=== PATIENT | female | born 1995 | race Caucasian/White ===

== ENCOUNTER 2018-04-16 01:16 | Outpatient (CLI) | payer OTHER, SELFPAY ==
[2018-04-16 02:24] VITALS: BMI 25.4
[2018-04-16 02:28] LABS: Bacteria 0 SEEN /hpf (None Seen); Mucous, Urine 0 SEEN /hpf (<or=2+)
[2018-04-16 02:57] LABS: Color, Urine Yellow (Yellow); Glucose, Dipstick Normal (Normal); Ketone-Dipstick Negative (Negative); Leukocyte Esterase-Dipstick 25 /ul (Negative); Nitrite-Dipstick Negative (Negative); Occult Blood-Urine 10 /ul (Negative); Protein-Dipstick Negative (Negative); Urine Bilirubin Dipstick Negative (Negative); Urine Clarity Sl. Cloudy (Clear); Urine Urobilinogen 1 mg/dl (Normal); Urine pH 6.5 (5.0 - 8.0)
[2018-04-16 03:04] LABS: Squamous Epithelial Cells - UA 0-5 SEEN /hpf (5-10)
[2018-04-16 03:05] LABS: White Blood Cells 0-5 SEEN /hpf (0-5)
[2018-04-16 03:06] LABS: Red Blood Cells-Urine 0-5 SEEN /hpf (0-5)
--- NOTE | 2018-04-16 07:24 | OB.TRI.NOTE ---
History of Present Illness Date of Service: 04/16/18 Was patient seen by the physician?: No Reason For Visit: R/O LABOR Date of Service: 04/16/18 Final EDWARD: 05/02/18 Gestational age: 37 Weeks and 5 Days Allergies No Known Allergies Allergy (Verified 04/16/18 01:59) NST - FHR Rate Baby A Baseline: 120 bpm Variability:: Moderate Accelerations:: 15 x 15 Decelerations:: None NST Reactive:: Yes, Appropriate for gestational age FHR Category:: Category I Uterine Activity:: irreg ctxs Impression/Plan 22 YOF primigravida at 37w 5 days w/ false labor home w/ labor precautions UA w/o evidence of infection push fluids f/u in office prn or as scheduled
== END 2018-04-16 03:15 | disposition home or self-care (01) ==
LOC: WPOUT 01:31 → WP 01:32
PROVIDERS: Visit Provider Obstetrics & Gynecology
DX: O47.1 False labor at or after 37 completed weeks of gestation (principal); Z3A.37 37 weeks gestation of pregnancy
CPT/HCPCS: 59025; 59050; 81001; 99218; G0378

== ENCOUNTER 2018-04-30 20:30 | Inpatient (IN) | payer OTHER, SELFPAY ==
[2018-04-30 19:48] VITALS: BMI 25.5
[2018-04-30] MEDS: Lactated Ringers 1,000 ML 999 ML IV (20:04)
[2018-04-30] MEDS: Nalbuphine 10 MG/ML Ampul IV (20:22)
[2018-04-30] MEDS: proMETHazine 25 MG/ML Syringe 12.5 MG IV (20:23)
[2018-04-30] MEDS: 0.9% NaCl Peripheral Flush Adult/Peds IV (20:26)
[2018-04-30 21:01] LABS: Hematocrit 36.9 % (37-47); Hemoglobin 12.1 g/dl (12.0-15.0); Mean Corp Hgb Conc 32.8 g/gl (32-36); Mean Corpuscular Hgb 29.7 pg (27.0-32.0); Mean Corpuscular Volume 90.7 fL (81-99); Mean Platelet Vol. 11.8 fl (6.2-12.0); Platelet Count 152 K/mm3 (150-450); RBC Distribution Width CV 14.9 % (11.6-14.6); RBC Distribution Width SD 50.1 fl (35.1-43.9); Red Blood Count 4.07 M/mm3 (4.2-5.4); White Blood Count 15.1 K/mm3 (4.4-11.0)
[2018-04-30 21:04] LABS: Scan Indicated on CBC? Y/N NO
[2018-04-30] MEDS: Lactated Ringers 1,000 ML 50 ML IV (21:10)
[2018-04-30] MEDS: fentaNYL-bupivacaine (epidural) 100 ML BAG EPIDURAL (21:50)
[2018-05-01] MEDS: Lactated Ringers 1,000 ML 50 ML IV (00:05)
[2018-05-01] MEDS: fentaNYL-bupivacaine (epidural) 100 ML BAG EPIDURAL (01:52)
[2018-05-01] MEDS: Ondansetron 4 MG/2 ML Vial IV (03:03)
--- NOTE | 2018-05-01 04:04 | PCM.HP.OB ---
- Problem List (1) Tobacco use during Status: Acute (2) Marijuana abuse Status: Acute (3) Status: Acute (4) Anemia affecting Status: Acute History Date of Admission: 04/30/18 Final EDWARD: 05/02/18 Final EDWARD Source: LMP Gestational age: 39 Weeks and 6 Days History of this : This is a 22 year-old, G [1], P [0], at 39 weeks 6 days estimated gestational age by LMP, confirmed by 1st trimester ultrasound. Presented to L&D with contractions that had been present since the am. Increased in frequency and intensity. Denies any leakage of fluid, vaginal, bleeding. Good movement. Upon triage in L&D minimal cervical change but then had SROM for clear fluid. Allergies No Known Allergies Allergy (Verified 04/30/18 19:36) Home Medications: Home Medications Acetaminophen [Tylenol Extra Strength] 500 - 1,000 mg PO Q6H PRN PRN 04/30/18 Ferrous Gluconate 27 mg PO 04/30/18 [id number]/FA/Omega3/Dha/Fish Oil [ Gummies] 2 each PO DAILY 04/30/18 Smoking Status: Former smoker Alcohol: None Substance Use Type: Marijuana - Positive in first trimester, 03/28/18 urine tox negative. Number of Fetus(es): 1 Heart Tracin, moderate variability, accels, Category 1 TOCO: every 2 minutes, strong to palpation Cervix complete/+2 station History Past Pregnancies: Past Pregnancies Delivery Date Name GA/Weeks Outcome Route Weight Infant Gender Labor Length Anesthesia Delivery Location Provider FOB Labs: RPR negative HIV negative HBsAG negative Rubella Immune GC/CT negative AB positive, antibody screen negative Urine tox screen positive for marijuana in first trimester, negative rescreen on 03/28/18 Expected Delivery Method: Spontaneous Vaginal Review of Systems Constitutional: Denies: Chills, Fever, Weight Change Cardiovascular: Denies: Chest Pain, Palpitations Gastrointestinal: Denies: Abdominal Pain, Nausea, Vomiting Genitourinary: Denies: Dysuria Psychiatric: Denies: Anxiety, Depression, Homicidal Ideations, Suicidal Ideations Physical Exam General: Alert, Oriented x3, No apparent distress HEENT: Atraumatic, Normocephalic Extremities:: No edema PING PONG TABLE ASSEMBLER: Normal external genitalia Estimated gestational size: Appropriate for gestational size Presentation: Cephalic Cervix Dilation (cm): 10 Station: 2 Effacement (%): 100 Assessment/Plan All Active Problems Tobacco use during (Acute) Marijuana abuse (Acute) (Acute) Anemia affecting (Acute) This is a 22 year-old, G [1], P [0], at 39 weeks gestational age. A:Active labor, second stage Category 1 FHT P: 1) Admit to L&D, routine care 2) Epidural placement for pain 3) Anticipate vaginal delivery soon. 4) Declines LARC, form signed in office 5) collaborative physician, notified of patient status Ana Puckett APRN, CNM
--- NOTE | 2018-05-01 04:08 | HP.PCM_ITS ---
- Problem List (1) Tobacco use during Status: Acute (2) Marijuana abuse Status: Acute (3) Status: Acute (4) Anemia affecting Status: Acute History Date of Admission: 04/30/18 Final EDWARD: 05/02/18 Final EDWARD Source: LMP Gestational age: 39 Weeks and 6 Days History of this : This is a 22 year-old, G [1], P [0], at 39 weeks 6 days estimated gestational age by LMP, confirmed by 1st trimester ultrasound. Presented to L&D with contractions that had been present since the am. Increased in frequency and intensity. Denies any leakage of fluid, vaginal, bleeding. Good movement. Upon triage in L&D minimal cervical change but then had SROM for clear fluid. Allergies No Known Allergies Allergy (Verified 04/30/18 19:36) Home Medications: Home Medications Acetaminophen [Tylenol Extra Strength] 500 - 1,000 mg PO Q6H PRN PRN 04/30/18 Ferrous Gluconate 27 mg PO 04/30/18 [id number]/FA/Omega3/Dha/Fish Oil [ Gummies] 2 each PO DAILY 04/30/18 Smoking Status: Former smoker Alcohol: None Substance Use Type: Marijuana - Positive in first trimester, 03/28/18 urine tox negative. Number of Fetus(es): 1 Heart Tracin, moderate variability, accels, Category 1 TOCO: every 2 minutes, strong to palpation Cervix complete/+2 station History Past Pregnancies: Past Pregnancies Delivery Date Name GA/Weeks Outcome Route Weight Infant Gender Labor Length Anesthesia Delivery Location Provider FOB Labs: RPR negative HIV negative HBsAG negative Rubella Immune GC/CT negative AB positive, antibody screen negative Urine tox screen positive for marijuana in first trimester, negative rescreen on 03/28/18 Expected Delivery Method: Spontaneous Vaginal Review of Systems Constitutional: Denies: Chills, Fever, Weight Change Cardiovascular: Denies: Chest Pain, Palpitations Gastrointestinal: Denies: Abdominal Pain, Nausea, Vomiting Genitourinary: Denies: Dysuria Psychiatric: Denies: Anxiety, Depression, Homicidal Ideations, Suicidal Ideations Physical Exam General: Alert, Oriented x3, No apparent distress HEENT: Atraumatic, Normocephalic Extremities:: No edema ABRASIVE GRADER: Normal external genitalia Estimated gestational size: Appropriate for gestational size Presentation: Cephalic Cervix Dilation (cm): 10 Station: 2 Effacement (%): 100 Assessment/Plan All Active Problems Tobacco use during (Acute) Marijuana abuse (Acute) (Acute) Anemia affecting (Acute) This is a 22 year-old, G [1], P [0], at 39 weeks gestational age. A:Active labor, second stage Category 1 FHT P: 1) Admit to L&D, routine care 2) Epidural placement for pain 3) Anticipate vaginal delivery soon. 4) Declines LARC, form signed in office 5) collaborative physician, notified of patient status Ana Puckett APRN, CNM
[2018-05-01] MEDS: Oxytocin 30 units/NS 500 ml 30 UNITS/500 ML IV.SOLN 334 UNITS IV (04:53)
--- NOTE | 2018-05-01 05:23 | PCM.OB.VAG ---
- Problem List (1) Tobacco use during Status: Acute (2) Marijuana abuse Status: Acute (3) Status: Acute (4) Anemia affecting Status: Acute (5) Vaginal delivery Status: Acute (6) First degree perineal laceration during delivery Status: Acute Vaginal Delivery Maternal Presentation: Active Labor Amniotic Membrane Rupture Type: Spontaneous Amniotic Fluid Description: Clear Final EDWARD: 05/02/18 Final EDWARD Source: LMP Gestational age: 39 Weeks and 6 Days Date of Procedure: 05/01/18 Pre-Operative Diagnosis: Active labor Post-Operative Diagnosis: Surgery/ Procedure Performed: Spontaneous Vaginal Delivery Type of Anesthesia: Epidural Description of Procedure: Progressed to complete and +2 station. Epidural effective. Pushing efforts began with good maternal effort. of viable female over 1st degree perineal laceration, APGARS 9,9. delivered OA and placed on maternal abdomen, spontaneous cry, mouth and nares suctioned for secretions. Pitocin IVPB startedwith gentle traction/counter pressure for active 3rd stage management. Cord doubly clamped after pulsations ceased, delayed cord clamping. Cord cut by FOB. Placenta delivered with maternal effort via myrna, intact, 3 vessel cord. Perineum inspected and revealed 1st degree perineal laceration, repaired under epidural analgesia and 3.0 vicryl, hemostasis achieved. Fundus firm, EBL 300ml. Sponge and instrument count complete. initiated, mom and baby stable. Family bonding well. notified of delivery. Presentation: Vertex Placental Delivery Description: Spontaneous Placenta Disposition: [facility] Cord Vessel Description: 3 Vessels Estimated Blood Loss: 300 ml A gender: Female (1 minute): 9 (5 minute): 9 Episiotomy Description: None Laceration: Perineal Extension/lac, 1st degree Medications given after delivery: IV Pitocin
--- NOTE | 2018-05-01 05:31 | PCM.DCVAG ---
Discharge Diet: No Restrictions Discharge Activity: Return to Normal Activity May resume sexual activity in: 4-6 weeks Weight Bearing Status: Full weight bearing Call your doctor if your incision/area has: Continuous Slow Oozing, Sudden Increased Bleeding, Increased Pain/ Swelling, Increased Redness, Foul Smelling Discharge Call your doctor if you observe: Fever of 101 or Higher, Inability to urinate, Inability to have a bowel movement, Using more than one pad per hour, Shortness of breath, Chest pain, Increased palpitations (irregular heartbeat), Calf discomfort, Uncontrolled pain Additional Instructions: If you experience any of the following, contact your healthcare provider. Bleeding that soaks a pad every hour for 2 hours Fever 100.4 or higher Unrelieved incision or abdominal pain Swelling, redness, discharge or bleeding from your incision or episiotomy site Your incision begins to separate Problems urinating (including inability to urinate or burning while urinating). Visual changes Severe headache Flu-like symptoms Pain or redness in one of both of your breasts Pain, warmth, tenderness or swelling in your legs, especially the calf area Frequent nausea and vomiting Symptoms of depression or anxiety If you experience any of the following, call 911 or go to the nearest Emergency Room. Chest pain Problems breathing Seizure activity Partial or complete paralysis of a body part, slurred speech, weakness or drooping of the face, or a sudden inability to walk or hold your balance Allergies/Adverse Reactions: Allergies No Known Allergies Allergy (Verified 04/30/18 19:36) Medications to take at Discharge Acetaminophen [Tylenol Extra Strength] 500 - 1,000 mg PO Q6H PRN PRN 04/30/18 Ferrous Gluconate 27 mg PO 04/30/18 [id number]/FA/Omega3/Dha/Fish Oil [ Gummies] 2 each PO DAILY 04/30/18 Please Follow Up With: Ana Puckett CNM When: Call to make an appointment with your provider in 2 weeks and 6 weeks. Primary Care Physician: Care Physician,No Primary [Primary Care Provider] - Test Results: Test results from this visit will be discussed in further detail at your follow-up appointment, if applicable.
[2018-05-01] MEDS: Oxytocin 30 units/NS 500 ml 30 UNITS/500 ML IV.SOLN 167 UNITS IV (05:35)
[2018-05-01 08:03] LABS: Amphetamine Urine VISTA NEGATIVE (<1000 ng/mL); Barbiturate Urine VISTA NEGATIVE (< 200 ng/mL); Benzodiazepine Urine VISTA NEGATIVE (< 200 ng/mL); Cocaine Urine VISTA NEGATIVE (< 300 ng/mL); Ecstacy Urine VISTA NEGATIVE (< 500 ng/mL); Methadone Urine VISTA NEGATIVE (< 300 ng/mL); PCP Urine VISTA NEGATIVE (< 25 ng/mL); THC Urine VISTA NEGATIVE (< 50 ng/mL); Vista UDS pH Range 6
[2018-05-01] MEDS: Ibuprofen 600 MG Tablet PO ×2 (08:45→15:05)
[2018-05-01] MEDS: 0.9% Saline Lock 10 ML Syringe IV (08:45)
[2018-05-01 09:00] VITALS: BP 120/66; PULSE 84; RESP 16; TEMP 36.5; O2SAT 98
--- NOTE | 2018-05-01 10:58 | NURSING ---
Agree with assessment by Sae MALLORY
[2018-05-01 12:20] VITALS: BP 107/63; PULSE 72; RESP 18; TEMP 36.7; O2SAT 97
[2018-05-01 15:40] VITALS: BP 116/71; PULSE 86; RESP 18; TEMP 36.6; O2SAT 97
[2018-05-01 20:00] VITALS: BP 119/70; PULSE 84; RESP 16; TEMP 36.8; O2SAT 98
[2018-05-02 01:09] VITALS: BP 121/85; PULSE 97; RESP 16; TEMP 36.6; O2SAT 98
[2018-05-02 04:30] VITALS: BP 113/62; PULSE 70; RESP 16; TEMP 36.7; O2SAT 97
[2018-05-02] MEDS: Ibuprofen 600 MG Tablet PO (04:38)
[2018-05-02 08:00] VITALS: BP 121/73; PULSE 79; RESP 16; TEMP 36.9; O2SAT 97
--- NOTE | 2018-05-02 08:37 | PCM.PN.OB ---
Patient Problems: Active and Suspected Problems Tobacco use during (Acute) Marijuana abuse (Acute) (Acute) Anemia affecting (Acute) Vaginal delivery (Acute) First degree perineal laceration during delivery (Acute) Subjective: Patient sitting up in bed, denies any issues at this time. Reports that baby wasn't latching and not much milk was coming out so patient has elected to formula feed baby. Patient denies any issues with urination and ambulation. Denies WELCH, scotoma or dizziness. Patient denies bowel movement yet, though she is passing gas. Objective: Nipples without cracks or blisters, no ecchymoses noted Abdomen NT x 4 quadrants, FF midline 2FB below umbilicus +2/4 reflexes in LE, no edema noted, negative calf tenderness to palpation perineum well approximated, scant rubra lochia - Physical Exam General: Alert, Oriented x3, Cooperative HEENT: Atraumatic, EOMI, Normocephalic Neck: Supple Lungs: Normal air movement Cardiovascular: Regular rate, No murmurs Abdomen: Soft, Non Tender Extremities: No edema, Capillary Refill Less than 3 Seconds Skin: No rashes, No breakdown Musculoskeletal: No Tenderness to Palpation of Joints or Extremities Neurological: Cranial nerves II-XII grossly intact Psych/Mental Status: Normal Affect, Appropriate Vital Signs Temp Pulse Resp BP Pulse Ox 98.5 F 79 16 121/73 H 97 05/02/18 08:00 05/02/18 08:00 05/02/18 08:00 05/02/18 08:00 05/02/18 08:00 Oxygen Delivery Method Room Air Weight: 158 lb 4.67 oz Body Mass Index (BMI) 25.5 Intake and Output for Last 24 Hours 04/30/18 05/01/18 05/02/18 23:59 23:59 23:59 Intake Total 4165.1 / 4165.1 Output Total 100 / 100 2150 / 2150 Balance -100 / -100 2014.1 Medical Necessity - Tobacco Use Smoking Status: Former smoker Assessment/Plan All Active Problems Tobacco use during (Acute) Marijuana abuse (Acute) (Acute) Anemia affecting (Acute) Vaginal delivery (Acute) First degree perineal laceration during delivery (Acute) 22 y/o G1 now P1, s/p , PPD # 1 P: 1) Continue PP orders 2) teaching/education done. Discussion re: presence of colostrum and delay of milk production for 2-3 days after delivery. Discussion also re: as supply and demand, the more one breastfeeds the sooner the milk comes in. Patient still unsure if she will try to breastfeed. 3) Anticipate discharge to home tonight or tomorrow AM pending discharge. Susy SAMUEL
--- NOTE | 2018-05-02 11:04 | CM.ED ---
Social Work Note [See Attached Assessment] BRAXTON presents with pleasant affect as evidenced by smiling and willingness to participate in assessment. Upon entry into room she is holding the and gazing at her. This is MOB first child and they have named her Radha. BRAXTON reports to live with her parents and 19 y/o brother. GEETHA lives with his parents, but stays with her frequently. They both work. BRAXTON works at [employer] and will have 6 weeks off, and reports that GEETHA works at [employer]. She is insured through her parents and they are checking to see if the can be added to that insurance. Also suggested looking into coverage under her father, or through [employer] is eligible. Understanding expressed. Pt denies any physical, verbal or emotional abuse in the home or within her relationship with FOKristin. MOB states that all supplies are obtained and she denies concerns. She is not linked with any local agencies such as [place], [facility] or [place]. She declines referrals, but accepts information provided. Infant's hairmasters manager will be Dr. Baker. BRAXTON has not established the first appointment, but is aware that she will need to do so within the next week. Reports access to transportation. MOB denies mental health diagnoses. Review PPD and provide with information packet. BRAXTON identifies her mother and FOB as her primary supports. Claims that when she is feeling anxious or down she just talks with one of them and that typically resolves her symptoms. Denies need for counseling at this time. Provided with local resources if this need changes. BRAXTON reports a hx of marijuana use prior to being . Has not had a positive tox screen during the or upon admission. Infant's urine screenings have been negative, but [facility] sample is still pending. MOB denies any other drug use. Inform that if mec sample returns positive this display card writer, as a mandated court reporter, has to make a CSB referral. BRAXTON would like notified if this is done. Provide support. MOB denies further needs at this time. Made aware that SW is available if needs arise prior to discharge. Plan: Home Ana Wolf, FILM RENTAL CLERK, [employer] WORKER
[2018-05-02 14:00] VITALS: BP 114/79; PULSE 84; RESP 16; TEMP 36.5
== END 2018-05-02 17:30 | disposition home or self-care (01) | DRG 775 ==
LOC: WPOUT 20:32
PROVIDERS: Admitting Provider Obstetrics & Gynecology; Visit Provider Obstetrics & Gynecology
DX: O42.02 Full-term premature rupture of membranes, onset of labor within 24 hours of rupture (principal); O99.324 Drug use complicating childbirth; F12.10 Cannabis abuse, uncomplicated; O99.334 Smoking (tobacco) complicating childbirth; O70.0 First degree perineal laceration during delivery; O99.02 Anemia complicating childbirth; D64.9 Anemia, unspecified; Z3A.39 39 weeks gestation of pregnancy; Z37.0 Single live birth
CPT/HCPCS: 59025; 59050; 80307; 85027; 86850; 86900; 99218; J7120; A4216; G0378; J2405

== ENCOUNTER 2019-07-16 10:09 | Emergency (ER) | payer MEDICAID, SELFPAY ==
[2019-07-16 10:10] VITALS: BP 164/106; PULSE 121; RESP 16; TEMP 36.6; O2SAT 99; BMI 21.7
--- NOTE | 2019-07-16 10:32 | ED.VIS.DENTA ---
History of Present Illness Chief Complaint: Dental Informant: Patient Onset: Days Context: Gradual Onset Timing: Continuous Current Severity: Severe Maximum Severity: Severe Relieved by: NSAIDs Associated Symptoms: Jaw Swelling Narrative: Patient is a 23-year-old female with no significant past medical history presenting with right lower dental pain and swelling. Patient states it is been progressing over the past 2 to 3 days. She is now having swelling on her right lower jaw. Patient states her symptoms been making her very anxious and because of that she is been having more anxiety attacks. Patient notes that she has had a cough that intermittently is productive of a small amount of blood. Patient does smoke tobacco. She has been alternating Tylenol and Motrin at home. Did not take anything today. She is also been trying to keep the area cold by drinking cold things. She still able to eat and is handling her secretions. Patient has had a cracked tooth for over a year and had a flareup of this that resolved spontaneously 1 month ago. She does not have a dentist. She would like referral to the dentist. She denies any fever or chills. She does have associated headache. Past Medical History - Allergies and Home Meds Allergies/Adverse Reactions: Allergies No Known Allergies Allergy (Verified 07/16/19 10:13) Primary Care Physician: Care Physician,No Primary [Primary Care Provider] - Past Medical History: None Surgical History: noncontributory Lives: With Family Smoking Status: Current every day smoker Review of Systems All systems negative except as indicated ENT: Reports: - - Right lower dental pain and swelling Respiratory: Reports: Cough Neurological: Reports: Headache Psych: Reports: Anxiety Physical Exam Vital Signs/Narrative: Vital Signs Temp Pulse Resp BP Pulse Ox 07/16/19 10:10 98 F 121 H 16 164/106 H 99 Inital Vital Signs reviewed: Yes General: Well nourished, Well developed Head: Atraumatic, - - Mild soft tissue swelling just below the right angle of the mandible ENT: Moist mucous membranes, No rhinorrhea, TM's clear Mouth/Throat: Normal inspection lips/gums, Normal oral mucosa, No dental tenderness, No focal abscess, Normal posterior oropharynx, No sublingual edema, Dentral fracture - Large fracture and erosion of the right lower back molar which is where patient's pain is, there is no reproducible tenderness to palpation, Widespread dental decay. Negative for: Tenderness on tooth percussion Neck: Supple, No lymphadenopathy, Nontender, No JVD, Submandibular soft tissue swelling - Right, - - No nuchal rigidity Cardiovascular: Regular rate, Regular rhythm, No murmurs Respiratory: No distress, CTA bilaterally, Chest nontender. Negative for: Wheezing, Chest tenderness Abdomen: Soft, Nontender, Nondistended, Normal bowel sounds Back: Nontender, Normal Inspection Extremities: Nontender, No edema Skin: Normal color, No rash Neurological: Alert, Oriented x3, Cranial nerves II-XII grossly intact, Normal Strength, Normal Sensation Psychological: Normal affect Diagnostic/Tx/Re-eval - Medical Decision Making She is evaluated for dental pain and associated facial swelling. She appears nontoxic and in no acute distress. Patient is mildly tachycardic but she is also very anxious. is negative. Patient is given Motrin, Tylenol and penicillin for likely deep dental abscess. There is no obvious area of fluctuance amenable to drainage at this time. She her sublingual mucosa is soft and she does not have overriding cellulitis. I do not suspect Jose Raul's angina. Patient airway is intact. Her breath sounds are clear. What she states she has had a mild cough with some blood do not think further evaluation of this is indicated emergently. Patient is given dental referral. She is encouraged to quit smoking as this is likely exacerbating her dental infection and pain. Patient is counseled on signs and symptoms requiring return to the emergency room. Patient verbalizes agreement and understand this plan. Patient discharged home in stable and improved condition. ED Disposition - Plan for ED Patient: Disposition: Home or Assisted Living Diagnosis: Dentalgia, Facial swelling Instructions: Dental Abscess Prescriptions: Ibuprofen 600 mg PO 4X/DAY PRN #20 tab PRN Reason: Pain Or Fever Prescription Printed Penicillin V Potassium 500 mg PO 4X/DAY #40 tab Prescription Printed Referrals: Valeria Reddy [NON-STAFF] - Additional Instructions: It is very important that you follow-up with a dentist. Please stop smoking. Alternate Tylenol and ibuprofen for pain. Make sure you take the antibiotics. Your test was negative today.
[2019-07-16 10:42] VITALS: BP 131/93; PULSE 108; RESP 18; O2SAT 96
[2019-07-16] MEDS: Acetaminophen 500 MG Tablet 1000 MG PO (10:44)
[2019-07-16] MEDS: Penicillin Vk 250 MG Tablet 500 MG PO (10:45)
[2019-07-16 10:49] LABS: Internal QC Validated? YES +Cl - CLEAR BKGD; Pregnancy, Urine Negative Negative
[2019-07-16] MEDS: Ibuprofen 600 MG Tablet PO (10:58)
[2019-07-16 11:01] VITALS: RESP 16
--- NOTE | 2019-07-16 11:01 | ED.RN ---
REVIEWED D/C INSTRUCTIONS, FOLLOW UP CARE, PRESCRIPTIONS, AND S/S THAT WOULD WARRANT A RETURN TO THE ED WITH PT. PT VERBALIZED AN UNDERSTANDING AND DENIES FURTHER QUESTIONS FOR THIS RN. PT SKIN P/W/D, RESP EVEN AND UNLABORED, PT A&O X 3, NO DISTRESS NOTED. PT AMBULATED OUT OF ED, GAIT STEADY.
== END 2019-07-16 11:03 | disposition home or self-care (01) ==
PROVIDERS: Emergency Provider Emergency Medicine
DX: K03.81 Cracked tooth (principal); F17.200 Nicotine dependence, unspecified, uncomplicated
CPT/HCPCS: 81025; 99283

== ENCOUNTER 2020-01-06 13:08 | Emergency (ER) | payer SELFPAY ==
[2020-01-06 13:10] VITALS: BP 121/86; PULSE 116; RESP 18; TEMP 36.3; O2SAT 99; BMI 24.0
--- NOTE | 2020-01-06 13:24 | EKG12_ITS ---
Test Reason : DIZZINESS Blood Pressure : / mmHG Vent. Rate : 102 BPM Atrial Rate : 102 BPM P-R Int : 140 ms QRS Dur : 080 ms QT Int : 340 ms P-R-T Axes : 064 -03 059 degrees QTc Int : 443 ms Sinus tachycardia Otherwise normal ECG Confirmed by RMOA BANDA, SUJIT ([id number]), sound editor ASTER CHUNG ([id number] on 01/08/2020 10:02:43 AM Referred By: TAPAN Confirmed By:SUJIT BRANDON MD
--- NOTE | 2020-01-06 13:25 | ED.VIS.GEN ---
History of Present Illness Chief Complaint: Dizziness Informant: Patient Onset: Days - Syncopal episode on Context: Sudden Onset Timing: Intermittent Quality: Patient states she passed out Location: Home Current Severity: Mild Maximum Severity: Severe Worsened by: Rising from supine or sitting position rapidly Relieved by: Setting Associated Symptoms: Nausea and history of iron deficiency anemia Narrative: Patient is a 24-year-old who states her last normal menstrual period which began this month was abnormal. She states it was very heavy for 3 days. She is sexually active. She does not use any form of control. She discontinued taking her iron tablets 20 months ago which is approximately a month after her child was born. She denies black or maroon stool. She denies blood in her urine. She denies heavy menstrual periods. She stated this month was heavy compared to prior months. Patient denies fever, chills night sweats. She denies headache, paresthesia, anesthesia medics. She denies ocular, visual auditory symptoms. She denies chest pain. She has complained of bilateral upper abdominal pain intermittently for the past several days. She denies food intolerance. She denies dysuria, frequency or urgency. Prior similar symptoms: Yes Recent Illness/Hospitalization: No - Past Medical History (1) Anemia affecting Status: Acute (2) Marijuana abuse Status: Acute Past Medical History - Allergies and Home Meds Allergies/Adverse Reactions: Allergies No Known Allergies Allergy (Verified 01/06/20 13:10) Primary Care Physician: Care Physician,No Primary [Primary Care Provider] - Surgical History: noncontributory Lives: With Family Smoking Status: Current every day smoker Alcohol: Rare Drugs: Marijuana Review of Systems General: Reports: Malaise. Denies: Chills, Fever, Subjective, Sweats, Weight loss Eyes: Denies: Visual changes - bilaterally, Blurred Vision - bilaterally, Diplopia ENT: Denies: Rhinorrhea, Sore throat Cardiovascular: Reports: Palpitations, Heart racing. Denies: Chest pain Respiratory: Reports: Cough - And cough which she attributes to smoking.. Denies: Dyspnea, Dyspnea on exertion Gastrointestinal: Reports: Abdominal pain - Bilateral right and left costal margin intermittently over the past several days, Nausea. Denies: Vomiting, Diarrhea, Constipation, Melena, Hematochezia Genitourinary: Denies: Dysuria, Hematuria, Frequency Musculoskeletal: Denies: Myalgias, Arthralgias, Neck pain, Back pain, Swelling, Extremity Pain, -, - Skin: Denies: Rash, Wounds Neurological: Denies: Headache, Weakness, Parasthesia, Numbness Endocrine: Denies: Polyuria, Polydipsia Allergy: Denies: Uticaria, Swelling of the mouth Physical Exam Vital Signs/Narrative: Vital Signs Temp Pulse Resp BP Pulse Ox 01/06/20 13:10 97.4 F L 116 H 18 121/86 H 99 Inital Vital Signs reviewed: Yes General: Well nourished, Well developed, No Acute Distress Head: Normocephalic, Atraumatic Eyes: Perrl, EOMI. Negative for: Pale conjunctiva, Scleral icterus ENT: Moist mucous membranes, No rhinorrhea Neck: Supple, Nontender, No lymphadenopathy, No JVD Cardiovascular: Regular rate, Regular rhythm, No murmurs, Normal S1, Normal S2 Respiratory: No distress, CTA bilaterally, Chest nontender Abdomen: Soft, Nontender, Nondistended, Normal bowel sounds, No masses Back: Nontender, Normal Inspection Extremities: Nontender, No edema. Negative for: Calf Tenderness Skin: No rash, No Trauma, Pallor. Negative for: Cyanosis, Diaphoresis, Jaundice Neurological: Alert, Oriented x3, Cranial nerves II-XII grossly intact, Normal Strength, Normal Sensation, Normal Gait Psychological: Normal affect Diagnostic/Tx/Re-eval Laboratory Results 01/06/20 01/06/20 01/06/20 13:25 13:25 13:25 WBC 10.2 RBC 4.55 Hgb 13.5 Hct 41.1 MCV 90.3 MCH 29.7 MCHC 32.8 RDW Std Deviation 45.6 H RDW Coeff of Kana 13.9 Plt Count 203 MPV 10.9 Sodium 138 Potassium 4.1 Chloride 107 Carbon Dioxide 26.0 Anion Gap 5 BUN 12 Creatinine 0.76 Estim Creat Clear Calc 108.69 Est GFR (MDRD) Af Amer 122 Est GFR (MDRD) Non-Af 101 BUN/Creatinine Ratio 15.7 Glucose 95 Calcium 8.8 Serum , Qual NEGATIVE Static vital signs were negative. Suspect patient had vasovagal sick episode on . - Rhythm Strip Rhythm Strip: Sinus Tach Rate: 122 Ectopy: None - EKG Initial EKG Interpretation: Sinus Tachycardia - Sinus tachycardia rate of 102. CT interval 140 ms. QRS duration 80 ms. QT duration 340 ms. [place] is normal. - Medical Decision Making Differential includes vasovagal syncope, orthostatic hypotension, with history of iron deficiency Ann-Marie will obtain CBC and basic metabolic panel was obtained to assess BUN to creatinine ratio. Because her menses was abnormal will obtain serum test. ED Disposition - Plan for ED Patient: Disposition: Home or Assisted Living Diagnosis: Syncope and collapse, Sinus tachycardia by electrocardiogram, Abnormal vaginal bleeding Instructions: ED Fainting Uncertain Cause, ED Bleed Irregular Vaginal Referrals: Care Physician,No Primary [Primary Care Provider] - Gracia Humphrey MD [STAFF PHYSICIAN] - Additional Instructions: Refer to Dr. Humphrey since she do not have a primary care physician in the area.
[2020-01-06 13:37] LABS: Hematocrit 41.1 % (37-47); Hemoglobin 13.5 g/dL (12.0-15.0); Mean Corp Hgb Conc 32.8 g/dL (32-36); Mean Corpuscular Hgb 29.7 pg (27.0-32.0); Mean Corpuscular Volume 90.3 fL (81-99); Mean Platelet Vol. 10.9 fl (6.2-12.0); Platelet Count 203 K/mm3 (150-450); RBC Distribution Width CV 13.9 % (11.6-14.6); RBC Distribution Width SD 45.6 fl (35.1-43.9); Red Blood Count 4.55 M/mm3 (4.2-5.4); White Blood Count 10.2 K/mm3 (4.4-11.0)
[2020-01-06 13:44] LABS: Internal QC Validated? YES +Cl - CLEAR BKGD; Pregnancy, Serum, hCG Quali. NEGATIVE Negative
[2020-01-06 13:49] LABS: Anion Gap 5 (5-15); BUN 12 mg/dL (7-18); BUN/Creat Ratio 15.7 RATIO (10-20); Calcium,Total 8.8 mg/dL (8.5-10.1); Chloride 107 mmol/L (98-107); Creatinine, Serum 0.76 mg/dL (0.55-1.02); EST Glomerular Filtration Rate 101 mL/min (>60); Est Glom Filt Rate - Afr Amer 122 mL/min (>60); Estimated Creatinine Clearance 108.69 ml/min; Glucose 95 mg/dL (74-106); Potassium 4.1 mmol/L (3.5-5.1); Sodium Level 138 mmol/L (136-145)
[2020-01-06 13:53] VITALS: BP 113/68; BP 117/78; BP 118/79; PULSE 118; PULSE 95; PULSE 98
[2020-01-06 14:17] VITALS: BP 118/85; PULSE 105; RESP 20; O2SAT 99
== END 2020-01-06 14:18 | disposition home or self-care (01) ==
PROVIDERS: Emergency Provider Emergency Medicine
DX: R55 Syncope and collapse (principal); R00.0 Tachycardia, unspecified; N93.9 Abnormal uterine and vaginal bleeding, unspecified; F17.200 Nicotine dependence, unspecified, uncomplicated
CPT/HCPCS: 80048; 84703; 85027; 93005; 99284; A4216

== ENCOUNTER 2020-01-07 17:36 | Emergency (ER) | payer SELFPAY ==
[2020-01-06 13:10] VITALS: BMI 24.0
[2020-01-07 17:37] VITALS: BP 147/92; PULSE 123; RESP 16; TEMP 36.7; O2SAT 99; BMI 24.0
--- NOTE | 2020-01-07 17:55 | RAD_ITS ---
STUDY: X-RAY CHEST REASON FOR EXAM: Female, 24 years old. DIZZINESS, CHEST PAIN TECHNIQUE: PA and lateral views of the chest. COMPARISON: None. FINDINGS: Cardiac silhouette unremarkable. Pulmonary vascularity unremarkable. Aorta unremarkable. No focal airspace opacities. No pleural effusions. Upper abdomen unremarkable. Osseous structures intact. No pneumothorax. RAD/Chest PA and Lateral IMPRESSION: No acute cardiopulmonary findings Electronically Signed: Blake Suarez, at 18:35 EDT Tel , Service support ,
--- NOTE | 2020-01-07 17:55 | EKG12_ITS ---
Test Reason : Blood Pressure : / mmHG Vent. Rate : 102 BPM Atrial Rate : 102 BPM P-R Int : 142 ms QRS Dur : 080 ms QT Int : 322 ms P-R-T Axes : 059 -10 051 degrees QTc Int : 419 ms Sinus tachycardia Otherwise normal ECG Confirmed by RENEE FELTON ([id number]), features editor ASTER CHUNG ([id number]) on 01/12/2020 10:28:22 AM Referred By: LILLIAN Confirmed By:RENEE FELTON
[2020-01-07 17:56] VITALS: BP 134/95; PULSE 108; RESP 21; O2SAT 100
[2020-01-07 18:18] LABS: Absolute Lymphocyte Count 1.55 X10^3/uL (0.83-4.51); Absolute Neutrophil Count 6.8 X10^3/uL (2.0-7.7); Basophil# 0.04 X10^3/uL; Basophil% 0.4 % (0-1); Eosinophil# 0.11 X10^3/uL; Eosinophils% 1.2 % (0-5); Hematocrit 42.7 % (37-47); Hemoglobin 13.9 g/dL (12.0-15.0); Lymphocyte # 1.55 X10^3/ul (4.0); Lymphocyte % 17.1 % (19-41); Mean Corp Hgb Conc 32.6 g/dL (32-36); Mean Corpuscular Hgb 29.6 pg (27.0-32.0); Mean Corpuscular Volume 90.9 fL (81-99); Mean Platelet Vol. 10.8 fl (6.2-12.0); Monocyte# 0.51 X10^3/uL; Monocyte% 5.6 % (0-10); NRBC Flagged by Analyzer 0 % (0-5); Neutrophil % 75.4 % (47-70); Platelet Count 202 K/mm3 (150-450); RBC Distribution Width CV 13.9 % (11.6-14.6); RBC Distribution Width SD 46.6 fl (35.1-43.9)
--- NOTE | 2020-01-07 18:19 | ED.VIS.GEN ---
History of Present Illness Chief Complaint: Dizziness Narrative: Patient presenting for evaluation secondary to syncope. Patient reports that over the course of the last 2 days she has had 2 syncopal episodes. Patient was actually seen in the emergency department for this yesterday had lab work and an EKG and was discharged with reassurance. 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 Patient does report that she has been having intermittent chest pain associated with this. Patient states that the pain will come and go and does not specifically have any exacerbating or relieving factors. Patient states that she also has been having somewhat of a headache associated with this. This headache is mild and behind both of her eyes and was not thunderclap. Patient denies any numbness or weakness. Review of the patient's family medical history reports that she has a predisposition to seizures in her family, but she is only experienced one in her life and is not on any sort of antiepileptics. Patient states that there was no postictal period associated with this fainting, and she immediately regained consciousness and there was no loss of bowel or bladder continence or tongue biting. She denies any personal or family history of cardiac arrhythmias sudden or need for pacemaker defibrillator. Patient does drink alcohol and smokes cigarettes, but is not on any sort of control and denies any illicit drug use. No DVT or PE risk factors. Past Medical History - Allergies and Home Meds Allergies/Adverse Reactions: Allergies No Known Allergies Allergy (Verified 01/07/20 17:37) Primary Care Physician: Care Physician,No Primary [Primary Care Provider] - Past Medical History: None Surgical History: noncontributory Smoking Status: Current every day smoker Review of Systems General: Denies: Chills, Fever, Sweats Eyes: Denies: Visual changes - bilaterally, Diplopia ENT: Denies: Rhinorrhea, Sore throat Cardiovascular: Reports: Chest pain, - - Syncope Respiratory: Reports: Dyspnea Gastrointestinal: Denies: Abdominal pain, Nausea, Vomiting, Diarrhea, Melena, Hematochezia Genitourinary: Denies: Dysuria, Hematuria, Frequency Musculoskeletal: Denies: Back pain, Extremity Pain Skin: Denies: Rash, Wounds Neurological: Denies: Headache, Weakness, Numbness Physical Exam Vital Signs/Narrative: Vital Signs Temp Pulse Resp BP Pulse Ox 04/26/20 17:56 108 H 21 H 134/95 H 100 01/07/20 17:37 98.1 F 123 H 16 147/92 H 99 General: Well nourished, Well developed, No Acute Distress Head: Normocephalic, Atraumatic Eyes: Perrl, EOMI ENT: Moist mucous membranes, No rhinorrhea Neck: Supple, Nontender, - - No thyroid tenderness Cardiovascular: Regular rhythm, No murmurs, Tachycardia Respiratory: No distress, CTA bilaterally, Chest nontender Abdomen: Soft, Nontender, Nondistended, Normal bowel sounds Back: Nontender, Normal Inspection Extremities: Nontender, No edema Skin: Normal color, No rash Neurological: Alert, Oriented x3, Cranial nerves II-XII grossly intact, Normal Strength, Normal Sensation Psychological: Normal affect, Normal Mood Diagnostic/Tx/Re-eval Clinical Impression(s) from Imaging Studies Chest X-Ray 01/07/20 17:55 IMPRESSION: No acute cardiopulmonary findings Electronically Signed: Blake Suarez, at 18:35 EDT Tel , Service support , Brain CT 01/07/20 18:23 IMPRESSION: Normal unenhanced CT scan of the brain. Electronically Signed: Ji Mckeon, at 18:59 EDT Tel , Service support , Laboratory Data 01/07/20 01/07/20 01/07/20 18:05 18:05 18:05 WBC 9.0 RBC 4.70 Hgb 13.9 Hct 42.7 MCV 90.9 MCH 29.6 MCHC 32.6 RDW Std Deviation 46.6 H RDW Coeff of Kana 13.9 Plt Count 202 MPV 10.8 Immature Gran % (Auto) 0.300 Neut % (Auto) 75.4 H Lymph % (Auto) 17.1 L [place] % (Auto) 5.6 Eos % (Auto) 1.2 Baso % (Auto) 0.4 Absolute Neuts (auto) 6.8 Absolute Lymphs (auto) 1.55 Nucleated RBC % 0 D-Dimer Quant (PE/DVT) 0.35 Sodium Potassium Chloride Carbon Dioxide Anion Gap BUN Creatinine Estim Creat Clear Calc Est GFR (MDRD) Af Amer Est GFR (MDRD) Non-Af BUN/Creatinine Ratio Glucose Calcium Magnesium Total Bilirubin 0.30 Direct Bilirubin 0.10 AST 17 ALT 20 Alkaline Phosphatase 81 Troponin I Total Protein 7.2 Albumin 3.9 Globulin 3.3 TSH 01/07/20 18:05 WBC RBC Hgb Hct MCV MCH MCHC RDW Std Deviation RDW Coeff of Kana Plt Count MPV Immature Gran % (Auto) Neut % (Auto) Lymph % (Auto) [place] % (Auto) Eos % (Auto) Baso % (Auto) Absolute Neuts (auto) Absolute Lymphs (auto) Nucleated RBC % D-Dimer Quant (PE/DVT) Sodium 142 Potassium 4.0 Chloride 110 H Carbon Dioxide 26.0 Anion Gap 6 BUN 11 Creatinine 0.78 Estim Creat Clear Calc 105.91 Est GFR (MDRD) Af Amer 118 Est GFR (MDRD) Non-Af 98 BUN/Creatinine Ratio 14.1 Glucose 84 Calcium 9.0 Magnesium 1.8 Total Bilirubin Direct Bilirubin AST ALT Alkaline Phosphatase Troponin I < 0.015 Total Protein Albumin Globulin TSH 0.38 - EKG Initial EKG Interpretation: - - Sinus tachycardia with a rate of 102. Isoelectric ST segments, normal T waves. No evidence of right ventricular strain. Normal ID and QTc intervals. No evidence of WPW or [place] morphology. - Medical Decision Making Patient presented secondary to syncope. Differential considerations included but are not limited to malignant cardiac arrhythmia, PE, coronary artery disease, seizure, electrolyte abnormality, cardiac malformation. Patient was seen yesterday for a similar presentation. More broad work-up was obtained today. EKG demonstrates no ischemic or arrhythmic changes normal intervals. CBC chemistry TSH troponin and d-dimer liver panel and magnesium studies were found to all be within normal limits. Patient's chest x-ray by my personal review, 2 views was found to be negative. Patient had CT imaging of the brain performed also has she complained of somewhat of a headache for this which was also found to be negative. At this time the patient has had 2 unprovoked syncopal episodes in the last 2 days. I did discuss with her about the risks and benefits of admission versus discharge, and she states that she is a single parent and would be otherwise unable to be admitted as there is no one to care for her child. I discussed this with cardiology, the patient will be set up with a Holter monitor, and will be provided with a prescription for an outpatient echocardiogram and close follow-up with the cardiology office. Patient was discharged in stable condition. ED Disposition - Plan for ED Patient: Disposition: Home or Assisted Living Diagnosis: Syncope Instructions: ED Fainting Uncertain Cause Referrals: Brien Rick MD [STAFF PHYSICIAN] - As soon as possible
--- NOTE | 2020-01-07 18:23 | CT_ITS ---
STUDY: CT BRAIN WITHOUT CONTRAST REASON FOR EXAM: Female, 24 years old. WELCH/DIZZINESS. Hx of sezures. Pt shielded RADIATION DOSAGE (If Supplied By Facility): CTDIvol = ( 44.99 ) mGy, DLP = ( 711.75 ) mGycm TECHNIQUE: Transaxial CT imaging of the brain was performed without administration of intravenous contrast material. Individualized dose optimization techniques were used for this CT. COMPARISON: Head CT 06/29/2014 FINDINGS: Normal soft tissue structures. Normal calvarium. Normal size ventricles and extra-axial spaces for the patient''s age. Normal white matter tracts of the cerebral hemispheres. Normal basal ganglia and thalami. Normal brainstem. Normal cerebellum. There is no intracranial hemorrhage. There are no findings of an acute ischemic infarction. Normal visualized paranasal sinuses. CT/Brain/Head without Contrast IMPRESSION: Normal unenhanced CT scan of the brain. Electronically Signed: Ji Mckeon, at 18:59 EDT Tel , Service support ,
[2020-01-07 18:29] LABS: D-Dimer Quantitative (DVT/PE) 0.35 FEU/ug/m (0.27-0.49)
[2020-01-07 18:45] LABS: Anion Gap 6 (5-15); BUN 11 mg/dL (7-18); BUN/Creat Ratio 14.1 RATIO (10-20); Chloride 110 mmol/L (98-107); Creatinine, Serum 0.78 mg/dL (0.55-1.02); EST Glomerular Filtration Rate 98 mL/min (>60); Est Glom Filt Rate - Afr Amer 118 mL/min (>60); Estimated Creatinine Clearance 105.91 ml/min; Glucose 84 mg/dL (74-106); Magnesium 1.8 mg/dL (1.6-2.6); Sodium Level 142 mmol/L (136-145); Thyroid Stim Hormone (TSH) 0.38 uIU/mL (0.358-3.74)
[2020-01-07 18:49] LABS: AST(SGOT) 17 U/L (15-37); Alanine Aminotransfer ALT/SGPT 20 U/L (13-56); Albumin, Serum 3.9 g/dL (3.2-5.0); Alkaline Phosphatase 81 U/L (45-117); Globulin 3.3 g/dL (2.2-4.2); Protein, Total 7.2 g/dL (6.4-8.2)
[2020-01-07 18:56] VITALS: BP 126/83; PULSE 100; RESP 20; O2SAT 99
[2020-01-07 19:46] VITALS: BP 118/63; PULSE 99; RESP 16; O2SAT 97
== END 2020-01-07 20:07 | disposition home or self-care (01) ==
PROVIDERS: Emergency Provider Emergency Medicine
DX: R55 Syncope and collapse (principal); F17.210 Nicotine dependence, cigarettes, uncomplicated
CPT/HCPCS: 70450; 71046; 80048; 80076; 83735; 84443; 84484; 85025; 85379; 93005; 99284; A4216

== ENCOUNTER → 2020-01-07 19:42 | Outpatient (CLI) | payer SELFPAY ==
[2020-01-07 17:37] VITALS: BMI 24.0
== END ==
LOC: CVS 19:46
PROVIDERS: Referring Provider Emergency Medicine; Visit Provider Emergency Medicine
DX: R42 Dizziness and giddiness (principal)
CPT/HCPCS: 93225; 93226

== ENCOUNTER 2020-01-16 00:12 | Emergency (ER) | payer MEDICAID, SELFPAY ==
[2020-01-16 00:17] VITALS: BP 126/86; PULSE 122; RESP 20; TEMP 36.8; O2SAT 98; BMI 24.5
--- NOTE | 2020-01-16 00:25 | ED.VIS.GEN ---
History of Present Illness Chief Complaint: Laceration Informant: Patient Onset: Today Current Severity: Mild Maximum Severity: Moderate Narrative: Patient presents after suffering a laceration to the right side of her scalp. She states that she hit her head on the corner of a bookshelf. She did get knocked to the ground. She states her right hand is slightly sore but she does not believe she broke anything. Last tetanus was in 2017 per our hospital records. Past Medical History - Allergies and Home Meds Allergies/Adverse Reactions: Allergies No Known Allergies Allergy (Verified 01/16/20 00:19) Primary Care Physician: Care Physician,No Primary [Primary Care Provider] - Prior records reviewed: Yes Past Medical History: None Surgical History: noncontributory Smoking Status: Current every day smoker Review of Systems General: Denies: Chills, Fever Eyes: Denies: Visual changes - bilaterally ENT: Denies: Bilateral ear pain Cardiovascular: Denies: Chest pain Respiratory: Denies: Dyspnea, Cough Gastrointestinal: Denies: Abdominal pain, Nausea, Vomiting, Diarrhea Genitourinary: Denies: Dysuria Skin: Reports: Wounds Neurological: Reports: Headache. Denies: Weakness, Parasthesia Hematologic: Denies: Easy bruising, Easy bleeding Allergy: Denies: Uticaria Physical Exam Vital Signs/Narrative: Vital Signs Temp Pulse Resp BP Pulse Ox 01/16/20 00:17 98.3 F 122 H 20 H 126/86 H 98 Inital Vital Signs reviewed: Yes General: Well nourished, Well developed Head: Normocephalic, - - 4 cm linear laceration right parietal scalp. Bleeding controlled. Eyes: Perrl, EOMI ENT: Moist mucous membranes Neck: Supple, Nontender Cardiovascular: Tachycardia Respiratory: No distress, CTA bilaterally Abdomen: Soft, Nontender Extremities: Nontender Skin: - Neurological: Alert - Laceration as above, Oriented x3, Normal Strength, Normal Sensation Psychological: Normal affect Diagnostic/Tx/Re-eval - Medical Decision Making Patient's tetanus is up-to-date. Please see procedure note for laceration repair. Patient is to follow-up at urgent care or return to the emergency room in 1 week for staple removal. Procedures - Lacerations No standard instances Length: 1.57 in Depth: Sub Q Shape: Linear Prep: Dede-Clecipriano Laceration repair: Lidocaine with epi Number of Sutures/Terrie: 5 Comment: Wound anesthetized with 3 cc of 1% lidocaine with epinephrine. Wound is cleansed. 5 terrie were used to close the wound. ED Disposition - Plan for ED Patient: Disposition: Home or Assisted Living Diagnosis: Scalp laceration Instructions: ED Laceration Scalp Sutures or [place] Additional Instructions: Have terrie removed in 1 week.
[2020-01-16 01:22] VITALS: BP 126/88; PULSE 105; RESP 16; O2SAT 97
== END 2020-01-16 02:20 | disposition home or self-care (01) ==
LOC: ED 01:14
PROVIDERS: Emergency Provider Emergency Medicine
DX: S01.01XA Laceration without foreign body of scalp, initial encounter (principal); W22.8XXA Striking against or struck by other objects, initial encounter; Y93.9 Activity, unspecified; Y92.9 Unspecified place or not applicable; F17.200 Nicotine dependence, unspecified, uncomplicated
CPT/HCPCS: 12002; 99283

== ENCOUNTER 2020-01-16 19:50 | Emergency (ER) | payer MEDICAID, SELFPAY ==
[2020-01-16 00:17] VITALS: BMI 24.5
[2020-01-16 19:51] VITALS: BP 151/95; PULSE 113; PULSE 115; RESP 16; RESP 18; TEMP 37.1; O2SAT 98; BMI 24.3
--- NOTE | 2020-01-16 20:25 | ED.RN ---
PT DENIES S.I. PT REPORTED C/O BEING DEPRESSED BUT WOULD NEVER DO THAT, I HAVE A DAUGHTER AND A GOOD JOB
[2020-01-16 20:40] LABS: Amphetamine Urine VISTA NEGATIVE (<1000 ng/mL); Barbiturate Urine VISTA NEGATIVE (< 200 ng/mL); Benzodiazepine Urine VISTA POSITIVE (< 200 ng/mL); Cocaine Urine VISTA NEGATIVE (< 300 ng/mL); Ecstacy Urine VISTA NEGATIVE (< 500 ng/mL); Methadone Urine VISTA NEGATIVE (< 300 ng/mL); PCP Urine VISTA NEGATIVE (< 25 ng/mL); THC Urine VISTA NEGATIVE (< 50 ng/mL); Vista UDS pH Range 7
[2020-01-16 20:42] LABS: Absolute Lymphocyte Count 2.39 X10^3/uL (0.83-4.51); Absolute Neutrophil Count 5.1 X10^3/uL (2.0-7.7); Basophil# 0.05 X10^3/uL; Basophil% 0.6 % (0-1); Eosinophils% 3.6 % (0-5); Hematocrit 47.2 % (37-47); Hemoglobin 15.2 g/dL (12.0-15.0); Lymphocyte # 2.39 X10^3/ul (4.0); Lymphocyte % 28.7 % (19-41); Mean Corp Hgb Conc 32.2 g/dL (32-36); Mean Corpuscular Hgb 29.8 pg (27.0-32.0); Mean Corpuscular Volume 92.5 fL (81-99); Mean Platelet Vol. 11.6 fl (6.2-12.0); NRBC Flagged by Analyzer 0 % (0-5); Neutrophil # 5.08 X10^3/uL (2.7-7.7); Platelet Count 218 K/mm3 (150-450); RBC Distribution Width CV 13.8 % (11.6-14.6); RBC Distribution Width SD 47.2 fl (35.1-43.9); White Blood Count 8.3 K/mm3 (4.4-11.0)
[2020-01-16 20:50] LABS: Anion Gap 4 (5-15); BUN 7 mg/dL (7-18); BUN/Creat Ratio 8.4 RATIO (10-20); Calcium,Total 8.9 mg/dL (8.5-10.1); Chloride 112 mmol/L (98-107); Creatinine, Serum 0.83 mg/dL (0.55-1.02); EST Glomerular Filtration Rate 91 mL/min (>60); Est Glom Filt Rate - Afr Amer 111 mL/min (>60); Estimated Creatinine Clearance 99.53 ml/min; Glucose 100 mg/dL (74-106); Potassium 4.2 mmol/L (3.5-5.1); Sodium Level 143 mmol/L (136-145)
[2020-01-16 21:05] LABS: Internal QC Validated? YES +Cl - CLEAR BKGD; Pregnancy, Serum, hCG Quali. NEGATIVE Negative
--- NOTE | 2020-01-16 21:09 | ED.VISSUMM ---
- ER Visit Summary Date of Service: 01/16/20 Chief Complaint: Suicidal ideation History of Present Illness: The patient is a 24 F presenting per police secondary to suicidal ideation. Patient states she woke up and the police were in her house. She believes that her child's father called them due to concern about her safety. She admits to depression. Denies suicidal thoughts or plan. Per pink slip, she made remarks to her sister stating she wanted to end her life and wanted her sister to take care of her 2-year-old child when she was gone. She also sent text messages to her child's father expressing her desire to . She admitted to saying these statements to the police. States she has no specific plan to harm herself. Her sister stated that she has made these statements over the past week and is concerned for her wellbeing. Physical Examination: Vitals are stable. Patient is afebrile. Alert no acute distress. HEENT exam is unremarkable. Neck is supple. Lungs are clear and equal bilaterally. Heart is regular rate and rhythm. Abdomen is soft nontender nondistended. Extremities are unremarkable. Skin is warm and dry. No focal neurologic deficit. Denies suicidal or homicidal ideation Remainder of exam is unremarkable. Emergency Department Course and Treatment: CBC, chemistries unremarkable. hCG negative. Tox positive for opiates and benzos. Alcohol is pending. Will discuss with the counseling center for evaluation. Disposition: Per counseling center Impression: Reported suicidal ideation This note was generated with [employer] dictation software. It may contain incorrect words, spelling, and punctuation that were not noted in review of the chart prior to signing ED Disposition - Plan for ED Patient: Referrals: Care Physician,No Primary [Primary Care Provider] -
[2020-01-16 21:11] VITALS: PULSE 100; RESP 16
--- NOTE | 2020-01-16 21:15 | ED.RN ---
CALLED [facility] TO SEE THIS PT
[2020-01-17] VITALS (17 sets, daily range): BP systolic 106–138; BP diastolic 68–86; PULSE 55–94; RESP 15–18; TEMP 36.8–37; O2SAT 96–99
--- NOTE | 2020-01-17 00:45 | ED.RN ---
[employer] FROM [facility] FAXED PAPERS FOR PT TO SIGN, THIS NURSE ATTEMPTED TO HAVE THE PAPERS SIGNED AND FAXED BACK TO [facility]. PT REFUSED TO SIGN, DR. WOOTEN WENT AND SPOKE WITH PT ABOUT PLACEMENT FOR MENTAL HEALTH. PT BECAME AGITATED AND TEARFUL STATING SHE WANTED TO GO OUTSIDE AND GET SOME FRESH AIR, PT THREATENED TO LEAVE [facility], DR. WOOTEN EXPLAINED THAT PT WOULD BE RETURNED TO [facility], PLACED IN RESTRAINTS AND MEDICATED. PT THEN STATED SHE REFUSED TO TALK TO ANYONE EVEN IF SHE WERE PLACED AT ANOTHER FACILITY. DR. WOOTEN OFFERED TO MEDICATE PT AND PT ACCEPTED.
[2020-01-17] MEDS: Ziprasidone IM 20 MG/ML VIAL 10 MG IM (00:53)
--- NOTE | 2020-01-17 03:16 | EKG12_ITS ---
Test Reason : Blood Pressure : / mmHG Vent. Rate : 065 BPM Atrial Rate : 065 BPM P-R Int : 132 ms QRS Dur : 084 ms QT Int : 420 ms P-R-T Axes : 047 -08 033 degrees QTc Int : 436 ms Sinus rhythm with marked sinus arrhythmia Otherwise normal ECG Confirmed by RENEE FELTON ([id number]), editor in chief newspaper ASTER CHUNG ([id number]) on 01/22/2020 2:46:00 PM Referred By: ANGELA Confirmed By:RENEE FELTON
[2020-01-17 03:37] LABS: AST(SGOT) 21 U/L (15-37); Alanine Aminotransfer ALT/SGPT 23 U/L (13-56); Alkaline Phosphatase 93 U/L (45-117); Bilirubin, Direct 0.07 mg/dL (0.00-0.30); Globulin 3.7 g/dL (2.2-4.2); Protein, Total 7.7 g/dL (6.4-8.2)
[2020-01-17] MEDS: Ziprasidone IM 20 MG/ML VIAL IM (13:25)
--- NOTE | 2020-01-17 20:18 | ED.RN ---
pts 24 hour period of observation completed, ciwa done, a call was placed to [facility] by elizabeth sortowire harness design engineer
--- NOTE | 2020-01-17 20:30 | ED.RN ---
information faxed to [facility] at this time. They are contacting [facility] at this time for admission
[2020-01-17] MEDS: LORazepam 1 MG Tablet PO (21:17)
--- NOTE | 2020-01-17 23:54 | ED.RN ---
SHANIA FROM [facility] CALLED TO REQUEST A COPY OF THIS PTS EKG STATING SHE COULD NOT READ THE ONE THAT WAS SENT TO HER BY [facility]. A COPY WAS PRINTED FROM [employer] AND FAXED. FAX CONFIRMED WITH SHANIA AND ACCEPTANCE WITH [facility]. PATIENT CAN'T ARRIVE AT [facility] UNTIL AFTER 0800 01/18/2020.
[2020-01-18] VITALS (9 sets, daily range): BP systolic 122–123; BP diastolic 71–74; PULSE 76; RESP 14–16; TEMP 36.9; O2SAT 96–98
--- NOTE | 2020-01-18 02:05 | ED.RN ---
PER MAREN FROM [facility], [facility] WILL BE HERE BY 0800 TO TRANSPORT THIS PT TO [facility].
--- NOTE | 2020-01-18 08:02 | ED.RN ---
report called to Jatin at [facility]. pt has left ED via EMS.
== END 2020-01-18 08:04 ==
LOC: ED 20:23
PROVIDERS: Emergency Medicine; Emergency Provider Emergency Medicine
DX: R45.851 Suicidal ideations (principal); Z72.0 Tobacco use
CPT/HCPCS: 80048; 80076; 80307; 80320; 84703; 85025; 93005; 96372; 99285; G0480; J3486

== ENCOUNTER 2021-08-20 15:50 | Outpatient (CLI) | payer MEDICAID, SELFPAY ==
[2021-08-20 16:12] VITALS: BP 114/72
[2021-08-20 16:13] VITALS: PULSE 108; O2SAT 94
[2021-08-20 16:15] VITALS: BMI 28.0
--- NOTE | 2021-08-21 04:13 | OB.TRI.NOTE ---
HPI - General HPI Narrative JANE CHUNG, is a 25 F who presents at 26 wk gestation with DFM. Covid positive. Was in ER for this. Sent from ER to L&D for DFM. Maternal Data Information EDWARD Calculator Estimated Delivery Date Method Current WG Current Estimate 11/26/21 LMP (Certain) 26w 1d PFSH PFSH Home Medications ferrous sulfate 325 mg PO DAILY 08/20/21 [History Last Taken 08/13/21 06:00] [id number] [] tab PO 08/20/21 [History Last Taken 08/19/21 17:00] Allergy/AdvReac Type Severity Reaction Status Date / Time No Known Allergies Allergy Verified 08/20/21 16:18 Social History Smoking Status: Current every day smoker History Elective abortions Hx Para 1 Spontaneous abortions Hx # Term Pregnancies Ectopic pregnancies Hx # Pregnancies Multiple births # of living children NST FHR Rate Baby A Baseline: 140 Variability:: Moderate Accelerations:: 10 x 10 Decelerations:: None NST Reactive:: Appropriate for gestational age Assessment & Plan (1) 26 weeks gestation of : PLAN: NST appropriate for gest age D/c home (2) Decreased movement:
== END 2021-08-20 16:41 | disposition home or self-care (01) ==
LOC: WPOUT 15:57 → WP 15:57
PROVIDERS: Visit Provider Advanced Practice Midwife
DX: O36.8120 Decreased fetal movements, second trimester, not applicable or unspecified (principal); O98.512 Other viral diseases complicating pregnancy, second trimester; U07.1 COVID-19; O99.332 Smoking (tobacco) complicating pregnancy, second trimester; F17.200 Nicotine dependence, unspecified, uncomplicated; Z3A.26 26 weeks gestation of pregnancy
CPT/HCPCS: 59050; 99218; G0378

== ENCOUNTER 2021-11-21 17:00 | Outpatient (CLI) | payer MEDICAID, SELFPAY ==
[2021-11-21 16:47] VITALS: BP 127/89; PULSE 114; RESP 18; TEMP 37.5; O2SAT 100; BMI 30.5
[2021-11-21 16:50] VITALS: BP 127/89; PULSE 111; RESP 18; TEMP 37.5; O2SAT 100
--- NOTE | 2021-11-21 16:55 | CPS ---
Called by orthodontist to do an EKG on pt for chest pain complaint. At this time, pt does not want an EKG. Pt stated that she just wanted to get this checked out and if everything is fine I will go home. This SHEET FED PRINTER made pt aware that if she was to go to [facility] that they will want an EKG as well because she is here for chest pain.
--- NOTE | 2021-11-21 16:56 | ED.RN ---
pt refused ekg, think is related to , not cardiac this nurse notified charge nurse in [facility] and will send pt down.
[2021-11-21 17:24] VITALS: BMI 30.3
[2021-11-21 17:27] VITALS: BP 128/88; PULSE 90; TEMP 36.9
[2021-11-21 17:29] VITALS: PULSE 95; O2SAT 100
[2021-11-21 18:22] LABS: ROM Internal Control Test YES-OK TO RESULT pt. (Internal QC); ROM Patient Test Negative (Negative)
--- NOTE | 2021-11-21 19:03 | OB.TRI.NOTE ---
HPI - General HPI Narrative JANE CHUNG, is a 25 F at 39.2 weeks gestation who presents with lower pelvic pain. Patient has mild headache. She reports unsure if she is leaking fluid or urine. Positive movement. Maternal Data Information EDWARD Calculator Estimated Delivery Date Method Current WG Current Estimate 11/26/21 LMP (Certain) 39w 2d PFSH PFSH Home Medications ferrous sulfate 325 mg PO DAILY 08/20/21 [History Last Taken 2 Days Ago ~11/19/21] [id number] [] 1 tab PO DAILY 08/20/21 [History Last Taken 1 Day Ago ~11/20/21] acetaminophen [Tylenol] 650 mg PO Q6H PRN 11/21/21 [History Last Taken 2 Weeks Ago ~11/07/21] Allergy/AdvReac Type Severity Reaction Status Date / Time No Known Allergies Allergy Verified 11/21/21 17:37 Social History Smoking Status: Current every day smoker History Elective abortions Hx Para 1 Spontaneous abortions Hx # Term Pregnancies Ectopic pregnancies Hx # Pregnancies Multiple births # of living children ROS Eyes Eyes: Denies blurry vision Cardiovascular Cardiovascular: Reports none; Denies chest pain at rest, chest pain with activity or dizziness Respiratory/Chest Respiratory/Chest: Denies cough or dyspnea Gastrointestinal Gastrointestinal: Reports none and other; Denies diarrhea or vomiting Genitourinary Genitourinary: Denies dysuria Musculoskeletal Musculoskeletal: Reports none Integumentary Integumentary: Reports none; Denies rash Neurologic Neurologic: Denies dizziness, headache(s) or other visual disturbances Psychiatric Psychiatric: Reports none Physical Exam Const alert and no apparent distress General Appearance: cooperative Orientation / Consciousness: awake Exam Limitations: no limitations HEENT normocephalic Eyes General Eye: normal appearance of both eyes Neck full ROM Chest inspection of chest normal Resp normal respiratory effort and normal air movement Effort and Inspection: symmetric chest movement Auscultation: clear to auscultation bilaterally Cardio regular rate GI soft to palpation, non-tender and non-distended Inspection: and other Back/Spine normal ROM Extremity full ROM, normal capillary refill and no calf tenderness Skin no rashes or lesions noted Neuro oriented x3 and CN's II-XII intact bilaterally Psych mental status grossly normal NST FHR Rate Baby A Baseline: 130 Variability:: Moderate Accelerations:: 15 x 15 Decelerations:: None NST Reactive:: Yes FHR Category:: Category I Uterine Activity:: Irritability Assessment & Plan (1) 39 weeks gestation of : (2) Pelvic pain affecting : QUALIFIERS: Trimester: third trimester Qualified Code(s): O26.893 - Other specified related conditions, third trimester; R10.2 - Pelvic and perineal pain (3) Headache: QUALIFIERS: Headache type: tension-type Headache chronicity pattern: unspecified pattern Intractability: not intractable Qualified Code(s): G44.209 - Tension-type headache, unspecified, not intractable PLAN: NST reactive Cat. 1 tracing CE unchanged from office 3/thick/-3 ROM plus- negative Tylenol 1000 mg PO x1 now BP 120's/80's Labor precautions reviewed D/C home with follow up in office this week Dr. Salazar notified
== END 2021-11-21 23:59 | disposition home or self-care (01) ==
LOC: WPOUT 17:16 → WP 17:17
PROVIDERS: Visit Provider Advanced Practice Midwife
DX: O26.893 Other specified pregnancy related conditions, third trimester (principal); R10.2 Pelvic and perineal pain; Z3A.39 39 weeks gestation of pregnancy; O99.353 Diseases of the nervous system complicating pregnancy, third trimester; G44.209 Tension-type headache, unspecified, not intractable; O99.333 Smoking (tobacco) complicating pregnancy, third trimester; F17.200 Nicotine dependence, unspecified, uncomplicated
CPT/HCPCS: 59025; 59050; 84112; 99218; G0378

== ENCOUNTER 2021-12-01 06:20 | Inpatient (IN) | payer MEDICAID, SELFPAY ==
[2021-12-01] VITALS (32 sets, daily range): BP systolic 103–150; BP diastolic 57–114; PULSE 53–142; RESP 16; TEMP 36.1–37.1; O2SAT 82–100; BMI 31.1
[2021-12-01] MEDS: Lactated Ringers 1,000 ML 999 ML IV (06:33)
[2021-12-01 06:48] LABS: Absolute Lymphocyte Count 1.87 X10^3/uL (0.83-4.51); Absolute Neutrophil Count 8.8 X10^3/uL (2.0-7.7); Basophil# 0.03 X10^3/uL; Basophil% 0.3 % (0-1); Eosinophils% 1.7 % (0-5); Hematocrit 33.4 % (37-47); Hemoglobin 10.9 g/dL (12.0-15.0); Lymphocyte # 1.87 X10^3/ul (0.83-4.51); Lymphocyte % 15.9 % (19-41); Mean Corp Hgb Conc 32.6 g/dL (32-36); Mean Corpuscular Volume 82.9 fL (81-99); Mean Platelet Vol. 12.4 fl (6.2-12.0); Monocyte# 0.71 X10^3/uL; NRBC Flagged by Analyzer 0 % (0-5); Neutrophil # 8.84 X10^3/uL (2.7-7.7); Neutrophil % 75.2 % (47-70); Platelet Count 199 K/mm3 (150-450); RBC Distribution Width CV 13.9 % (11.6-14.6); RBC Distribution Width SD 41.5 fl (35.1-43.9); Red Blood Count 4.03 M/mm3 (4.2-5.4); White Blood Count 11.8 K/mm3 (4.4-11.0)
[2021-12-01] MEDS: fentaNYL-bupivacaine (epidural) 100 ML BAG EPIDURAL (07:22)
[2021-12-01 07:29] LABS: Amphetamine Urine VISTA NEGATIVE (<1000 ng/mL); Barbiturate Urine VISTA NEGATIVE (< 200 ng/mL); Benzodiazepine Urine VISTA NEGATIVE (< 200 ng/mL); Cocaine Urine VISTA NEGATIVE (< 300 ng/mL); Ecstacy Urine VISTA NEGATIVE (< 500 ng/mL); Methadone Urine VISTA NEGATIVE (< 300 ng/mL); PCP Urine VISTA NEGATIVE (< 25 ng/mL); THC Urine VISTA NEGATIVE (< 50 ng/mL)
[2021-12-01 08:12] LABS: Vista UDS pH Range 7
[2021-12-01] MEDS: Lactated Ringers 500 ML 999 ML IV (08:37)
--- NOTE | 2021-12-01 08:38 | PCM.HP.OB ---
HPI - General General Date of Admission: 12/01/21 HPI Narrative JANE CHUNG, is a 25 F at who presents at 40w5d in active labor. Maternal Data Information EDWARD Calculator Estimated Delivery Date Method Current WG Current Estimate 11/26/21 LMP (Certain) 40w 5d PFSH PFSH Medical History (Updated 12/01/21 @ 08:45 by Ana Puckett CNM) Anxiety Home Medications ferrous sulfate 325 mg PO DAILY 08/20/21 [History Last Taken 11/29/21 08:00] [id number] [] 1 tab PO DAILY 08/20/21 [History Last Taken 11/29/21 08:00] acetaminophen [Tylenol] 650 mg PO Q6H PRN 11/21/21 [History Last Taken 2 Weeks Ago ~11/07/21] Allergy/AdvReac Type Severity Reaction Status Date / Time No Known Allergies Allergy Verified 12/01/21 06:36 Surgical History (Updated 12/01/21 @ 06:54 by María Lawson) History of surgery Social History Smoking Status: Current every day smoker History Elective abortions Hx Para 1 Spontaneous abortions Hx # Term Pregnancies Ectopic pregnancies Hx # Pregnancies Multiple births # of living children NST FHR Rate Baby A Baseline: 125 Variability:: Moderate Accelerations:: 15 x 15 Decelerations:: Variable FHR Category:: Category II Uterine Activity:: every 2-3 minutes, strong ROS Constitutional Constitutional: Reports systems reviewed and no addt'l complaints, except as documented; Denies headache(s) Eyes Eyes: Denies acute decrease in peripheral vision, blurry vision or change in vision ENT HEENT: Reports systems reviewed and no addt'l complaints, except as documented Cardiovascular Cardiovascular: Denies chest pain or dizziness Respiratory/Chest Respiratory/Chest: Denies cough, dyspnea, dyspnea on exertion, shortness of breath at rest or shortness of breath with exertion Gastrointestinal Gastrointestinal: Denies abdominal pain, diarrhea, nausea or vomiting Genitourinary Genitourinary: Denies abdominal discomfort or movement Musculoskeletal Musculoskeletal: Denies limited range of motion Integumentary Integumentary: Reports systems reviewed and no addt'l complaints, except as documented Neurologic Neurologic: Reports systems reviewed and no addt'l complaints, except as documented Psychiatric Psychiatric: Reports systems reviewed and no addt'l complaints, except as documented Endocrine Endocrinology: Reports systems reviewed and no addt'l complaints, except as documented Hematologic/Lymphatic Hematologic/Lymphatic: Reports systems reviewed and no addt'l complaints, except as documented Allergic/Immunologic Allergic/Immunologic: Reports systems reviewed and no addt'l complaints, except as documented Vital Signs Vital Signs Vital Signs: 12/01/21 06:30 12/01/21 06:35 12/01/21 06:39 Temperature 97.3 F L Temperature Source Pulse Rate 53 L 74 67 Blood Pressure 119/75 BP Systolic 119 BP Diastolic 75 Pulse Ox 82 100 12/01/21 07:03 12/01/21 07:04 12/01/21 07:06 Temperature Temperature Source Pulse Rate 87 92 74 Blood Pressure 150/84 H BP Systolic 150 BP Diastolic 84 Pulse Ox 99 93 12/01/21 07:09 12/01/21 07:13 12/01/21 07:14 Temperature Temperature Source Pulse Rate 86 88 97 Blood Pressure 148/87 H 135/80 H BP Systolic 148 135 BP Diastolic 87 80 Pulse Ox 99 89 95 12/01/21 07:18 12/01/21 07:19 12/01/21 07:23 Temperature Temperature Source Pulse Rate 88 95 99 Blood Pressure 122/57 H 118/61 BP Systolic 122 118 BP Diastolic 57 61 Pulse Ox 99 12/01/21 07:24 12/01/21 07:28 12/01/21 07:29 Temperature Temperature Source Pulse Rate 106 H 92 95 Blood Pressure 113/57 L BP Systolic 113 BP Diastolic 57 Pulse Ox 100 100 12/01/21 07:33 12/01/21 07:34 12/01/21 07:39 Temperature 97.0 F L Temperature Source Temporal Pulse Rate 101 H 101 H 142 H Blood Pressure 114/57 L 149/99 H BP Systolic 114 149 BP Diastolic 57 99 Pulse Ox 100 12/01/21 08:27 Temperature Temperature Source Pulse Rate 99 Blood Pressure 106/66 BP Systolic 106 BP Diastolic 66 Pulse Ox Weight Weight: 192 lb 14.472 oz Body Mass Index (BMI) 31.1 Physical Exam Const alert and oriented x3 General Appearance: cooperative Orientation / Consciousness: awake, oriented to person, oriented to place and oriented to time Exam Limitations: no limitations HEENT normocephalic Head and Scalp: normal to inspection, normocephalic and atraumatic Face and Sinus: normal facial exam Eyes General Eye: normal appearance of both eyes Neck full ROM Chest Chest: symmetrical chest wall rise Resp normal respiratory effort and normal air movement Auscultation: clear to auscultation bilaterally Cardio regular rate, regular rhythm, S1 normal heart sound, S2 normal heart sound, no murmurs, no rub, no gallops and no clicks GI normal to inspection, nondistended, normoactive bowel sounds and non-tender appearance of the vagina normal Bladder / Kidney Exam: no CVA tenderness Manual OB Exam: estimated gestational size appropriate, presentation cephalic, dilated 8, effaced 90 and station 0 Back/Spine normal ROM Extremity normal to inspection and full ROM Skin no rashes or lesions noted Neuro oriented x3, CN's II-XII intact bilaterally and moves all extremities Sensorium / Orientation: awake, alert and oriented to person Motor Exam: clonus absent Deep Tendon Reflexes: Rt Patellar (L4): 2+ and Lt Patellar (L4): 2+ Labs Labs Labs: Blood Type AB POSITIVE Antibody Screen NEGATIVE Hct 33.4 % (37-47) L Hgb 10.9 g/dL (12.0-15.0) L Rhogam given: No GBS negative RPR negative AB positive Rubella Immune HBsAG negative HIV negative GC/CT negative Assessment & Plan (1) Tobacco use during : (2) Marijuana abuse: (3) : (4) Anemia affecting : (5) Active labor at term: (6) Vaping nicotine dependence, tobacco product: (7) History of alcohol abuse: (8) History of anxiety: (9) Obesity affecting : (10) COVID-19 affecting in second trimester: PLAN: Admit to labor and delivery Routine labs GBS negative Epidural for pain management Offered AROM, patient declined at this time Category 2 FHT Continuous EFM collaborative physician and notified of patient status
[2021-12-01] MEDS: Oxytocin 30 units/NS 500 ml 30 UNITS/500 ML IV.SOLN 334 UNITS IV (10:13)
--- NOTE | 2021-12-01 10:21 | EX.PCM.OBRPT ---
Maternal Data Information EDWARD Calculator Estimated Delivery Date Method Current WG Current Estimate 11/26/21 LMP (Certain) 40w 5d Vaginal Delivery Maternal Presentation Maternal Presentation: Active Labor Maternal Presentation: Progressed to complete dilation after cervical exam. comfortable with epidural. of viable female infant over 1st degree perineal laceration, APGARS 8,9. Infant head delivered ROP and body immediately forthcoming. Placed on maternal abdomen, mouth and nares suctioned for secretions. Pitocin started for active 3rd stage management. Cord clamped and cut after pulsations ceased by FOB, delayed cord clamping. Placenta delivered via myrna, intact, 3 vessel cord. Perineum inspected and revealed first degree perineal laceration, repaired under epidural analgesia and 3.0vicryl rapide, figure of 8. Vaginal sweep completed. Sponge and instrument count correct. Mom and baby stable, planning to breastfeed. Family bonding well. collaborative physician and notified of delivery. Operative Information Date of Procedure: 12/01/21 Pre-Operative Diagnosis: Active Labor Post-Operative Diagnosis: Surgery / Procedure Performed: Spontaneous Vaginal Delivery Type of Anesthesia: Epidural Estimated Blood Loss: 200ml Time of Delivery: 10:10 Findings Presentation: ROP Amniotic Membrane Rupture Type: Artificial Amniotic Fluid Description: Clear Placental Delivery Description: Spontaneous Placenta Disposition: [facility] Cord Vessel Description: 3 Vessels Cord Entanglement: None Infant A Gender: Female (1 minute): 8 (5 minute): 9 Delayed Cord Clamping: Yes Post Vaginal Delivery Medications Given After Delivery: IV Pitocin Episiotomy Description: None Laceration: Perineal Extension/lac and 1st degree Complication Complications: None
[2021-12-01] MEDS: Acetaminophen 500 MG Tablet 1000 MG PO (13:04)
[2021-12-01] MEDS: Prenatal Vits Tablet 1 TABLET PO (13:04)
--- NOTE | 2021-12-01 18:11 | NURSING ---
1740 pt request formula for - this nurse asked pt why- pt states that she does not want to put infant to breast this feed- this nurse explained to pt that the is eating very well at breast and that giving formula could affect the and cause infant not to latch- pt states that she wants to do both and wants- a bottle this feed- offered to help pt use pump and give her own breastmilk- pt denied- offered to cup or spoon feed and pt denied- states that she wants a bottle- ped and nursery nurse made aware huddle form completed and similac with iron given with instructions on bottle feeding
[2021-12-02 00:10] VITALS: BP 117/79; PULSE 70; RESP 16; TEMP 36.9
[2021-12-02] MEDS: Acetaminophen 500 MG Tablet PO (00:13)
[2021-12-02 04:00] VITALS: BP 109/74; PULSE 74; RESP 16; TEMP 36.4
[2021-12-02 05:40] LABS: Hematocrit 31.2 % (37-47); Hemoglobin 10.1 g/dL (12.0-15.0); Mean Corp Hgb Conc 32.4 g/dL (32-36); Mean Corpuscular Hgb 26.9 pg (27.0-32.0); Mean Corpuscular Volume 83.2 fL (81-99); Mean Platelet Vol. 12.2 fl (6.2-12.0); Platelet Count 171 K/mm3 (150-450); Red Blood Count 3.75 M/mm3 (4.2-5.4); White Blood Count 12.3 K/mm3 (4.4-11.0)
[2021-12-02 08:41] VITALS: BP 116/77; PULSE 75; RESP 16; TEMP 36.2
--- NOTE | 2021-12-02 08:53 | PCM.PN.OB ---
Subjective Subjective Denies complaints Objective Data Objective Data Vital Signs: Vital Signs Temp Pulse Resp BP Pulse Ox 97.1 F L 75 16 116/77 100 12/02/21 08:41 12/02/21 08:41 12/02/21 08:41 12/02/21 08:41 12/01/21 07:34 Oxygen Delivery Method Room Air Weight: 192 lb 14.472 oz Body Mass Index (BMI) 31.1 Intake & Output: Intake and Output for Last 24 Hours 11/30/21 12/01/21 12/02/21 23:59 23:59 23:59 Intake Total 1999. / 1999.00 Output Total 500 / 500 Balance 1500.00 / 1500.00 Lab / Micro Data Result Diagrams: 12/02/21 05:35 Labs: Laboratory Results - last 24 hr 12/02/21 05:35: WBC 12.3 H, RBC 3.75 L, Hgb 10.1 L, Hct 31.2 L, MCV 83.2, MCH 26.9 L, MCHC 32.4, RDW Std Deviation 42.0, RDW Coeff of Kana 14.0, Plt Count 171, MPV 12.2 H Micro: Microbiology 12/01/21 06:35 Nasal Secretion SARS-CoV-2 Antigen (Rapid) - Final Physical Exam Const alert, oriented x3 and no apparent distress HEENT normocephalic GI soft to palpation, non-tender and non-distended GI Narrative: fundus firm, mid & below umbilicus Extremity normal to inspection and no calf tenderness Assessment & Plan (1) Vaginal delivery: COMMENT: PPD#1 PLAN: D/c home per patient request
--- NOTE | 2021-12-02 08:54 | PCM.DC ---
Discharge Instructions Diet Discharge Diet: No restrictions Activity Discharge Activity: May Shower May resume sexual activity in: 6 weeks Weight Bearing Status: Weight bearing as tolerated Dressing / Incision Call your doctor if you observe: Fever of 101 or Higher, Coldness, Increased Pain, Change in Color, Inability to urinate, Inability to have a bowel movement, Using more than 1 pad per hour, Shortness of breath, Dizziness, Fainting spells, Chest pain, Increased palpitations (irregular heartbeat), Calf discomfort and Uncontrolled pain Follow Up Care Please Follow Up With: Ana Puckett CNM When: Follow up in 2 and 6 weeks for visits. Test Results: Test results from this visit will be discussed in further detail at your follow-up appointment, if applicable. Discharge Plan Admission Admit Date/Time: 12/01/21 06:20 Primary Reason for Your Visit: Vaginal delivery Attending Provider: Rosario Baker Primary Care Provider: Care Physician,No Primary Discharge Orders/Prescriptions Prescriptions: New ibuprofen 600 mg Tablet 600 mg PO Q6H PRN PRN (Reason: Pain Score 1-3) Qty: 0 RF: 0 Continued ferrous sulfate 325 mg (65 mg iron) Tablet 325 mg PO DAILY RF: 0 [id number] 1 mg Tablet 1 tab PO DAILY RF: 0 acetaminophen [Tylenol] 325 mg Tablet 650 mg PO Q6H PRN (Reason: Pain) RF: 0 Referrals / Follow Up: Care Physician,No Primary [Primary Care Provider] - Disposition Disposition (needs filled in before D/C Order can be placed): Home, Self Care
--- NOTE | 2021-12-02 12:28 | CASEMGMT ---
Social Work Assessment Labor and Delivery Unit Patient Address: [address] [place] [address] Phone number: [phone] Date of Referral: 12/01/2021 Time of Referral: 650 Referred By: Dr. Rosario Baker Date of Intervention: 12/02/2021 Time of Intervention: 1200 Reason for Referral: Maternal history of alcohol abuse prior to and anxiety History obtained from: Medical records and mother of baby (MOB) Luba Chance Household composition: MOB, father of baby (FOB) Sami Jett, and their older child. Home situation is reported as adequate. Patient's parent/guardian status: BRAXTON is a 25-year-old single female, involved with the FOB for the last 10 years. MOB denies any type of abuse, control or intimidation in this relationship. MOB and FOB now have 2 children together. An older daughter Fany, age 3 and the baby Sendy (born 12/01/2021). Medical History: BRAXTON is 2, para 1 now 2 after delivering Snedy. care started at 8 weeks and normal thereafter. Neville weight was 7 pounds 7 ounces. Apgars 8 and 9 at 1 and 5 minutes of life respectively. Educational Status: High school. No reported issues with reading, writing or comprehension. 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 FOB works for shift at [employer]. Infant Supplies: BRAXTON reports to have all necessary supplies to care for the baby including safe sleep spaces and a car seat. BRAXTON is planning to both breast-feed and bottlefeed. Childcare/Caregiver(s): BRAXTON reports herself and the FOB will provide all childcare, as BRAXTON does not like to leave children with babysitters. Transportation: MOB reports both herself and the FOB driving. No issues with transportation. Programs/Agencies Involved: BRAXTON is connected with job and family services for food and medical. Active with WIC. Active with counseling at [facility], seeing therapist named Brisa. Currently on probation with [facility] for a DUI occurring around 2019. Children Services/Legal Issues: On probation but denies any current legal charges. History of children services 1 time for maternal history of marijuana use. Reports this was shortly after the oldest daughter was born and closed shortly after it was opened. Denies any current involvement with children services. Behavioral Health Issues: Mental Health History: MOB reports history of depression and anxiety, but did not realize for years she had been experiencing anxiety until MOB went through treatment. Denies any history of depression issues. Reports has done intensive outpatient programming, anger management, and individual counseling at [facility]. Reports to have an appointment coming up in December with her therapist. No reports of any SI or HI. Substance Use History: MOB has a history of alcohol abuse issues. Reports been over a year since any alcohol has been consumed. Reports it has been many years ago since last use of marijuana. Denies history of any other substance use or abuse. Family History: Not discussed. Drug Screens: Maternal drug screen negative on 04/16/2021 and on 12/01/2021. Infant's urine drug screen is negative meconium is pending. Family/Social Stressors: No reported stressors at this time. Reports things are going pretty well for the family unit and the MOB reports to have nothing to complain about at this time. Support Systems: MOB reports the FOB and MOB's mom as primary support system, both of whom MOB can talk to when having a hard day. Identifies her counselor Brisa as another support. Depression/Shaken Baby/Safe Sleeping: Reviewed safe sleeping and shaken baby prevention. Reviewed mood and anxiety disorders and risk for such, importance of seeking support if needs arise. ASSESSMENT: Met with the MOB in room, introducing to self and social work role. Infant lying on a pillow on back, facing the MOB. Observed the MOB to attend to the baby during social work assessment, holding the baby several times in doing so gently. No voiced concerns by nursing staff regarding parent-child interactions or bonding. MOB cooperative and pleasant with this customs entry writer, engaging in conversation with social services coordinator. Reports coping keeping busy, cleaning, spending time with her. MOB reports to have all necessary supplies to care for the baby, reports to have a crenshaw with the baby, and to have a support system from the FOB and her mother. MOB intends to follow-up with counselor in about 2 weeks to assess for any issues, but reports is actually close to graduating from counseling. MOB denies any type of substance use issues at this point. Denies any substance use issues for the FOB. Reviewed with MOB that substance use and breast-feeding is not recommended. MOB expressed understanding. MOB accepted information on mood and anxiety disorders, as well as a [facility] resource packet that has information on both helping grow and early Headstart services. MOB declined actual referral to either of these programs. Denies any concerns for home-going. Safe Plan of Care for infant related to substance use: There have been no positive drug screens during this and MOB endorses last use of alcohol prior to . No intent to pick any substances back up at this point. Expresses understanding about substance use and breast-feeding. PLAN: MOB and will discharge home today with resources given. We will monitor for meconium drug screen results and if positive make appropriate referrals. No other services requested or indicated. -CECILE Thorne, NINOSKA *This note was generated with [employer] dictation software. It may contain incorrect words, spelling, and punctuation that were not noted in review of the chart prior to signing*
== END 2021-12-02 12:15 | disposition home or self-care (01) | DRG 560 ==
LOC: WPOUT 06:22 → WP 06:22
PROVIDERS: Advanced Practice Midwife; Admitting Provider Obstetrics & Gynecology; Referring Provider Obstetrics & Gynecology; Visit Provider Obstetrics & Gynecology
DX: O76 Abnormality in fetal heart rate and rhythm complicating labor and delivery (principal); Z37.0 Single live birth; F12.10 Cannabis abuse, uncomplicated; F17.290 Nicotine dependence, other tobacco product, uncomplicated; O99.334 Smoking (tobacco) complicating childbirth; O99.02 Anemia complicating childbirth; O70.1 Second degree perineal laceration during delivery; O99.214 Obesity complicating childbirth; Z3A.40 40 weeks gestation of pregnancy; Z86.16 Personal history of COVID-19
CPT/HCPCS: 59050; 80307; 85025; 85027; 86850; 86900; 86901; 87426; 99218; 99406; J7120; G0378; J3490

== ENCOUNTER 2023-01-02 10:09 | Emergency (ER) | payer MEDICAID, SELFPAY ==
[2023-01-02 10:10] VITALS: BP 119/92; PULSE 123; RESP 18; TEMP 36.7; O2SAT 100; BMI 28.7
--- NOTE | 2023-01-02 10:36 | EX.ED.DYSGE1 ---
HPI <CHERYL Thorpe - Last Filed: 01/02/23 13:16> History of Present Illness Chief Complaint: Anxiety Narrative Narrative: Patient presenting today with increased anxiety that she has had since Wednesday. She said that she has been restless, shaking, decreased appetite, difficulty sleeping, and has had multiple panic attacks. She reports having chest tightness and shortness of breath when the symptoms come on. She reports a history of anxiety but states it has never been this bad. She has been using marijuana to try to help her symptoms and reports some relief. She began taking kratom in September and has been trying to wean herself off of this recently and is not sure if that is related to her symptoms or not. She denies any thoughts of suicide or self-harm. She denies any homicidal thoughts and hallucinations. PFSH <CHERYL Thorpe - Last Filed: 01/02/23 13:16> [facility] Medical History Anxiety History of alcohol abuse History of anxiety Marijuana abuse Vaginal delivery Home Medications lorazepam 0.5 mg tablet (Ativan) 0.5 mg PO DAILY PRN anxiety #5 tabs 01/02/23 [Rx Last Taken Unknown] Allergy/AdvReac Type Severity Reaction Status Date / Time No Known Allergies Allergy Verified 01/02/23 10:13 Surgical History History of surgery Social History Smoking Status: Current every day smoker tobacco type: cigarettes ROS <CHERYL Thorpe - Last Filed: 01/02/23 13:16> ROS ED Constitutional Constitutional ED: Denies chills, fever(s) or sweats Cardiovascular Cardiovascular: Reports racing heartbeat; Denies chest pain or palpitations Respiratory/Chest Respiratory/Chest: Denies cough or dyspnea Gastrointestinal Gastrointestinal: Denies abdominal pain, nausea or vomiting Musculoskeletal Musculoskeletal: Denies arthralgias, back pain, myalgias or neck pain Integumentary Denies abscess, Abrasions or rash Neurologic Neurologic: Denies weakness Psychiatric Psychiatric: Reports anxiety; Denies suicidal ideation or suicidal thoughts EXAM <CHERYL Thorpe - Last Filed: 01/02/23 13:16> Physical Exam Const Vital Signs: 01/02/23 10:10 Temperature 98.1 F Temperature Source Temporal Pulse Rate 123 H Respiratory Rate 18 Blood Pressure 119/92 H Blood Pressure Mean 101 Pulse Ox 100 Oxygen Delivery Method Room Air Positive well nourished and well developed Constitutional Narrative: Patient is crying and appears very distressed. General Appearance ED: well developed HEENT Reports normocephalic and head/scalp atraumatic Mouth ED: Yes moist mucous membranes normal Eyes PERRL and EOMs intact bilaterally Neck full ROM and supple Chest Wall inspection of chest normal Resp normal respiratory effort and clear to auscultation bilaterally Cardio regular rate and regular rhythm GI soft to palpation, non-tender, non-distended and no masses Back/Spine normal ROM and normal to inspection Extremity normal to inspection and full ROM Neuro oriented x3, CN's II-XII intact bilaterally, moves all extremities, no focal motor deficits and no sensory deficits noted Sensorium / Orientation: awake and alert Psych mental status grossly normal and thought process normal Mood & Affect: anxious and tearful Skin no rashes or lesions noted and no wounds <Dr. Osito Hall MD - Last Filed: 01/02/23 10:45> Physical Exam Const Vital Signs: 01/02/23 10:10 Temperature 98.1 F Temperature Source Temporal Pulse Rate 123 H Respiratory Rate 18 Blood Pressure 119/92 H Blood Pressure Mean 101 Pulse Ox 100 Oxygen Delivery Method Room Air MDM <CHERYL Thorpe - Last Filed: 01/02/23 13:16> [facility] Narrative Medical decision making narrative: Patient presenting due to increased anxiety that she has had since Wednesday. She reports having multiple panic attacks that make her feel short of breath and because chest tightness. She denies any shortness of breath or chest pain at this time. Patient has been counseled to stop the marijuana and kratom use as these are only going to make her symptoms worse. She will be given Ativan here. On reexamination she states she does have improvement of her symptoms, although she does still feel anxious. She has been given to follow-up with the counseling center and has been given a PCP referral as she does not have 1. I have given her a few Ativan for home but ultimately told her that she will need to follow-up with the PCP for further treatment. She has been given a work note for today will be discharged home in stable condition. She is comfortable with plan. I have personally performed a face to face assessment of the patient and have reviewed the SHANIQUE Note. I performed a substantive portion of the visit including all aspects of the following. My sifuentes findings include: History is 27-year-old female evaluate with our physician speech language pathology assistant. Complaining of anxiety. History of marijuana and other drug abuse. Denies any IV drug abuse. Denies being suicidal. Currently has no counseling and no primary care physician. Exam is [well-appearing 27-year-old female. Vital signs are stable afebrile. She does not look septic or toxic. Significant other is in the room. HEENT exam unremarkable. Neck nontender. Lungs clear. Heart tachycardic rate about 115 no murmur. Chest wall nontender. Abdomen soft nontender. Moving all 4 extremities. No track dow. Nontender no edema. Neurologically she is awake and alert. Back nontender.] Medical Decision Making [27-year-old appears to be suffering from anxiety. Given a dose of p.o. Ativan. She needs to come off the drugs which she plans to. She will need to follow-up with the counseling center. Obtain a primary care physician.] Other additions or changes: [None] <Dr. Osito Hall MD - Last Filed: 01/02/23 10:45> [facility] Narrative Medical decision making narrative: Patient presenting due to increased anxiety that she has had since Wednesday. She reports having multiple panic attacks that make her feel short of breath and because chest tightness. She denies any shortness of breath or chest pain at this time. Patient has been counseled to stop the marijuana and kratom use as these are only going to make her symptoms worse. She will be given Ativan here. I have personally performed a face to face assessment of the patient and have reviewed the SHANIQUE Note. I performed a substantive portion of the visit including all aspects of the following. My sifuentes findings include: History is 27-year-old female evaluate with our physician speech language pathology assistant. Complaining of anxiety. History of marijuana and other drug abuse. Denies any IV drug abuse. Denies being suicidal. Currently has no counseling and no primary care physician. Exam is [well-appearing 27-year-old female. Vital signs are stable afebrile. She does not look septic or toxic. Significant other is in the room. HEENT exam unremarkable. Neck nontender. Lungs clear. Heart tachycardic rate about 115 no murmur. Chest wall nontender. Abdomen soft nontender. Moving all 4 extremities. No track dow. Nontender no edema. Neurologically she is awake and alert. Back nontender.] Medical Decision Making [27-year-old appears to be suffering from anxiety. Given a dose of p.o. Ativan. She needs to come off the drugs which she plans to. She will need to follow-up with the counseling center. Obtain a primary care physician.] Other additions or changes: [None] Discharge Plan Triage Chief Complaint: Anxiety ED Midlevel Provider: Nataly Stoddard ED Provider: Osito Hall Dx/Rx/DC Orders Clinical Impression: Anxiety, Panic attack Instructions: Anxiety Disorders Tx, ED Panic Attack Prescriptions: New lorazepam [Ativan] 0.5 mg tablet 0.5 mg PO DAILY PRN (Reason: anxiety) Qty: 5 0RF Stand Alone Forms: ED Work / School Excuse Primary Care Provider: Care Physician,No Primary Referrals: Counseling,Center [Group of Physicians] - 3-5 Days Juventino Aguillon MD [Non-Staff] - 3-5 Days Care Physician,No Primary [Primary Care Provider] - Activity Restrictions/Additional Instructions: Please follow-up with the primary care provider we have referred you to as well as the counseling center. Please return for any worsening of your symptoms or if you develop any suicidal thoughts, thoughts of self-harm, or thoughts of hurting others. Disposition Disposition: Home, Self Care Discharge Date/Time: 01/02/23 12:43
[2023-01-02] MEDS: LORazepam 1 MG Tablet PO (11:09)
== END 2023-01-02 12:43 | disposition home or self-care (01) ==
PROVIDERS: Emergency Provider Emergency Medicine; Visit Provider Emergency Medicine
DX: F41.0 Panic disorder [episodic paroxysmal anxiety] (principal); F17.210 Nicotine dependence, cigarettes, uncomplicated; F12.90 Cannabis use, unspecified, uncomplicated
CPT/HCPCS: 99283

== ENCOUNTER 2023-01-03 09:49 | Emergency (ER) | payer MEDICAID, SELFPAY ==
[2023-01-03 09:50] VITALS: BP 143/96; PULSE 128; RESP 16; TEMP 36.4; O2SAT 100; BMI 28.7
--- NOTE | 2023-01-03 10:19 | EX.ED.VIS.PS ---
HPI <CHERYL Thorpe - Last Filed: 01/03/23 12:01> HPI - Psych History of Present Illness Chief Complaint: Anxiety Narrative Narrative: Patient presenting today with increased anxiety that she has had since Wednesday.? She was seen in the emergency department yesterday for similar symptoms and was sent home with Ativan. She states that she took one before she went to bed and it seemed to help, however, she woke up in the middle of the night and became restless and had difficulty sleeping. She reports having multiple episodes of nausea and vomiting throughout the night due to her anxiety. She did not feel like eating this morning because of her anxiety. She has been using marijuana to try to help her symptoms and began taking kratom in September and has been trying to wean herself off of this recently. She reports using both of these last night. She denies any thoughts of suicide or self-harm, homicidal thoughts, and hallucinations. PFSH <CHERYL Thorpe - Last Filed: 01/03/23 12:01> [facility] Medical History Anxiety History of alcohol abuse History of anxiety Marijuana abuse Vaginal delivery Home Medications lorazepam 0.5 mg tablet (Ativan) 0.5 mg PO DAILY PRN anxiety #5 tabs 01/02/23 [Rx Last Taken Unknown] ondansetron 4 mg disintegrating tablet 4 mg PO Q8H PRN PRN Nausea #10 tabs 01/03/23 [Rx Last Taken Unknown] Allergy/AdvReac Type Severity Reaction Status Date / Time No Known Allergies Allergy Verified 01/03/23 09:51 Surgical History History of surgery Social History Smoking Status: Current every day smoker tobacco type: cigarettes ROS <CHERYL Thorpe - Last Filed: 01/03/23 12:01> ROS ED Constitutional Constitutional ED: Denies chills or fever(s) Cardiovascular Cardiovascular: Denies chest pain or palpitations Respiratory/Chest Respiratory/Chest: Denies cough or dyspnea Gastrointestinal Gastrointestinal: Reports nausea and vomiting; Denies abdominal pain or diarrhea Musculoskeletal Musculoskeletal: Denies arthralgias or myalgias Integumentary Denies abscess, Abrasions or rash Neurologic Neurologic: Denies weakness Psychiatric Psychiatric: Reports anxiety; Denies suicidal ideation or suicidal thoughts EXAM <CHERYL Thorpe - Last Filed: 01/03/23 12:01> Physical Exam Const Vital Signs: 01/03/23 09:50 Temperature 97.5 F L Temperature Source Temporal Pulse Rate 128 H Respiratory Rate 16 Blood Pressure 143/96 H Blood Pressure Mean 111 Pulse Ox 100 Oxygen Delivery Method Room Air Positive well nourished, well developed and no apparent distress General Appearance ED: well developed HEENT Reports normocephalic and head/scalp atraumatic Mouth ED: Yes moist mucous membranes normal Eyes PERRL and EOMs intact bilaterally Neck full ROM and supple Chest Wall inspection of chest normal Resp normal respiratory effort and clear to auscultation bilaterally Cardio regular rate and regular rhythm GI soft to palpation, non-tender, non-distended and no masses Back/Spine normal ROM and normal to inspection Extremity normal to inspection and full ROM Neuro oriented x3, CN's II-XII intact bilaterally, moves all extremities, no focal motor deficits and no sensory deficits noted Sensorium / Orientation: awake and alert Psych mental status grossly normal and thought process normal Mood & Affect: anxious and tearful Skin no rashes or lesions noted and no wounds <Dr. Osito Hall MD - Last Filed: 01/03/23 11:57> Physical Exam Const Vital Signs: 01/03/23 09:50 Temperature 97.5 F L Temperature Source Temporal Pulse Rate 128 H Respiratory Rate 16 Blood Pressure 143/96 H Blood Pressure Mean 111 Pulse Ox 100 Oxygen Delivery Method Room Air MDM <CHERYL Thorpe - Last Filed: 01/03/23 12:01> [facility] Narrative Medical decision making narrative: Patient presenting today due to anxiety. I did evaluate patient in the emergency department yesterday for similar symptoms. At that time, she was given Ativan in the ED as well as a short course of Ativan for home. She took an Ativan before bed, and states it did help her sleep. But then she woke up in the middle of the night with intense anxiety and has had multiple panic attacks since. Yesterday she was counseled on stopping her marijuana and kratom use as it is going to increase her anxiety. She did use both of these yesterday after leaving the ED. She reports multiple episodes of nausea and vomiting and would like IV fluids. She will be given these, along with Ativan and Zofran. On repeat evaluation patient is feeling much better. She feels that she can go home. She has a follow-up appointment with a PCP tomorrow morning. She be discharged home in stable condition and is comfortable with plan. I have personally performed a face to face assessment of the patient and have reviewed the SHANIQUE Note. I performed a substantive portion of the visit including all aspects of the following. My sifuentes findings include: History is 27-year-old female seen yesterday for anxiety. Has a history of drug abuse. Yesterday was written for Ativan. She is also having nausea and vomiting. Exam is [well-appearing 27-year-old female. Vital signs are stable initially she is tachycardic on my exam at 11:55 AM she is doing well. She is resting comfortably. H EENT exam unremarkable. Moist with membranes. Neck nontender. No lymphadenopathy. No trauma. Lungs clear to auscultation bilaterally. Heart regular rhythm rate about 95 no murmur. Abdomen soft nontender. Back nontender. Moving all 4 extremities. Neurologically she is awake and alert. After the Ativan and IV fluids she is much more calm and relaxed at this time.] Medical Decision Making [patient does feel comfortable being discharged home. She has an appointment to see a nurse practitioner at the [facility] to establish to get a primary care provider. She is going to try to either follow-up with new day who she is seen in the past or the counseling center for her anxiety. She still has 3 Ativan at home that were prescribed yesterday. I do not carefully write her for physical] Other additions or changes: [None] <Dr. Osito Hall MD - Last Filed: 01/03/23 11:57> [facility] Narrative Medical decision making narrative: Patient presenting today due to anxiety. I did evaluate patient in the emergency department yesterday for similar symptoms. At that time, she was given Ativan in the ED as well as a short course of Ativan for home. She took an Ativan before bed, and states it did help her sleep. But then she woke up in the middle of the night with intense anxiety and has had multiple panic attacks since. Yesterday she was counseled on stopping her marijuana and kratom use as it is going to increase her anxiety. She did use both of these yesterday after leaving the ED. She reports multiple episodes of nausea and vomiting and would like IV fluids. She will be given these, along with Ativan and Zofran. I have personally performed a face to face assessment of the patient and have reviewed the SHANIQUE Note. I performed a substantive portion of the visit including all aspects of the following. My sifuentes findings include: History is 27-year-old female seen yesterday for anxiety. Has a history of drug abuse. Yesterday was written for Ativan. She is also having nausea and vomiting. Exam is [well-appearing 27-year-old female. Vital signs are stable initially she is tachycardic on my exam at 11:55 AM she is doing well. She is resting comfortably. H EENT exam unremarkable. Moist with membranes. Neck nontender. No lymphadenopathy. No trauma. Lungs clear to auscultation bilaterally. Heart regular rhythm rate about 95 no murmur. Abdomen soft nontender. Back nontender. Moving all 4 extremities. Neurologically she is awake and alert. After the Ativan and IV fluids she is much more calm and relaxed at this time.] Medical Decision Making [patient does feel comfortable being discharged home. She has an appointment to see a nurse practitioner at the [facility] to establish to get a primary care provider. She is going to try to either follow-up with new day who she is seen in the past or the counseling center for her anxiety. She still has 3 Ativan at home that were prescribed yesterday. I do not carefully write her for physical] Other additions or changes: [None] History & Record Review Discussion w/independent historian: Patient Discharge Plan Triage Chief Complaint: Anxiety ED Midlevel Provider: Nataly Stoddard ED Provider: Osito Hall Dx/Rx/DC Orders Clinical Impression: Anxiety, Panic attack Instructions: ED Panic Attack Prescriptions: New ondansetron 4 mg tablet,disintegrating 4 mg PO Q8H PRN PRN (Reason: Nausea) Qty: 10 0RF No Action lorazepam [Ativan] 0.5 mg tablet 0.5 mg PO DAILY PRN (Reason: anxiety) Qty: 5 0RF Primary Care Provider: Care Physician,No Primary Referrals: Care Physician,No Primary [Primary Care Provider] - Activity Restrictions/Additional Instructions: Please follow-up at your appointment on Wednesday. Return for any worsening of symptoms. Disposition Disposition: Home, Self Care
[2023-01-03] MEDS: Ondansetron 4 MG/2 ML Vial IV (10:47)
[2023-01-03] MEDS: 0.9% Normal Saline 1,000 ML 999 ML IV (10:47)
[2023-01-03] MEDS: LORazepam 2 MG/ML Syringe 1 MG IV (10:48)
[2023-01-03 12:03] VITALS: BP 104/58; PULSE 76; RESP 16; O2SAT 97
== END 2023-01-03 12:04 | disposition home or self-care (01) ==
PROVIDERS: Emergency Provider Emergency Medicine; Visit Provider Emergency Medicine
DX: F41.0 Panic disorder [episodic paroxysmal anxiety] (principal); F17.210 Nicotine dependence, cigarettes, uncomplicated
CPT/HCPCS: 96361; 96374; 96375; 99284; J7030; A4216; J2405

== ENCOUNTER 2024-01-11 11:48 | Emergency (ER) | payer MEDICAID, SELFPAY ==
[2024-01-11 11:49] VITALS: BP 149/106; PULSE 112; RESP 14; TEMP 36.4; O2SAT 100; BMI 28.2
--- NOTE | 2024-01-11 12:24 | EX.ED.DYSGE1 ---
HPI History of Present Illness Chief Complaint: Anxiety Informant: patient Onset/Context/Timing Onset: Days (2) Context: Gradual Onset Timing: Continuous Quality: Nauseated, lightheaded Location: Generalized Worsened by: Nothing Relieved by: Nothing Narrative Narrative: Patient presents with not feeling good for the past 2 days. Patient states she has felt nauseated and lightheaded. Patient states nothing makes it better and nothing makes it worse. Patient admits to some chest pain and shortness of breath. Patient states she has had some vomiting but denies any hematemesis or coffee-ground emesis. Patient denies any diarrhea, melena, or hematochezia. Patient admits to some pain over her upper abdomen. Patient also admits to chronic back pain. Patient states this is not any worse than usual. [facility] Medical History Anxiety History of alcohol abuse History of anxiety Marijuana abuse Vaginal delivery Home Medications lorazepam 0.5 mg tablet (Ativan) 0.5 mg PO DAILY PRN anxiety #5 tabs 01/02/23 [Rx Last Taken Unknown] ondansetron 4 mg disintegrating tablet 4 mg PO Q8H PRN PRN Nausea #10 tabs 01/03/23 [Rx Last Taken Unknown] Allergy/AdvReac Type Severity Reaction Status Date / Time No Known Allergies Allergy Verified 01/11/24 11:52 Surgical History History of surgery Social History (Updated 01/11/24 @ 14:[address] Buddy Botello DO) Smoking Status: Current every day smoker tobacco type: e-cigarettes Electronic Cigarette Use: with nicotine ROS ROS ED Constitutional Constitutional ED: Denies chills or fever(s) Eyes Eyes: Denies blurry vision or change in vision ENT ENT ED: Denies rhinorrhea or sore throat Cardiovascular Cardiovascular: Reports chest pain; Denies palpitations Respiratory/Chest Respiratory/Chest: Reports dyspnea; Denies cough Gastrointestinal Gastrointestinal: Reports abdominal pain, nausea and vomiting Genitourinary Genitourinary ED: Denies dysuria or hematuria Musculoskeletal Musculoskeletal: Reports back pain; Denies neck pain Integumentary Denies abscess or rash Neurologic Neurologic: Denies headache(s) or weakness Allergic/Immunologic Allergic/Immunologic ED: Denies mouth swelling or urticaria EXAM Physical Exam Const Vital Signs: 01/11/24 11:49 Temperature 97.6 F L Temperature Source Temporal Pulse Rate 112 H Respiratory Rate 14 Blood Pressure 149/106 H Blood Pressure Mean 120 Pulse Ox 100 Positive well nourished and well developed General Appearance ED: well developed and NAD HEENT Reports moist mucous membranes Neck supple and no JVD Resp normal respiratory effort and clear to auscultation bilaterally Cardio regular rate and regular rhythm GI non-distended Palpation: soft and tender epigastric and LUQ; Negative for guarding or rebound tenderness present Neuro oriented x3, CN's II-XII intact bilaterally and no sensory deficits noted Sensorium / Orientation: alert Motor Exam: strength 5/5 throughout Psych mental status grossly normal MDM MDM MDM Narrative Medical decision making narrative: Differential diagnosis includes viral illness, gastroenteritis, electrolyte abnormality, pancreatitis, cholelithiasis, , pneumonia, and anxiety. CBC will be obtained to assess for leukocytosis and anemia. Comprehensive metabolic profile will be obtained to assess for hepatic function, renal function, and electrolyte abnormality. Lipase will be obtained to assess for pancreatitis. Urinalysis will be obtained to assess for urinary tract infection and hematuria. Serum hCG will be obtained to assess for . Chest x-ray will be obtained to assess for pneumonia. COVID-19, influenza, and RSV PCR will be obtained to assess for viral illness. Lab Data Attestation: I reviewed the patient's lab results. Lab results narrative: CBC was reviewed and was within normal limits. Comprehensive metabolic profile was reviewed and was within normal limits. Lipase was reviewed and was slightly elevated at 98. Serum hCG was reviewed and was negative. Urinalysis was reviewed. Leukocyte esterase was 100 with 5-10 white blood cells and 10-25 epithelial cells. There is 1+ bacteria. COVID-19 PCR was reviewed and was negative. Influenza PCR was reviewed and was negative for influenza A and influenza B. RSV PCR was reviewed and was negative. Labs: Laboratory Results - last 24 hr 01/11/24 01/11/24 13:19 13:33 WBC 7.5 RBC 5.06 Hgb 14.8 Hct 45.8 MCV 90.5 MCH 29.2 MCHC 32.3 RDW Std Deviation 40.5 RDW Coeff of Kana 12.3 Plt Count 212 MPV 10.6 Immature Gran % (Auto) 0.300 Neut % (Auto) 75.4 H Lymph % (Auto) 17.1 L [place] % (Auto) 5.6 Eos % (Auto) 0.9 Baso % (Auto) 0.7 Absolute Neuts (auto) 5.7 Absolute Lymphs (auto) 1.28 Nucleated RBC % 0 Sodium 140 Potassium 3.9 Chloride 106 Carbon Dioxide 27.0 Anion Gap 7 BUN 4 L Creatinine 0.81 Estim Creat Clear Calc 111.89 Est GFR (MDRD) Af Amer 110 Est GFR (MDRD) Non-Af 91 BUN/Creatinine Ratio 4.9 L Glucose 98 Calcium 9.6 Total Bilirubin 0.90 AST 31 ALT 34 Alkaline Phosphatase 77 Total Protein 7.7 Albumin 4.1 Globulin 3.6 Albumin/Globulin Ratio 1.1 Lipase 98 H Serum , Qual NEGATIVE Urine Color Yellow Urine Clarity Sl. Cloudy Urine pH 8.0 Ur Specific [place] 1.010 Urine Protein Negative Urine Glucose (UA) Normal Urine Ketones Negative Urine Occult Blood 25 H Urine Nitrite Negative Urine Bilirubin Negative Urine Urobilinogen Normal Ur Leukocyte Esterase 100 H Urine RBC 0-5 SEEN Urine WBC 5-10 SEEN Ur Squamous Epith Cells 10-25 SEEN Urine Bacteria 1+ Urine Mucus 0 SEEN Radiography Chest X-Ray - ED: 2 View, Read by ED Physician, Read by Radiologist and No Acute Disease Diagnostic Testing: Clinical Impression(s) from Imaging Studies Chest X-Ray 01/11/24 13:35 IMPRESSION: Normal x-ray examination of the chest. Electronically Signed: Ra Church MD at 14:11 EDT , PA and lateral chest x-ray was obtained. There are 2 views. On my independent interpretation, lung madrigal are clear. There is normal cardiac silhouette. Bony thorax is normal. There is no acute process noted. Radiologist also interpreted the x-ray and agrees. Treatment and Re-Evaluation :: Patient was given IV fluids and Zofran. Patient was advised of her findings. Nicotine cessation was discussed. Patient was instructed to follow-up with her primary care physician in 5 to 7 days. Patient was instructed drink plenty of fluids. Patient was instructed to return if worse in any way. Patient understood and was agreeable with the plan. All questions were answered. Discharge Plan Triage Chief Complaint: Anxiety ED Provider: Buddy Botello Dx/Rx/DC Orders Clinical Impression: Vaping nicotine dependence, tobacco product, Viral illness Clinical Impression: (Ruled Out): Pelvic pain affecting Instructions: ED Viral Syndrome (Adult) Prescriptions: No Action lorazepam [Ativan] 0.5 mg tablet 0.5 mg PO DAILY PRN (Reason: anxiety) Qty: 5 0RF ondansetron 4 mg tablet,disintegrating 4 mg PO Q8H PRN PRN (Reason: Nausea) Qty: 10 0RF Primary Care Provider: Yahaira Montero [employer]ROTYPER HELPER [facility] - 5-7 Days Disposition Disposition: Home, Self Care
[2024-01-11 13:29] LABS: Absolute Lymphocyte Count 1.28 X10^3/uL (0.83-4.51); Absolute Neutrophil Count 5.7 X10^3/uL (2.0-7.7); Basophil# 0.05 X10^3/uL; Basophil% 0.7 % (0-1); Eosinophil# 0.07 X10^3/uL; Eosinophils% 0.9 % (0-5); Hematocrit 45.8 % (37-47); Hemoglobin 14.8 g/dL (12.0-15.0); Lymphocyte # 1.28 X10^3/ul (0.83-4.51); Lymphocyte % 17.1 % (19-41); Mean Corp Hgb Conc 32.3 g/dL (32-36); Mean Corpuscular Hgb 29.2 pg (27.0-32.0); Mean Corpuscular Volume 90.5 fL (81-99); Mean Platelet Vol. 10.6 fl (6.2-12.0); Monocyte# 0.42 X10^3/uL; Monocyte% 5.6 % (0-10); NRBC Flagged by Analyzer 0 % (0-5); Neutrophil # 5.66 X10^3/uL (2.7-7.7); Neutrophil % 75.4 % (47-70); Platelet Count 212 K/mm3 (150-450); RBC Distribution Width CV 12.3 % (11.6-14.6); RBC Distribution Width SD 40.5 fl (35.1-43.9); Red Blood Count 5.06 M/mm3 (4.2-5.4); White Blood Count 7.5 K/mm3 (4.4-11.0)
[2024-01-11] MEDS: 0.9% Normal Saline (1000mL) 1,000 ML 1000 ML IV (13:31)
[2024-01-11] MEDS: Ondansetron 4 MG/2 ML Vial IV (13:32)
--- NOTE | 2024-01-11 13:35 | RAD_ITS ---
STUDY: X-RAY CHEST REASON FOR EXAM: Female, 28 years old. Chest pain TECHNIQUE: PA and lateral views of the chest. COMPARISON: Comparison is made with prior study dated January 07, 2020. FINDINGS: The lungs are clear and expanded. There is no demonstrated pleural abnormality. Normal size heart. Normal mediastinum and mayur. Normal visualized pulmonary arteries. Normal visualized aortic arch and descending thoracic aorta. Normal visualized thoracic spine. Normal visualized ribs, clavicles, and shoulders. There is no demonstrated abnormality of the visualized soft tissue structures of the upper abdomen. RAD/Chest PA and Lateral IMPRESSION: Normal x-ray examination of the chest. Electronically Signed: Ra Church MD at 14:11 EDT ,
[2024-01-11 13:39] LABS: Mucous, Urine 0 SEEN /hpf (<or=2+)
[2024-01-11 13:40] LABS: Color, Urine Yellow (Yellow); Glucose, Dipstick Normal (Normal); Ketone-Dipstick Negative (Negative); Leukocyte Esterase-Dipstick 100 /ul (Negative); Nitrite-Dipstick Negative (Negative); Occult Blood-Urine 25 /ul (Negative); Protein-Dipstick Negative (Negative); Urine Bilirubin Dipstick Negative (Negative); Urine Clarity Sl. Cloudy (Clear); Urine Urobilinogen Normal (Normal)
[2024-01-11 13:43] LABS: Internal QC Validated? YES +Cl - CLEAR BKGD; Pregnancy, Serum, hCG Quali. NEGATIVE Negative
[2024-01-11 13:46] LABS: Bacteria 1+ /hpf (None Seen); Red Blood Cells-Urine 0-5 SEEN /hpf (0-5); Squamous Epithelial Cells - UA 10-25 SEEN /hpf (5-10); White Blood Cells 5-10 SEEN /hpf (0-5)
[2024-01-11 13:50] LABS: ALB/GLOB Ratio 1.1 RATIO (0.9-2.4); AST(SGOT) 31 U/L (15-37); Alanine Aminotransfer ALT/SGPT 34 U/L (13-56); Albumin, Serum 4.1 g/dL (3.2-5.0); Alkaline Phosphatase 77 U/L (45-117); Anion Gap 7 (5-15); BUN 4 mg/dL (7-18); BUN/Creat Ratio 4.9 RATIO (10-20); Calcium,Total 9.6 mg/dL (8.5-10.1); Chloride 106 mmol/L (98-107); Creatinine, Serum 0.81 mg/dL (0.55-1.02); EST Glomerular Filtration Rate 91 mL/min (>60); Est Glom Filt Rate - Afr Amer 110 mL/min (>60); Estimated Creatinine Clearance 111.89 ml/min; Globulin 3.6 g/dL (2.2-4.2); Glucose 98 mg/dL (74-106); Lipase 98 U/L (13-75); Potassium 3.9 mmol/L (3.5-5.1); Protein, Total 7.7 g/dL (6.4-8.2); Sodium Level 140 mmol/L (136-145)
[2024-01-11 14:35] VITALS: BP 123/77; PULSE 82; RESP 16; TEMP 36.7; O2SAT 100
== END 2024-01-11 14:36 | disposition home or self-care (01) ==
PROVIDERS: Emergency Provider Emergency Medicine; PCP Internal Medicine; Visit Provider Emergency Medicine
DX: B34.9 Viral infection, unspecified (principal); F17.290 Nicotine dependence, other tobacco product, uncomplicated
CPT/HCPCS: 71046; 80053; 81001; 83690; 84703; 85025; 87631; 96361; 96374; 99283; J7030; J2405

== ENCOUNTER 2024-01-15 13:31 | Emergency (ER) | payer MEDICAID, SELFPAY ==
[2024-01-15 13:32] VITALS: BP 166/110; PULSE 102; RESP 18; TEMP 36.4; O2SAT 98
[2024-01-15 14:31] VITALS: PULSE 69; RESP 16; O2SAT 97
--- NOTE | 2024-01-15 14:43 | EX.ED.VIS.PS ---
HPI <CHERYL Thorpe - Last Filed: 01/15/24 15:41> HPI - Psych History of Present Illness Chief Complaint: Anxiety Narrative Narrative: Patient presenting today due to anxiety. She reports that she has a longstanding history of anxiety and has been feeling more anxious recently. She is on Seroquel for this. She reports that over the past year she has struggled with alcohol abuse. She was sober for about a month but then began drinking heavily again last week. Shorts that she is drinking about six 12% beat boxes per day. She has been trying to detox by herself at home. She last drank a small amount prior to arrival and is trying to wean herself down. She reports that when she does not drink she feels shaky. She has had pain across her chest and upper belly over the past week. Reports that she has had multiple episodes of nausea and vomiting. She was here on the for evaluation of her belly pain and was told that her lipase was slightly elevated. She denies any history of withdrawal seizure, she denies any other substance use, SI, HI, and hallucinations. PFSH <CHERYL Thorpe - Last Filed: 01/15/24 15:41> [facility] Medical History (Updated 01/15/24 @ 15:31 by CHERYL Thorpe) Anxiety Bipolar disorder History of alcohol abuse History of anxiety Marijuana abuse Vaginal delivery Home Medications lorazepam 0.5 mg tablet (Ativan) 0.5 mg PO DAILY PRN anxiety #5 tabs 01/02/23 [Rx Last Taken Unknown] ondansetron 4 mg disintegrating tablet 4 mg PO Q8H PRN PRN Nausea #10 tabs 01/03/23 [Rx Last Taken Unknown] dicyclomine 10 mg capsule 10 mg PO TID PRN abdominal pain 5 days #15 caps 01/15/24 [Rx Last Taken Unknown] hydroxyzine pamoate 50 mg capsule 50 mg PO TID PRN anxiety 5 days #15 caps 01/15/24 [Rx Last Taken Unknown] ondansetron 4 mg disintegrating tablet 4 mg PO Q8H PRN PRN Nausea #10 tabs 01/15/24 [Rx Last Taken Unknown] Allergy/AdvReac Type Severity Reaction Status Date / Time No Known Allergies Allergy Verified 01/15/24 13:34 Surgical History History of surgery Social History Smoking Status: Current every day smoker tobacco type: e-cigarettes Electronic Cigarette Use: with nicotine ROS <CHERYL Thorpe - Last Filed: 01/15/24 15:41> ROS ED Constitutional Constitutional ED: Denies chills or fever(s) Cardiovascular Cardiovascular: Reports chest pain Respiratory/Chest Respiratory/Chest: Denies cough or dyspnea Gastrointestinal Gastrointestinal: Reports abdominal pain, nausea and vomiting; Denies constipation or diarrhea Genitourinary Genitourinary ED: Denies dysuria, hematuria or urinary urgency Musculoskeletal Musculoskeletal: Denies arthralgias or myalgias Integumentary Denies rash Neurologic Neurologic: Denies weakness Psychiatric Psychiatric: Reports anxiety; Denies hallucinations, homicidal ideation, suicidal ideation or suicidal thoughts EXAM <CHERYL Thorpe - Last Filed: 01/15/24 15:41> Physical Exam Const Vital Signs: 01/15/24 13:32 01/15/24 14:31 Temperature 97.6 F L Temperature Source Temporal Pulse Rate 102 H 69 Respiratory Rate 18 16 Blood Pressure 166/110 H Blood Pressure Mean 128 Pulse Ox 98 97 Oxygen Delivery Method Room Air Room Air Positive well nourished, well developed and no apparent distress General Appearance ED: well developed HEENT Reports normocephalic and head/scalp atraumatic Mouth ED: Yes moist mucous membranes normal Eyes PERRL and EOMs intact bilaterally Neck full ROM and supple Chest Wall inspection of chest normal Resp normal respiratory effort and clear to auscultation bilaterally Cardio regular rate and regular rhythm GI soft to palpation, non-tender, non-distended and no masses Back/Spine normal ROM and normal to inspection Extremity normal to inspection and full ROM Neuro oriented x3, CN's II-XII intact bilaterally, moves all extremities, no focal motor deficits and no sensory deficits noted Sensorium / Orientation: awake and alert Psych mental status grossly normal, thought process normal and cooperative Appearance: grossly normal Attitude: calm Activity / Motor Behavior: appropriate eye contact Speech: normal speech Mood & Affect: anxious Thought Process: normal thought process Thought Content: normal thought content Memory / Cognition: memory grossly intact Skin no rashes or lesions noted and no wounds <Rafa Medina MD - Last Filed: 01/15/24 15:44> Physical Exam Const Vital Signs: 01/15/24 13:32 01/15/24 14:31 Temperature 97.6 F L Temperature Source Temporal Pulse Rate 102 H 69 Respiratory Rate 18 16 Blood Pressure 166/110 H Blood Pressure Mean 128 Pulse Ox 98 97 Oxygen Delivery Method Room Air Room Air [facility] <CHERYL Thorpe - Last Filed: 01/15/24 15:41> [facility] Narrative Medical decision making narrative: Patient presenting due to anxiety. No HI or SI. She has a history of alcohol abuse over the past year, she was sober for about a month until a week ago when she started drinking again. She does not feel she is going through withdrawal at this time, she is adamant that she does not want inpatient detox. I did explain to her that trying to detox from alcohol by herself is not advised as it is dangerous and potentially life-threatening, she is aware. She is also refusing any workup for her chest pain or abdominal pain and does not want any blood work or imaging to be performed because she just had a workup a few days ago. She is aware of the risks that we could be missing a potentially life-threatening process, she is capable of making this decision and clinically appears sober. She reports that she just wants something for the anxiety. She will be given hydroxyzine here with prescriptions for this, Bentyl, and Zofran. I did encourage she follow-up with [facility] who she has seen in the past. Return instructions given, patient discharged home in stable condition. <Rafa Medina MD - Last Filed: 01/15/24 15:44> [facility] Narrative Medical decision making narrative: Patient presenting due to anxiety. No HI or SI. She has a history of alcohol abuse over the past year, she was sober for about a month until a week ago when she started drinking again. She does not feel she is going through withdrawal at this time, she is adamant that she does not want inpatient detox. I did explain to her that trying to detox from alcohol by herself is not advised as it is dangerous and potentially life-threatening, she is aware. She is also refusing any workup for her chest pain or abdominal pain and does not want any blood work or imaging to be performed because she just had a workup a few days ago. She is aware of the risks that we could be missing a potentially life-threatening process, she is capable of making this decision and clinically appears sober. She reports that she just wants something for the anxiety. She will be given hydroxyzine here with prescriptions for this, Bentyl, and Zofran. I did encourage she follow-up with [facility] who she has seen in the past. Return instructions given, patient discharged home in stable condition. Dr. Medina: I have personally performed a face to face assessment of the patient and have reviewed the SHANIQUE Note. I performed a substantive portion of the visit including all aspects of the following. My sifuentes findings include: History is patient states that she detoxed from alcohol about a month ago cold turkey. She had signs of nausea and vomiting and abdominal cramping at that time. She states that she started drinking alcohol again last week. While she desires detox, she does not want to be admitted for it. She complains that she has been having nausea and vomiting and abdominal cramping again. Specifically asking for Ativan to help her detox. Exam is afebrile. Vital signs noted. Regular rate and rhythm. Lungs clear to auscultation bilaterally. Abdomen soft and nontender with normal active bowel sounds. No active signs of withdrawal. No tremors. Medical Decision Making: Both the SHANIQUE and I had a lengthy discussion with the patient, indicating that we are unable to provide her with a prescription for Ativan and that if she wants detox she should be admitted. She declines and states she does not want inpatient detox at this time. She will be given symptomatic treatment medications including Zofran, Bentyl, and hydroxyzine, and given hydroxyzine here for her anxiety. She was also referred to [facility]. She will be discharged to follow-up. Return instructions reviewed. Disposition is discharged home in stable condition. Other additions or changes: [None] History & Record Review Discussion w/independent historian: Patient Discharge Plan Triage Chief Complaint: Anxiety ED Midlevel Provider: Nataly Stoddard ED Provider: Rafa Medina Dx/Rx/DC Orders Clinical Impression: Alcohol abuse, Anxiety Instructions: ED Anxiety Reaction, ED Alcohol Abuse Prescriptions: New hydroxyzine pamoate 50 mg capsule 50 mg PO TID PRN (Reason: anxiety) 5 Days Qty: 15 0RF dicyclomine 10 mg capsule 10 mg PO TID PRN (Reason: abdominal pain) 5 Days Qty: 15 0RF ondansetron 4 mg tablet,disintegrating 4 mg PO Q8H PRN PRN (Reason: Nausea) Qty: 10 0RF No Action lorazepam [Ativan] 0.5 mg tablet 0.5 mg PO DAILY PRN (Reason: anxiety) Qty: 5 0RF ondansetron 4 mg tablet,disintegrating 4 mg PO Q8H PRN PRN (Reason: Nausea) Qty: 10 0RF Primary Care Provider: Yahaira Montero NP Referrals: Yahaira Montero NP, [employer] [Primary Care Provider] - Activity Restrictions/Additional Instructions: Please follow-up with your PCP. [facility] offers outpatient detox, you can call [phone] for more information or continue to follow-up with [facility]. Disposition Disposition: Home, Self Care
[2024-01-15 14:47] VITALS: BMI 28.6
[2024-01-15] MEDS: hydrOXYzine PAM 25 MG Capsule 50 MG PO (14:47)
== END 2024-01-15 15:44 | disposition home or self-care (01) ==
PROVIDERS: Emergency Provider Emergency Medicine; PCP Internal Medicine; Visit Provider Emergency Medicine
DX: F10.10 Alcohol abuse, uncomplicated (principal); F41.9 Anxiety disorder, unspecified; F17.290 Nicotine dependence, other tobacco product, uncomplicated
CPT/HCPCS: 99282

== ENCOUNTER 2024-07-10 13:26 | Emergency (ER) | payer MEDICAID, SELFPAY ==
[2024-07-10 13:27] VITALS: BP 158/106; PULSE 106; RESP 18; TEMP 36.6; O2SAT 98; BMI 27.1
--- OUTSIDE RECORDS SUMMARY | 2024-07-10 19:27 | XMS RPT_ITS | CCD ---
Author Organization [facility] Care Team Providers Care Health And Safety Coordinator Name Role Phone Unavailable Primary Care Provider Unavailabl e Kylah SEMICONDUCTOR WAFERS ETCH OPERATOR.MERA, Serjio Primary Care Provider [phone] Kylah SEMICONDUCTOR WAFERS ETCH OPERATOR.MERA, Serjio Primary Care Provider [phone] SELF Referring Unavailable KLYAH, SERJIO Attending Unavailable KYLAH, SERJIO Primary Care Unavailable KYLAH, SERJIO Primary Care Unavailable KYLAH, SERJIO Attending Unavailable KYLAH, SERJIO Primary Care Unavailable KYLAH, SERJIO Attending Unavailable KYLAH, SERJIO Primary Care Unavailable KYLAH, SERJIO Primary Care Unavailable EPIFANIO ESCOBEDO Attending Unavailable Medications Current Medications Medication Drug Class(es) Dates Sig (Normalized) Sig (Original) acyclovir 400 mg oral tablet (1 source) Herpesvirus Nucleoside Analog DNA Polymerase Inhibitor, Herpes Simplex Virus Nucleoside Analog DNA Polymerase Inhibitor, Herpes Zoster Virus Nucleoside Analog DNA Polymerase Inhibitor Start: 02-14-2024 End: 02-19-2024 take 1 tablet by mouth three times daily acyclovir (ZOVIRAX) 400 mg tablet Take 1 tablet by mouth three times a day for 5 days. 15 tablet 0 02/14/2024 02/19/2024 Active cariprazine 1.5 mg oral capsule (4 sources) Atypical Antipsychotic Start: 06-21-2024 take 1 capsule by mouth once daily cariprazine (VRAYLAR) 1.5 mg capsule Indications: ZACH (generalized anxiety disorder) , Bipolar 1 disorder, depressed, moderate (HCC) , Depression, unspecified depression type Take 1 capsule by mouth once daily. 30 capsule 3 06/21/2024 Active Start: 04-20-2023 End: 06-01-2023 take 1 capsule by mouth once daily cariprazine (VRAYLAR) 1.5 mg capsule Indications: Bipolar 1 disorder, depressed, moderate (HCC) Take 1 capsule by mouth once daily. 30 capsule 2 04/20/2023 06/01/2023 Discontinued Comment on above: Take 1 capsule by mo [facility] once daily. LORazepam 1 mg oral tablet (8 sources) Benzodiazepine Start: End: take 1 tablet by mouth twice daily as needed LORazepam (ATIVAN) 1 mg tablet Indications: ZACH (generalized anxiety disorder) , Bipolar 1 disorder, depressed, moderate (HCC) Take 1 tablet by mouth two times a day as needed for up to 30 days. 60 tablet 06/21/2024 07/21/2024 Active Start: 05-10-2024 End: 07-05-2024 take 1 tablet by mouth twice daily as needed LORazepam (ATIVAN) 0.5 mg Indications: ZACH (generalized anxiety disorder) , Bipolar 1 disorder, depressed, moderate (HCC) Take 1 tablet by mouth two times a day as needed for up to 30 days. 60 tablet 06/05/2024 06/21/2024 Discontinued Start: 01-20-2024 End: 01-27-2024 take 1 tablet by mouth twice daily as needed for anxiety LORazepam (ATIVAN) 0.5 mg Indications: ZACH (generalized anxiety disorder) Take 1 tablet by mouth two times a day as needed (anxiety) for up to 7 days. 14 tablet 0 01/20/2024 01/27/2024 Active Completed/Discontinued Medications Medication Drug Class(es) Dates Sig (Normalized) Sig (Original) acetaminophen 325 mg oral tablet (6 sources) take 2 tablets by mouth every six hours as needed acetaminophen (TYLENOL) 325 mg tablet Take 650 mg by mouth every 6 hours as needed. 0 Active Comment on above: Take 650 mg by mouth every 6 hours as needed. benzonatate 100 mg oral capsule (2 sources) Non-narcotic Antitussive Start: 01-20-2023 End: 04-20-2023 take 2 capsules by mouth every eight hours as needed benzonatate (TESSALON PERLE) 100 mg capsule Take 2 capsules by mouth three times daily as needed for cough. 60 capsule 1 01/20/2023 04/20/2023 Discontinued Comment on above: Take 2 capsules by m [facility] three times daily as needed for cough. busPIRone hydrochloride 15 mg oral tablet (5 sources) Start: 01-08-2023 take 1 tablet by mouth three times daily as needed busPIRone (BUSPAR) 15 mg tablet Indications: ZACH (generalized anxiety disorder) Take 1 tablet by mouth three times daily as needed. 90 tablet 1 01/08/2023 Active Start: 01-04-2023 End: 01-08-2023 take 1 tablet by mouth three times daily as needed busPIRone (BUSPAR) 10 mg tablet Indications: ZACH (generalized anxiety disorder) Take 1 tablet by mouth three times daily as needed. 90 tablet 0 01/04/2023 01/08/2023 Discontinued Comment on above: Take 1 tablet by ayden th three times daily as needed. Ethinyl Estradiol / Levonorgestrel (11 sources) Progestin, Estrogen, Progestin-containing Intrauterine Device Start: 06-01-20 End: 05-10-20 take 1 tablet by mouth once daily Levonorgestrel-Ethin yl Estrad (AVIANE) 0.1mg - 20mcg per tablet Take 1 tablet by mouth once daily. 28 tablet 11 06/01/2023 05/10/2024 Discontinued Start: 06-01-2023 take 1 tablet by ayden th once daily Levonorgestrel-Ethinyl Estrad (AVIANE) 0.1mg - 20mcg per tablet Take 1 tablet by mouth once daily. 28 tablet 11 06/01/2023 Active Start: 04-09-2022 End: 01-08-2023 take 1 tablet by mouth once daily Levonorgestrel-Ethinyl Estrad (AVIANE) 0.1mg - 20mcg per tablet Take 1 tablet by mouth once daily. 28 tablet 11 04/09/2022 01/08/2023 Discontinued Start: 04-09-2022 take 1 tablet by ayden th once daily Levonorgestrel-Ethinyl Estrad (AVIANE) 0.1mg - 20mcg per tablet Take 1 tablet by mouth once daily. 28 tablet 11 04/09/2022 Active Comment on above: Take 1 tablet by ayden th once daily. famotidine 40 mg oral tablet (3 sources) Histamine-2 Receptor Antagonist Start: 01-20-20 End: 05-10-20 take 1 tablet by mouth once daily famotidine (PEPCID) 40 mg tablet Indications: Acute gastritis without hemorrhage, unspecified gastritis type Take 1 tablet by mouth once daily. 30 tablet 01/20/2024 05/10/2024 Discontinued ferrous sulfate 325 mg oral tablet (4 sources) End: 01-09-20 take 1 tablet by mouth once daily at breakfast ferrous sulfate (IRON) 325 mg (65 mg iron) tablet Take 325 mg by mouth daily with breakfast. 0 01/08/2023 Discontinued Comment on above: Take 325 mg by mouth daily with breakfast. FLUoxetine 20 mg oral capsule (1 source) Serotonin Reuptake Inhibitor Start: 03-02-20 End: 04-20-20 take 1 tablet by mouth once FLUoxetine (PROZAC) 20 mg capsule Take 1 tablet by mouth every afternoon. 0 03/02/2023 04/20/2023 Discontinued Comment on above: Take 1 tablet by ayden th every afternoon. hydrOXYzine hydrochloride 50 mg oral tablet (2 sources) Antihistamine Start: 01-05-20 End: 01-09-20 take 1 tablet by mouth at bedtime as needed for anxiety hydrOXYzine HCl (ATARAX) 50 mg tablet Indications: ZACH (generalized anxiety disorder) Take 1 tablet by mouth at bedtime as needed for anxiety. 30 tablet 0 01/04/2023 01/08/2023 Discontinued Comment on above: Take 1 tablet by ayden th at bedtime as needed for anxiety. naltrexone hydrochloride 50 mg oral tablet (5 sources) Opioid Antagonist Start: 11-15-19 End: 05-10-20 take 0.5 tablet by mouth once daily naltrexone 50 mg tablet Indications: Alcohol use disorder Take 0.5 tablets by mouth once daily. 15 tablet 1 11/15/2023 05/10/2024 Discontinued Comment on above: Take 0.5 tablets by mouth once daily. Jsdttkfo-Vl-Yvw-Fe-FA tab (4 sources) Start: 05-13-20 End: 01-09-20 take 1 tablet by mouth once daily Qgokbjox-Fn-Wxb-Fe- FA tab Take 1 tablet by mouth once daily. 30 tablet 11 05/13/2021 01/08/2023 Discontinued Start: 05-13-2021 take 1 tablet by ayden th once daily Cbjqsaqt-Fd-Odp-Fe-FA tab Take 1 tablet by mouth once daily. 30 tablet 11 05/13/2021 Active Comment on above: Take 1 tablet by ayden th once daily. propranolol hydrochloride 20 mg oral tablet (9 sources) beta-Adrenergic Wilber Start: End: take 1 tablet by mouth three times daily as needed for anxiety propranolol (INDERAL) 20 mg tablet Indications: ZACH (generalized anxiety disorder) Take 1 tablet by mouth three times daily as needed (for anxiety/palpitations) . 90 tablet 2 01/15/2023 04/20/2023 Discontinued Start: 01-04-2023 End: 01-15-2023 take 1 tablet by mouth three times daily as needed for anxiety propranolol (INDERAL) 10 mg tablet Indications: ZACH (generalized anxiety disorder) Take 1 tablet by mouth three times daily as needed (for anxiety/palpitations). 90 tablet 0 01/04/2023 01/15/2023 Discontinued Comment on above: Take 1 tablet by ayden th three times daily as needed (for anxiety/palpitations). QUEtiapine 150 mg oral tablet (13 sources) Atypical Antipsychotic Start: End: take 1 tablet by mouth once daily at bedtime QUEtiapine 150 mg tablet Indications: Bipolar 1 disorder, depressed, moderate (HCC) , Depression, unspecified depression type Take 1 tablet by mouth daily at bedtime. 30 tablet 3 11/15/2023 05/10/2024 Discontinued Start: 04-20-2023 End: 11-15-2023 take 1 tablet by mouth once daily at bedtime QUEtiapine (SEROQUEL) 100 mg tablet Indications: Depression, unspecified depression type , Bipolar 1 disorder, depressed, moderate (HCC) Take 1 tablet by mouth daily at bedtime. 30 tablet 1 11/10/2023 11/15/2023 Discontinued Start: 02-01-2023 End: 04-20-2023 take 1 tablet by mouth once daily at bedtime QUEtiapine (SEROQUEL) 50 mg tablet Indications: Depression, unspecified depression type Take 1 tablet by mouth daily at bedtime. 30 tablet 2 02/01/2023 04/20/2023 Discontinued Start: 01-14-2023 take 1 tablet by ayden th once daily at bedtime QUEtiapine (SEROQUEL) 50 mg tablet Indications: Depression, unspecified depression type Take 1 tablet by mouth daily at bedtime. 15 tablet 0 01/14/2023 Active Comment on above: Take 1 tablet by ayden th daily at bedtime. sertraline 50 mg oral tablet (3 sources) Serotonin Reuptake Inhibitor Start: 3 End: 3 take 1 tablet by mouth once daily, then take 0.5 tablet by mouth once daily, then take 1 tablet by mouth once daily sertraline (ZOLOFT) 50 mg tablet Indications: ZACH (generalized anxiety disorder) Take 1 tablet by mouth once daily. Start by taking a half a tab daily then after 1 week increase to a whole pill daily 30 tablet 0 01/04/2023 01/11/2023 Discontinued Comment on above: Take 1 tablet by ayden th once daily. Start by taking a half a tab daily then after 1 week increase to a whole pill daily traZODone hydrochloride 50 mg oral tablet (2 sources) Serotonin Reuptake Inhibitor Start: 3 take 1-2 tablets by mouth once daily at bedtime traZODone (DESYREL) 50 mg tablet Indications: ZACH (generalized anxiety disorder) , Sleep disturbance Take 1-2 tablets by mouth daily at bedtime. 60 tablet 2 01/11/2023 Active Comment on above: Take 1-2 tablets by mouth daily at bedtime. 24 hr divalproex sodium 500 mg extended release oral tablet (13 sources) Mood Stabilizer, Anti-epileptic Agent Start: 3 End: 4 take 1 tablet by mouth once daily divalproex ER (DEPAKOTE ER) 500 mg 24 hr tablet Indications: ZACH (generalized anxiety disorder) , Bipolar 1 disorder, depressed, moderate (HCC) Take 1 tablet by mouth once daily. 30 tablet 5 05/10/2024 06/21/2024 Discontinued Start: 03-28-2023 End: 04-20-2023 take 2 tablets by mouth every twenty-four hours divalproex ER (DEPAKOTE ER) 500 mg 24 hr tablet TAKE 2 TABLETS BY MOUTH at night 0 03/28/2023 04/20/2023 Discontinued Comment on above: TAKE 2 TABLETS BY MO UTH at night Take 2 tablets by mo uth daily at bedtime AND 1 tablet every morning. 24 hr venlafaxine 75 mg extended release oral capsule (2 sources) Serotonin and Norepinephrine Reuptake Inhibitor Start: 01-12-20 take 1 capsule by mouth once daily venlafaxine ER (EFFEXOR XR) 75 mg 24 hr capsule Indications: ZACH (generalized anxiety disorder) Take 1 capsule by mouth once daily. 30 capsule 2 01/11/2023 Active Comment on above: Take 1 capsule by mo uth once daily. Problems Active Problems Problem Classification Problem Date Documented Date Episodic/Chronic Adjustment disorders (1 source) Stress and adjustment reaction; Translations: [Adjustment disorder with other symptoms] 06-21-2024 Chronic Anxiety disorders (20 sources) Generalized anxiety disorder; Translations: [Generalized anxiety disorder] Onset: 01-08-2023 Chronic Cancer of other female genital organs (1 source) Cervicovaginal cytology: Low grade squamous intraepithelial lesion; Translations: [Low grade squamous intraepithelial lesion on cytologic smear of vagina (LGSIL)] Episodic Contraceptive and procreative management (3 sources) Patient encounter status; Translations: [Encounter for initial prescription of contraceptive pills] Episodic Menstrual disorders (1 source) Disorder of menstruation; Translations: [Irregular menstruation, unspecified] Chronic Mood disorders (20 sources) Moderate depressed bipolar I disorder; Translations: [Bipolar disorder, current episode depressed, moderate] Onset: 01-20-2024 04-20-2023 Chronic Nutritional deficiencies (1 source) Vitamin D deficiency; Translations: [Vitamin D deficiency, unspecified] Chronic Other female genital disorders (2 sources) Abnormal uterine bleeding; Translations: [Abnormal uterine and vaginal bleeding, unspecified] Chronic Other skin disorders (1 source) Eruption; Translations: [Rash and other nonspecific skin eruption] 02-14-2024 Episodic Residual codes; unclassified (1 source) Disturbance in sleep behavior; Translations: [Sleep disorder, unspecified] Episodic Residual codes; unclassified (1 source) Unprotected sexual intercourse; Translations: [High risk heterosexual behavior] Episodic Thyroid disorders (1 source) Goiter; Translations: [Nontoxic goiter, unspecified] Chronic Past or Other Problems Problem Classification Problem Date Documented Date Episodic/Chronic Alcohol-related disorders (10 sources) History of alcohol abuse; Translations: [Alcohol abuse, in remission] Onset: 03-27-2021 Resolved: 01-04-2023 03-27-2021 Chronic Cancer of cervix (20 sources) Low grade squamous intraepithelial lesion on cervical Papanicolaou smear; Translations: [Low grade squamous intraepithelial lesion on cytologic smear of cervix (LGSIL)] Onset: 04-23-2021 04-23-2021 Episodic Diabetes or abnormal glucose tolerance complicating ; childbirth; or the puerperium (8 sources) Abnormal glucose level; Translations: [Abnormal glucose complicating ] Onset: 09-01-2021 Resolved: 04-09-2022 04-09-2022 Episodic Gastritis and duodenitis (8 sources) Acute gastritis; Translations: [Acute gastritis without bleeding] Onset: 01-20-2024 01-20-2024 Episodic Hemorrhage during ; abruptio placenta; placenta previa (8 sources) Low lying placenta; Translations: [Low lying placenta NOS or without hemorrhage, unspecified trimester] Onset: 07-10-2021 Resolved: 04-09-2022 04-09-2022 Episodic Other complications of (8 sources) Anemia in mother complicating , childbirth AND/OR puerperium; Translations: [Anemia complicating , third trimester] Onset: 02-14-2018 Resolved: 04-09-2022 04-09-2022 Chronic Other complications of (8 sources) Obesity; Translations: [Obesity complicating , unspecified trimester] Onset: 04-22-2021 Resolved: 04-09-2022 04-09-2022 Chronic Other complications of (3 sources) Nausea and vomiting; Translations: [Vomiting of , unspecified] Onset: 09-23-2017 Resolved: 08-29-2021 08-29-2021 Episodic Other complications of (8 sources) Maternal tobacco use in ; Translations: [Smoking (tobacco) complicating , unspecified trimester] Onset: 09-23-2017 Resolved: 04-22-2021 04-22-2021 Episodic Other complications of (8 sources) High risk ; Translations: [Supervision of high risk , unspecified, third trimester] Onset: 04-22-2021 Resolved: 04-09-2022 04-09-2022 Episodic Other complications of (8 sources) Disease caused by 2019-nCoV; Translations: [Other viral diseases complicating , unspecified trimester] Onset: 08-22-2021 Resolved: 04-09-2022 04-09-2022 Episodic Other complications of (5 sources) Vomiting of , unspecified; Translations: [Unspecified vomiting of , unspecified as to episode of care or not applicable] Onset: 09-23-2017 Resolved: 08-29-2021 08-29-2021 Episodic Residual codes; unclassified (9 sources) Alcoholism; Translations: [Alcohol use disorder] Onset: 01-20-2024 11-15-2023 Episodic Screening and history of mental health and substance abuse codes (20 sources) History of clinical finding in subject; Translations: [Personal history of nicotine dependence] Onset: 03-27-2021 Resolved: 01-20-2024 04-22-2021 Episodic Substance-related disorders (8 sources) History of clinical finding in subject; Translations: [History of marijuana use] Onset: 09-23-2017 Resolved: 04-22-2021 04-22-2021 Chronic Results Test Name Value Interpretation Reference Range Facil randy ANTHONYon 06-21-2024 CNOV Office Visit (INTMWS ) JANE CHUNG ([id number]) 1995 F Date Time Provider Department 06/21/24 1:40 PM SERJIO MONTERO INTMWS During your visit today, we recorded the following information about you: Pulse Blood pressure Weight Last Period 87/minute 128/94 75 kg 06/19/24 Serjio Montero APRN.NEUROSURGEON 06/21/2024 2:20 PM Signed SUBJECTIVE Jane Chung is a 28 year old female here today for a check up on her medical problems. Chief Complaint Patient presents with: anxiety follow up HPI Jane Chung is a 28 year old female. She is an established patient and here today for follow up on mood. Last visit we discussed concerns of not taking any medications. She had gradual mood changes and noticed anxiety, bipolar worsening. Last visit we gave a short term script for lorazepam and restarted Depakote. Does not like how the Depakote makes her feel. She has had some increased stress with home life and is not feeling well mental health ivan, anxiety has been much worse and notices a lot of mood fluctuation, weight is decreasing. She denies thoughts of self harm or of suicide, no thoughts of harming others. Her medications were reviewed today and her list is now up to date. Medications Current Outpatient Medications Medication Sig LORazepam (ATIVAN) 1 mg tablet Take 1 tablet by mouth two times a day as needed for up to 30 days. cariprazine (VRAYLAR) 1.5 mg capsule Take 1 capsule by mouth once daily. No current facility-administered medications for this visit. ALLERGIES No Known Allergies ACTIVE PROBLEM LIST Alcohol Use Disorder - 01/20/2024 Depression - 01/20/2024 Acute Gastritis Without Hemorrhage - 01/20/2024 Bipolar 1 Disorder, Depressed, Moderate (Hcc) - 01/20/2024 Zach (Generalized Anxiety Disorder) - 01/08/2023 Papanicolaou Smear of Cervix With Low Grade Squamous Intraepithelial Lesion (Lgsil) - 04/23/2021 Comment: 04/23/21-LGSIL, repeat pap smear in one year. Ana Puckett APRN.CNM History of Nicotine Vaping - 03/27/2021 Comment: 04/16/21-Using e-cig. Reviewed risk to self and baby and advised cessation. Ana Puckett APRN.CNM 03/27/2021 Patient has been nicotine vaping. Discussed risks of nicotine vaping in and recommendation of patient to quit. TKRN Social History Tobacco Use Smoking status: Former Current packs/day: 0.00 Types: Cigarettes Start date: 10/28/2012 Quit date: 10/28/2020 Years since quittin.6 Smokeless tobacco: Never Tobacco comments: E-cigarettes sometimes Vaping Use Vaping status: current everyday user Substances: Nicotine Devices: Disposable Substance Use Topics Alcohol use: Yes Alcohol/week: 42.0 standard drinks of alcohol Types: 42 Cans of beer per week Drug use: Yes Types: Marijuana Comment: none since 08/2017 Review of Systems Respiratory: Negative. Cardiovascular: Negative. Psychiatric/Behaviora l: Positive for dysphoric mood. Negative for self-injury and suicidal ideas. The patient is nervous/anxious. OBJECTIVE BP 128/94 Pulse 87 Wt 165 lb 5.5 oz (75.0kg) SpO2 98% LMP 06/19/2024 Physical Exam Vitals and nursing note reviewed. Constitutional: General: She is awake. She is not in acute distress. Appearance: Normal appearance. She is well-developed and well-groomed. She is not ill-appearing, toxic-appearing or diaphoretic. HENT: Head: Normocephalic. Right Ear: External ear normal. Left Ear: External ear normal. Nose: Nose normal. Eyes: General: Vision grossly intact. Conjunctiva/sclera: Conjunctivae normal. Pupils: Pupils are equal, round, and reactive to light. Neck: Vascular: No JVD. Trachea: Trachea normal. Cardiovascular: Rate and Rhythm: Normal rate and regular rhythm. Pulses: Normal pulses. Heart sounds: Normal heart sounds. No murmur heard. Pulmonary: Effort: Pulmonary effort is normal. No accessory muscle usage, prolonged expiration or respiratory distress. Breath sounds: Normal breath sounds. Musculoskeletal: Cervical back: Neck supple. Skin: General: Skin is warm and dry. Capillary Refill: Capillary refill takes less than 2 seconds. Neurological: General: No focal deficit present. Mental Status: She is alert and oriented to person, place, and time. Mental status is at baseline. Psychiatric: Attention and Perception: Attention and perception normal. Mood and Affect: Mood and affect normal. Speech: Speech normal. Behavior: Behavior normal. Behavior is cooperative. Thought Content: Thought content normal. Cognition and Memory: Cognition and memory normal. Judgment: Judgment normal. ASSESSMENT/PLAN: 1. ZACH (generalized anxiety disorder) - ICD9: 300.02, ICD10: F41.1 (primary diagnosis) Increase ativan and stop depakote for side effects, try vraylar. Discussed new medication including but not limited to reason for use, possible side effects, a (more content not included)... [facility] Telephone (INTM[facility]) JANE CHUNG ([id number]) 1995 F Date Time Provider Department 06/21/24 SERJIO MONTERO INTC[facility] During your visit today, we recorded the following information about you: Lori Young LPN 06/21/2024 4:09 PM Signed Electronic PA rec'd and completed for cariprazine (vraylar). This was approved. Prior authorization approved Payer: [facility] Note from payer: Your PA request for [id number] was approved for 365 days. The PA# assigned is [id number]. Approval Details Authorization number: [id number] Authorized from June 21, 2024 to June 20, 2025 Electronic appeal: Not supported View History Medication Being Authorized cariprazine (VRAYLAR) 1.5 mg capsule Take 1 capsule by mouth once daily. Dispense: 30 capsule Refills: 3 Start: 06/21/2024 Class: Normal Diagnoses: ZACH (generalized anxiety disorder); Bipolar 1 disorder, depressed, moderate (HCC); Depression, unspecified depression type This order has been released to its destination. To be filled at: [email or web address] [place], [place] [address] Lori Young LPN 06/22/2024 8:37 AM Signed Pharmacy notified. Allergies As of Date: 06/21/2024 (No Known Allergies) Date Reviewed: 06/21/2024 Reviewed by: Serjio Montero APRN.NEUROSURGEON - Fully Assessed Reason for Visit: Insurance Authorization [[id number]] Prescriptions as of 06/22/2024 - LORazepam (ATIVAN) 1 mg tablet Take 1 tablet by mouth two times a day as needed for up to 30 days. - cariprazine (VRAYLAR) 1.5 mg capsule Take 1 capsule by mouth once daily. Problem List As Of Date 06/21/2024 Noted Resolved Nausea and vomiting during [O21.9] 09/23/2017 08/29/2021 Tobacco use in [O99.330] 09/23/2017 04/22/2021 History of marijuana use [F12.91] 09/23/2017 04/22/2021 Patient request for diagnostic testing [Z01.89] 09/23/2017 09/01/2021 Antepartum anemia complicating in thi*02/14/2018 04/09/2022 History of nicotine vaping [Z87.891] 03/27/2021 History of alcohol abuse [F10.11] 03/27/2021 01/04/2023 History of anxiety [Z86.59] 03/27/2021 01/20/2024 Supervision of high risk in third tri*04/22/2021 04/09/2022 Obesity in [O99.210] 04/22/2021 04/09/2022 Papanicolaou smear of cervix with low grade squ*04/23/2021 COVID-19 vaccine series declined [Z28.21, Z28.3*05/13/2021 04/09/2022 Low-lying placenta [O44.40] 07/10/2021 04/09/2022 COVID-19 affecting , antepartum [O98.5*08/22/2021 04/09/2022 Abnormal glucose complicating [O99.81*09/01/2021 04/09/2022 ZACH (generalized anxiety disorder) [F41.1] 01/08/2023 Alcohol use disorder [F10.90] 01/20/2024 Depression [F32.A] 01/20/2024 Acute gastritis without hemorrhage [K29.00] 01/20/2024 Bipolar 1 disorder, depressed, moderate (HCC) [*01/20/2024 Encounter Status:Closed by LORI YOUNG on 06/22/24 [facility] ([id number]) 1995 F Date Time Provider Department 06/20/24 SERJIO MONTERO INTC[facility] During your visit today, we recorded the following information about you: Sonja Avalos LPN 06/20/2024 1:04 PM Signed Pt is asking for pcp to call her brett today when she can. Pt reports she has episodes of manic depression AND she is having problems now. Pt is scheduled to see pcp tomorrow but states she doesn't think she can wait. Pt states she is out of her meds depakote AND lorazepam. Pt notified that she has refills left on her depakote which she didn't realize she did. Pt states she has been taking more of the ativan than directed so she is out of that. Pt aware message will be sent to provider. Pt states she is not alone, someone is with her. MARINO Fisher Rosa, APRN.MERA 06/20/2024 2:55 PM Signed I agree, she needs to get started back on the Depakote, refills should be at the pharmacy but if any issues I can resend it. Unfortunately I cannot send more lorazepam at this time, we can discuss this with her visit tomorrow but I can't refill it until she comes in because of using more than prescribed. I agree with getting her in [facility] to make other adjustments but if concerns of self harm or injury or having thoughts of suicide or thoughts of harming others then she needs to go to ER for crisis services. Cici Wyatt RN 06/20/2024 3:00 PM Signed Pt returned call and given provider's message below with verbalized understanding. Patient agreeable. Allergies As of Date: 06/20/2024 (No Known Allergies) Date Reviewed: 05/10/2024 Reviewed by: Serjio Montero APRN.NEUROSURGEON - Fully Assessed Reason for Visit: Pt asking for a call back [Other] Prescriptions as of 06/20/2024 - LORazepam (ATIVAN) 0.5 mg Take 1 tablet by mouth two times a day as needed for up to 30 days. - divalproex ER (DEPAKOTE ER) 500 mg 24 hr tablet Take 1 tablet by mouth once daily. Problem List As Of Date 06/20/2024 Noted Resolved Nausea and vomiting during [O21.9] 09/23/2017 08/29/2021 Tobacco use in [O99.330] 09/23/2017 04/22/2021 History of marijuana use [F12.91] 09/23/2017 04/22/2021 Patient request for diagnostic testing [Z01.89] 09/23/2017 09/01/2021 Antepartum anemia complicating in thi*02/14/2018 04/09/2022 History of nicotine vaping [Z87.891] 03/27/2021 History of alcohol abuse [F10.11] 03/27/2021 01/04/2023 History of anxiety [Z86.59] 03/27/2021 01/20/2024 Supervision of high risk in third tri*04/22/2021 04/09/2022 Obesity in [O99.210] 04/22/2021 04/09/2022 Papanicolaou smear of cervix with low grade squ*04/23/2021 COVID-19 vaccine series declined [Z28.21, Z28.3*05/13/2021 04/09/2022 Low-lying placenta [O44.40] 07/10/2021 04/09/2022 COVID-19 affecting , antepartum [O98.5*08/22/2021 04/09/2022 Abnormal glucose complicating [O99.81*09/01/2021 04/09/2022 ZACH (generalized anxiety disorder) [F41.1] 01/08/2023 Alcohol use disorder [F10.90] 01/20/2024 Depression [F32.A] 01/20/2024 Acute gastritis without hemorrhage [K29.00] 01/20/2024 Bipolar 1 disorder, depressed, moderate (HCC) [*01/20/2024 Encounter Status:Closed by OLLIE GARCIA on 06/20/24 [facility] CNOVcasie 05-10-2024 CNOV Office Visit (INTMWS ) JANE CHUNG ([id number]) 1995 F Date Time Provider Department 05/10/24 10:00 AM SERJIO MONTERO INTMWS During your visit today, we recorded the following information about you: Pulse Respiration Blood pressure Weight 77/minute 16/minute 124/86 80.2 kg Serjio Montero APRN.NEUROSURGEON 05/10/2024 10:37 AM Signed SUBJECTIVE Jane Chung is a 28 year old female here today for a check up on her medical problems. Chief Complaint Patient presents with: discuss medication: Anxiety HPI Jane Chung is a 28 year old female. She is an established patient. Presents today for follow up on anxiety, bipolar 1 disorder. Currently not taking any medications. Was taking medication, stopped about 5 or 6 months ago. [place] pretty good while off of medication but gradually noticed mood changes. Now not eating well, not sleeping well. Panic attacks and crying episodes occurring frequently. Her medications were reviewed today and her list is now up to date. Medications Current Outpatient Medications Medication Sig divalproex ER (DEPAKOTE ER) 500 mg 24 hr tablet Take 1 tablet by mouth once daily. LORazepam (ATIVAN) 0.5 mg Take 1 tablet by mouth two times a day as needed for up to 30 days. No current facility-administered medications for this visit. ALLERGIES No Known Allergies ACTIVE PROBLEM LIST Alcohol Use Disorder - 01/20/2024 Depression - 01/20/2024 Acute Gastritis Without Hemorrhage - 01/20/2024 Bipolar 1 Disorder, Depressed, Moderate (Hcc) - 01/20/2024 Zach (Generalized Anxiety Disorder) - 01/08/2023 Papanicolaou Smear of Cervix With Low Grade Squamous Intraepithelial Lesion (Lgsil) - 04/23/2021 Comment: 04/23/21-LGSIL, repeat pap smear in one year. Ana Puckett APRN.CNM History of Nicotine Vaping - 03/27/2021 Comment: 04/16/21-Using e-cig. Reviewed risk to self and baby and advised cessation. Ana Puckett APRN.CNM 03/27/2021 Patient has been nicotine vaping. Discussed risks of nicotine vaping in and recommendation of patient to quit. TKRN Social History Tobacco Use Smoking status: Former Current packs/day: 0.00 Types: Cigarettes Start date: 10/28/2012 Quit date: 10/28/2020 Years since quittin.5 Smokeless tobacco: Never Tobacco comments: E-cigarettes sometimes Vaping Use Vaping status: current everyday user Substances: Nicotine Devices: Disposable Substance Use Topics Alcohol use: Yes Alcohol/week: 42.0 standard drinks of alcohol Types: 42 Cans of beer per week Drug use: Yes Types: Marijuana Comment: none since 08/2017 Review of Systems Respiratory: Negative. Cardiovascular: Negative. Psychiatric/Behaviora l: Positive for sleep disturbance. The patient is nervous/anxious. OBJECTIVE BP 124/86 Pulse 77 Resp 16 Wt 176 lb 12.9 oz (80.2kg) SpO2 97% LMP 10/19/2023 Physical Exam Vitals and nursing note reviewed. Constitutional: General: She is awake. She is not in acute distress. Appearance: Normal appearance. She is well-developed and well-groomed. She is not ill-appearing, toxic-appearing or diaphoretic. HENT: Head: Normocephalic. Right Ear: External ear normal. Left Ear: External ear normal. Nose: Nose normal. Eyes: General: Vision grossly intact. Conjunctiva/sclera: Conjunctivae normal. Pupils: Pupils are equal, round, and reactive to light. Neck: Vascular: No JVD. Trachea: Trachea normal. Pulmonary: Effort: Pulmonary effort is normal. No accessory muscle usage, prolonged expiration or respiratory distress. Musculoskeletal: Cervical back: Neck supple. Skin: General: Skin is warm and dry. Capillary Refill: Capillary refill takes less than 2 seconds. Neurological: General: No focal deficit present. Mental Status: She is alert and oriented to person, place, and time. Mental status is at baseline. Psychiatric: Attention and Perception: Attention and perception normal. Mood and Affect: Mood and affect normal. Speech: Speech normal. Behavior: Behavior normal. Behavior is cooperative. Thought Content: Thought content normal. Cognition and Memory: Cognition and memory normal. Judgment: Judgment normal. ASSESSMENT/PLAN: 1. ZACH (generalized anxiety disorder) - ICD9: 300.02, ICD10: F41.1 (primary diagnosis) Worsening anxiety. Discussed Ativan and restarting Depakote, will see if we can use the ativan short term. No reports of suicidal ideation, thoughts of self harm or thoughts of harming others. - DIVALPROEX ER 500 MG TABLET,EXTENDED RELEASE 24 HR - LORAZEPAM 0.5 MG TABLET 2. Bipolar 1 disorder, depressed, moderate (HCC) - ICD9: 296.52, ICD10: F31.32 See #1 - DIVALPROEX ER 500 MG TABLET,EXTENDED RELEASE 24 HR - LORAZEPAM 0.5 MG TABLET PDMP website checked and validated. All prescriptions have been APPROPRIATELY filled. No suspicious activity was identified. (more content not included)... Normal [facility] CNOVon 02-14-2024 CNOV Office Visit (UCWSTR ) JANE CHUNG ([id number]) 1995 F Date Time Provider Department 02/14/24 1:15 PM ALANA MCCOY [facility] During your visit today, we recorded the following information about you: Temperature Pulse Respiration Blood pressure 98.1 degrees 92/minute 16/minute 124/80 Weight 81.2 kg Alana Mccoy, KENDRA.NEUROSURGEON 02/14/2024 12:56 PM Signed Subjective HPI Nontoxic-appearing female presents urgent care chief complaint possible cold sore. Duration of symptom 1 day. Associated symptoms slightly painful lesion on the bottom of her lip. History of cold sores this is similar. No OTC medication use. No recent medication changes antibiotic use. Overall feels well. Denies any fever body aches chills productive cough chest pain shortness of breath pleuritic pain hemoptysis nausea vomiting abdominal pain change in bowel or bladder habits. Past medical history prescription medication use and allergies reviewed. Denies chance of . Is not breast-feeding. .Patient presents with: Mouth/Lip Problem: left bottom lip x 1 day PAST MEDICAL HISTORY Diagnosis Date Alcohol use disorder 01/20/2024 Anemia complicating , third trimester 02/14/2018 anxiety Depression 01/20/2024 fracture 2016 right hand, punched something and fractures the hand NEGATIVE MEDICAL HISTORY Papanicolaou smear of cervix with low grade squamous intraepithelial lesion (LGSIL) 04/23/2021 PAST SURGICAL HISTORY Procedure Laterality Date TONSILLECTOMY HX ALLERGIES Patient has no known allergies. MEDICATIONS famotidine (PEPCID) 40 mg tablet Take 1 tablet by mouth once daily. QUEtiapine 150 mg tablet Take 1 tablet by mouth daily at bedtime. naltrexone 50 mg tablet Take 0.5 tablets by mouth once daily. divalproex ER (DEPAKOTE ER) 500 mg 24 hr tablet Take 2 tablets by mouth daily at bedtime AND 1 tablet every morning. Levonorgestrel-Ethiny l Estrad (AVIANE) 0.1mg - 20mcg per tablet Take 1 tablet by mouth once daily. acyclovir (ZOVIRAX) 400 mg tablet Take 1 tablet by mouth three times a day for 5 days. FAMILY HISTORY Problem Relation Age of Onset Diabetes Mother Type II Thyroid Mother other (brain aneurysm) Father other (Lupus) Sister No Known Problems Sister No Known Problems Brother No Known Problems Brother No Known Problems Brother No Known Problems Brother Hypertension Maternal Grandmother Coronary Artery Disease Maternal Grandmother Triple CAB twice Heart Maternal Grandmother 4 MA's, Congestive Heart Failure Arthritis Maternal Grandmother Colon Cancer Maternal Grandfather No Known Problems Paternal Grandmother Seizures Paternal Grandfather Social History Tobacco Use Smoking status: Former Years: 8 Types: Cigarettes Quit date: 10/28/2020 Years since quittin.2 Smokeless tobacco: Never Tobacco comments: E-cigarettes sometimes Vaping Use Vaping Use: current everyday user Substances: Nicotine Devices: Disposable Substance Use Topics Alcohol use: Yes Alcohol/week: 42.0 standard drinks of alcohol Types: 42 Cans of beer per week Drug use: Yes Types: Marijuana Comment: none since 08/2017 BP 124/80 Pulse 92 Temp 36.7 ?C (98.1 ?F) Resp 16 Wt 81.2 kg (179 lb 0.2 oz) LMP 10/19/2023 (Approximate) SpO2 97% BMI 28.89 kg/m? Review of Systems Constitutional: Negative for chills, fever and malaise/fatigue. HENT: Negative for congestion, ear discharge, ear pain, sinus pain and sore throat. Eyes: Negative for blurred vision, pain, discharge and redness. Respiratory: Negative for cough, hemoptysis, sputum production, shortness of breath, wheezing and stridor. Cardiovascular: Negative for chest pain. Gastrointestinal: Negative for abdominal pain, diarrhea, nausea and vomiting. Musculoskeletal: Negative for myalgias. Skin: Negative for itching and rash. Neurological: Negative for dizziness and headaches. Objective Physical Exam Constitutional: General: She is not in acute distress. Appearance: She is not toxic-appearing or diaphoretic. HENT: Head: Normocephalic. Jaw: No trismus, tenderness, swelling or pain on movement. Comments: Erythematous lesion noted highlighted area. No remote redness. Patient does have a lip ring closest area. No cellulitis or drainage noted from that area. Nose: Nose normal. Mouth/Throat: Mouth: Mucous membranes are moist. Pharynx: Oropharynx is clear. Uvula midline. No pharyngeal swelling, oropharyngeal exudate, posterior oropharyngeal erythema or uvula swelling. Eyes: Conjunctiva/sclera: Conjunctivae normal. Pupils: Pupils are equal, round, and reactive to light. Cardiovascular: Rate and Rhythm: Normal rate and regular rhythm. Heart sounds: Normal heart sounds. Pulmonary: Effort: Pulmonary effort is normal. No tachypnea, accessory muscle usage or respiratory distress. (more content not included)... Normal [facility] CNOVon 01-20-2024 CNOV Office Visit (INTMWS ) JANE CHUNG ([id number]) 1995 F Date Time Provider Department 01/20/24 2:00 PM EPIFANIO ESCOBEDO INTMWS During your visit today, we recorded the following information about you: Temperature Pulse Respiration Blood pressure 98.5 degrees 84/minute 18/minute 120/76 Weight 79.8 kg Epifanio Escobedo MD 01/20/2024 3:13 PM Signed This note was created using [employer] Messenger[employer]. Subjective Jane Chung is a 28 year old female. She had a longstanding history of anxiety, depression, bipolar with multiple medications tried. PCP had her on depakote and quetiapine which worked for a while, but efficacy again declined. She also indicated some adherence issues with medication. This was complicated by alcohol use disorder. She got depressed, anxious, with insomnia, and stopped doing any thing for weeks. She had poor appetite, epigastric pain, nausea, and vomiting. She went to the ER 01/10 where labs were mostly okay other than mild lipase elevation. She was given Zofran as needed. She went back again 01/15/24 but refused inpatient detox. She was referred to 180. Lorazepam was recommended, but prescription was not transmitted. She needed medication while waiting to get back with PCP. Review of Systems Constitutional: Positive for appetite change and unexpected weight change. Respiratory: Negative for shortness of breath. Gastrointestinal: Positive for abdominal pain, nausea and vomiting. Psychiatric/Behaviora l: Positive for dysphoric mood and sleep disturbance. Negative for self-injury and suicidal ideas. The patient is nervous/anxious. ACTIVE PROBLEM LIST History of Nicotine Vaping Papanicolaou Smear of Cervix With Low Grade Squamous Intraepithelial Lesion (Lgsil) Zach (Generalized Anxiety Disorder) Alcohol Use Disorder Depression Acute Gastritis Without Hemorrhage Bipolar 1 Disorder, Depressed, Moderate (Hcc) Social History Tobacco Use Smoking status: Former Years: 8 Types: Cigarettes Quit date: 10/28/2020 Years since quittin.2 Smokeless tobacco: Never Tobacco comments: E-cigarettes sometimes Vaping Use Vaping Use: current everyday user Substances: Nicotine Devices: Disposable Substance Use Topics Alcohol use: Yes Alcohol/week: 42.0 standard drinks of alcohol Types: 42 Cans of beer per week Drug use: Yes Types: Marijuana Comment: none since 08/2017 Current Outpatient Medications Medication Sig QUEtiapine 150 mg tablet Take 1 tablet by mouth daily at bedtime. naltrexone 50 mg tablet Take 0.5 tablets by mouth once daily. divalproex ER (DEPAKOTE ER) 500 mg 24 hr tablet Take 2 tablets by mouth daily at bedtime AND 1 tablet every morning. Levonorgestrel-Ethiny l Estrad (AVIANE) 0.1mg - 20mcg per tablet Take 1 tablet by mouth once daily. No current facility-administered medications for this visit. Objective BP 120/76 (BP Site: Left Arm, BP Position: Sitting, BP Cuff Size: Large Adult) Pulse 84 Temp 36.9 ?C (98.5 ?F) (Temporal) Resp 18 Wt 79.8 kg (176 lb) LMP 10/19/2023 (Approximate) BMI 28.41 kg/m? Physical Exam Constitutional: Appearance: She is not ill-appearing. HENT: Mouth/Throat: Mouth: Mucous membranes are moist. Pharynx: Oropharynx is clear. Eyes: General: No scleral icterus. Conjunctiva/sclera: Conjunctivae normal. Cardiovascular: Heart sounds: Normal heart sounds. Pulmonary: Breath sounds: Normal breath sounds. Abdominal: Palpations: Abdomen is soft. Tenderness: There is abdominal tenderness in the epigastric area. There is no guarding or rebound. Neurological: General: No focal deficit present. Mental Status: She is alert. Psychiatric: Mood and Affect: Mood normal. Behavior: Behavior normal. Thought Content: Thought content normal. Assessment and Plan 1. ZACH (generalized anxiety disorder) - ICD9: 300.02, ICD10: F41.1 (primary diagnosis) Risks of medication reviewed. [facility] website checked and validated. All prescriptions have been APPROPRIATELY filled. No suspicious activity was identified. 01/20/2024 by Epifanio Escobedo MD - LORAZEPAM 0.5 MG TABLET. Take one(1) tablet two(2) times daily as needed. This is not recommended for assisted. 2. Alcohol use disorder - ICD9: V49.89, ICD10: F10.90 - See 180. 3. Acute gastritis without hemorrhage, unspecified gastritis type - ICD9: 535.00, ICD10: K29.00 - FAMOTIDINE 40 MG TABLET Discussed medication dosage, usage, goals of therapy, and side effects. 4. Depression, unspecified depression type - ICD9: 311, ICD10: F32.A Follow up with PCP. 5. Bipolar 1 disorder, depressed, moderate (HCC) - ICD9: 296.52, ICD10: F31.32 Follow up with PCP. Epifanio Escobedo MD Allergies As of Date: 01/20/2024 (No Known Allergies) Date Reviewed: 01/20/2024 Reviewed by: Sia Branch LPN - Fully Assessed Reason for Visit: ED Follow-up [821] (more content not included)... Normal [facility] Melanie 01-19-2024 [facility] Telephone (INTMWS) JANE CHUNG ([id number]) 1995 F Date Time Provider Department 01/19/24 SERJIO MONTERO During your visit today, we recorded the following information about you: Cici Wyatt RN 01/19/2024 1:52 PM Signed Patient phoned to schedule [facility] ER f/u appt. Reports her anxiety is really bad lately, which is why she went to [facility] ER twice, recently. Patient cannot remember the dates she went, but was in ER this past Wednesday, January 14. Reports they gave her vistaril, and she hasn't taken it today. Patient will take it today. Reports she stopped taking her seroquel 2 weeks ago, because it stopped working, caused her to hear voices, and have nightmares. Reports she can't sleep or eat- eats once daily. Advised patient to drink plenty of fluids. Patient agreeable. Scheduled f/u appt for 01-20-[address] Escobedo Gave patient 05/04 phone number to [facility] and advised patient she can call that number 24 hours a day and a professional will be available to help her. Patient wrote the number down, and agreeable to call if needed. Serjio Montero APRN.CNP 01/21/2024 7:11 AM Signed noted Allergies As of Date: 01/19/2024 (No Known Allergies) Date Reviewed: 11/15/2023 Reviewed by: Serjio Montero APRN.CNP - Fully Assessed Reason for Visit: [facility] ER visit / appt [Other] Prescriptions as of 01/21/2024 - famotidine (PEPCID) 40 mg tablet Take 1 tablet by mouth once daily. - LORazepam (ATIVAN) 0.5 mg Take 1 tablet by mouth two times a day as needed (anxiety) for up to 7 days. - QUEtiapine 150 mg tablet Take 1 tablet by mouth daily at bedtime. - naltrexone 50 mg tablet Take 0.5 tablets by mouth once daily. - divalproex ER (DEPAKOTE ER) 500 mg 24 hr tablet Take 2 tablets by mouth daily at bedtime AND 1 tablet every morning. - Levonorgestrel-Ethiny l Estrad (AVIANE) 0.1mg - 20mcg per tablet Take 1 tablet by mouth once daily. Problem List As Of Date 01/19/2024 Noted Resolved Nausea and vomiting during [O21.9] 09/23/2017 08/29/2021 Tobacco use in [O99.330] 09/23/2017 04/22/2021 History of marijuana use [F12.91] 09/23/2017 04/22/2021 Patient request for diagnostic testing [Z01.89] 09/23/2017 09/01/2021 Antepartum anemia complicating in [facility]*02/14/2018 04/09/2022 History of nicotine vaping [Z87.891] 03/27/2021 History of alcohol abuse [F10.11] 03/27/2021 01/04/2023 History of anxiety [Z86.59] 03/27/2021 Supervision of high risk in [facility] tri*04/22/2021 04/09/2022 Obesity in [O99.210] 04/22/2021 04/09/2022 Papanicolaou smear of cervix with low grade squ*04/23/2021 COVID-19 vaccine series declined [Z28.21, Z28.3*05/13/2021 04/09/2022 Low-lying placenta [O44.40] 07/10/2021 04/09/2022 COVID-19 affecting , antepartum [O98.5*08/22/2021 04/09/2022 Abnormal glucose complicating [O99.81*09/01/2021 04/09/2022 ZACH (generalized anxiety disorder) [F41.1] 01/08/2023 Encounter Status:Closed by EPIFANIO ESCOBEDO on 01/19/24 [facility] CNOVon 11-15-2023 CNOV Office Visit (INTMWS ) JANE CHUNG ([id number]) 1995 F Date Time Provider Department 11/15/23 10:40 AM SERJIO MONTERO During your visit today, we recorded the following information about you: Pulse Respiration Blood pressure Weight 80/minute 16/minute 120/74 80.7 kg Last Period 10/19/23 Serjio Montero APRN.NEUROSURGEON 11/15/2023 10:51 AM Signed SUBJECTIVE Jane Chung is a 27 year old female here today for a check up on her medical problems. Chief Complaint Patient presents with: medication check HPI Jane Chung is a 27 year old female. She is an established patient and here today for follow up on bipolar, anxiety, depression. Mood seems to be pretty stable, missed a few days of medication so sleep lately not as great. Up until running out of medication she was still waking at times with anxiousness, hard to fall back asleep. Work is going good. She is concerned about alcohol use. Alcohol use daily to help with anxiety and sleep, she has cut back to about 3 drinks daily at night but notices alcohol cravings daily. Depression Screening PHQ-2 Score 11/15/2023 0 Depression screening tool completed and reviewed. Based on score and interview, patient is already diagnosed with depression. Screening tool discussed with patient, increasing Seroquel. Her medications were reviewed today and her list is now up to date. Medications Current Outpatient Medications Medication Sig divalproex ER (DEPAKOTE ER) 500 mg 24 hr tablet Take 2 tablets by mouth daily at bedtime AND 1 tablet every morning. Levonorgestrel-Ethiny l Estrad (AVIANE) 0.1mg - 20mcg per tablet Take 1 tablet by mouth once daily. QUEtiapine 150 mg tablet Take 1 tablet by mouth daily at bedtime. naltrexone 50 mg tablet Take 0.5 tablets by mouth once daily. No current facility-administered medications for this visit. ALLERGIES No Known Allergies ACTIVE PROBLEM LIST Zach (Generalized Anxiety Disorder) - 01/08/2023 Papanicolaou Smear of Cervix With Low Grade Squamous Intraepithelial Lesion (Lgsil) - 04/23/2021 Comment: 04/23/21-LGSIL, repeat pap smear in one year. Ana Puckett APRN.CNM History of Nicotine Vaping - 03/27/2021 Comment: 04/16/21-Using e-cig. Reviewed risk to self and baby and advised cessation. Ana Puckett APRN.CNM 03/27/2021 Patient has been nicotine vaping. Discussed risks of nicotine vaping in and recommendation of patient to quit. TKRN History of Anxiety - 03/27/2021 Comment: 03/27/2021 Patient has a history of anxiety. Denies any depression history.TKRN Social History Tobacco Use Smoking status: Former Years: 8 Types: Cigarettes Quit date: 10/28/2020 Years since quittin.0 Smokeless tobacco: Never Tobacco comments: E-cigarettes sometimes Vaping Use Vaping Use: current everyday user Substances: Nicotine Devices: Disposable Substance Use Topics Alcohol use: No Drug use: Yes Types: Marijuana Comment: none since 08/2017 Review of Systems Respiratory: Negative. Cardiovascular: Negative. Psychiatric/Behaviora l: Positive for sleep disturbance. Negative for dysphoric mood. The patient is nervous/anxious. OBJECTIVE BP 120/74 Pulse 80 Resp 16 Wt 178 lb (80.7kg) LMP 10/19/2023 Physical Exam Vitals and nursing note reviewed. Constitutional: General: She is awake. She is not in acute distress. Appearance: Normal appearance. She is well-developed and well-groomed. She is not ill-appearing, toxic-appearing or diaphoretic. HENT: Head: Normocephalic. Right Ear: External ear normal. Left Ear: External ear normal. Nose: Nose normal. Eyes: General: Vision grossly intact. Conjunctiva/sclera: Conjunctivae normal. Pupils: Pupils are equal, round, and reactive to light. Neck: Vascular: No JVD. Trachea: Trachea normal. Pulmonary: Effort: Pulmonary effort is normal. No accessory muscle usage, prolonged expiration or respiratory distress. Musculoskeletal: Cervical back: Neck supple. Skin: General: Skin is warm and dry. Capillary Refill: Capillary refill takes less than 2 seconds. Neurological: General: No focal deficit present. Mental Status: She is alert and oriented to person, place, and time. Mental status is at baseline. Psychiatric: Attention and Perception: Attention and perception normal. Mood and Affect: Mood and affect normal. Speech: Speech normal. Behavior: Behavior normal. Behavior is cooperative. Thought Content: Thought content normal. Cognition and Memory: Cognition and memory normal. Judgment: Judgment normal. ASSESSMENT/PLAN: 1. Bipolar 1 disorder, depressed, moderate (HCC) - ICD9: 296.52, ICD10: F31.32 (primary diagnosis) Still with some increased anxiety, especially at night. We will increase her Seroquel dose, discussed side effects to monitor for. - DEPRESSION SCREENING/ASSESSMENT - QUETIAPINE 150 (more content not included)... Normal [facility] JANE CHUNG ([id number]) 1995 F Date Time Provider Department 09/07/23 SERJIO MONTERO [facility] During your visit today, we recorded the following information about you: Sonja Avalos LPN 09/07/2023 2:56 PM Signed Pt is asking if pcp can order a blood test to determine her blood type? Please notify pt. MARINO Fisher Rosa, APRN.NEUROSURGEON 09/07/2023 3:03 PM Signed Can we let her know OB records show her blood type as AB positive. Does she still need this checked? Often insurance won't cover blood typing unless it is for plans for a procedure. Yvette Sanchez 09/07/2023 4:33 PM Signed Patient notified and that is all she was needing, nothing further. Yvette Sanchez LPN Allergies As of Date: 09/07/2023 (No Known Allergies) Date Reviewed: 06/01/2023 Reviewed by: Serjio Montero APRN.NEUROSURGEON - Fully Assessed Reason for Visit: Blood Typing [Other] Prescriptions as of 09/07/2023 - divalproex ER (DEPAKOTE ER) 500 mg 24 hr tablet Take 2 tablets by mouth daily at bedtime AND 1 tablet every morning. - Levonorgestrel-Ethiny l Estrad (AVIANE) 0.1mg - 20mcg per tablet Take 1 tablet by mouth once daily. - QUEtiapine (SEROQUEL) 100 mg tablet Take 1 tablet by mouth daily at bedtime. Problem List As Of Date 09/07/2023 Noted Resolved Nausea and vomiting during [O21.9] 09/23/2017 08/29/2021 Tobacco use in [O99.330] 09/23/2017 04/22/2021 History of marijuana use [F12.91] 09/23/2017 04/22/2021 Patient request for diagnostic testing [Z01.89] 09/23/2017 09/01/2021 Antepartum anemia complicating in thi*02/14/2018 04/09/2022 History of nicotine vaping [Z87.891] 03/27/2021 History of alcohol abuse [F10.11] 03/27/2021 01/04/2023 History of anxiety [Z86.59] 03/27/2021 Supervision of high risk in third tri*04/22/2021 04/09/2022 Obesity in [O99.210] 04/22/2021 04/09/2022 Papanicolaou smear of cervix with low grade squ*04/23/2021 COVID-19 vaccine series declined [Z28.21, Z28.3*05/13/2021 04/09/2022 Low-lying placenta [O44.40] 07/10/2021 04/09/2022 COVID-19 affecting , antepartum [O98.5*08/22/2021 04/09/2022 Abnormal glucose complicating [O99.81*09/01/2021 04/09/2022 ZACH (generalized anxiety disorder) [F41.1] 01/08/2023 Encounter Status:Closed by YVETTE SANCHEZ on 09/07/[address] [facility] T3 FREE BLDon 01-11-2023 Free T3 [Mass/Vol] 2.6 pg/mL 2.3 - 4.1 pg/mL [facility] T4 FREE/FREE THYROXon 2022 Free T4 [Mass/Vol] 1.3 ng/dL 0.9 - 1.7 ng/dL [facility] US FEMALE PELVIS TRANSVAGon 04-20-2022 [facility] CBC W Auto Differential pane l (Bld)on 04-09-2022 Abs Immature Gran <0.03 <0.10 k/uL [facility] Basophils (Bld) [#/Vol] 0.06 10*3/uL <0.11 k/uL [facility] Basophils/100 WBC (Bld) 1.1 % [facility] Differential cell count method Nom (Bld) Auto [facility] Eosinophils (Bld) [#/Vol] 0.42 10*3/uL <0.46 k/uL [facility] Eosinophils/100 WBC (Bld) 7.6 % [facility] Erythrocyte distribution width (RBC) [Ratio] 14.4 % 11.5 - 15.0 % [facility] Hematocrit (Bld) [Volume fraction] 38.2 % 36.0 - 46.0 % [facility] Hemoglobin (Bld) [Mass/Vol] 12.3 g/dL 11.5 - 15.5 g/dL [facility] Immature Gran % 0.2 % [facility] Lymphocytes (Bld) [#/Vol] 1.53 10*3/uL 1.00 - 4.00 k/uL [facility] Lymphocytes/100 WBC (Bld) 27.7 % [facility] MCH (RBC) [Entitic mass] 28.1 pg 26.0 - 34.0 pg [facility] MCHC (RBC) [Mass/Vol] 32.2 g/dL 30.5 - 36.0 g/dL [facility] MCV (RBC) [Entitic vol] 87.4 fL 80.0 - 100.0 fL [facility] Monocytes (Bld) [#/Vol] 0.47 10*3/uL <0.87 k/uL [facility] Monocytes/100 WBC (Bld) 8.5 % [facility] Neutrophils (Bld) [#/Vol] 3.03 10*3/uL 1.45 - 7.50 k/uL [facility] Neutrophils/100 WBC (Bld) 54.9 % [facility] Nucleated RBC (Bld) [#/Vol] 10*3/uL <0.01 k/uL [facility] Nucleated RBC/100 WBC (Bld) [Ratio] 0.0 /100 WBC [facility] Platelet mean volume (Bld) [Entitic vol] 10.9 fL 9.0 - 12.7 fL [facility] Platelets (Bld) [#/Vol] 225 10*3/uL 150 - 400 k/uL [facility] RBC (Bld) [#/Vol] 4.37 10*6/uL 3.90 - 5.2 0 m/uL [facility] WBC (Bld) [#/Vol] 5.52 10*3/uL 3.70 - 11. 00 k/uL [facility] Vital Signs Date Time Vital Sign Value Performing Clinician Koko morales 06-21-2024 13:51-0400 Diastolic blood pressure 94 mm[Hg] Serjio Kylah SEMICONDUCTOR WAFERS ETCH OPERATOR.NEUROSURGEON Work Phone: [facility] 06-21-2024 13:51-0400 Systolic blood pressure 128 mm[Hg] Serjio Kylah SEMICONDUCTOR WAFERS ETCH OPERATOR.NEUROSURGEON Work Phone: [facility] 06-21-2024 13:48-0400 Body mass index (BMI) [Ratio] 26.69 kg/m2 Serjio Kylah SEMICONDUCTOR WAFERS ETCH OPERATOR.NEUROSURGEON Work Phone: [facility] 06-21-2024 13:48-0400 Body weight 75 kg Serjio Kylah SEMICONDUCTOR WAFERS ETCH OPERATOR.NEUROSURGEON Work Phone: [facility] 06-21-2024 13:48-0400 Heart rate 87 /min Serjio Kylah SEMICONDUCTOR WAFERS ETCH OPERATOR.NEUROSURGEON Work Phone: [facility] 06-21-2024 13:48-0400 SaO2% (BldA) [Mass fraction] 98 % Serjio Kylah SEMICONDUCTOR WAFERS ETCH OPERATOR.NEUROSURGEON Work Phone: [facility] 05-10-2024 09:48-0400 Body mass index (BMI) [Ratio] 28.54 kg/m2 Serjio Kylah SEMICONDUCTOR WAFERS ETCH OPERATOR.NEUROSURGEON Work Phone: [facility] 05-10-2024 09:48-0400 Body weight 80.2 kg Serjio Kylah SEMICONDUCTOR WAFERS ETCH OPERATOR.NEUROSURGEON Work Phone: [facility] 05-10-2024 09:48-0400 Diastolic blood pressure 86 mm[Hg] Serjio Kylah SEMICONDUCTOR WAFERS ETCH OPERATOR.NEUROSURGEON Work Phone: [facility] 05-10-2024 09:48-0400 Heart rate 77 /min Serjio Kylah SEMICONDUCTOR WAFERS ETCH OPERATOR.NEUROSURGEON Work Phone: [facility] 05-10-2024 09:48-0400 Respiratory rate 16 /min Serjio Kylah SEMICONDUCTOR WAFERS ETCH OPERATOR.NEUROSURGEON Work Phone: [facility] 05-10-2024 09:48-0400 SaO2% (BldA) [Mass fraction] 97 % Serjio Kylah SEMICONDUCTOR WAFERS ETCH OPERATOR.NEUROSURGEON Work Phone: [facility] 05-10-2024 09:48-0400 Systolic blood pressure 124 mm[Hg] Serjio Kylah SEMICONDUCTOR WAFERS ETCH OPERATOR.NEUROSURGEON Work Phone: [facility] 02-14-2024 12:44-0400 Body mass index (BMI) [Ratio] 28.89 kg/m2 Alana Pendjayleenbury SEMICONDUCTOR WAFERS ETCH OPERATOR.NEUROSURGEON Work Phone: [facility] 02-14-2024 12:44-0400 Body temperature 98.1 [degF] Alana Mccoy SEMICONDUCTOR WAFERS ETCH OPERATOR.NEUROSURGEON Work Phone: [facility] 02-14-2024 12:44-0400 Body weight 81.2 kg Alana Mccoy SEMICONDUCTOR WAFERS ETCH OPERATOR.NEUROSURGEON Work Phone: [facility] 02-14-2024 12:44-0400 Diastolic blood pressure 80 mm[Hg] Alana Pendlebury SEMICONDUCTOR WAFERS ETCH OPERATOR.NEUROSURGEON Work Phone: [facility] 02-14-2024 12:44-0400 Heart rate 92 /min Alana Pendlebury SEMICONDUCTOR WAFERS ETCH OPERATOR.NEUROSURGEON Work Phone: [facility] 02-14-2024 12:44-0400 Respiratory rate 16 /min Alana Pendlebury SEMICONDUCTOR WAFERS ETCH OPERATOR.NEUROSURGEON Work Phone: [facility] 02-14-2024 12:44-0400 SaO2% (BldA) [Mass fraction] 97 % Alana Bradfordletorito SEMICONDUCTOR WAFERS ETCH OPERATOR.NEUROSURGEON Work Phone: [facility] 02-14-2024 12:44-0400 Systolic blood pressure 124 mm[Hg] Alana Pendlebury SEMICONDUCTOR WAFERS ETCH OPERATOR.NEUROSURGEON Work Phone: [facility] 01-20-2024 14:12-0400 Body mass index (BMI) [Ratio] 28.41 kg/m2 Epifanio Escobedo MD Work Phone: [facility] 01-20-2024 14:120400 Body temperature 98.49 [degF] Epifanio Escobedo MD Work Phone: [facility] 01-20-2024 14:120400 Body weight 79.83 kg Epifanio Escobedo MD Work Phone: [facility] 01-20-2024 14:120400 Diastolic blood pressure 76 mm[Hg] Epifanio Escobedo MD Work Phone: [facility] 01-20-2024 14:120400 Heart rate 84 /min Epifanio Escobedo MD Work Phone: [facility] 01-20-2024 14:120400 Respiratory rate 18 /min Epifanio Escobedo MD Work Phone: [facility] 01-20-2024 14:120400 Systolic blood pressure 120 mm[Hg] Epifanio Escobedo MD Work Phone: [facility] 11-15-2023 10:28-0500 Body weight 80.74 kg Serjio Kylah SEMICONDUCTOR WAFERS ETCH OPERATOR.NEUROSURGEON Work Phone: [facility] 11-15-2023 10:28-0500 Diastolic blood pressure 74 mm[Hg] Serjio Kylah SEMICONDUCTOR WAFERS ETCH OPERATOR.NEUROSURGEON Work Phone: [facility] 11-15-2023 10:28-0500 Heart rate 80 /min Serjio Kylah SEMICONDUCTOR WAFERS ETCH OPERATOR.NEUROSURGEON Work Phone: [facility] 11-15-2023 10:28-0500 Respiratory rate 16 /min Serjio Kylah SEMICONDUCTOR WAFERS ETCH OPERATOR.NEUROSURGEON Work Phone: [facility] 11-15-2023 10:28-0500 Systolic blood pressure 120 mm[Hg] Serjio Kylah SEMICONDUCTOR WAFERS ETCH OPERATOR.NEUROSURGEON Work Phone: [facility] 06-01-2023 09:24-0400 Body weight 75.75 kg Serjio Kylah SEMICONDUCTOR WAFERS ETCH OPERATOR.NEUROSURGEON Work Phone: [facility] 06-01-2023 09:24-0400 Diastolic blood pressure 80 mm[Hg] Serjio Kylah SEMICONDUCTOR WAFERS ETCH OPERATOR.NEUROSURGEON Work Phone: [facility] 06-01-2023 09:24-0400 Heart rate 80 /min Serjio Kylah SEMICONDUCTOR WAFERS ETCH OPERATOR.NEUROSURGEON Work Phone: [facility] 06-01-2023 09:24-0400 Respiratory rate 12 /min Serjoi Kylah SEMICONDUCTOR WAFERS ETCH OPERATOR.NEUROSURGEON Work Phone: [facility] 06-01-2023 09:24-0400 Systolic blood pressure 118 mm[Hg] Sejrio Kylah SEMICONDUCTOR WAFERS ETCH OPERATOR.NEUROSURGEON Work Phone: [facility] 04-20-2023 13:45-0400 Body weight 70.76 kg Serjio Kylah SEMICONDUCTOR WAFERS ETCH OPERATOR.NEUROSURGEON Work Phone: [facility] 04-20-2023 13:45-0400 Diastolic blood pressure 78 mm[Hg] Serjio Kylah SEMICONDUCTOR WAFERS ETCH OPERATOR.NEUROSURGEON Work Phone: [facility] 04-20-2023 13:45-0400 Systolic blood pressure 108 mm[Hg] Serjio Kylah SEMICONDUCTOR WAFERS ETCH OPERATOR.NEUROSURGEON Work Phone: [facility] 01-20-2023 08:53-0400 Diastolic blood pressure 60 mm[Hg] Serjio Kylah SEMICONDUCTOR WAFERS ETCH OPERATOR.NEUROSURGEON Work Phone: [facility] 01-20-2023 08:53-0400 Heart rate 114 /min Serjio Kylah SEMICONDUCTOR WAFERS ETCH OPERATOR.NEUROSURGEON Work Phone: [facility] 01-20-2023 08:53-0400 SaO2% (BldA) [Mass fraction] 98 % Serjio Kylah SEMICONDUCTOR WAFERS ETCH OPERATOR.NEUROSURGEON Work Phone: [facility] 01-20-2023 08:53-0400 Systolic blood pressure 104 mm[Hg] Serjio Kylah SEMICONDUCTOR WAFERS ETCH OPERATOR.NEUROSURGEON Work Phone: [facility] 01-15-2023 10:52-0400 Diastolic blood pressure 80 mm[Hg] Serjio Kylah SEMICONDUCTOR WAFERS ETCH OPERATOR.NEUROSURGEON Work Phone: [facility] 01-15-2023 10:52-0400 Heart rate 92 /min Serjio Kylah SEMICONDUCTOR WAFERS ETCH OPERATOR.NEUROSURGEON Work Phone: [facility] 01-15-2023 10:52-0400 SaO2% (BldA) [Mass fraction] 98 % Serjio Kylah SEMICONDUCTOR WAFERS ETCH OPERATOR.NEUROSURGEON Work Phone: [facility] 01-15-2023 10:52-0400 Systolic blood pressure 112 mm[Hg] Serjio Kylah SEMICONDUCTOR WAFERS ETCH OPERATOR.NEUROSURGEON Work Phone: [facility] 01-11-2023 08:49-0400 Body weight 76.66 kg Serjio Kylah SEMICONDUCTOR WAFERS ETCH OPERATOR.NEUROSURGEON Work Phone: [facility] 01-11-2023 08:49-0400 Diastolic blood pressure 88 mm[Hg] Serjio Kylah SEMICONDUCTOR WAFERS ETCH OPERATOR.NEUROSURGEON Work Phone: [facility] 01-11-2023 08:49-0400 Heart rate 92 /min Serjio Kylah SEMICONDUCTOR WAFERS ETCH OPERATOR.NEUROSURGEON Work Phone: [facility] 01-11-2023 08:49-0400 SaO2% (BldA) [Mass fraction] 98 % Serjio Kylah SEMICONDUCTOR WAFERS ETCH OPERATOR.NEUROSURGEON Work Phone: [facility] 01-11-2023 08:49-0400 Systolic blood pressure 110 mm[Hg] Serjio Kylah SEMICONDUCTOR WAFERS ETCH OPERATOR.NEUROSURGEON Work Phone: [facility] 01-08-2023 10:30-0400 Diastolic blood pressure 94 mm[Hg] Serjio Kylah SEMICONDUCTOR WAFERS ETCH OPERATOR.NEUROSURGEON Work Phone: [facility] 01-08-2023 10:30-0400 Systolic blood pressure 120 mm[Hg] Serjio Kylah SEMICONDUCTOR WAFERS ETCH OPERATOR.NEUROSURGEON Work Phone: [facility] 01-08-2023 10:28-0400 Body weight 78.02 kg Serjio Kylah SEMICONDUCTOR WAFERS ETCH OPERATOR.NEUROSURGEON Work Phone: [facility] 01-08-2023 10:28-0400 Heart rate 59 /min Serjio Kylah SEMICONDUCTOR WAFERS ETCH OPERATOR.NEUROSURGEON Work Phone: [facility] 01-08-2023 10:28-0400 SaO2% (BldA) [Mass fraction] 98 % Serjio Kylah SEMICONDUCTOR WAFERS ETCH OPERATOR.NEUROSURGEON Work Phone: [facility] 01-04-2023 10:15-0400 Body weight 79.83 kg Serjio Kylah SEMICONDUCTOR WAFERS ETCH OPERATOR.NEUROSURGEON Work Phone: [facility] 01-04-2023 10:15-0400 Diastolic blood pressure 68 mm[Hg] Serjio Kylah SEMICONDUCTOR WAFERS ETCH OPERATOR.NEUROSURGEON Work Phone: [facility] 01-04-2023 10:15-0400 Heart rate 104 /min Serjio Kylah SEMICONDUCTOR WAFERS ETCH OPERATOR.NEUROSURGEON Work Phone: [facility] 01-04-2023 10:15-0400 SaO2% (BldA) [Mass fraction] 99 % Serjio Kylah SEMICONDUCTOR WAFERS ETCH OPERATOR.NEUROSURGEON Work Phone: [facility] 01-04-2023 10:15-0400 Systolic blood pressure 100 mm[Hg] Serjio Kylah SEMICONDUCTOR WAFERS ETCH OPERATOR.NEUROSURGEON Work Phone: [facility] 04-09-2022 11:35-0400 Body weight 88.45 kg Ana Puckett SEMICONDUCTOR WAFERS ETCH OPERATOR.CNM Work Phone: [facility] 04-09-2022 11:35-0400 Diastolic blood pressure 78 mm[Hg] Ana Puckett SEMICONDUCTOR WAFERS ETCH OPERATOR.CNM Work Phone: [facility] 04-09-2022 11:35-0400 Systolic blood pressure 120 mm[Hg] Ana Puckett SEMICONDUCTOR WAFERS ETCH OPERATOR.CNM Work Phone: [facility] Encounters Encounter Date Encounter Type Care Provider Facility Start: 06-21-2024 End: 06-22-2024 Telephone encounter Serjio Kylah SEMICONDUCTOR WAFERS ETCH OPERATOR.NEUROSURGEON Work Phone: [facility] [place] Comment on above: Insurance Authorizat ion Start: 06-21-2024 End: 06-21-2024 ambulatory SERJIO KYLAH Facility:[facility] Start: 06-21-2024 End: 06-21-2024 Patient encounter procedure Serjio Kylah SEMICONDUCTOR WAFERS ETCH OPERATOR.NEUROSURGEON Work Phone: [facility] [place] Comment on above: ZACH (generalized anx iety disorder) (Primary Dx); Bipolar 1 disorder, depressed, moderate (HCC); Depression, unspecified depression type; Stress and adjustment reaction Start: 06-20-2024 End: 06-20-2024 Telephone encounter Serjio De Jesusr KENDRA.MERA Work Phone: [facility] [place] Comment on above: Pt asking for a call back Start: 06-05-2024 End: 06-05-2024 Refill Serjio De Jesusr KENDRA.MERA Work Phone: [facility] [place] Comment on above: Refill Request Start: 05-10-2024 End: 05-10-2024 ambulatory SERJIO KYLAH Facility:[facility] Start: 05-10-2024 End: 05-10-2024 Patient encounter procedure Serjio De Jesusr SEMICONDUCTOR WAFERS ETCH OPERATOR.NEUROSURGEON Work Phone: [facility] [place] Comment on above: ZACH (generalized anx iety disorder) (Primary Dx); Bipolar 1 disorder, depressed, moderate (HCC) Start: 02-14-2024 End: 02-14-2024 Office outpatient visit 25 minutes Alana Mccoy APRN.MERA Work Phone: [facility] Comment on above: Rash (Primary Dx) Start: 02-14-2024 End: 02-14-2024 ambulatory [facility] Facility:[facility] Start: 01-20-2024 End: 01-20-2024 [facility] Facility:[facility] Start: 01-20-2024 End: 01-20-2024 Patient encounter procedure Epifanio Escobedo MD Work Phone: [facility] [place] Comment on above: ZACH (generalized anx iety disorder) (Primary Dx); Alcohol use disorder; Acute gastritis without hemorrhage, unspecified gastritis type; Depression, unspecified depression type; Bipolar 1 disorder, depressed, moderate (HCC) Start: 01-19-2024 Telephone encounter Serjio Martin er SEMICONDUCTOR WAFERS ETCH OPERATOR.NEUROSURGEON Work Phone: [facility] [place] Comment on above: [facility] ER visit / appt Start: 11-15-2023 End: 11-15-2023 ambulatory SELF Facility:[facility] Start: 11-15-2023 End: 11-15-2023 Patient encounter procedure Serjio Kylah SEMICONDUCTOR WAFERS ETCH OPERATOR.NEUROSURGEON Work Phone: [facility] [place] Comment on above: Bipolar 1 disorder, depressed, moderate (HCC) (Primary Dx); ZACH (generalized anxiety disorder); Depression, unspecified depression type; Alcohol use disorder Start: 11-10-2023 Refill Serjio Kylah A PRN.NEUROSURGEON Work Phone: [facility] [place] Comment on above: Refill Request Start: 06-01-2023 End: 06-01-2023 Patient encounter procedure Serjio Kylah SEMICONDUCTOR WAFERS ETCH OPERATOR.NEUROSURGEON Work Phone: [facility] [place] Comment on above: Bipolar 1 disorder, depressed, moderate (HCC) (Primary Dx); Encounter for initial prescription of contraceptive pills Start: 04-20-2023 End: 04-20-2023 Patient encounter procedure Serjio Kylah SEMICONDUCTOR WAFERS ETCH OPERATOR.NEUROSURGEON Work Phone: [facility] [place] Comment on above: Bipolar 1 disorder, depressed, moderate (HCC) (Primary Dx); Depression, unspecified depression type Start: 03-26-2023 Telephone encounter Serjio Cleav er SEMICONDUCTOR WAFERS ETCH OPERATOR.NEUROSURGEON Work Phone: [facility] [place] Comment on above: Forms Start: 01-20-2023 End: 01-20-2023 Patient encounter procedure Serjio Kylah SEMICONDUCTOR WAFERS ETCH OPERATOR.NEUROSURGEON Work Phone: [facility] [place] Comment on above: ZACH (generalized anx iety disorder) (Primary Dx) Start: 01-15-2023 End: 01-15-2023 Patient encounter procedure Serjio Kylah SEMICONDUCTOR WAFERS ETCH OPERATOR.NEUROSURGEON Work Phone: [facility] [place] Comment on above: ZACH (generalized anx iety disorder) (Primary Dx); Unprotected sexual intercourse; Abnormal menses Start: 01-13-2023 Telephone encounter Serjio Cleav er SEMICONDUCTOR WAFERS ETCH OPERATOR.NEUROSURGEON Work Phone: [facility] [place] Comment on above: Numbness Start: 01-11-2023 Telephone encounter Serjio Cleav er SEMICONDUCTOR WAFERS ETCH OPERATOR.NEUROSURGEON Work Phone: [facility] [place] Comment on above: Forms Start: 01-11-2023 End: 01-11-2023 Patient encounter procedure Serjio Kylah SEMICONDUCTOR WAFERS ETCH OPERATOR.NEUROSURGEON Work Phone: [facility] [place] Comment on above: ZACH (generalized anx iety disorder) (Primary Dx); Sleep disturbance; Thyroid enlargement Start: 01-08-2023 End: 01-08-2023 Patient encounter procedure Serjio Montero APRN.CNP Work Phone: [facility] [place] Comment on above: ZACH (generalized anx iety disorder) Start: 01-04-2023 End: 01-04-2023 Office outpatient new 45 minutes Serjio Montero APRN.CNP Work Phone: [facility] [place] Comment on above: ZACH (generalized anx iety disorder) (Primary Dx); Encounter to establish care; Vitamin D deficiency Start: 04-20-2022 End: 04-20-2022 Subsequent hospital visit by physician [facility] Work Phone: Radiology Comment on above: Abnormal uterine ble eding (AUB) [N93.9] Start: 04-09-2022 End: 04-09-2022 Patient encounter procedure Ana Puckett APRN.CNM Work Phone: OB/Gynecology Comment on above: Encounter for initia l prescription of contraceptive pills (Primary Dx); Low grade squamous intraepithelial lesion on cytologic smear of vagina (LGSIL); Abnormal uterine bleeding (AUB) Start: 09-23-2017 End: 09-01-2021 Patient requested procedure Serjio Montero APRN.CNP Work Phone: [facility] Work Phone: Procedures Date Procedure Procedure Detail Performing Clinician Start: 04-20-2022 transvaginal Ana Puckett APRN.CNM Work Phone: Start: 05-13-2021 End: 04-09-2022 Vaccine refused by patient COVID-19 vaccine series declined Serjio Montero APRN.CNP Work Phone: Plan of Treatment Date Care Activity Detail Author Start: 01-22-2027 Urine microalbumin profile [facility] Start: 07-19-2024 End: 07-19-2024 Patient encounter procedure 07/19/2024 10:40 AM EST Office Visit [facility] [place] [address] [place] [address] Serjio Montero APRN.NEUROSURGEON [address] [place], [place] [id number] 4 weeks medication follow up [facility] [place] Comment on above: 4 weeks medication f ollow up Start: 06-21-2024 End: 06-21-2024 Patient encounter procedure 06/21/2024 1:40 PM EDT Office Visit [facility] [place] [address] [place], [place] [id number] Serjio Montero APRN.NEUROSURGEON [address] [place] [id number] 6 week follow up [facility] [place] Comment on above: 6 week follow up Start: 05-14-2024 Covid-19 Vaccine () Covid-19 Vaccine () [facility] Start: 05-14-2024 Influenza vaccination [facility] Start: 04-20-2024 COVID-19 VACCINE (#1) COVID-19 VACCI NE (#1) [facility] Comment on above: Postponed from 06/25 (Declined at this time) Start: 04-16-2024 PAP TESTING PAP TESTING [facility] Start: 04-16-2024 Screening for malign ant neoplasm of cervix [facility] Start: 01-26-2024 End: 01-26-2024 Patient encounter procedure 01/26/2024 9:40 AM EDT Office Visit [facility] [place] [address] [place] [address] Serjio Montero APRN.NEUROSURGEON [address] [place] [id number] 1 week follow-up [facility] [place] Comment on above: 1 week follow-up Start: 01-20-2024 End: 01-20-2024 Patient encounter procedure 01/20/2024 2:00 PM EDT Office Visit [facility] [place] [address] [place], [place] [id number] Epifanio Escobedo MD [address] [place], [place] [id number] [facility] anxiety 5-4-24 [facility] [place] Comment on above: [facility] ER anxiety 5-4-2 4 Start: 09-13-2023 Behavioral Health Screening Behavioral Health Screening [facility] Start: 09-13-2023 Depression Assessment Depression Ass essment [facility] Start: 05-14-2023 Covid-19 Vaccine () Covid-19 Vaccine () [facility] Start: 05-14-2023 Influenza vaccination [facility] Start: 01-15-2023 End: 03-17-2023 Choriogonadotropin.beta subunit [Units/volume] in Serum or Plasma [facility] Work Phone: Comment on above: Expected: 01/15/2023 , Expires: 03/17/2023 Start: 01-05-2023 End: 03-07-2023 25-hydroxyvitamin D3 [Mass/volume] in Serum or Plasma VITAMIN D 25 HYDROXY Lab Routine Vitamin D deficiency Expected: 01/05/2023, Expires: 03/07/2023 [facility] Work Phone: Comment on above: Expected: 01/05/2023 , Expires: 03/07/2023 Start: 01-05-2023 End: 03-07-2023 CBC W Auto Differential panel - Blood CBC + DIFF Lab Routine ZACH (generalized anxiety disorder) Expected: 01/05/2023, Expires: 03/07/2023 [facility] Work Phone: Comment on above: Expected: 01/05/2023 , Expires: 03/07/2023 Start: 01-05-2023 End: 03-07-2023 Comprehensive metabolic 2000 panel - Serum or Plasma COMP METABOLIC PANEL Lab Routine ZACH (generalized anxiety disorder) Expected: 01/05/2023, Expires: 03/07/2023 [facility] Work Phone: Comment on above: Expected: 01/05/2023 , Expires: 03/07/2023 Start: 01-05-2023 End: 03-07-2023 Thyrotropin [Units/volume] in Serum or Plasma TSH BLD Lab Routine ZACH (generalized anxiety disorder) Expected: 01/05/2023, Expires: 03/07/2023 [facility] Work Phone: Comment on above: Expected: 01/05/2023 , Expires: 03/07/2023 Start: 05-14-2022 Influenza vaccination INFLUENZA (#1) [facility] Start: 04-09-2022 End: 06-09-2022 Prolactin [Mass/volume] in Serum or Plasma [facility] Work Phone: Comment on above: Expected: 04/09/2022 , Expires: 06/09/2022 Start: 04-09-2022 End: 06-09-2022 TESTOSTERONE, FREE AND TOTAL [facility] Work Phone: Comment on above: Expected: 04/09/2022 , Expires: 06/09/2022 Start: 04-09-2022 End: 06-09-2022 Thyrotropin [Units/volume] in Serum or Plasma [facility] Work Phone: Comment on above: Expected: 04/09/2022 , Expires: 06/09/2022 Start: 04-09-2022 End: 06-09-2022 Thyroxine (T4) free [Mass/volume] in Serum or Plasma [facility] Work Phone: Comment on above: Expected: 04/09/2022 , Expires: 06/09/2022 Start: 04-09-2022 End: 06-09-2022 Triiodothyronine (T3) Free [Mass/volume] in Serum or Plasma [facility] Work Phone: Comment on above: Expected: 04/09/2022 , Expires: 06/09/2022 Start: 2016 Urine microalbumin profile DTAP,TDAP ,TD (1 - Tdap) [facility] Start: 2012 HPV Vaccine (1 - 3-d ose series) HPV Vaccine (1 - 3-dose series) [facility] Start: 12-25-2011 PEDS TO ADULT TRANSI TION ANNUAL ASSESSMENT PEDS TO ADULT TRANSITION ANNUAL ASSESSMENT [facility] Start: 04-13-2010 Adult depression scr eening assessment DEPRESSION SCREENING [facility] Start: 2009 PEDS TO ADULT TRANSI TION INITIAL DISCUSSION PEDS TO ADULT TRANSITION INITIAL DISCUSSION [facility] Start: 2008 HPV VACCINE (1 - 2-d ose series) HPV VACCINE (1 - 2-dose series) [facility] Start: 12-25-2007 MENINGOCOCCAL B: Con transportation mechanic based on risk (1 of 2 - Risk Bexsero 2-dose series) MENINGOCOCCAL B: Consider based on risk (1 of 2 - Risk Bexsero 2-dose series) [facility] Start: 2006 HPV VACCINE (1 - 2-d ose series) HPV VACCINE (1 - 2-dose series) [facility] Start: 06-25-1998 COVID-19 VACCINE (#1) COVID-19 VACCI NE (#1) [facility] Start: 1997 HEPATITIS B (1 of 3 - 3-dose series) HEPATITIS B (1 of 3 - 3-dose series) [facility] End: 02-10-2024 Us soft tissue head & neck real time imge docm US THYROID/PARATHYROID Radiology Routine Thyroid enlargement 1 Occurrences starting 01/11/2023 until 02/10/2024 [facility] Work Phone: Comment on above: 1 Occurrences starti ng 01/11/2023 until 02/10/2024 End: 05-10-2023 Us transvaginal US FEMALE PELVIS TRANSVAG Radiology Routine Abnormal uterine bleeding (AUB) 1 Occurrences starting 04/09/2022 until 05/10/2023 [facility] Work Phone: Comment on above: 1 Occurrences starti ng 04/09/2022 until 05/10/2023 [facility] Immunizations Immunization Date Immunization Notes Care Provider Jayjay sherman 01-22-2017 tetanus toxoid, redu marlin diphtheria toxoid, and acellular pertussis vaccine, adsorbed Serjio Kylah SEMICONDUCTOR WAFERS ETCH OPERATOR.NEUROSURGEON Work Phone: [facility] Work Phone: 04-05-2003 diphtheria, tetanus toxoids and acellular pertussis vaccine, unspecified formulation Serjio Kylah SEMICONDUCTOR WAFERS ETCH OPERATOR.[facility] Work Phone: [facility] Work Phone: 04-05-2003 measles, mumps and rubella virus vaccine Serjio Kylah SEMICONDUCTOR WAFERS ETCH OPERATOR.NEUROSURGEON Work Phone: [facility] Work Phone: 04-05-2003 poliovirus vaccine, inactivated Serjio Kylah SEMICONDUCTOR WAFERS ETCH OPERATOR.NEUROSURGEON Work Phone: [facility] Work Phone: 04-05-2003 varicella virus vaccine Serjio Kylah SEMICONDUCTOR WAFERS ETCH OPERATOR.[facility] Work Phone: [facility] Work Phone: 12-19-1999 diphtheria, tetanus toxoids and acellular pertussis vaccine, unspecified formulation Serjio Kylah SEMICONDUCTOR WAFERS ETCH OPERATOR.[facility] Work Phone: [facility] Work Phone: 12-19-1999 haemophilus influenz ae type b vaccine, conjugate unspecified formulation Serjio Kylah SEMICONDUCTOR WAFERS ETCH OPERATOR.NEUROSURGEON Work Phone: [facility] Work Phone: 12-19-1999 measles, mumps and rubella virus vaccine Serjio Kylah SEMICONDUCTOR WAFERS ETCH OPERATOR.[facility] Work Phone: [facility] Work Phone: 11-29-1998 diphtheria, tetanus toxoids and acellular pertussis vaccine, unspecified formulation Serjio Kylah SEMICONDUCTOR WAFERS ETCH OPERATOR.NEUROSURGEON Work Phone: [facility] Work Phone: 11-29-1998 haemophilus influenz ae type b vaccine, HbOC conjugate Serjio Kylah SEMICONDUCTOR WAFERS ETCH OPERATOR.NEUROSURGEON Work Phone: [facility] Work Phone: 11-29-1998 hepatitis B vaccine, pediatric or pediatric/adolescent dosage Serjio Kylah SEMICONDUCTOR WAFERS ETCH OPERATOR.NEUROSURGEON Work Phone: [facility] Work Phone: 11-29-1998 trivalent poliovirus vaccine, live, oral Serjio Kylah SEMICONDUCTOR WAFERS ETCH OPERATOR.NEUROSURGEON Work Phone: [facility] Work Phone: 06-07-1998 diphtheria, tetanus toxoids and acellular pertussis vaccine, unspecified formulation Serjio Kylah SEMICONDUCTOR WAFERS ETCH OPERATOR.NEUROSURGEON Work Phone: [facility] Work Phone: 06-07-1998 haemophilus influenz ae type b vaccine, HbOC conjugate Serjio Kylah SEMICONDUCTOR WAFERS ETCH OPERATOR.NEUROSURGEON Work Phone: [facility] Work Phone: 06-07-1998 trivalent poliovirus vaccine, live, oral Serjio Kylah SEMICONDUCTOR WAFERS ETCH OPERATOR.[facility] Work Phone: [facility] Work Phone: 03-26-1998 diphtheria, tetanus toxoids and acellular pertussis vaccine, unspecified formulation Serjio Kylah SEMICONDUCTOR WAFERS ETCH OPERATOR.[facility] Work Phone: [facility] Work Phone: 03-26-1998 haemophilus influenz ae type b vaccine, HbOC conjugate Serjio Kylah SEMICONDUCTOR WAFERS ETCH OPERATOR.NEUROSURGEON Work Phone: [facility] Work Phone: 03-26-1998 hepatitis B vaccine, pediatric or pediatric/adolescent dosage Serjio Kylah SEMICONDUCTOR WAFERS ETCH OPERATOR.[facility] Work Phone: [facility] Work Phone: 03-26-1998 trivalent poliovirus vaccine, live, oral Serjio Kylah SEMICONDUCTOR WAFERS ETCH OPERATOR.NEUROSURGEON Work Phone: [facility] Work Phone: 1997 hepatitis B vaccine, pediatric or pediatric/adolescent dosage Serjio Kylah SEMICONDUCTOR WAFERS ETCH OPERATOR.NEUROSURGEON Work Phone: [facility] Work Phone: Payers Date Payer Category Payer Medicaid [id number] 2020 Medicaid [employer] [id number] 2020-Present [phone] [address] [place] [address] Medicaid [id number] 2020 Medicaid [id number] Social History Date Type Detail Facility Start: 03-27-2021 End: 05-10-2024 Tobacco smoking status NHIS Ex-smoker [facility] Work Phone: Start: 10-28-2012 End: 10-28-2020 History of tobacco use Current smoker [facility] Work Phone: Start: 10-28-2012 End: 10-28-2020 History of tobacco use Cigarette Smoker [facility] Work Phone: Start: 03-27-2021 End: 05-10-2024 Tobacco use and exposure Smokeless tobacco non-user [facility] Work Phone: Start: 04-09-2022 End: 11-15-2023 Alcohol intake Current non-drinker of alcohol (finding) [facility] Start: 03-27-2021 Education 13 [facility] Start: 03-28-2018 End: 01-04-2023 Tobacco Comment E-cigarettes sometimes [facility] Start: 1995 Sex Assigned At Not on file C [facility] Start: 03-30-2022 End: 04-15-2022 Exposure to SARS-CoV-2 (event) Not sure [facility] Work Phone: Start: 04-20-2023 End: 06-29-2023 History of Social function [facility] Work Phone: Start: 04-20-2023 End: 06-29-2023 Tobacco use panel [facility] Work Phone: Adult Depression Screening Assessment 4 [facility] Work Phone: Start: 01-20-2024 End: 06-21-2024 Alcohol intake Current drinker of alcohol (finding) [facility] Clinical Notes 09-01-2021 to 06-22-2024 Telephone Encounter - Lori Young LPN - 06/22/2024 8:37 AM EDTTelephone Encounter - Lori Young LPN - 06/22/2024 8:37 AM EDTTelephone Encounter - Lori Young LPN - 06/21/2024 4:09 PM EDT Note Date & Type Note Facility 06-22-2024 Telephone encounter Note Pharmacy notified. [facility] 06-22-2024 Miscellaneous Notes Pharmacy notified. Electronic PA rec'd and completed for cariprazine (vraylar). This was approved. Prior authorization approved Payer: [facility] Note from payer: Your PA request for [id number] was approved for 365 days. The PA# assigned is [id number]. Approval Details Authorization number: [id number] Authorized from June 21, 2024 to June 20, 2025 Electronic appeal: Not supported View History Medication Being Authorized cariprazine (VRAYLAR) 1.5 mg capsule Take 1 capsule by mouth once daily. Dispense: 30 capsule Refills: 3 Start: 06/21/2024 Class: Normal Diagnoses: ZACH (generalized anxiety disorder); Bipolar 1 disorder, depressed, moderate (HCC); Depression, unspecified depression type This order has been released to its destination. To be filled at: [facility] [address] [place] [id number] documented in this encounter [facility] 06-21-2024 Telephone encounter Note Electronic PA rec'd and completed for cariprazine (vraylar). This was approved. Prior authorization approved Payer: [facility] Note from payer: Your PA request for [id number] was approved for 365 days. The PA# assigned is [id number]. Approval Details Authorization number: [id number] Authorized from June 21, 2024 to June 20, 2025 Electronic appeal: Not supported View History Medication Being Authorized cariprazine (VRAYLAR) 1.5 mg capsule Take 1 capsule by mouth once daily. Dispense: 30 capsule Refills: 3 Start: 06/21/2024 Class: Normal Diagnoses: ZACH (generalized anxiety disorder); Bipolar 1 disorder, depressed, moderate (HCC); Depression, unspecified depression type This order has been released to its destination. To be filled at: [facility] [address] [place] [address] [facility] 06-21-2024 Note HNO ID: [id number] Author: SERJIO MONTERO APRN.NEUROSURGEON Service: ? Author Type: Nurse Practitioner Type: Progress Notes Filed: 06/21/2024 14:20 Note Text: SUBJECTIVE Jane Chung is a 28 year old female here today for a check up on her medical problems. Chief Complaint Patient presents with: anxiety follow up HPI Jane Chung is a 28 year old female. She is an established patient and here today for follow up on mood. Last visit we discussed concerns of not taking any medications. She had gradual mood changes and noticed anxiety, bipolar worsening. Last visit we gave a short term script for lorazepam and restarted Depakote. Does not like how the Depakote makes her feel. She has had some increased stress with home life and is not feeling well mental health ivan, anxiety has been much worse and notices a lot of mood fluctuation, weight is decreasing. She denies thoughts of self harm or of suicide, no thoughts of harming others. Her medications were reviewed today and her list is now up to date. Medications Current Outpatient Medications Medication Sig LORazepam (ATIVAN) 1 mg tablet Take 1 tablet by mouth two times a day as needed for up to 30 days. cariprazine (VRAYLAR) 1.5 mg capsule Take 1 capsule by mouth once daily. No current facility-administered medications for this visit. ALLERGIES No Known Allergies ACTIVE PROBLEM LIST Alcohol Use Disorder - 01/20/2024 Depression - 01/20/2024 Acute Gastritis Without Hemorrhage - 01/20/2024 Bipolar 1 Disorder, Depressed, Moderate (Hcc) - 01/20/2024 Zach (Generalized Anxiety Disorder) - 01/08/2023 Papanicolaou Smear of Cervix With Low Grade Squamous Intraepithelial Lesion (Lgsil) - 04/23/2021 Comment: 04/23/21-LGSIL, repeat pap smear in one year. Ana Puckett APRN.CNM History of Nicotine Vaping - 03/27/2021 Comment: 04/16/21-Using e-cig. Reviewed risk to self and baby and advised cessation. Ana Puckett APRN.VANNA 03/27/2021 Patient has been nicotine vaping. Discussed risks of nicotine vaping in and recommendation of patient to quit. TKRN Social History Tobacco Use Smoking status: Former Current packs/day: 0.00 Types: Cigarettes Start date: 10/28/2012 Quit date: 10/28/2020 Years since quittin.6 Smokeless tobacco: Never Tobacco comments: E-cigarettes sometimes Vaping Use Vaping status: current everyday user Substances: Nicotine Devices: Disposable Substance Use Topics Alcohol use: Yes Alcohol/week: 42.0 standard drinks of alcohol Types: 42 Cans of beer per week Drug use: Yes Types: Marijuana Comment: none since 08/2017 Review of Systems Respiratory: Negative. Cardiovascular: Negative. Psychiatric/Behavioral: Positive for dysphoric mood. Negative for self-injury and suicidal ideas. The patient is nervous/anxious. OBJECTIVE BP 128/94 Pulse 87 Wt 165 lb 5.5 oz (75.0kg) SpO2 98% LMP 06/19/2024 Physical Exam Vitals and nursing note reviewed. Constitutional: General: She is awake. She is not in acute distress. Appearance: Normal appearance. She is well-developed and well-groomed. She is not ill-appearing, toxic-appearing or diaphoretic. HENT: Head: Normocephalic. Right Ear: External ear normal. Left Ear: External ear normal. Nose: Nose normal. Eyes: General: Vision grossly intact. Conjunctiva/sclera: Conjunctivae normal. Pupils: Pupils are equal, round, and reactive to light. Neck: Vascular: No JVD. Trachea: Trachea normal. Cardiovascular: Rate and Rhythm: Normal rate and regular rhythm. Pulses: Normal pulses. Heart sounds: Normal heart sounds. No murmur heard. Pulmonary: Effort: Pulmonary effort is normal. No accessory muscle usage, prolonged expiration or respiratory distress. Breath sounds: Normal breath sounds. Musculoskeletal: Cervical back: Neck supple. Skin: General: Skin is warm and dry. Capillary Refill: Capillary refill takes less than 2 seconds. Neurological: General: No focal deficit present. Mental Status: She is alert and oriented to person, place, and time. Mental status is at baseline. Psychiatric: Attention and Perception: Attention and perception normal. Mood and Affect: Mood and affect normal. Speech: Speech normal. Behavior: Behavior normal. Behavior is cooperative. Thought Content: Thought content normal. Cognition and Memory: Cognition and memory normal. Judgment: Judgment normal. ASSESSMENT/PLAN: 1. ZACH (generalized anxiety disorder) - ICD9: 300.02, ICD10: F41.1 (primary diagnosis) Increase ativan and stop depakote for side effects, try vraylar. Discussed new medication including but not limited to reason for use, possible side effects, administration, signs and symptoms to monitor for and when to seek medical attention. - LORAZEPAM 1 MG TABLET - CARIPRAZINE 1.5 MG CAPSULE 2. Bipolar 1 disorder, depressed, moderate (HCC) - ICD9: 296.52, ICD10: F31.32 See above. - LORAZEPAM 1 MG (more content not included)... [facility] 06-21-2024 History of Presen t illness Narrative SUBJECTIVE Jane Chung is a 28 year old female here today for a check up on her medical problems. Chief Complaint Patient presents with: anxiety follow up HPI Jane Chung is a 28 year old female. She is an established patient and here today for follow up on mood. Last visit we discussed concerns of not taking any medications. She had gradual mood changes and noticed anxiety, bipolar worsening. Last visit we gave a short term script for lorazepam and restarted Depakote. Does not like how the Depakote makes her feel. She has had some increased stress with home life and is not feeling well mental health ivan, anxiety has been much worse and notices a lot of mood fluctuation, weight is decreasing. She denies thoughts of self harm or of suicide, no thoughts of harming others. Her medications were reviewed today and her list is now up to date. Medications Current Outpatient Medications Medication Sig LORazepam (ATIVAN) 1 mg tablet Take 1 tablet by mouth two times a day as needed for up to 30 days. cariprazine (VRAYLAR) 1.5 mg capsule Take 1 capsule by mouth once daily. No current facility-administered medications for this visit. ALLERGIES No Known Allergies ACTIVE PROBLEM LIST Alcohol Use Disorder - 01/20/2024 Depression - 01/20/2024 Acute Gastritis Without Hemorrhage - 01/20/2024 Bipolar 1 Disorder, Depressed, Moderate (Hcc) - 01/20/2024 Zach (Generalized Anxiety Disorder) - 01/08/2023 Papanicolaou Smear of Cervix With Low Grade Squamous Intraepithelial Lesion (Lgsil) - 04/23/2021 Comment: 04/23/21-LGSIL, repeat pap smear in one year. Ana Puckett APRN.CNM History of Nicotine Vaping - 03/27/2021 Comment: 04/16/21-Using e-cig. Reviewed risk to self and baby and advised cessation. Ana Puckett APRN.CNM 03/27/2021 Patient has been nicotine vaping. Discussed risks of nicotine vaping in and recommendation of patient to quit. TKRN Social History Tobacco Use Smoking status: Former Current packs/day: 0.00 Types: Cigarettes Start date: 10/28/2012 Quit date: 10/28/2020 Years since quittin.6 Smokeless tobacco: Never Tobacco comments: E-cigarettes sometimes Vaping Use Vaping status: current everyday user Substances: Nicotine Devices: Disposable Substance Use Topics Alcohol use: Yes Alcohol/week: 42.0 standard drinks of alcohol Types: 42 Cans of beer per week Drug use: Yes Types: Marijuana Comment: none since 08/2017 Review of Systems Respiratory: Negative. Cardiovascular: Negative. Psychiatric/Behavioral: Positive for dysphoric mood. Negative for self-injury and suicidal ideas. The patient is nervous/anxious. OBJECTIVE BP 128/94 Pulse 87 Wt 165 lb 5.5 oz (75.0kg) SpO2 98% LMP 06/19/2024 Physical Exam Vitals and nursing note reviewed. Constitutional: General: She is awake. She is not in acute distress. Appearance: Normal appearance. She is well-developed and well-groomed. She is not ill-appearing, toxic-appearing or diaphoretic. HENT: Head: Normocephalic. Right Ear: External ear normal. Left Ear: External ear normal. Nose: Nose normal. Eyes: General: Vision grossly intact. Conjunctiva/sclera: Conjunctivae normal. Pupils: Pupils are equal, round, and reactive to light. Neck: Vascular: No JVD. Trachea: Trachea normal. Cardiovascular: Rate and Rhythm: Normal rate and regular rhythm. Pulses: Normal pulses. Heart sounds: Normal heart sounds. No murmur heard. Pulmonary: Effort: Pulmonary effort is normal. No accessory muscle usage, prolonged expiration or respiratory distress. Breath sounds: Normal breath sounds. Musculoskeletal: Cervical back: Neck supple. Skin: General: Skin is warm and dry. Capillary Refill: Capillary refill takes less than 2 seconds. Neurological: General: No focal deficit present. Mental Status: She is alert and oriented to person, place, and time. Mental status is at baseline. Psychiatric: Attention and Perception: Attention and perception normal. Mood and Affect: Mood and affect normal. Speech: Speech normal. Behavior: Behavior normal. Behavior is cooperative. Thought Content: Thought content normal. Cognition and Memory: Cognition and memory normal. Judgment: Judgment normal. ASSESSMENT/PLAN: 1. ZACH (generalized anxiety disorder) - ICD9: 300.02, ICD10: F41.1 (primary diagnosis) Increase ativan and stop depakote for side effects, try vraylar. Discussed new medication including but not limited to reason for use, possible side effects, administration, signs and symptoms to monitor for and when to seek medical attention. - LORAZEPAM 1 MG TABLET - CARIPRAZINE 1.5 MG CAPSULE 2. Bipolar 1 disorder, depressed, moderate (HCC) - ICD9: 296.52, ICD10: F31.32 See above. - LORAZEPAM 1 MG TABLET - CARIPRAZINE 1.5 MG CAPSULE 3. Depression, unspecified depression type - ICD9: 311, ICD10: F32.A See above. - CARIPRAZINE 1.5 MG CAPSULE 4. Stress and adjustment reaction - ICD9: 309.89, ICD10: F43.29 See above. Encouraged counseling. PDMP website checked and validated. All prescriptions have been APPROPRIATELY filled. No suspicious activity was identified. 06/21/2024 by Serjio Montero APRN.NEUROSURGEON Portions of this note have been entered by ancillary staff. I have reviewed and when necessary edited, so that they are an adequate record of my encounter with this patient Please note that parts of this document were created using voice recognition software and therefore may contain grammatical errors. Patient verbalizes understanding of instructions from today's visit and in agreement with treatment plan. Questions answered. Agrees to call the office if questions, concerns of issues with acute symptoms not improving or if they worsen. See diagnoses and orders for additional plan(s). Allergies and medications were reviewed, list was updated, and refills given if needed. Past medical, surgical, social, and family history reviewed and updated as appropriate. Encouraged proper diet & exercise as well as compliance with taking medications. Age-appropriate health preventative measures were discussed. Return in about 4 weeks (around 07/19/2024) for recheck on new medication.. DONNIE Pittman documented in this encounter [facility] 06-20-2024 Miscellaneous Notes Pt returned call and given provider's message below with verbalized understanding. Patient agreeable. I agree, she needs to get started back on the Depakote, refills should be at the pharmacy but if any issues I can resend it. Unfortunately I cannot send more lorazepam at this time, we can discuss this with her visit tomorrow but I can't refill it until she comes in because of using more than prescribed. I agree with getting her in BRETT to make other adjustments but if concerns of self harm or injury or having thoughts of suicide or thoughts of harming others then she needs to go to ER for crisis services. Pt is asking for pcp to call her brett today when she can. Pt reports she has episodes of manic depression & she is having problems now. Pt is scheduled to see pcp tomorrow but states she doesn't think she can wait. Pt states she is out of her meds depakote & lorazepam. Pt notified that she has refills left on her depakote which she didn't realize she did. Pt states she has been taking more of the ativan than directed so she is out of that. Pt aware message will be sent to provider. Pt states she is not alone, someone is with her. Sonja Avalos LPN documented in this encounter [facility] 06-20-2024 Telephone encounter Note Pt returned call and given provider's message below with verbalized understanding. Patient agreeable. [facility] 06-20-2024 Telephone encounter Note I agree, she needs to get started back on the Depakote, refills should be at the pharmacy but if any issues I can resend it. Unfortunately I cannot send more lorazepam at this time, we can discuss this with her visit tomorrow but I can't refill it until she comes in because of using more than prescribed. I agree with getting her in BRETT to make other adjustments but if concerns of self harm or injury or having thoughts of suicide or thoughts of harming others then she needs to go to ER for crisis services. [facility] 06-20-2024 Telephone encounter Note Pt is asking for pcp to call her brett today when she can. Pt reports she has episodes of manic depression & she is having problems now. Pt is scheduled to see pcp tomorrow but states she doesn't think she can wait. Pt states she is out of her meds depakote & lorazepam. Pt notified that she has refills left on her depakote which she didn't realize she did. Pt states she has been taking more of the ativan than directed so she is out of that. Pt aware message will be sent to provider. Pt states she is not alone, someone is with her. Sonja Avalos LPN [facility] 06-05-2024 Telephone encounter Note PDMP website checked and validated. All prescriptions have been APPROPRIATELY filled. No suspicious activity was identified. 06/05/2024 by Serjio Montero APRN.MERA [facility] 06-05-2024 Miscellaneous Notes PDMP website checked and validated. All prescriptions have been APPROPRIATELY filled. No suspicious activity was identified. 06/05/2024 by Serjio Montero APRN.MERA Prescription Refill Information The patient has been identified by name and date of : Yes Caregiver verified no other encounters exist for this prescription request: Yes Caregiver confirmed with patient/requestor that no other refills are due, in the near future, with this provider at this time: Yes The last office visit in the department: 05/10/24 Does the patient have a future office visit with this provider/department: Yes Requested Prescriptions Pending Prescriptions Disp Refills LORazepam (ATIVAN) 0.5 mg 60 tablet 0 Sig: Take 1 tablet by mouth two times a day as needed for up to 30 days. Nicci Fry June 05, 2024 12:25 PM documented in this encounter [facility] 06-05-2024 Telephone encounter Note Prescription Refill Information The patient has been identified by name and date of : Yes Caregiver verified no other encounters exist for this prescription request: Yes Caregiver confirmed with patient/requestor that no other refills are due, in the near future, with this provider at this time: Yes The last office visit in the department: 05/10/24 Does the patient have a future office visit with this provider/department: Yes Requested Prescriptions Pending Prescriptions Disp Refills LORazepam (ATIVAN) 0.5 mg 60 tablet 0 Sig: Take 1 tablet by mouth two times a day as needed for up to 30 days. Nicci Fry June 05, 2024 12:25 PM [facility] 05-10-2024 Note HNO ID: [id number] Author: SERJIO MONTERO APRN.MERA Service: ? Author Type: Nurse Practitioner Type: Progress Notes Filed: 05/10/2024 10:37 Note Text: SUBJECTIVE Jane Chung is a 28 year old female here today for a check up on her medical problems. Chief Complaint Patient presents with: discuss medication: Anxiety HPI Jane Chung is a 28 year old female. She is an established patient. Presents today for follow up on anxiety, bipolar 1 disorder. Currently not taking any medications. Was taking medication, stopped about 5 or 6 months ago. [place] pretty good while off of medication but gradually noticed mood changes. Now not eating well, not sleeping well. Panic attacks and crying episodes occurring frequently. Her medications were reviewed today and her list is now up to date. Medications Current Outpatient Medications Medication Sig divalproex ER (DEPAKOTE ER) 500 mg 24 hr tablet Take 1 tablet by mouth once daily. LORazepam (ATIVAN) 0.5 mg Take 1 tablet by mouth two times a day as needed for up to 30 days. No current facility-administered medications for this visit. ALLERGIES No Known Allergies ACTIVE PROBLEM LIST Alcohol Use Disorder - 01/20/2024 Depression - 01/20/2024 Acute Gastritis Without Hemorrhage - 01/20/2024 Bipolar 1 Disorder, Depressed, Moderate (Hcc) - 01/20/2024 Zach (Generalized Anxiety Disorder) - 01/08/2023 Papanicolaou Smear of Cervix With Low Grade Squamous Intraepithelial Lesion (Lgsil) - 04/23/2021 Comment: 04/23/21-LGSIL, repeat pap smear in one year. Ana Puckett APRN.CNM History of Nicotine Vaping - 03/27/2021 Comment: 04/16/21-Using e-cig. Reviewed risk to self and baby and advised cessation. Ana Puckett APRN.CNM 03/27/2021 Patient has been nicotine vaping. Discussed risks of nicotine vaping in and recommendation of patient to quit. TKRN Social History Tobacco Use Smoking status: Former Current packs/day: 0.00 Types: Cigarettes Start date: 10/28/2012 Quit date: 10/28/2020 Years since quittin.5 Smokeless tobacco: Never Tobacco comments: E-cigarettes sometimes Vaping Use Vaping status: current everyday user Substances: Nicotine Devices: Disposable Substance Use Topics Alcohol use: Yes Alcohol/week: 42.0 standard drinks of alcohol Types: 42 Cans of beer per week Drug use: Yes Types: Marijuana Comment: none since 08/2017 Review of Systems Respiratory: Negative. Cardiovascular: Negative. Psychiatric/Behavioral: Positive for sleep disturbance. The patient is nervous/anxious. OBJECTIVE BP 124/86 Pulse 77 Resp 16 Wt 176 lb 12.9 oz (80.2kg) SpO2 97% LMP 10/19/2023 Physical Exam Vitals and nursing note reviewed. Constitutional: General: She is awake. She is not in acute distress. Appearance: Normal appearance. She is well-developed and well-groomed. She is not ill-appearing, toxic-appearing or diaphoretic. HENT: Head: Normocephalic. Right Ear: External ear normal. Left Ear: External ear normal. Nose: Nose normal. Eyes: General: Vision grossly intact. Conjunctiva/sclera: Conjunctivae normal. Pupils: Pupils are equal, round, and reactive to light. Neck: Vascular: No JVD. Trachea: Trachea normal. Pulmonary: Effort: Pulmonary effort is normal. No accessory muscle usage, prolonged expiration or respiratory distress. Musculoskeletal: Cervical back: Neck supple. Skin: General: Skin is warm and dry. Capillary Refill: Capillary refill takes less than 2 seconds. Neurological: General: No focal deficit present. Mental Status: She is alert and oriented to person, place, and time. Mental status is at baseline. Psychiatric: Attention and Perception: Attention and perception normal. Mood and Affect: Mood and affect normal. Speech: Speech normal. Behavior: Behavior normal. Behavior is cooperative. Thought Content: Thought content normal. Cognition and Memory: Cognition and memory normal. Judgment: Judgment normal. ASSESSMENT/PLAN: 1. ZACH (generalized anxiety disorder) - ICD9: 300.02, ICD10: F41.1 (primary diagnosis) Worsening anxiety. Discussed Ativan and restarting Depakote, will see if we can use the ativan short term. No reports of suicidal ideation, thoughts of self harm or thoughts of harming others. - DIVALPROEX ER 500 MG TABLET,EXTENDED RELEASE 24 HR - LORAZEPAM 0.5 MG TABLET 2. Bipolar 1 disorder, depressed, moderate (HCC) - ICD9: 296.52, ICD10: F31.32 See #1 - DIVALPROEX ER 500 MG TABLET,EXTENDED RELEASE 24 HR - LORAZEPAM 0.5 MG TABLET [facility] and [facility]. All prescriptions have been APPROPRIATELY filled. No suspicious activity was identified. 05/10/2024 by Serjio Montero APRN.NEUROSURGEON Portions of this note have been entered by ancillary staff. I have reviewed and when necessary edited, so that they are an adequate record of my encounter with this patient Please note that parts of this document were created (more content not included)... [facility] 05-10-2024 History of Presen t illness Narrative SUBJECTIVE Jane Chung is a 28 year old female here today for a check up on her medical problems. Chief Complaint Patient presents with: discuss medication: Anxiety HPI Jane Chung is a 28 year old female. She is an established patient. Presents today for follow up on anxiety, bipolar 1 disorder. Currently not taking any medications. Was taking medication, stopped about 5 or 6 months ago. [place] pretty good while off of medication but gradually noticed mood changes. Now not eating well, not sleeping well. Panic attacks and crying episodes occurring frequently. Her medications were reviewed today and her list is now up to date. Medications Current Outpatient Medications Medication Sig divalproex ER (DEPAKOTE ER) 500 mg 24 hr tablet Take 1 tablet by mouth once daily. LORazepam (ATIVAN) 0.5 mg Take 1 tablet by mouth two times a day as needed for up to 30 days. No current facility-administered medications for this visit. ALLERGIES No Known Allergies ACTIVE PROBLEM LIST Alcohol Use Disorder - 01/20/2024 Depression - 01/20/2024 Acute Gastritis Without Hemorrhage - 01/20/2024 Bipolar 1 Disorder, Depressed, Moderate (Hcc) - 01/20/2024 Zach (Generalized Anxiety Disorder) - 01/08/2023 Papanicolaou Smear of Cervix With Low Grade Squamous Intraepithelial Lesion (Lgsil) - 04/23/2021 Comment: 04/23/21-LGSIL, repeat pap smear in one year. Ana Puckett APRN.CNM History of Nicotine Vaping - 03/27/2021 Comment: 04/16/21-Using e-cig. Reviewed risk to self and baby and advised cessation. Ana Puckett APRN.CNM 03/27/2021 Patient has been nicotine vaping. Discussed risks of nicotine vaping in and recommendation of patient to quit. TKRN Social History Tobacco Use Smoking status: Former Current packs/day: 0.00 Types: Cigarettes Start date: 10/28/2012 Quit date: 10/28/2020 Years since quittin.5 Smokeless tobacco: Never Tobacco comments: E-cigarettes sometimes Vaping Use Vaping status: current everyday user Substances: Nicotine Devices: Disposable Substance Use Topics Alcohol use: Yes Alcohol/week: 42.0 standard drinks of alcohol Types: 42 Cans of beer per week Drug use: Yes Types: Marijuana Comment: none since 08/2017 Review of Systems Respiratory: Negative. Cardiovascular: Negative. Psychiatric/Behavioral: Positive for sleep disturbance. The patient is nervous/anxious. OBJECTIVE BP 124/86 Pulse 77 Resp 16 Wt 176 lb 12.9 oz (80.2kg) SpO2 97% [facility] 10/19/2023 Physical Exam Vitals and nursing note reviewed. Constitutional: General: She is awake. She is not in acute distress. Appearance: Normal appearance. She is well-developed and well-groomed. She is not ill-appearing, toxic-appearing or diaphoretic. HENT: Head: Normocephalic. Right Ear: External ear normal. Left Ear: External ear normal. Nose: Nose normal. Eyes: General: Vision grossly intact. Conjunctiva/sclera: Conjunctivae normal. Pupils: Pupils are equal, round, and reactive to light. Neck: Vascular: No JVD. Trachea: Trachea normal. Pulmonary: Effort: Pulmonary effort is normal. No accessory muscle usage, prolonged expiration or respiratory distress. Musculoskeletal: Cervical back: Neck supple. Skin: General: Skin is warm and dry. Capillary Refill: Capillary refill takes less than 2 seconds. Neurological: General: No focal deficit present. Mental Status: She is alert and oriented to person, place, and time. Mental status is at baseline. Psychiatric: Attention and Perception: Attention and perception normal. Mood and Affect: Mood and affect normal. Speech: Speech normal. Behavior: Behavior normal. Behavior is cooperative. Thought Content: Thought content normal. Cognition and Memory: Cognition and memory normal. Judgment: Judgment normal. ASSESSMENT/PLAN: 1. ZACH (generalized anxiety disorder) - ICD9: 300.02, ICD10: F41.1 (primary diagnosis) Worsening anxiety. Discussed Ativan and restarting Depakote, will see if we can use the ativan short term. No reports of suicidal ideation, thoughts of self harm or thoughts of harming others. - DIVALPROEX ER 500 MG TABLET,EXTENDED RELEASE 24 HR - LORAZEPAM 0.5 MG TABLET 2. Bipolar 1 disorder, depressed, moderate (HCC) - ICD9: 296.52, ICD10: F31.32 See #1 - DIVALPROEX ER 500 MG TABLET,EXTENDED RELEASE 24 HR - LORAZEPAM 0.5 MG TABLET PDMP website checked and validated. All prescriptions have been APPROPRIATELY filled. No suspicious activity was identified. 05/10/2024 by Serjio Montero APRN.CNP Portions of this note have been entered by ancillary staff. I have reviewed and when necessary edited, so that they are an adequate record of my encounter with this patient Please note that parts of this document were created using voice recognition software and therefore may contain grammatical errors. Patient verbalizes understanding of instructions from today's visit and in agreement with treatment plan. Questions answered. Agrees to call the office if questions, concerns of issues with acute symptoms not improving or if they worsen. See diagnoses and orders for additional plan(s). Allergies and medications were reviewed, list was updated, and refills given if needed. Past medical, surgical, social, and family history reviewed and updated as appropriate. Encouraged proper diet & exercise as well as compliance with taking medications. Age-appropriate health preventative measures were discussed. Return in about 6 weeks (around 06/21/2024) for Follow up on chronic conditions and medications.. Serjio Montero APRN-MERA documented in this encounter [facility] 02-14-2024 Note HNO ID: [id number] Author: ALANA MCCOY APRN.CNP Service: ? Author Type: Nurse Practitioner Type: Progress Notes Filed: 02/14/2024 12:56 Note Text: Subjective HPI Nontoxic-appearing female presents urgent care chief complaint possible cold sore. Duration of symptom 1 day. Associated symptoms slightly painful lesion on the bottom of her lip. History of cold sores this is similar. No OTC medication use. No recent medication changes antibiotic use. Overall feels well. Denies any fever body aches chills productive cough chest pain shortness of breath pleuritic pain hemoptysis nausea vomiting abdominal pain change in bowel or bladder habits. Past medical history prescription medication use and allergies reviewed. Denies chance of . Is not breast-feeding. .Patient presents with: Mouth/Lip Problem: left bottom lip x 1 day PAST MEDICAL HISTORY Diagnosis Date Alcohol use disorder 01/20/2024 Anemia complicating , third trimester 02/14/2018 anxiety Depression 01/20/2024 fracture 2016 right hand, punched something and fractures the hand NEGATIVE MEDICAL HISTORY Papanicolaou smear of cervix with low grade squamous intraepithelial lesion (LGSIL) 04/23/2021 PAST SURGICAL HISTORY Procedure Laterality Date TONSILLECTOMY HX ALLERGIES Patient has no known allergies. MEDICATIONS famotidine (PEPCID) 40 mg tablet Take 1 tablet by mouth once daily. QUEtiapine 150 mg tablet Take 1 tablet by mouth daily at bedtime. naltrexone 50 mg tablet Take 0.5 tablets by mouth once daily. divalproex ER (DEPAKOTE ER) 500 mg 24 hr tablet Take 2 tablets by mouth daily at bedtime AND 1 tablet every morning. Levonorgestrel-Ethinyl Estrad (AVIANE) 0.1mg - 20mcg per tablet Take 1 tablet by mouth once daily. acyclovir (ZOVIRAX) 400 mg tablet Take 1 tablet by mouth three times a day for 5 days. FAMILY HISTORY Problem Relation Age of Onset Diabetes Mother Type II Thyroid Mother other (brain aneurysm) Father other (Lupus) Sister No Known Problems Sister No Known Problems Brother No Known Problems Brother No Known Problems Brother No Known Problems Brother Hypertension Maternal Grandmother Coronary Artery Disease Maternal Grandmother Triple CAB twice Heart Maternal Grandmother 4 MA's, Congestive Heart Failure Arthritis Maternal Grandmother Colon Cancer Maternal Grandfather No Known Problems Paternal Grandmother Seizures Paternal Grandfather Social History Tobacco Use Smoking status: Former Years: 8 Types: Cigarettes Quit date: 10/28/2020 Years since quittin.2 Smokeless tobacco: Never Tobacco comments: E-cigarettes sometimes Vaping Use Vaping Use: current everyday user Substances: Nicotine Devices: Disposable Substance Use Topics Alcohol use: Yes Alcohol/week: 42.0 standard drinks of alcohol Types: 42 Cans of beer per week Drug use: Yes Types: Marijuana Comment: none since 08/2017 BP 124/80 Pulse 92 Temp 36.7 ?C (98.1 ?F) Resp 16 Wt 81.2 kg (179 lb 0.2 oz) LMP 10/19/2023 (Approximate) SpO2 97% BMI 28.89 kg/m? Review of Systems Constitutional: Negative for chills, fever and malaise/fatigue. HENT: Negative for congestion, ear discharge, ear pain, sinus pain and sore throat. Eyes: Negative for blurred vision, pain, discharge and redness. Respiratory: Negative for cough, hemoptysis, sputum production, shortness of breath, wheezing and stridor. Cardiovascular: Negative for chest pain. Gastrointestinal: Negative for abdominal pain, diarrhea, nausea and vomiting. Musculoskeletal: Negative for myalgias. Skin: Negative for itching and rash. Neurological: Negative for dizziness and headaches. Objective Physical Exam Constitutional: General: She is not in acute distress. Appearance: She is not toxic-appearing or diaphoretic. HENT: Head: Normocephalic. Jaw: No trismus, tenderness, swelling or pain on movement. Comments: Erythematous lesion noted highlighted area. No remote redness. Patient does have a lip ring closest area. No cellulitis or drainage noted from that area. Nose: Nose normal. Mouth/Throat: Mouth: Mucous membranes are moist. Pharynx: Oropharynx is clear. Uvula midline. No pharyngeal swelling, oropharyngeal exudate, posterior oropharyngeal erythema or uvula swelling. Eyes: Conjunctiva/sclera: Conjunctivae normal. Pupils: Pupils are equal, round, and reactive to light. Cardiovascular: Rate and Rhythm: Normal rate and regular rhythm. Heart sounds: Normal heart sounds. Pulmonary: Effort: Pulmonary effort is normal. No tachypnea, accessory muscle usage or respiratory distress. Breath sounds: Normal breath sounds. No stridor. No wheezing, rhonchi or rales. Abdominal: General: There is no distension. Palpations: Abdomen is soft. Tenderness: There is no abdominal tenderness. There is no guarding or rebound. Musculoskeletal: Cervical back: Normal range (more content not included)... [facility] 02-14-2024 History of Presen t illness Narrative Images from the original note were not included. Subjective HPI Nontoxic-appearing female presents urgent care chief complaint possible cold sore. Duration of symptom 1 day. Associated symptoms slightly painful lesion on the bottom of her lip. History of cold sores this is similar. No OTC medication use. No recent medication changes antibiotic use. Overall feels well. Denies any fever body aches chills productive cough chest pain shortness of breath pleuritic pain hemoptysis nausea vomiting abdominal pain change in bowel or bladder habits. Past medical history prescription medication use and allergies reviewed. Denies chance of . Is not breast-feeding. .Patient presents with: Mouth/Lip Problem: left bottom lip x 1 day PAST MEDICAL HISTORY Diagnosis Date Alcohol use disorder 01/20/2024 Anemia complicating , third trimester 02/14/2018 anxiety Depression 01/20/2024 fracture 2016 right hand, punched something and fractures the hand NEGATIVE MEDICAL HISTORY Papanicolaou smear of cervix with low grade squamous intraepithelial lesion (LGSIL) 04/23/2021 PAST SURGICAL HISTORY Procedure Laterality Date TONSILLECTOMY HX ALLERGIES Patient has no known allergies. MEDICATIONS famotidine (PEPCID) 40 mg tablet Take 1 tablet by mouth once daily. QUEtiapine 150 mg tablet Take 1 tablet by mouth daily at bedtime. naltrexone 50 mg tablet Take 0.5 tablets by mouth once daily. divalproex ER (DEPAKOTE ER) 500 mg 24 hr tablet Take 2 tablets by mouth daily at bedtime AND 1 tablet every morning. Levonorgestrel-Ethinyl Estrad (AVIANE) 0.1mg - 20mcg per tablet Take 1 tablet by mouth once daily. acyclovir (ZOVIRAX) 400 mg tablet Take 1 tablet by mouth three times a day for 5 days. FAMILY HISTORY Problem Relation Age of Onset Diabetes Mother Type II Thyroid Mother other (brain aneurysm) Father other (Lupus) Sister No Known Problems Sister No Known Problems Brother No Known Problems Brother No Known Problems Brother No Known Problems Brother Hypertension Maternal Grandmother Coronary Artery Disease Maternal Grandmother Triple CAB twice Heart Maternal Grandmother 4 MA's, Congestive Heart Failure Arthritis Maternal Grandmother Colon Cancer Maternal Grandfather No Known Problems Paternal Grandmother Seizures Paternal Grandfather Social History Tobacco Use Smoking status: Former Years: 8 Types: Cigarettes Quit date: 10/28/2020 Years since quittin.2 Smokeless tobacco: Never Tobacco comments: E-cigarettes sometimes Vaping Use Vaping Use: current everyday user Substances: Nicotine Devices: Disposable Substance Use Topics Alcohol use: Yes Alcohol/week: 42.0 standard drinks of alcohol Types: 42 Cans of beer per week Drug use: Yes Types: Marijuana Comment: none since 08/2017 BP 124/80 Pulse 92 Temp 36.7 C (98.1 F) Resp 16 Wt 81.2 kg (179 lb 0.2 oz) LMP 10/19/2023 (Approximate) SpO2 97% BMI 28.89 kg/m Review of Systems Constitutional: Negative for chills, fever and malaise/fatigue. HENT: Negative for congestion, ear discharge, ear pain, sinus pain and sore throat. Eyes: Negative for blurred vision, pain, discharge and redness. Respiratory: Negative for cough, hemoptysis, sputum production, shortness of breath, wheezing and stridor. Cardiovascular: Negative for chest pain. Gastrointestinal: Negative for abdominal pain, diarrhea, nausea and vomiting. Musculoskeletal: Negative for myalgias. Skin: Negative for itching and rash. Neurological: Negative for dizziness and headaches. Objective Physical Exam Constitutional: General: She is not in acute distress. Appearance: She is not toxic-appearing or diaphoretic. HENT: Head: Normocephalic. Jaw: No trismus, tenderness, swelling or pain on movement. Comments: Erythematous lesion noted highlighted area. No remote redness. Patient does have a lip ring closest area. No cellulitis or drainage noted from that area. Nose: Nose normal. Mouth/Throat: Mouth: Mucous membranes are moist. Pharynx: Oropharynx is clear. Uvula midline. No pharyngeal swelling, oropharyngeal exudate, posterior oropharyngeal erythema or uvula swelling. Eyes: Conjunctiva/sclera: Conjunctivae normal. Pupils: Pupils are equal, round, and reactive to light. Cardiovascular: Rate and Rhythm: Normal rate and regular rhythm. Heart sounds: Normal heart sounds. Pulmonary: Effort: Pulmonary effort is normal. No tachypnea, accessory muscle usage or respiratory distress. Breath sounds: Normal breath sounds. No stridor. No wheezing, rhonchi or rales. Abdominal: General: There is no distension. Palpations: Abdomen is soft. Tenderness: There is no abdominal tenderness. There is no guarding or rebound. Musculoskeletal: Cervical back: Normal range of motion and neck supple. No edema, erythema, rigidity or tenderness. No pain with movement. Normal range of motion. Lymphadenopathy: Cervical: No cervical adenopathy. Skin: General: Skin is warm and dry. Neurological: General: No focal deficit present. Mental Status: She is alert and oriented to person, place, and time. ASSESSMENT/PLAN: 1. Rash - ICD9: 782.1, ICD10: R21 Diagnosed with rash. Low suspicions for cellulitis. Will treat for herpes simplex. Placed on acyclovir. Patient was educated on supportive therapies. Patient will follow up with primary care provider as needed. Patient was instructed to immediately proceed to emergency room for any new, worsening, or symptoms lasting longer than anticipated. The patient's clinical presentation is otherwise unremarkable at this time. Based on exam and clinical finding, the patient is stable for discharge. Plan of care was discussed with patient. Patient verbalizes understanding and agrees to plan of care. This note was generated using Miscota software. It may contain errors in wording, punctuation, or spelling. Alana Mccoy APRN.MERA documented in this encounter [facility] 01-20-2024 Note HNO ID: [id number] Author: EPIFANIO ESCOBEDO MD Service: ? Author Type: Physician Type: Progress Notes Filed: 01/20/2024 15:13 Note Text: This note was created using Natera. Subjective Jane Chung is a 28 year old female. She had a longstanding history of anxiety, depression, bipolar with multiple medications tried. PCP had her on depakote and quetiapine which worked for a while, but efficacy again declined. She also indicated some adherence issues with medication. This was complicated by alcohol use disorder. She got depressed, anxious, with insomnia, and stopped doing any thing for weeks. She had poor appetite, epigastric pain, nausea, and vomiting. She went to the ER 01/10 where labs were mostly okay other than mild lipase elevation. She was given Zofran as needed. She went back again 01/15/24 but refused inpatient detox. She was referred to 180. Lorazepam was recommended, but prescription was not transmitted. She needed medication while waiting to get back with PCP. Review of Systems Constitutional: Positive for appetite change and unexpected weight change. Respiratory: Negative for shortness of breath. Gastrointestinal: Positive for abdominal pain, nausea and vomiting. Psychiatric/Behavioral: Positive for dysphoric mood and sleep disturbance. Negative for self-injury and suicidal ideas. The patient is nervous/anxious. ACTIVE PROBLEM LIST History of Nicotine Vaping Papanicolaou Smear of Cervix With Low Grade Squamous Intraepithelial Lesion (Lgsil) Zach (Generalized Anxiety Disorder) Alcohol Use Disorder Depression Acute Gastritis Without Hemorrhage Bipolar 1 Disorder, Depressed, Moderate (Hcc) Social History Tobacco Use Smoking status: Former Years: 8 Types: Cigarettes Quit date: 10/28/2020 Years since quittin.2 Smokeless tobacco: Never Tobacco comments: E-cigarettes sometimes Vaping Use Vaping Use: current everyday user Substances: Nicotine Devices: Disposable Substance Use Topics Alcohol use: Yes Alcohol/week: 42.0 standard drinks of alcohol Types: 42 Cans of beer per week Drug use: Yes Types: Marijuana Comment: none since 08/2017 Current Outpatient Medications Medication Sig QUEtiapine 150 mg tablet Take 1 tablet by mouth daily at bedtime. naltrexone 50 mg tablet Take 0.5 tablets by mouth once daily. divalproex ER (DEPAKOTE ER) 500 mg 24 hr tablet Take 2 tablets by mouth daily at bedtime AND 1 tablet every morning. Levonorgestrel-Ethinyl Estrad (AVIANE) 0.1mg - 20mcg per tablet Take 1 tablet by mouth once daily. No current facility-administered medications for this visit. Objective BP 120/76 (BP Site: Left Arm, BP Position: Sitting, BP Cuff Size: Large Adult) Pulse 84 Temp 36.9 ?C (98.5 ?F) (Temporal) Resp 18 Wt 79.8 kg (176 lb) LMP 10/19/2023 (Approximate) BMI 28.41 kg/m? Physical Exam Constitutional: Appearance: She is not ill-appearing. HENT: Mouth/Throat: Mouth: Mucous membranes are moist. Pharynx: Oropharynx is clear. Eyes: General: No scleral icterus. Conjunctiva/sclera: Conjunctivae normal. Cardiovascular: Heart sounds: Normal heart sounds. Pulmonary: Breath sounds: Normal breath sounds. Abdominal: Palpations: Abdomen is soft. Tenderness: There is abdominal tenderness in the epigastric area. There is no guarding or rebound. Neurological: General: No focal deficit present. Mental Status: She is alert. Psychiatric: Mood and Affect: Mood normal. Behavior: Behavior normal. Thought Content: Thought content normal. Assessment and Plan 1. ZACH (generalized anxiety disorder) - ICD9: 300.02, ICD10: F41.1 (primary diagnosis) Risks of medication reviewed. PDMP website checked and validated. All prescriptions have been APPROPRIATELY filled. No suspicious activity was identified. 01/20/2024 by Epifanio Escobedo MD - LORAZEPAM 0.5 MG TABLET. Take one(1) tablet two(2) times daily as needed. 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 2. Alcohol use disorder - ICD9: V49.89, ICD10: F10.90 - See 180. 3. Acute gastritis without hemorrhage, unspecified gastritis type - ICD9: 535.00, ICD10: K29.00 - FAMOTIDINE 40 MG TABLET Discussed medication dosage, usage, goals of therapy, and side effects. 4. Depression, unspecified depression type - ICD9: 311, ICD10: F32.A Follow up with PCP. 5. Bipolar 1 disorder, depressed, moderate (HCC) - ICD9: 296.52, ICD10: F31.32 Follow up with PCP. Epifanio Escobedo MD [facility] 01-20-2024 History of Presen t illness Narrative This note was created using Task Messengerriter. Subjective Jane Chung is a 28 year old female. She had a longstanding history of anxiety, depression, bipolar with multiple medications tried. PCP had her on depakote and quetiapine which worked for a while, but efficacy again declined. She also indicated some adherence issues with medication. This was complicated by alcohol use disorder. She got depressed, anxious, with insomnia, and stopped doing any thing for weeks. She had poor appetite, epigastric pain, nausea, and vomiting. She went to the ER 01/10 where labs were mostly okay other than mild lipase elevation. She was given Zofran as needed. She went back again 01/15/24 but refused inpatient detox. She was referred to 180. Lorazepam was recommended, but prescription was not transmitted. She needed medication while waiting to get back with PCP. Review of Systems Constitutional: Positive for appetite change and unexpected weight change. Respiratory: Negative for shortness of breath. Gastrointestinal: Positive for abdominal pain, nausea and vomiting. Psychiatric/Behavioral: Positive for dysphoric mood and sleep disturbance. Negative for self-injury and suicidal ideas. The patient is nervous/anxious. ACTIVE PROBLEM LIST History of Nicotine Vaping Papanicolaou Smear of Cervix With Low Grade Squamous Intraepithelial Lesion (Lgsil) Zach (Generalized Anxiety Disorder) Alcohol Use Disorder Depression Acute Gastritis Without Hemorrhage Bipolar 1 Disorder, Depressed, Moderate (Hcc) Social History Tobacco Use Smoking status: Former Years: 8 Types: Cigarettes Quit date: 10/28/2020 Years since quittin.2 Smokeless tobacco: Never Tobacco comments: E-cigarettes sometimes Vaping Use Vaping Use: current everyday user Substances: Nicotine Devices: Disposable Substance Use Topics Alcohol use: Yes Alcohol/week: 42.0 standard drinks of alcohol Types: 42 Cans of beer per week Drug use: Yes Types: Marijuana Comment: none since 08/2017 Current Outpatient Medications Medication Sig QUEtiapine 150 mg tablet Take 1 tablet by mouth daily at bedtime. naltrexone 50 mg tablet Take 0.5 tablets by mouth once daily. divalproex ER (DEPAKOTE ER) 500 mg 24 hr tablet Take 2 tablets by mouth daily at bedtime AND 1 tablet every morning. Levonorgestrel-Ethinyl Estrad (AVIANE) 0.1mg - 20mcg per tablet Take 1 tablet by mouth once daily. No current facility-administered medications for this visit. Objective BP 120/76 (BP Site: Left Arm, BP Position: Sitting, BP Cuff Size: Large Adult) Pulse 84 Temp 36.9 C (98.5 F) (Temporal) Resp 18 Wt 79.8 kg (176 lb) LMP 10/19/2023 (Approximate) BMI 28.41 kg/m Physical Exam Constitutional: Appearance: She is not ill-appearing. HENT: Mouth/Throat: Mouth: Mucous membranes are moist. Pharynx: Oropharynx is clear. Eyes: General: No scleral icterus. Conjunctiva/sclera: Conjunctivae normal. Cardiovascular: Heart sounds: Normal heart sounds. Pulmonary: Breath sounds: Normal breath sounds. Abdominal: Palpations: Abdomen is soft. Tenderness: There is abdominal tenderness in the epigastric area. There is no guarding or rebound. Neurological: General: No focal deficit present. Mental Status: She is alert. Psychiatric: Mood and Affect: Mood normal. Behavior: Behavior normal. Thought Content: Thought content normal. Assessment and Plan 1. ZACH (generalized anxiety disorder) - ICD9: 300.02, ICD10: F41.1 (primary diagnosis) Risks of medication reviewed. PDMP website checked and validated. All prescriptions have been APPROPRIATELY filled. No suspicious activity was identified. 01/20/2024 by Epifanio Escobedo MD - LORAZEPAM 0.5 MG TABLET. Take one(1) tablet two(2) times daily as needed. 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 2. Alcohol use disorder - ICD9: V49.89, ICD10: F10.90 - See 180. 3. Acute gastritis without hemorrhage, unspecified gastritis type - ICD9: 535.00, ICD10: K29.00 - FAMOTIDINE 40 MG TABLET Discussed medication dosage, usage, goals of therapy, and side effects. 4. Depression, unspecified depression type - ICD9: 311, ICD10: F32.A Follow up with PCP. 5. Bipolar 1 disorder, depressed, moderate (HCC) - ICD9: 296.52, ICD10: F31.32 Follow up with PCP. Epifanio Escobedo MD documented in this encounter [facility] 01-19-2024 Telephone encounter Note Patient phoned to schedule [facility] ER f/u appt. Reports her anxiety is really bad lately, which is why she went to [facility] ER twice, recently. Patient cannot remember the dates she went, but was in ER this past Wednesday, January 14. Reports they gave her vistaril, and she hasn't taken it today. Patient will take it today. Reports she stopped taking her seroquel 2 weeks ago, because it stopped working, caused her to hear voices, and have nightmares. Reports she can't sleep or eat- eats once daily. Advised patient to drink plenty of fluids. Patient agreeable. Scheduled f/u appt for 01-20-[address] Escobedo Gave patient 05/04 phone number to [facility] and advised patient she can call that number 24 hours a day and a professional will be available to help her. Patient wrote the number down, and agreeable to call if needed. [facility] 01-19-2024 Miscellaneous Notes Patient phoned to schedule [facility] ER f/u appt. Reports her anxiety is really bad lately, which is why she went to [facility] ER twice, recently. Patient cannot remember the dates she went, but was in ER this past Wednesday, January 14. Reports they gave her vistaril, and she hasn't taken it today. Patient will take it today. Reports she stopped taking her seroquel 2 weeks ago, because it stopped working, caused her to hear voices, and have nightmares. Reports she can't sleep or eat- eats once daily. Advised patient to drink plenty of fluids. Patient agreeable. Scheduled f/u appt for 01-20-[address] Escobedo Gave patient 05/04 phone number to [facility] and advised patient she can call that number 24 hours a day and a professional will be available to help her. Patient wrote the number down, and agreeable to call if needed. documented in this encounter [facility] 11-15-2023 Note HNO ID: [id number] Author: SERJIO MONTERO APRN.NEUROSURGEON Service: ? Author Type: Nurse Practitioner Type: Progress Notes Filed: 11/15/2023 10:51 Note Text: SUBJECTIVE Jane Chung is a 27 year old female here today for a check up on her medical problems. Chief Complaint Patient presents with: medication check HPI Jane Chung is a 27 year old female. She is an established patient and here today for follow up on bipolar, anxiety, depression. Mood seems to be pretty stable, missed a few days of medication so sleep lately not as great. Up until running out of medication she was still waking at times with anxiousness, hard to fall back asleep. Work is going good. She is concerned about alcohol use. Alcohol use daily to help with anxiety and sleep, she has cut back to about 3 drinks daily at night but notices alcohol cravings daily. Depression Screening PHQ-2 Score 11/15/2023 0 Depression screening tool completed and reviewed. Based on score and interview, patient is already diagnosed with depression. Screening tool discussed with patient, increasing Seroquel. Her medications were reviewed today and her list is now up to date. Medications Current Outpatient Medications Medication Sig divalproex ER (DEPAKOTE ER) 500 mg 24 hr tablet Take 2 tablets by mouth daily at bedtime AND 1 tablet every morning. Levonorgestrel-Ethinyl Estrad (AVIANE) 0.1mg - 20mcg per tablet Take 1 tablet by mouth once daily. QUEtiapine 150 mg tablet Take 1 tablet by mouth daily at bedtime. naltrexone 50 mg tablet Take 0.5 tablets by mouth once daily. No current facility-administered medications for this visit. ALLERGIES No Known Allergies ACTIVE PROBLEM LIST Zach (Generalized Anxiety Disorder) - 01/08/2023 Papanicolaou Smear of Cervix With Low Grade Squamous Intraepithelial Lesion (Lgsil) - 04/23/2021 Comment: 04/23/21-LGSIL, repeat pap smear in one year. Ana Puckett APRN.CNM History of Nicotine Vaping - 03/27/2021 Comment: 04/16/21-Using e-cig. Reviewed risk to self and baby and advised cessation. Ana Puckett APRN.CNM 03/27/2021 Patient has been nicotine vaping. Discussed risks of nicotine vaping in and recommendation of patient to quit. TKRN History of Anxiety - 03/27/2021 Comment: 03/27/2021 Patient has a history of anxiety. Denies any depression history.TKRN Social History Tobacco Use Smoking status: Former Years: 8 Types: Cigarettes Quit date: 10/28/2020 Years since quittin.0 Smokeless tobacco: Never Tobacco comments: E-cigarettes sometimes Vaping Use Vaping Use: current everyday user Substances: Nicotine Devices: Disposable Substance Use Topics Alcohol use: No Drug use: Yes Types: Marijuana Comment: none since 08/2017 Review of Systems Respiratory: Negative. Cardiovascular: Negative. Psychiatric/Behavioral: Positive for sleep disturbance. Negative for dysphoric mood. The patient is nervous/anxious. OBJECTIVE BP 120/74 Pulse 80 Resp 16 Wt 178 lb (80.7kg) LMP 10/19/2023 Physical Exam Vitals and nursing note reviewed. Constitutional: General: She is awake. She is not in acute distress. Appearance: Normal appearance. She is well-developed and well-groomed. She is not ill-appearing, toxic-appearing or diaphoretic. HENT: Head: Normocephalic. Right Ear: External ear normal. Left Ear: External ear normal. Nose: Nose normal. Eyes: General: Vision grossly intact. Conjunctiva/sclera: Conjunctivae normal. Pupils: Pupils are equal, round, and reactive to light. Neck: Vascular: No JVD. Trachea: Trachea normal. Pulmonary: Effort: Pulmonary effort is normal. No accessory muscle usage, prolonged expiration or respiratory distress. Musculoskeletal: Cervical back: Neck supple. Skin: General: Skin is warm and dry. Capillary Refill: Capillary refill takes less than 2 seconds. Neurological: General: No focal deficit present. Mental Status: She is alert and oriented to person, place, and time. Mental status is at baseline. Psychiatric: Attention and Perception: Attention and perception normal. Mood and Affect: Mood and affect normal. Speech: Speech normal. Behavior: Behavior normal. Behavior is cooperative. Thought Content: Thought content normal. Cognition and Memory: Cognition and memory normal. Judgment: Judgment normal. ASSESSMENT/PLAN: 1. Bipolar 1 disorder, depressed, moderate (HCC) - ICD9: 296.52, ICD10: F31.32 (primary diagnosis) Still with some increased anxiety, especially at night. We will increase her Seroquel dose, discussed side effects to monitor for. - DEPRESSION SCREENING/ASSESSMENT - QUETIAPINE 150 MG TABLET 2. ZACH (generalized anxiety disorder) - ICD9: 300.02, ICD10: F41.1 Persistent night wakenings with feelings of anxiousness. See above. - DEPRESSION SCREENING/ASSESSMENT 3. Depression, unspecified depression type - ICD9: 311, ICD10: F32.A See above. - DEPRESSION (more content not included)... [facility] 11-15-2023 History of Presen t illness Narrative SUBJECTIVE Jane Chung is a 27 year old female here today for a check up on her medical problems. Chief Complaint Patient presents with: medication check HPI Jane Chung is a 27 year old female. She is an established patient and here today for follow up on bipolar, anxiety, depression. Mood seems to be pretty stable, missed a few days of medication so sleep lately not as great. Up until running out of medication she was still waking at times with anxiousness, hard to fall back asleep. Work is going good. She is concerned about alcohol use. Alcohol use daily to help with anxiety and sleep, she has cut back to about 3 drinks daily at night but notices alcohol cravings daily. Depression Screening PHQ-2 Score 11/15/2023 0 Depression screening tool completed and reviewed. Based on score and interview, patient is already diagnosed with depression. Screening tool discussed with patient, increasing Seroquel. Her medications were reviewed today and her list is now up to date. Medications Current Outpatient Medications Medication Sig divalproex ER (DEPAKOTE ER) 500 mg 24 hr tablet Take 2 tablets by mouth daily at bedtime AND 1 tablet every morning. Levonorgestrel-Ethinyl Estrad (AVIANE) 0.1mg - 20mcg per tablet Take 1 tablet by mouth once daily. QUEtiapine 150 mg tablet Take 1 tablet by mouth daily at bedtime. naltrexone 50 mg tablet Take 0.5 tablets by mouth once daily. No current facility-administered medications for this visit. ALLERGIES No Known Allergies ACTIVE PROBLEM LIST Zach (Generalized Anxiety Disorder) - 01/08/2023 Papanicolaou Smear of Cervix With Low Grade Squamous Intraepithelial Lesion (Lgsil) - 04/23/2021 Comment: 04/23/21-LGSIL, repeat pap smear in one year. Ana Puckett APRN.VANNA History of Nicotine Vaping - 03/27/2021 Comment: 04/16/21-Using e-cig. Reviewed risk to self and baby and advised cessation. Ana Puckett APRN.CNM 03/27/2021 Patient has been nicotine vaping. Discussed risks of nicotine vaping in and recommendation of patient to quit. TKRN History of Anxiety - 03/27/2021 Comment: 03/27/2021 Patient has a history of anxiety. Denies any depression history.TKRN Social History Tobacco Use Smoking status: Former Years: 8 Types: Cigarettes Quit date: 10/28/2020 Years since quittin.0 Smokeless tobacco: Never Tobacco comments: E-cigarettes sometimes Vaping Use Vaping Use: current everyday user Substances: Nicotine Devices: Disposable Substance Use Topics Alcohol use: No Drug use: Yes Types: Marijuana Comment: none since 08/2017 Review of Systems Respiratory: Negative. Cardiovascular: Negative. Psychiatric/Behavioral: Positive for sleep disturbance. Negative for dysphoric mood. The patient is nervous/anxious. OBJECTIVE BP 120/74 Pulse 80 Resp 16 Wt 178 lb (80.7kg) LMP 10/19/2023 Physical Exam Vitals and nursing note reviewed. Constitutional: General: She is awake. She is not in acute distress. Appearance: Normal appearance. She is well-developed and well-groomed. She is not ill-appearing, toxic-appearing or diaphoretic. HENT: Head: Normocephalic. Right Ear: External ear normal. Left Ear: External ear normal. Nose: Nose normal. Eyes: General: Vision grossly intact. Conjunctiva/sclera: Conjunctivae normal. Pupils: Pupils are equal, round, and reactive to light. Neck: Vascular: No JVD. Trachea: Trachea normal. Pulmonary: Effort: Pulmonary effort is normal. No accessory muscle usage, prolonged expiration or respiratory distress. Musculoskeletal: Cervical back: Neck supple. Skin: General: Skin is warm and dry. Capillary Refill: Capillary refill takes less than 2 seconds. Neurological: General: No focal deficit present. Mental Status: She is alert and oriented to person, place, and time. Mental status is at baseline. Psychiatric: Attention and Perception: Attention and perception normal. Mood and Affect: Mood and affect normal. Speech: Speech normal. Behavior: Behavior normal. Behavior is cooperative. Thought Content: Thought content normal. Cognition and Memory: Cognition and memory normal. Judgment: Judgment normal. ASSESSMENT/PLAN: 1. Bipolar 1 disorder, depressed, moderate (HCC) - ICD9: 296.52, ICD10: F31.32 (primary diagnosis) Still with some increased anxiety, especially at night. We will increase her Seroquel dose, discussed side effects to monitor for. - DEPRESSION SCREENING/ASSESSMENT - QUETIAPINE 150 MG TABLET 2. ZACH (generalized anxiety disorder) - ICD9: 300.02, ICD10: F41.1 Persistent night wakenings with feelings of anxiousness. See above. - DEPRESSION SCREENING/ASSESSMENT 3. Depression, unspecified depression type - ICD9: 311, ICD10: F32.A See above. - DEPRESSION SCREENING/ASSESSMENT - QUETIAPINE 150 MG TABLET 4. Alcohol use disorder - ICD9: V49.89, ICD10: F10.90 Discussed alcohol use and cravings, trial a low dose of naltrexone. Discussed if she would require use of opoid medication for pain then the naltrexone should not be taken during that time frame. Discussed new medication including but not limited to reason for use, possible side effects, administration, signs and symptoms to monitor for and when to seek medical attention. - DEPRESSION SCREENING/ASSESSMENT - NALTREXONE 50 MG TABLET Portions of this note have been entered by ancillary staff. I have reviewed and when necessary edited, so that they are an adequate record of my encounter with this patient Please note that parts of this document were created using voice recognition software and therefore may contain grammatical errors. Patient verbalizes understanding of instructions from today's visit and in agreement with treatment plan. Questions answered. Agrees to call the office if questions, concerns of issues with acute symptoms not improving or if they worsen. See diagnoses and orders for additional plan(s). Allergies and medications were reviewed, list was updated, and refills given if needed. Past medical, surgical, social, and family history reviewed and updated as appropriate. Encouraged proper diet & exercise as well as compliance with taking medications. Age-appropriate health preventative measures were discussed. Return in about 6 weeks (around 12/27/2023) for recheck on new medication.. Serjio Montero APRN-MERA documented in this encounter [facility] 11-10-2023 Miscellaneous Notes Pt called and she ran out of medication 1 to 2 weeks ago. Pt has scheduled a follow up for 11-12-23 and asking if you would be willing to send in medication till she comes in on 11-12-23. Please advise pt. WILFRED 05/26/23 NOV: 11/12/23 Bharti King LPN documented in this encounter [facility] 06-01-2023 History of Presen t illness Narrative SUBJECTIVE Jane Chung is a 27 year old female here today for a check up on her medical problems. Chief Complaint Patient presents with: Medication Follow-up HPI Jane Chung is a 27 year old female established patient. She presents today for a medication follow up, recheck on mood. At her last visit we discussed persistent mood issues. We stopped her Prozac, stopped Depakote. Started Vraylar and continued seroquel. Lately more noticeable symptoms. More anxious, restless. Restarted her Depakote, felt better with this. Noticing weight gain, not much improvement with the Vraylar. Anxious and angry. Sleeping well with the Seroquel. Liking her new job. Taking 500 mg one tab of Depakote. Wants back on OCPs, last period was 05/12. No sex since that point so no possibility of . Her medications were reviewed today and her list is now up to date. Medications Current Outpatient Medications Medication Sig QUEtiapine (SEROQUEL) 100 mg tablet Take 1 tablet by mouth daily at bedtime. divalproex ER (DEPAKOTE ER) 500 mg 24 hr tablet Take 2 tablets by mouth daily at bedtime AND 1 tablet every morning. Levonorgestrel-Ethinyl Estrad (AVIANE) 0.1mg - 20mcg per tablet Take 1 tablet by mouth once daily. No current facility-administered medications for this visit. ALLERGIES No Known Allergies ACTIVE PROBLEM LIST Zach (Generalized Anxiety Disorder) - 01/08/2023 Papanicolaou Smear of Cervix With Low Grade Squamous Intraepithelial Lesion (Lgsil) - 04/23/2021 Comment: 04/23/21-LGSIL, repeat pap smear in one year. Ana Puckett APRN.CNM History of Nicotine Vaping - 03/27/2021 Comment: 04/16/21-Using e-cig. Reviewed risk to self and baby and advised cessation. Ana Puckett APRN.CNM 03/27/2021 Patient has been nicotine vaping. Discussed risks of nicotine vaping in and recommendation of patient to quit. TKRN History of Anxiety - 03/27/2021 Comment: 03/27/2021 Patient has a history of anxiety. Denies any depression history.TKRN Social History Tobacco Use Smoking status: Former Years: 8 Types: Cigarettes Quit date: 10/28/2020 Years since quittin.5 Smokeless tobacco: Never Tobacco comments: E-cigarettes sometimes Vaping Use Vaping Use: current everyday user Substances: Nicotine Devices: Disposable Substance Use Topics Alcohol use: No Drug use: Yes Types: Marijuana Comment: none since 08/2017 Review of Systems Respiratory: Negative. Cardiovascular: Negative. Psychiatric/Behavioral: Positive for agitation and dysphoric mood. Negative for self-injury, sleep disturbance and suicidal ideas. The patient is nervous/anxious. OBJECTIVE BP 118/80 Pulse 80 Resp 12 Wt 167 lb (75.8kg) LMP 05/12/2023 Physical Exam Vitals and nursing note reviewed. Constitutional: General: She is awake. She is not in acute distress. Appearance: Normal appearance. She is well-developed and well-groomed. She is not ill-appearing, toxic-appearing or diaphoretic. HENT: Head: Normocephalic. Right Ear: External ear normal. Left Ear: External ear normal. Nose: Nose normal. Eyes: General: Vision grossly intact. Conjunctiva/sclera: Conjunctivae normal. Pupils: Pupils are equal, round, and reactive to light. Neck: Vascular: No JVD. Trachea: Trachea normal. Pulmonary: Effort: Pulmonary effort is normal. No accessory muscle usage, prolonged expiration or respiratory distress. Musculoskeletal: Cervical back: Neck supple. Skin: General: Skin is warm and dry. Capillary Refill: Capillary refill takes less than 2 seconds. Neurological: General: No focal deficit present. Mental Status: She is alert and oriented to person, place, and time. Mental status is at baseline. Psychiatric: Attention and Perception: Attention and perception normal. Mood and Affect: Mood and affect normal. Speech: Speech normal. Behavior: Behavior normal. Behavior is cooperative. Thought Content: Thought content normal. Cognition and Memory: Cognition and memory normal. Judgment: Judgment normal. ASSESSMENT/PLAN: 1. Bipolar 1 disorder, depressed, moderate (HCC) - ICD9: 296.52, ICD10: F31.32 (primary diagnosis) Persistent and per patient noted worsening in mood. Stop Vraylar since not liking the way it makes her feel. We will continue with the seroquel at night and add back Depakote but at twice a day with the higher dose at bedtime. 2. Encounter for initial prescription of contraceptive pills - ICD9: V25.01, ICD10: Z30.011 - RX for OCPs given today. - discussed with patient on how to take OCP's. - counseled on benefits, risks and possible severe side effects of OCP's. - discussed need to use Condoms to help to prevent STD's including HIV etc. Medical Decision Making: Problems: Moderate: 1+ chronic illnesses with change Risk: Moderate: Drug management Medical Decision Making Level: 4 - Moderate Portions of this note have been entered by ancillary staff. I have reviewed and when necessary edited, so that they are an adequate record of my encounter with this patient Please note that parts of this document were created using voice recognition software and therefore may contain grammatical errors. Patient verbalizes understanding of instructions from today's visit and in agreement with treatment plan. Questions answered. Agrees to call the office if questions, concerns of issues with acute symptoms not improving or if they worsen. See diagnoses and orders for additional plan(s). Allergies and medications were reviewed, list was updated, and refills given if needed. Past medical, surgical, social, and family history reviewed and updated as appropriate. Encouraged proper diet & exercise as well as compliance with taking medications. Age-appropriate health preventative measures were discussed. Return in about 4 weeks (around 06/29/2023) for recheck on new medication.. DONNIE Pittman documented in this encounter [facility] 04-20-2023 History of Presen t illness Narrative SUBJECTIVE Jane Chung is a 27 year old female here today for a check up on her medical problems. Chief Complaint Patient presents with: Medication review HPI Jane Chung is a 27 year old female established patient. She is here today for a follow up on mood. She was being seen at [facility] for psych follow up but the provider she saw has left that practice. She states that currently she is falling asleep but not staying asleep. Taking prozac 10 mg, feeling like this is not helping much. Had twitches with Depakote. Recently changed jobs, broke up with boyfriend. Not in counseling. Psych gave the diagnosis of manic bipolar. Her medications were reviewed today and her list is now up to date. Medications Current Outpatient Medications Medication Sig QUEtiapine (SEROQUEL) 100 mg tablet Take 1 tablet by mouth daily at bedtime. cariprazine (VRAYLAR) 1.5 mg capsule Take 1 capsule by mouth once daily. No current facility-administered medications for this visit. ALLERGIES No Known Allergies ACTIVE PROBLEM LIST Zach (Generalized Anxiety Disorder) - 01/08/2023 Papanicolaou Smear of Cervix With Low Grade Squamous Intraepithelial Lesion (Lgsil) - 04/23/2021 Comment: 04/23/21-LGSIL, repeat pap smear in one year. Ana Puckett APRN.CNM History of Nicotine Vaping - 03/27/2021 Comment: 04/16/21-Using e-cig. Reviewed risk to self and baby and advised cessation. Ana Puckett APRN.EMMAM 03/27/2021 Patient has been nicotine vaping. Discussed risks of nicotine vaping in and recommendation of patient to quit. TKRN History of Anxiety - 03/27/2021 Comment: 03/27/2021 Patient has a history of anxiety. Denies any depression history.TKRN Social History Tobacco Use Smoking status: Former Years: 8.00 Types: Cigarettes Quit date: 10/28/2020 Years since quittin.4 Smokeless tobacco: Never Tobacco comments: E-cigarettes sometimes Vaping Use Vaping Use: current everyday user Substances: Nicotine Devices: Disposable Substance Use Topics Alcohol use: No Drug use: Yes Types: Marijuana Comment: none since 08/2017 Review of Systems Respiratory: Negative. Cardiovascular: Negative. Psychiatric/Behavioral: Positive for dysphoric mood and sleep disturbance. Negative for self-injury and suicidal ideas. The patient is nervous/anxious. OBJECTIVE BP 108/78 Wt 156 lb (70.8kg) LMP 01/18/2023 Physical Exam Vitals and nursing note reviewed. Constitutional: General: She is awake. She is not in acute distress. Appearance: Normal appearance. She is well-developed and well-groomed. She is not ill-appearing, toxic-appearing or diaphoretic. HENT: Head: Normocephalic. Right Ear: External ear normal. Left Ear: External ear normal. Nose: Nose normal. Eyes: General: Vision grossly intact. Conjunctiva/sclera: Conjunctivae normal. Pupils: Pupils are equal, round, and reactive to light. Neck: Vascular: No JVD. Trachea: Trachea normal. Cardiovascular: Rate and Rhythm: Normal rate and regular rhythm. Pulses: Normal pulses. Heart sounds: Normal heart sounds. No murmur heard. Pulmonary: Effort: Pulmonary effort is normal. No accessory muscle usage, prolonged expiration or respiratory distress. Breath sounds: Normal breath sounds. Musculoskeletal: Cervical back: Neck supple. Skin: General: Skin is warm and dry. Capillary Refill: Capillary refill takes less than 2 seconds. Neurological: General: No focal deficit present. Mental Status: She is alert and oriented to person, place, and time. Mental status is at baseline. Psychiatric: Attention and Perception: Attention and perception normal. Mood and Affect: Mood and affect normal. Speech: Speech normal. Behavior: Behavior normal. Behavior is cooperative. Thought Content: Thought content normal. Cognition and Memory: Cognition and memory normal. Judgment: Judgment normal. ASSESSMENT/PLAN: 1. Bipolar 1 disorder, depressed, moderate (HCC) - ICD9: 296.52, ICD10: F31.32 (primary diagnosis) Persistent, not improving with current medications/management. Stop the Prozac since has been off of this a few days, can stop the Depakote since not helpful either. Can increase the Seroquel to help with sleep. Try Vraylar, if not well covered then can try Abilify. Already has been on Lamictal. Will try and get records from [facility] and see if she had genesight testing done. IF not then plan to do that. - QUETIAPINE 100 MG TABLET - CARIPRAZINE 1.5 MG CAPSULE 2. Depression, unspecified depression type - ICD9: 311, ICD10: F32.A See #1 - QUETIAPINE 100 MG TABLET Medical Decision Making: Problems: Moderate: 1+ chronic illnesses with change Risk: Moderate: Drug management Medical Decision Making Level: 4 - Moderate Portions of this note have been entered by ancillary staff. I have reviewed and when necessary edited, so that they are an adequate record of my encounter with this patient Please note that parts of this document were created using voice recognition software and therefore may contain grammatical errors. Patient verbalizes understanding of instructions from today's visit and in agreement with treatment plan. Questions answered. Agrees to call the office if questions, concerns of issues with acute symptoms not improving or if they worsen. See diagnoses and orders for additional plan(s). Allergies and medications were reviewed, list was updated, and refills given if needed. Past medical, surgical, social, and family history reviewed and updated as appropriate. Encouraged proper diet & exercise as well as compliance with taking medications. Age-appropriate health preventative measures were discussed. Return in about 4 weeks (around 05/18/2023) for recheck on new medication.. DONNIE Pittman documented in this encounter [facility] 04-01-2023 Miscellaneous Notes Third attempt to contact pt to schedule a PCP appt. LVM Called pt to schedule a PCP office visit. LVM. 1st attempt left message to return call Please call patient and let her know we received paperwork to be filled out for work accommodations. Please have her schedule an appointment to come in and give an update on how she is doing and decide on what accommodations are necessary. Thanks! Please call patient and let her know we received paperwork to be filled out for work accommodations. Please have her schedule an appointment to come in and give an update on how she is doing and decide on what accommodations are necessary. Thanks! Type of form: Accommodation questionnaire Form received via fax When form is completed, Fax form to [place] [phone] Form has been forwarded to Nurse Practictioner: Serjio Garcia LPN documented in this encounter [facility] 01-20-2023 History of Presen t illness Narrative SUBJECTIVE Jane Chung is a 27 year old female here today for a check up on her medical problems. Chief Complaint Patient presents with: Medication Follow-up HPI Jane Chung is a 27 year old female established patient who presents today for follow up. She has been dealing with increased anxiety. States today that she is feeling well on the seroquel. This has really helped her mood. She worked 4 hours yesterday without problems. Sleeping better. Some side effects of general body aching, appetite increased, increased acne, but these are currently manageable. Planning to see mental health SOLUTION DIRECTOR on Wednesday. Thyroid testing/ultrasound stable, recent HCG negative. Her medications were reviewed today and her list is now up to date. Medications Current Outpatient Medications Medication Sig propranolol (INDERAL) 20 mg tablet Take 1 tablet by mouth three times daily as needed (for anxiety/palpitations). QUEtiapine (SEROQUEL) 50 mg tablet Take 1 tablet by mouth daily at bedtime. benzonatate (TESSALON PERLE) 100 mg capsule Take 2 capsules by mouth three times daily as needed for cough. No current facility-administered medications for this visit. ALLERGIES No Known Allergies ACTIVE PROBLEM LIST Zach (Generalized Anxiety Disorder) - 01/08/2023 Papanicolaou Smear of Cervix With Low Grade Squamous Intraepithelial Lesion (Lgsil) - 04/23/2021 Comment: 04/23/21-LGSIL, repeat pap smear in one year. Ana Puckett APRN.EMMA History of Nicotine Vaping - 03/27/2021 Comment: 04/16/21-Using e-cig. Reviewed risk to self and baby and advised cessation. Ana Puckett APRN.CNM 03/27/2021 Patient has been nicotine vaping. Discussed risks of nicotine vaping in and recommendation of patient to quit. TKRN History of Anxiety - 03/27/2021 Comment: 03/27/2021 Patient has a history of anxiety. Denies any depression history.TKRN Social History Tobacco Use Smoking status: Former Years: 8.00 Types: Cigarettes Quit date: 10/28/2020 Years since quittin.2 Smokeless tobacco: Never Tobacco comments: E-cigarettes sometimes Vaping Use Vaping Use: current everyday user Substances: Nicotine Devices: Disposable Substance Use Topics Alcohol use: No Drug use: Yes Types: Marijuana Comment: none since 08/2017 Review of Systems Respiratory: Negative. Cardiovascular: Negative. OBJECTIVE BP 104/60 Pulse 114 SpO2 98% LMP 01/18/2023 Physical Exam Vitals and nursing note reviewed. Constitutional: General: She is awake. She is not in acute distress. Appearance: Normal appearance. She is well-developed and well-groomed. She is not ill-appearing, toxic-appearing or diaphoretic. HENT: Head: Normocephalic. Right Ear: External ear normal. Left Ear: External ear normal. Nose: Nose normal. Eyes: General: Vision grossly intact. Conjunctiva/sclera: Conjunctivae normal. Pupils: Pupils are equal, round, and reactive to light. Neck: Vascular: No JVD. Trachea: Trachea normal. Cardiovascular: Rate and Rhythm: Normal rate and regular rhythm. Pulses: Normal pulses. Heart sounds: Normal heart sounds. No murmur heard. Pulmonary: Effort: Pulmonary effort is normal. No accessory muscle usage, prolonged expiration or respiratory distress. Breath sounds: Normal breath sounds. Musculoskeletal: Cervical back: Neck supple. Skin: General: Skin is warm and dry. Capillary Refill: Capillary refill takes less than 2 seconds. Neurological: General: No focal deficit present. Mental Status: She is alert and oriented to person, place, and time. Mental status is at baseline. Psychiatric: Attention and Perception: Attention and perception normal. Mood and Affect: Mood and affect normal. Speech: Speech normal. Behavior: Behavior normal. Behavior is cooperative. Thought Content: Thought content normal. Cognition and Memory: Cognition and memory normal. Judgment: Judgment normal. ASSESSMENT/PLAN: 1. ZACH (generalized anxiety disorder) - ICD9: 300.02, ICD10: F41.1 Much improved, stay on current dose of medications, follow up with mental health SOLUTION DIRECTOR Wednesday. Portions of this note have been entered by ancillary staff. I have reviewed and when necessary edited, so that they are an adequate record of my encounter with this patient Please note that parts of this document were created using voice recognition software and therefore may contain grammatical errors. Patient verbalizes understanding of instructions from today's visit and in agreement with treatment plan. Questions answered. Agrees to call the office if questions, concerns of issues with acute symptoms not improving or if they worsen. Return in about 4 weeks (around 02/17/2023) for Follow up on chronic conditions and medications.. Serjio Montero APRN-MERA documented in this encounter [facility] 01-15-2023 History of Presen t illness Narrative SUBJECTIVE Jane Chung is a 27 year old female here today for a check up on her medical problems. Chief Complaint Patient presents with: Medication Follow-up HPI Jane Chung is a 27 year old female who presents today for a recheck on anxiety. She was seen yesterday with Elham Nowak APRN with our [facility] due to issues with medications. Concerns that her new medications were causing numbness, tingling, sweating. Stopped Effexor, trazodone, buspar. Started Seroquel. Slept better last night. Still using propranolol and feeling that helps too. Has a psychiatry appointment with [facility] provider on 01/25. She has concerns of contributing to her symptoms, would like HCG levels checked. Her medications were reviewed today and her list is now up to date. Medications Current Outpatient Medications Medication Sig QUEtiapine (SEROQUEL) 50 mg tablet Take 1 tablet by mouth daily at bedtime. propranolol (INDERAL) 20 mg tablet Take 1 tablet by mouth three times daily as needed (for anxiety/palpitations). No current facility-administered medications for this visit. ALLERGIES No Known Allergies ACTIVE PROBLEM LIST Zach (Generalized Anxiety Disorder) - 01/08/2023 Papanicolaou Smear of Cervix With Low Grade Squamous Intraepithelial Lesion (Lgsil) - 04/23/2021 Comment: 04/23/21-LGSIL, repeat pap smear in one year. Ana Puckett APRN.CNM History of Nicotine Vaping - 03/27/2021 Comment: 04/16/21-Using e-cig. Reviewed risk to self and baby and advised cessation. Ana Puckett APRN.CNM 03/27/2021 Patient has been nicotine vaping. Discussed risks of nicotine vaping in and recommendation of patient to quit. TKRN History of Anxiety - 03/27/2021 Comment: 03/27/2021 Patient has a history of anxiety. Denies any depression history.TKRN Social History Tobacco Use Smoking status: Former Years: 8.00 Types: Cigarettes Quit date: 10/28/2020 Years since quittin.2 Smokeless tobacco: Never Tobacco comments: E-cigarettes sometimes Vaping Use Vaping Use: current everyday user Substances: Nicotine Devices: Disposable Substance Use Topics Alcohol use: No Drug use: Yes Types: Marijuana Comment: none since 08/2017 Review of Systems Psychiatric/Behavioral: The patient is nervous/anxious. OBJECTIVE BP 112/80 Pulse 92 SpO2 98% LMP 2022 Physical Exam Vitals and nursing note reviewed. Constitutional: General: She is awake. She is not in acute distress. Appearance: Normal appearance. She is well-developed and well-groomed. She is not ill-appearing, toxic-appearing or diaphoretic. HENT: Head: Normocephalic. Right Ear: External ear normal. Left Ear: External ear normal. Nose: Nose normal. Eyes: General: Vision grossly intact. Conjunctiva/sclera: Conjunctivae normal. Pupils: Pupils are equal, round, and reactive to light. Neck: Vascular: No JVD. Trachea: Trachea normal. Pulmonary: Effort: Pulmonary effort is normal. No accessory muscle usage, prolonged expiration or respiratory distress. Musculoskeletal: Cervical back: Neck supple. Skin: General: Skin is warm and dry. Capillary Refill: Capillary refill takes less than 2 seconds. Neurological: General: No focal deficit present. Mental Status: She is alert and oriented to person, place, and time. Mental status is at baseline. Psychiatric: Attention and Perception: Attention and perception normal. Mood and Affect: Mood and affect normal. Speech: Speech normal. Behavior: Behavior normal. Behavior is cooperative. Thought Content: Thought content normal. Cognition and Memory: Cognition and memory normal. Judgment: Judgment normal. ASSESSMENT/PLAN: 1. ZACH (generalized anxiety disorder) - ICD9: 300.02, ICD10: F41.1 (primary diagnosis) Recent MDQ score 9, follow up with psych with [facility] for possible bipolar. Continue current dose Seroquel since helping and tolerating well, per patient request we can increase propranolol. - PROPRANOLOL 20 MG TABLET 2. Unprotected sexual intercourse - ICD9: V69.2, ICD10: Z72.51 - HCG QUANTITATIVE 3. Abnormal menses - ICD9: 626.9, ICD10: N92.6 - HCG QUANTITATIVE Portions of this note have been entered by ancillary staff. I have reviewed and when necessary edited, so that they are an adequate record of my encounter with this patient Please note that parts of this document were created using voice recognition software and therefore may contain grammatical errors. Patient verbalizes understanding of instructions from today's visit and in agreement with treatment plan. Questions answered. Agrees to call the office if questions, concerns of issues with acute symptoms not improving or if they worsen. See diagnoses and orders for additional plan(s). Allergies and medications were reviewed, list was updated, and refills given if needed. Past medical, surgical, social, and family history reviewed and updated as appropriate. Encouraged proper diet & exercise as well as compliance with taking medications. Age-appropriate health preventative measures were discussed. Return in about 5 days (around 01/20/2023) for follow up. DONNIE Pittman documented in this encounter [facility] 01-15-2023 Miscellaneous Notes Appt today, plan to discuss today FMLA forms completed and faxed back to number listed on form. Patient called she said she had some tingling and numbness in her fingers and toes on 01/12 and questions if that is from her new Rx Effexor that she started on 01/11 and also has questions about FMLA She can be reached at [phone] Thank you Sonja Harrison Pss documented in this encounter [facility] 01-11-2023 Miscellaneous Notes Completed FMLA faxed back to number listed on form. Forms completed, please fax. Type of form: FMLA Form received via fax When form is completed, Fax form to [place] [phone] Form has been forwarded to Nurse Practictioner: Serjio Garcia LPN documented in this encounter [facility] 01-11-2023 History of Presen t illness Narrative SUBJECTIVE Jane Chung is a 27 year old female here today for a check up on her medical problems. Chief Complaint Patient presents with: Medication Follow-up HPI Jane Chung is a 27 year old female who presents today for follow up on anxiety. Was seen on Wednesday. We had stopped her hydroxyzine and increased Buspar, also on propranolol PRN. Today she states that she wants to try something other than Zoloft. Feeling some better but still not sleeping well, nausea. Noticing a lot of up and down with the Zoloft, wondering if something else might be a better fit. Thinking of returning to work tomorrow, wants to try a reduced schedule of 4 hours starting out. Planning to talk with HR, has FMLA paper work to be completed, will drop off or fax this week. Had labs done after visit Wednesday. TSH was borderline hyperthyroid at 0.291. Her medications were reviewed today and her list is now up to date. Medications Current Outpatient Medications Medication Sig busPIRone (BUSPAR) 15 mg tablet Take 1 tablet by mouth three times daily as needed. propranolol (INDERAL) 10 mg tablet Take 1 tablet by mouth three times daily as needed (for anxiety/palpitations). venlafaxine ER (EFFEXOR XR) 75 mg 24 hr capsule Take 1 capsule by mouth once daily. traZODone (DESYREL) 50 mg tablet Take 1-2 tablets by mouth daily at bedtime. acetaminophen (TYLENOL) 325 mg tablet Take 650 mg by mouth every 6 hours as needed. (Patient not taking: Reported on 04/09/2022 ) No current facility-administered medications for this visit. ALLERGIES No Known Allergies ACTIVE PROBLEM LIST Zach (Generalized Anxiety Disorder) - 01/08/2023 Papanicolaou Smear of Cervix With Low Grade Squamous Intraepithelial Lesion (Lgsil) - 04/23/2021 Comment: 04/23/21-LGSIL, repeat pap smear in one year. Ana Puckett APRN.CNM History of Nicotine Vaping - 03/27/2021 Comment: 04/16/21-Using e-cig. Reviewed risk to self and baby and advised cessation. Ana Puckett APRN.CNM 03/27/2021 Patient has been nicotine vaping. Discussed risks of nicotine vaping in and recommendation of patient to quit. TKRN History of Anxiety - 03/27/2021 Comment: 03/27/2021 Patient has a history of anxiety. Denies any depression history.TKRN Social History Tobacco Use Smoking status: Former Years: 8.00 Types: Cigarettes Quit date: 10/28/2020 Years since quittin.2 Smokeless tobacco: Never Tobacco comments: E-cigarettes sometimes Vaping Use Vaping Use: current everyday user Substances: Nicotine Devices: Disposable Substance Use Topics Alcohol use: No Drug use: Yes Types: Marijuana Comment: none since 08/2017 Review of Systems Cardiovascular: Positive for palpitations. Negative for leg swelling. Psychiatric/Behavioral: Positive for agitation, dysphoric mood and sleep disturbance. Negative for hallucinations, self-injury and suicidal ideas. The patient is nervous/anxious and is hyperactive. OBJECTIVE BP 110/88 Pulse 92 Wt 169 lb (76.7kg) SpO2 98% LMP 2022 Physical Exam Vitals and nursing note reviewed. Constitutional: General: She is awake. She is not in acute distress. Appearance: Normal appearance. She is well-developed and well-groomed. She is not ill-appearing, toxic-appearing or diaphoretic. HENT: Head: Normocephalic. Right Ear: External ear normal. Left Ear: External ear normal. Nose: Nose normal. Eyes: General: Vision grossly intact. Conjunctiva/sclera: Conjunctivae normal. Pupils: Pupils are equal, round, and reactive to light. Neck: Thyroid: Thyromegaly (slight) and thyroid tenderness present. No thyroid mass. Vascular: No JVD. Trachea: Trachea normal. Pulmonary: Effort: Pulmonary effort is normal. No accessory muscle usage, prolonged expiration or respiratory distress. Musculoskeletal: Cervical back: Neck supple. Lymphadenopathy: Cervical: No cervical adenopathy. Skin: General: Skin is warm and dry. Capillary Refill: Capillary refill takes less than 2 seconds. Neurological: General: No focal deficit present. Mental Status: She is alert and oriented to person, place, and time. Mental status is at baseline. Psychiatric: Attention and Perception: Attention and perception normal. Mood and Affect: Mood and affect normal. Speech: Speech normal. Behavior: Behavior normal. Behavior is cooperative. Thought Content: Thought content normal. Cognition and Memory: Cognition and memory normal. Judgment: Judgment normal. ASSESSMENT/PLAN: 1. ZACH (generalized anxiety disorder) - ICD9: 300.02, ICD10: F41.1 (primary diagnosis) Can stop the Zoloft, trial of Effexor, see if she tolerates an SNRI better. Try trazodone for sleep since did not like the hydroxyzine. Buspar and Propranolol PRN. - VENLAFAXINE ER 75 MG CAPSULE,EXTENDED RELEASE 24 HR - TRAZODONE 50 MG TABLET 2. Sleep disturbance - ICD9: 780.50, ICD10: G47.9 Try trazodone, melatonin and hydroxyzine not effective. - TRAZODONE 50 MG TABLET 3. Thyroid enlargement - ICD9: 240.9, ICD10: E04.9 TSH borderline hyperthyroid, reviewed labs from Wednesday with her and significant other today. TSH might be contributing to mood issues. See if we can add on T3 and T4 to labs from Wednesday, check ultrasound since thyroid slightly enlarged and tender. - US THYROID/PARATHYROID - T3 FREE BLD - T4 FREE/FREE THYROX Portions of this note have been entered by ancillary staff. I have reviewed and when necessary edited, so that they are an adequate record of my encounter with this patient Please note that parts of this document were created using voice recognition software and therefore may contain grammatical errors. Patient verbalizes understanding of instructions from today's visit and in agreement with treatment plan. Questions answered. Agrees to call the office if questions, concerns of issues with acute symptoms not improving or if they worsen. Medical Decision Making: Data: Unique test result(s) reviewed: 3+ Unique test(s) ordered: 2 Risk: Moderate: Drug management Medical Decision Making Level: 4 - Moderate Return in about 4 days (around 01/15/2023) for recheck. Serjio Montero APRN-MERA documented in this encounter [facility] 01-08-2023 History of Presen t illness Narrative SUBJECTIVE Jane Chung is a 27 year old female here today for a check up on her medical problems. Chief Complaint Patient presents with: Anxiety: follow up HPI Jane Chung is a 27 year old female who presents today for follow up on anxiety. Seen earlier this week for ER follow up as a new patient for severe anxiety. Today states feeling some improved. Has been taking Zoloft half a pill, PRN buspar and propranolol and tried hydroxyzine for sleep. Hydroxyzine not helpful. Buspar and propranolol helping. Counseling is set up now. Has not done blood work yet. Has not returned to work yet, concerned this will worsen anxiety again. Last date worked was 01/01, planning to go back 01/12. Wants to check in 01/11 prior to return to work date. Since last visit she stopped Acoriotom cold turkey. Her medications were reviewed today and her list is now up to date. Medications Current Outpatient Medications Medication Sig sertraline (ZOLOFT) 50 mg tablet Take 1 tablet by mouth once daily. Start by taking a half a tab daily then after 1 week increase to a whole pill daily propranolol (INDERAL) 10 mg tablet Take 1 tablet by mouth three times daily as needed (for anxiety/palpitations). busPIRone (BUSPAR) 15 mg tablet Take 1 tablet by mouth three times daily as needed. acetaminophen (TYLENOL) 325 mg tablet Take 650 mg by mouth every 6 hours as needed. (Patient not taking: Reported on 04/09/2022 ) No current facility-administered medications for this visit. ALLERGIES No Known Allergies ACTIVE PROBLEM LIST Zach (Generalized Anxiety Disorder) - 01/08/2023 Papanicolaou Smear of Cervix With Low Grade Squamous Intraepithelial Lesion (Lgsil) - 04/23/2021 Comment: 04/23/21-LGSIL, repeat pap smear in one year. Ana Puckett APRN.CNM History of Nicotine Vaping - 03/27/2021 Comment: 04/16/21-Using e-cig. Reviewed risk to self and baby and advised cessation. Ana Puckett APRN.CNM 03/27/2021 Patient has been nicotine vaping. Discussed risks of nicotine vaping in and recommendation of patient to quit. TKRN History of Anxiety - 03/27/2021 Comment: 03/27/2021 Patient has a history of anxiety. Denies any depression history.TKRN Social History Tobacco Use Smoking status: Former Years: 8.00 Types: Cigarettes Quit date: 10/28/2020 Years since quittin.1 Smokeless tobacco: Never Tobacco comments: E-cigarettes sometimes Vaping Use Vaping Use: current everyday user Substances: Nicotine Devices: Disposable Substance Use Topics Alcohol use: No Drug use: Yes Types: Marijuana Comment: none since 08/2017 Review of Systems Respiratory: Negative. Cardiovascular: Negative. Psychiatric/Behavioral: Positive for dysphoric mood and sleep disturbance. Negative for hallucinations, self-injury and suicidal ideas. The patient is nervous/anxious. OBJECTIVE BP 120/94 Pulse 59 Wt 172 lb (78.0kg) SpO2 98% LMP 2022 Physical Exam Vitals and nursing note reviewed. Constitutional: General: She is awake. She is not in acute distress. Appearance: Normal appearance. She is well-developed and well-groomed. She is not ill-appearing, toxic-appearing or diaphoretic. HENT: Head: Normocephalic. Right Ear: External ear normal. Left Ear: External ear normal. Nose: Nose normal. Eyes: General: Vision grossly intact. Conjunctiva/sclera: Conjunctivae normal. Pupils: Pupils are equal, round, and reactive to light. Neck: Vascular: No JVD. Trachea: Trachea normal. Cardiovascular: Rate and Rhythm: Normal rate and regular rhythm. Pulses: Normal pulses. Heart sounds: Normal heart sounds. No murmur heard. Pulmonary: Effort: Pulmonary effort is normal. No accessory muscle usage, prolonged expiration or respiratory distress. Breath sounds: Normal breath sounds. Musculoskeletal: Cervical back: Neck supple. Skin: General: Skin is warm and dry. Capillary Refill: Capillary refill takes less than 2 seconds. Neurological: General: No focal deficit present. Mental Status: She is alert and oriented to person, place, and time. Mental status is at baseline. Psychiatric: Attention and Perception: Attention and perception normal. Mood and Affect: Mood and affect normal. Speech: Speech normal. Behavior: Behavior normal. Behavior is cooperative. Thought Content: Thought content normal. Cognition and Memory: Cognition and memory normal. Judgment: Judgment normal. ASSESSMENT/PLAN: 1. ZACH (generalized anxiety disorder) - ICD9: 300.02, ICD10: F41.1 Improvement today from earlier this week, increase Zoloft to a whole pill, increase Buspar, can continue Propranolol at same dose. Stop hydroxyzine since not helpful, if still sleep issues with follow up consider adding trazodone or Seroquel. Get labs today after visit. - BUSPIRONE 15 MG TABLET Portions of this note have been entered by ancillary staff. I have reviewed and when necessary edited, so that they are an adequate record of my encounter with this patient Please note that parts of this document were created using voice recognition software and therefore may contain grammatical errors. Patient verbalizes understanding of instructions from today's visit and in agreement with treatment plan. Questions answered. Agrees to call the office if questions, concerns of issues with acute symptoms not improving or if they worsen. Medical Decision Making: Problems: Low: Stable chronic illness Risk: Moderate: Drug management Medical Decision Making Level: 3 - Low Return in about 3 days (around 01/11/2023). DONNIE Pittman documented in this encounter [facility] 01-04-2023 History of Presen t illness Narrative SUBJECTIVE Jane Chung is a 27 year old female here today to establish care. Chief Complaint Patient presents with: ER F/U: panic attacks and anxiety was treated with Ativan but not effective states started Wednesday of last week causing poor appetite. HPI Jane Chung is a 27 year old female who presents today to establish care. Accompanied by her significant other. She is here today as an ER follow up. She was seen in the ER at [facility] for anxiety. Presented x2 days in a row to ER because of the anxiety. She reports restlessness, trouble sleeping, nausea and vomiting and associated chest tightness. Having intermittent panic attacks. Has always had anxiety but this severe anxiety started this past week. She does feel safe at home. Denies any thoughts of self harm, harming others or suicide. She is a mother, 1 and 5 year old children, works at [employer]. Other providers include Ana Puckett APRN for front services agent care. Her medications were reviewed today and her list is now up to date. Medications Current Outpatient Medications Medication Sig busPIRone (BUSPAR) 10 mg tablet Take 1 tablet by mouth three times daily as needed. sertraline (ZOLOFT) 50 mg tablet Take 1 tablet by mouth once daily. Start by taking a half a tab daily then after 1 week increase to a whole pill daily hydrOXYzine HCl (ATARAX) 50 mg tablet Take 1 tablet by mouth at bedtime as needed for anxiety. propranolol (INDERAL) 10 mg tablet Take 1 tablet by mouth three times daily as needed (for anxiety/palpitations). Levonorgestrel-Ethinyl Estrad (AVIANE) 0.1mg - 20mcg per tablet Take 1 tablet by mouth once daily. ferrous sulfate (IRON) 325 mg (65 mg iron) tablet Take 325 mg by mouth daily with breakfast. (Patient not taking: Reported on 04/09/2022 ) [id number]-[id number] tab Take 1 tablet by mouth once daily. (Patient not taking: Reported on 04/09/2022 ) acetaminophen (TYLENOL) 325 mg tablet Take 650 mg by mouth every 6 hours as needed. (Patient not taking: Reported on 04/09/2022 ) No current facility-administered medications for this visit. ALLERGIES No Known Allergies ACTIVE PROBLEM LIST Papanicolaou Smear of Cervix With Low Grade Squamous Intraepithelial Lesion (Lgsil) - 04/23/2021 Comment: 04/23/21-LGSIL, repeat pap smear in one year. Ana Puckett APRN.CNM History of Nicotine Vaping - 03/27/2021 Comment: 04/16/21-Using e-cig. Reviewed risk to self and baby and advised cessation. Ana Puckett APRN.CNM 03/27/2021 Patient has been nicotine vaping. Discussed risks of nicotine vaping in and recommendation of patient to quit. TKRN History of Anxiety - 03/27/2021 Comment: 03/27/2021 Patient has a history of anxiety. Denies any depression history.TKRN Social History Tobacco Use Smoking status: Former Years: 8.00 Types: Cigarettes Quit date: 10/28/2020 Years since quittin.1 Smokeless tobacco: Never Tobacco comments: E-cigarettes sometimes Vaping Use Vaping Use: current everyday user Substances: Nicotine Devices: Disposable Substance Use Topics Alcohol use: No Drug use: Yes Types: Marijuana Comment: none since 08/2017 Review of Systems Constitutional: Positive for appetite change and unexpected weight change (has lost weight). Negative for chills, diaphoresis, fatigue and fever. Respiratory: Positive for chest tightness and shortness of breath. Negative for cough, choking, wheezing and stridor. Cardiovascular: Positive for palpitations. Negative for chest pain and leg swelling. Psychiatric/Behavioral: Positive for dysphoric mood and sleep disturbance. Negative for self-injury and suicidal ideas. The patient is nervous/anxious. OBJECTIVE BP 100/68 Pulse 104 Wt 176 lb (79.8kg) SpO2 99% LMP 2022 Physical Exam Vitals and nursing note reviewed. Constitutional: General: She is awake. She is not in acute distress. Appearance: Normal appearance. She is well-developed and well-groomed. She is not ill-appearing, toxic-appearing or diaphoretic. HENT: Head: Normocephalic. Right Ear: External ear normal. Left Ear: External ear normal. Nose: Nose normal. Eyes: General: Vision grossly intact. Conjunctiva/sclera: Conjunctivae normal. Pupils: Pupils are equal, round, and reactive to light. Neck: Vascular: No JVD. Trachea: Trachea normal. Cardiovascular: Rate and Rhythm: Normal rate and regular rhythm. Pulses: Normal pulses. Heart sounds: Normal heart sounds. No murmur heard. Pulmonary: Effort: Pulmonary effort is normal. No accessory muscle usage, prolonged expiration or respiratory distress. Breath sounds: Normal breath sounds. Musculoskeletal: Cervical back: Neck supple. Skin: General: Skin is warm and dry. Capillary Refill: Capillary refill takes less than 2 seconds. Neurological: General: No focal deficit present. Mental Status: She is alert and oriented to person, place, and time. Mental status is at baseline. Psychiatric: Attention and Perception: Attention and perception normal. Mood and Affect: Mood is anxious. Affect is tearful. Speech: Speech normal. Behavior: Behavior normal. Behavior is cooperative. Thought Content: Thought content normal. Cognition and Memory: Cognition and memory normal. Judgment: Judgment normal. ASSESSMENT/PLAN: 1. ZACH (generalized anxiety disorder) - ICD9: 300.02, ICD10: F41.1 (primary diagnosis) Very severe anxiety, no direct identifiable trigger. Discussed healthy coping mechanisms/grounding techniques. Check labs for any metabolic issues contributing. Start SSRI, can use hydroxyzine at bed time as needed, buspar and/or propranolol during the day PRN. Talk with work about FMLA. Establish counseling. Concerned IOP might be too much of a time commitment right now. - DEPRESSION SCREENING/ASSESSMENT - BUSPIRONE 10 MG TABLET - SERTRALINE 50 MG TABLET - HYDROXYZINE HCL 50 MG TABLET - PROPRANOLOL 10 MG TABLET - CBC + DIFF - COMP METABOLIC PANEL - TSH BLD 2. Encounter to establish care - ICD9: V65.8, ICD10: Z76.89 3. Vitamin D deficiency - ICD9: 268.9, ICD10: E55.9 - VITAMIN D 25 HYDROXY Portions of this note have been entered by ancillary staff. I have reviewed and when necessary edited, so that they are an adequate record of my encounter with this patient Please note that parts of this document were created using voice recognition software and therefore may contain grammatical errors. Patient verbalizes understanding of instructions from today's visit and in agreement with treatment plan. Questions answered. Agrees to call the office if questions, concerns of issues with acute symptoms not improving or if they worsen. See diagnoses and orders for additional plan(s). Allergies and medications were reviewed, list was updated, and refills given if needed. Past medical, surgical, social, and family history reviewed and updated as appropriate. Encouraged proper diet & exercise as well as compliance with taking medications. Age-appropriate health preventative measures were discussed. I spent a total of 45 minutes on the date of the service which included preparing to see the patient, [id number] patient care, completing clinical documentation, obtaining and/or reviewing separately obtained history, performing a medically appropriate examination, counseling and educating the patient/family/caregiver, ordering medications, tests, or procedures, communicating with other HCPs (not separately reported), communicating results to the patient/family/caregiver, and care coordination (not separately reported). Return in about 4 days (around 01/08/2023). DONNIE Pittman documented in this encounter [facility] 04-20-2022 History of Presen t illness Narrative Radiology Service Progress Note PATIENT NAME: Jane Chung DATE OF SERVICE: April 20, 2022 TIME: 1:39 PM PATIENT IDENTITY VERIFICATION COMPLETED USING TWO (2) IDENTIFIERS: Name and Date of confirmed by patient verbally. FALL SCREENING: Has the patient had 2 falls in the last year or 1 fall with injury or currently using an Ambulatory Assistive Device (Walker, Cane, Wheelchair, Crutches, etc.)? No PATIENT GENDER DATA: Female. status: : No status: NO. PATIENT RELEVANT IMPLANT DATA REVIEWED: Not Applicable RADIOLOGY DEPARTMENT: Ultrasound PERIPHERAL IV DATA: Not applicable SIGNED BY: Ana Stanford RDMS RVT April 20, 2022 1:39 PM documented in this encounter [facility] 04-09-2022 Instructions Ana Puckett APRN.CN - 04/09/2022 11:44 AM EDT Oral Contraceptives: The Pill Beginning the Pill Pills come in either a 21 day pack or a 28 day pack. With the 21 day pack you will take one pill for 21 days then no pill for 7 days, during which time you will have what is known as withdrawal bleeding. The 28 day pack allows you to take a pill every day of the cycle with no interruptions. The first 21 pills are the pills with the active ingredients and the last 7 are the nonmedical pills (placebo) or they may contain iron. There will be bleeding during the week you are taking the nonmedical pills. The advantage to the 28 day pack is that you don t have to keep track of when you stopped the pill. Unless otherwise instructed, you should start your pills the Wednesday following your first day of bleeding with your next period (if your period starts on a Wednesday, you should start pills the same day) Read your information packet that comes with the pills. Pill Benefits The pill is the most popular method of reversible control being used today. Millions of women rely on oral contraceptives as their control method. It is important to have an examination by your physician to determine if the pill is safe for you. There are several advantages associated with the pill: it is 97-98% effective; may improve acne; periods are more regular and less painful; there is less iron deficiency anemia in pill users. assisted use is associated with a decreased incidence of ovarian and uterine cancer. There is also no evidence that the pill increases the incidence of any cancer. How Oral Contraceptives Work Oral contraceptives come in two varieties. One is the combination pill which contains both estrogen and progesterone. Combination pills are considered 98-99% effective in preventing . This pill comes in either monophasic, which delivers the same amount of estrogen and progesterone throughout the cycle; and triphasic, which try tries to mimic the normal hormone cycle by changing the levels of the hormones in the pills during the month. There is no real advantage to taking the one over the other. The other type of pill only contains progesterone. It is best used for women who can t take estrogen. This type of pill is slightly less effective than the combination pill in preventing . Oral contraceptives prevent ovulation (release of an egg from the ovary) by suppressing the pituitary gland s action. The pill does NOT prevent sexually transmitted disease. Obtaining a Prescription It is important to see your doctor before starting oral contraceptives so that you can have a full medical history taken and a physical examination given. Certain medical conditions may make the pill inappropriate for you, therefore it is very important to be honest and as complete as possible with the information you share with your doctor. The types of predisposing factors which would make the pill a poor choice of control would include: History of blood clots Stroke Serious liver disease or impaired liver function Unexplained vaginal bleeding or Cancer of the reproductive system Active gall bladder disease Hypertension Possible Side Effects It can take up to three months for your body to become adjusted to the pill. The more common side effects experienced at this time are: breakthrough spotting or bleeding, which is bleeding at any other time other than when you should be having a period; nausea or vomiting; breast tenderness; and mild fluid retention. There is no superintendent container terminal weight gain with the use of the pill. Breakthrough bleeding is the most common complaint of new pill users. There is no way to predict who will have it and there is no way of preventing it. Breakthrough bleeding usually subsides on its own with no further treatment after the first three months of taking the pill. If these symptoms continue to occur after the first three months you should check with your physician to see if there is any physical cause and possibly change to another control pill. Problems: 1. Missed 1 pill: Take 2 pills the next day. 2. Missed 2 pills: Take 2 pills the next day and 2 pills the following day. Also use another form of control (condoms) along with the pill for the rest of the month. 3. Missed 3 or more pills: You have two choices. You can take two pills each day until you are on schedule, plus use an additional form of control along with the pill for the rest of the month. Or you can stop the pill and start a completely new pack of pills the next Wednesday. You must use another form of control with the pill for at least the first two weeks of the new pack. 4. You re ill and you have been vomiting or have diarrhea: You must use another form of control with the pill since the pill may not be fully absorbed during your illness. Continue to use the added control until the end of the cycle. 5. Desire to become : Stop using the pill for one month before trying to become . 6. Taking other medications: The control pill is less effective when you take the antibiotic Rifampin, epilepsy (seizure) drugs such as phenytoin, carbamazepine, phenobarbital, topiramate and some medications for HIV. Let your doctor know if you start taking any of these medications while on the pill. Symptoms to Notify Your Doctor with Immediately: 1. Pain in your chest or legs 2. Continuous blurred vision 3. Severe headaches 4. Slurred speech 5. Tingling or weakness on one side of your body 6. Shortness of breath 7. Swelling of one leg Refills of Control Pills You need to see a doctor every year for a refill of your prescription. This is necessary in order that your health can be monitored closely while you are taking control pills. If your prescription should before your next scheduled appointment you can usually get a one month extension from your doctors office if you call during regular business hours about one week before you need to start the new package of pills. This allows the physician to refer to your chart for necessary health information. documented in this encounter [facility] 04-09-2022 History of Presen t illness Narrative Jane Chung is a 26 year old female who presents for problem visit to discuss OCP. HPI: Would like OCP for control. Had on 11/28/21 and did not return for . Menses 36 days apart, bleeding lasts 3 days. Very heavy and filling a tampon every 30 minutes for the first day. Denies any pain. No concerns for STDs. No bleeding at any other time. Denies any light head or dizziness. Not using condoms or anything else for control. Wants another child but not at this time. LMP 03/11/22. OB History T2 L2 SAB0 IAB0 Ectopic0 Multiple0 Live Births2 [employer] History LMP: 03/11/2022, Having periods Age at Menarche: Age at First : Age at Menopause: [employer] History Comments: Sexual Activity: Yes; Male Contraception: No contraception data on record PAST MEDICAL HISTORY Diagnosis Date Anemia complicating , third trimester 02/14/2018 anxiety fracture 2016 right hand, punched something and fractures the hand NEGATIVE MEDICAL HISTORY Papanicolaou smear of cervix with low grade squamous intraepithelial lesion (LGSIL) 04/23/2021 PAST SURGICAL HISTORY Procedure Laterality Date TONSILLECTOMY HX FAMILY HISTORY Problem Relation Age of Onset Diabetes Mother Type II Thyroid Mother other (brain aneurysm) Father other (Lupus) Sister No Known Problems Sister No Known Problems Brother No Known Problems Brother No Known Problems Brother No Known Problems Brother Hypertension Maternal Grandmother Coronary Artery Disease Maternal Grandmother Triple CAB twice Heart Maternal Grandmother 4 MA's, Congestive Heart Failure Arthritis Maternal Grandmother Colon Cancer Maternal Grandfather No Known Problems Paternal Grandmother Seizures Paternal Grandfather Social History Tobacco Use Smoking status: Former Smoker Years: 8.00 Types: Cigarettes Quit date: 10/28/2020 Years since quittin.4 Smokeless tobacco: Never Used Tobacco comment: E-cigarettes sometimes Vaping Use Vaping Use: current everyday user Substances: Nicotine Devices: Disposable Substance Use Topics Alcohol use: No Drug use: Yes Types: Marijuana Comment: none since 08/2017 Current Outpatient Medications Medication Sig ferrous sulfate (IRON) 325 mg (65 mg iron) tablet Take 325 mg by mouth daily with breakfast. (Patient not taking: Reported on 04/09/2022 ) [id number] tab Take 1 tablet by mouth once daily. (Patient not taking: Reported on 04/09/2022 ) acetaminophen (TYLENOL) 325 mg tablet Take 650 mg by mouth every 6 hours as needed. (Patient not taking: Reported on 04/09/2022 ) No current facility-administered medications for this visit. Allergies As of Date: 04/09/2022 (No Known Allergies) Fully Assessed 04/09/2022 REVIEW OF SYSTEMS Abdomen: No bloating, early satiety, indigestion, or increased flatulence. No abdominal pain, nausea, vomiting, diarrhea, or constipation. Bladder: No dysuria, gross hematuria, urinary frequency, urinary urgency, or incontinence. Breast: No breast lumps, nipple d/c, overlying skin changes, redness or skin retraction. Expanded ROS: N/A Allergies and current medication updated:Yes EXAM: BP 120/78 Wt 195 lb (88.5kg) LMP 03/11/2022 GENERAL: pleasant, female in no apparent distress HEENT: Normocephalic, atraumatic, mucus membranes moist and no lesions NECK: Supple, full range of motion, no adenopathy and thyroid normal DERMATOLOGY: Normal, without lesions, non-icteric and non-hirsute BREAST: soft, non-tender, symmetric, no dominant mass, normal nipple-areolar complex, no lymphadenopathy and no nipple discharge CHEST: Normal inspiratory effort Declines exam today. NEURO: alert and oriented x3,exam grossly non-focal EXTREMITIES: normal ASSESSMENT AND PLAN: 1. Encounter for initial prescription of contraceptive pills - ICD9: V25.01, ICD10: Z30.011 (primary diagnosis) - discussed with patient on how to take OCP's. - counseled on benefits, risks and possible severe side effects of OCP's. - discussed need to use Condoms to help to prevent STD's including HIV etc. -Reviewed all options and would like OCP. I discussed with the patient the risks, benefits, mechanism of action and alternatives to combined hormonal contraceptive use. No medical contraindications. Reviewed risk of blood clot, stroke and heart attack with hormonal contraception. Reviewed warning signs ACHES . Discussed stopping control 4 weeks prior to scheduled surgery if will be immobile. I reviewed with her the administration options and when to start. Her questions were answered and she desired to start. -Handout given on Mirena, she may want this in the future. -Reviewed to get labs prior to starting OCP 2. Low grade squamous intraepithelial lesion on cytologic smear of vagina (LGSIL) - ICD9: 795.13, ICD10: R87.622 -Pap smear at annual exam 3. Abnormal uterine bleeding (AUB) - ICD9: 626.9, ICD10: N93.9 - US FEMALE PELVIS TRANSVAG - TSH BLD - T4 FREE/FREE THYROX - T3 FREE BLD - CBC + DIFF - PROLACTIN BLD - TESTOSTERONE, FREE AND TOTAL I spent a total of 30 minutes on the date of the service which included preparing to see the patient, [id number] patient care, completing clinical documentation, obtaining and/or reviewing separately obtained history, performing a medically appropriate examination, counseling and educating the patient/family/caregiver and ordering medications, tests, or procedures. Ana Puckett APRN.CNM documented in this encounter [facility] 09-01-2021 History of Past i llness Narrative Problem Noted Date Resolved Date Abnormal glucose complicating 09/01/2004/09/2022 Overview: September 01, 2021 3 hr ordered. Rosario Garcia MD COVID-19 affecting , antepartum 021 04/09/2022 Low-lying placenta 07/10/2021 04/09/2022 Overview: 08/29/21 - resolved - New Grayson MD 07/10/21 - needs repeat US at 28 weeks - New Grayson MD COVID-19 vaccine series declined 05/13/2021 04/09/2022 Overview: 05/13/21-Reviewed current recommendations for covid vaccine during . Patient declines and informed refusal. Handout given. Ana Puckett APRN.CNM Supervision of high risk in third trim kermit 04/22/2021 04/09/2022 Obesity in 04/22/2021 04/09/2022 Overview: 04/22/21-Prepregnancy BMI 31. Early 1hr GCT. Ana Puckett APRN.CNM Antepartum anemia complicating in thir d trimester 02/14/2018 04/09/2022 Overview: 04/18/21-Hgb 10.9, start iron supplement M-W-. Repeat CBC in 4 weeks. Ana Puckett APRN.CNM Nausea and vomiting during 09/23/2017 08/29/2021 Overview: 1Patient is complaining of nausea and occasional vomiting in . Dietary considerations discussed . Vitamin B6 recommended. Advised patient to call/come in if she is unable to keep any food or fluids down in a 24-hour period. TKRN Tobacco use in 09/23/2017 021 Overview: 09/23/2016Pt smokes 2-4 cigarettes a day, down from 1 ppd. Discussed risks of smoking during . Advised pt to quit.TKRN History of marijuana use 09/23/2017 021 Overview: Patient request for diagnostic testing 8 09/01/2021 Overview: 1Patient desires nuchal ultrasound and requesting information on maternity 21 testing. I have asked her to check regarding insurance coverage for this test. Patient desires genetic carrier screening testing.Emmy Reyes RN documented as of this encounter (statuses as of 04/09/2022) [facility]12-[facility]21 History of Past illness Narrative* Problem Noted Date Resolved Date Abnormal glucose complicating 09/01/20 21 04/09/2022 Overview: September 01, 2021 3 hr ordered. Rosario Garcia MD COVID-19 affecting , antepartum 021 04/09/2022 Low-lying placenta 07/10/2021 04/09/2022 Overview: 08/29/21 - resolved - New Grayson MD 07/10/21 - needs repeat US at 28 weeks - New Grayson MD COVID-19 vaccine series declined 05/13/2021 04/09/2022 Overview: 05/13/21-Reviewed current recommendations for covid vaccine during . Patient declines and informed refusal. Handout given. Ana Puckett APRN.CNM Supervision of high risk in third trim kermit 04/22/2021 04/09/2022 Obesity in 04/22/2021 04/09/2022 Overview: 04/22/21-Prepregnancy BMI 31. Early 1hr GCT. Ana Puckett APRN.CNM Antepartum anemia complicating in thir d trimester 02/14/2018 04/09/2022 Overview: 04/18/21-Hgb 10.9, start iron supplement --. Repeat CBC in 4 weeks. Ana Puckett APRN.CNM Nausea and vomiting during 09/23/2017 08/29/2021 Overview: 1Patient is complaining of nausea and occasional vomiting in . Dietary considerations discussed . Vitamin B6 recommended. Advised patient to call/come in if she is unable to keep any food or fluids down in a 24-hour period. TKRN Tobacco use in 09/23/2017 021 Overview: 09/23/2016Pt smokes 2-4 cigarettes a day, down from 1 ppd. Discussed risks of smoking during . Advised pt to quit.TKRN History of marijuana use 09/23/2017 021 Overview: Patient request for diagnostic testing 8 09/01/2021 Overview: 1Patient desires nuchal ultrasound and requesting information on maternity 21 testing. I have asked her to check regarding insurance coverage for this test. Patient desires genetic carrier screening testing.Emmy Reyes RN documented as of this encounter (statuses as of 04/21/2022) [facility]12-[facility]21 History of Past illness Narrative* Problem Noted Date Resolved Date Abnormal glucose complicating 09/01/2004/09/2022 Overview: September 01, 2021 3 hr ordered. Rosario Garcia MD COVID-19 affecting , antepartum 021 04/09/2022 Low-lying placenta 07/10/2021 04/09/2022 Overview: 08/29/21 - resolved - New Grayson MD 07/10/21 - needs repeat US at 28 weeks - New Grayson MD COVID-19 vaccine series declined 05/13/2021 04/09/2022 Overview: 05/13/21-Reviewed current recommendations for covid vaccine during . Patient declines and informed refusal. Handout given. Ana Puckett APRN.CNM Supervision of high risk in third trim kermit 04/22/2021 04/09/2022 Obesity in 04/22/2021 04/09/2022 Overview: 04/22/21-Prepregnancy BMI 31. Early 1hr GCT. Ana Puckett APRN.CNM History of alcohol abuse 03/27/2021 023 Overview: 03/27/2021atient is currently wearing an alcohol monitor due to a violation related to alcohol use.. She states that she will be wearing this for another 2 to 3 weeks. She states that she has not used alcohol for a few months. Discussed risks of alcohol use during , alcohol syndrome, and advised patient to abstain from using alcohol. TKRN Antepartum anemia complicating in thir d trimester 02/14/2018 04/09/2022 Overview: 04/18/21-Hgb 10.9, start iron supplement M-W-F. Repeat CBC in 4 weeks. Ana Puckett APRN.CNM Nausea and vomiting during 09/23/2017 08/29/2021 Overview: 1Patient is complaining of nausea and occasional vomiting in . Dietary considerations discussed . Vitamin B6 recommended. Advised patient to call/come in if she is unable to keep any food or fluids down in a 24-hour period. TKRN Tobacco use in 09/23/2017 021 Overview: 09/23/2016Pt smokes 2-4 cigarettes a day, down from 1 ppd. Discussed risks of smoking during . Advised pt to quit.TKRN History of marijuana use 09/23/2017 021 Overview: Patient request for diagnostic testing 8 09/01/2021 Overview: 1Patient desires nuchal ultrasound and requesting information on maternity 21 testing. I have asked her to check regarding insurance coverage for this test. Patient desires genetic carrier screening testing.Emmy Reyes RN documented as of this encounter (statuses as of 01/04/2023) [facility]12-[facility] History of Past illness Narrative* Problem Noted Date Resolved Date Abnormal glucose complicating 09/01/2004/09/2022 Overview: September 01, 2021 3 hr ordered. Rosario Garcia MD COVID-19 affecting , antepartum 021 04/09/2022 Low-lying placenta 07/10/2021 04/09/2022 Overview: 08/29/21 - resolved - New Grayson MD 07/10/21 - needs repeat US at 28 weeks - New Grayson MD COVID-19 vaccine series declined 05/13/2021 04/09/2022 Overview: 05/13/21-Reviewed current recommendations for covid vaccine during . Patient declines and informed refusal. Handout given. Ana Puckett APRN.CNM Supervision of high risk in third trim kermit 04/22/2021 04/09/2022 Obesity in 04/22/2021 04/09/2022 Overview: 04/22/21-Prepregnancy BMI 31. Early 1hr GCT. Ana Puckett APRN.CNM History of alcohol abuse 03/27/2021 023 Overview: 03/27/2021atient is currently wearing an alcohol monitor due to a violation related to alcohol use.. She states that she will be wearing this for another 2 to 3 weeks. She states that she has not used alcohol for a few months. Discussed risks of alcohol use during , alcohol syndrome, and advised patient to abstain from using alcohol. TKRN Antepartum anemia complicating in thir d trimester 02/14/2018 04/09/2022 Overview: 04/18/21-Hgb 10.9, start iron supplement M-W-. Repeat CBC in 4 weeks. Ana Puckett APRN.EMMAM Nausea and vomiting during 09/23/2017 08/29/2021 Overview: 03/27/2021atient is complaining of nausea and occasional vomiting in . Dietary considerations discussed . Vitamin B6 recommended. Advised patient to call/come in if she is unable to keep any food or fluids down in a 24-hour period. TKRN Tobacco use in 09/23/2017 021 Overview: 09/23/2016Pt smokes 2-4 cigarettes a day, down from 1 ppd. Discussed risks of smoking during . Advised pt to quit.TKRN History of marijuana use 09/23/2017 021 Overview: Patient request for diagnostic testing 8 09/01/2021 Overview: 03/27/2021atient desires nuchal ultrasound and requesting information on maternity 21 testing. I have asked her to check regarding insurance coverage for this test. Patient desires genetic carrier screening testing.Emmy Reyes RN documented as of this encounter (statuses as of 01/08/2023) [facility] History of Past illness Narrative* Problem Noted Date Resolved Date Abnormal glucose complicating 09/01/2004/09/2022 Overview: September 01, 2021 3 hr ordered. Rosario Garcia MD COVID-19 affecting , antepartum 021 04/09/2022 Low-lying placenta 07/10/2021 04/09/2022 Overview: 08/29/21 - resolved - New Grayson MD 07/10/21 - needs repeat US at 28 weeks - New Grayson MD COVID-19 vaccine series declined 05/13/2021 04/09/2022 Overview: 05/13/21-Reviewed current recommendations for covid vaccine during . Patient declines and informed refusal. Handout given. Ana Puckett APRN.CNM Supervision of high risk in third trim kermit 04/22/2021 04/09/2022 Obesity in 04/22/2021 04/09/2022 Overview: 04/22/21-Prepregnancy BMI 31. Early 1hr GCT. Ana Puckett APRN.CNM History of alcohol abuse 03/27/2021 023 Overview: 03/27/2021atient is currently wearing an alcohol monitor due to a violation related to alcohol use.. She states that she will be wearing this for another 2 to 3 weeks. She states that she has not used alcohol for a few months. Discussed risks of alcohol use during , alcohol syndrome, and advised patient to abstain from using alcohol. TKRN Antepartum anemia complicating in thir d trimester 02/14/2018 04/09/2022 Overview: 04/18/21-Hgb 10.9, start iron supplement M-W-F. Repeat CBC in 4 weeks. Ana Puckett APRN.CNM Nausea and vomiting during 09/23/2017 08/29/2021 Overview: 1Patient is complaining of nausea and occasional vomiting in . Dietary considerations discussed . Vitamin B6 recommended. Advised patient to call/come in if she is unable to keep any food or fluids down in a 24-hour period. TKRN Tobacco use in 09/23/2017 021 Overview: 09/23/2016Pt smokes 2-4 cigarettes a day, down from 1 ppd. Discussed risks of smoking during . Advised pt to quit.TKRN History of marijuana use 09/23/2017 021 Overview: Patient request for diagnostic testing 8 09/01/2021 Overview: 1Patient desires nuchal ultrasound and requesting information on maternity 21 testing. I have asked her to check regarding insurance coverage for this test. Patient desires genetic carrier screening testing.Emmy Reyes RN documented as of this encounter (statuses as of 01/11/2023) [facility] History of Past illness Narrative* Problem Noted Date Resolved Date Abnormal glucose complicating 09/01/2004/09/2022 Overview: September 01, 2021 3 hr ordered. Rosario Garcia MD COVID-19 affecting , antepartum 021 04/09/2022 Low-lying placenta 07/10/2021 04/09/2022 Overview: 08/29/21 - resolved - New Grayson MD 07/10/21 - needs repeat US at 28 weeks - New Grayson MD COVID-19 vaccine series declined 05/13/2021 04/09/2022 Overview: 05/13/21-Reviewed current recommendations for covid vaccine during . Patient declines and informed refusal. Handout given. Ana Puckett APRN.CNM Supervision of high risk in third trim kermit 04/22/2021 04/09/2022 Obesity in 04/22/2021 04/09/2022 Overview: 04/22/21-Prepregnancy BMI 31. Early 1hr GCT. Ana Puckett APRN.CNM History of alcohol abuse 03/27/2021 023 Overview: 03/27/2021atient is currently wearing an alcohol monitor due to a violation related to alcohol use.. She states that she will be wearing this for another 2 to 3 weeks. She states that she has not used alcohol for a few months. Discussed risks of alcohol use during , alcohol syndrome, and advised patient to abstain from using alcohol. TKRN Antepartum anemia complicating in thir d trimester 02/14/2018 04/09/2022 Overview: 04/18/21-Hgb 10.9, start iron supplement M-W-. Repeat CBC in 4 weeks. Ana Puckett APRN.EMMAM Nausea and vomiting during 09/23/2017 08/29/2021 Overview: 03/27/2021atient is complaining of nausea and occasional vomiting in . Dietary considerations discussed . Vitamin B6 recommended. Advised patient to call/come in if she is unable to keep any food or fluids down in a 24-hour period. TKRN Tobacco use in 09/23/2017 021 Overview: 09/23/2016Pt smokes 2-4 cigarettes a day, down from 1 ppd. Discussed risks of smoking during . Advised pt to quit.TKRN History of marijuana use 09/23/2017 021 Overview: Patient request for diagnostic testing 8 09/01/2021 Overview: 03/27/2021atient desires nuchal ultrasound and requesting information on maternity 21 testing. I have asked her to check regarding insurance coverage for this test. Patient desires genetic carrier screening testing.Emmy Reyes RN documented as of this encounter (statuses as of 01/12/2023) [facility]12-[facility] History of Past illness Narrative* Problem Noted Date Resolved Date Abnormal glucose complicating 09/01/2004/09/2022 Overview: September 01, 2021 3 hr ordered. Rosario Garcia MD COVID-19 affecting , antepartum 021 04/09/2022 Low-lying placenta 07/10/2021 04/09/2022 Overview: 08/29/21 - resolved - New Grayson MD 07/10/21 - needs repeat US at 28 weeks - New Grayson MD COVID-19 vaccine series declined 05/13/2021 04/09/2022 Overview: 05/13/21-Reviewed current recommendations for covid vaccine during . Patient declines and informed refusal. Handout given. Ana Puckett APRN.CNM Supervision of high risk in third trim kermit 04/22/2021 04/09/2022 Obesity in 04/22/2021 04/09/2022 Overview: 04/22/21-Prepregnancy BMI 31. Early 1hr GCT. Ana Puckett APRN.CNM History of alcohol abuse 03/27/2021 023 Overview: 03/27/2021atient is currently wearing an alcohol monitor due to a violation related to alcohol use.. She states that she will be wearing this for another 2 to 3 weeks. She states that she has not used alcohol for a few months. Discussed risks of alcohol use during , alcohol syndrome, and advised patient to abstain from using alcohol. TKRN Antepartum anemia complicating in thir d trimester 02/14/2018 04/09/2022 Overview: 04/18/21-Hgb 10.9, start iron supplement M-W-F. Repeat CBC in 4 weeks. Ana Puckett APRN.CNM Nausea and vomiting during 09/23/2017 08/29/2021 Overview: 1Patient is complaining of nausea and occasional vomiting in . Dietary considerations discussed . Vitamin B6 recommended. Advised patient to call/come in if she is unable to keep any food or fluids down in a 24-hour period. TKRN Tobacco use in 09/23/2017 021 Overview: 09/23/2016Pt smokes 2-4 cigarettes a day, down from 1 ppd. Discussed risks of smoking during . Advised pt to quit.TKRN History of marijuana use 09/23/2017 021 Overview: Patient request for diagnostic testing 8 09/01/2021 Overview: 1Patient desires nuchal ultrasound and requesting information on maternity 21 testing. I have asked her to check regarding insurance coverage for this test. Patient desires genetic carrier screening testing.Emmy Reyes RN documented as of this encounter (statuses as of 01/15/2023) [facility] History of Past illness Narrative* Problem Noted Date Resolved Date Abnormal glucose complicating 09/01/2004/09/2022 Overview: September 01, 2021 3 hr ordered. Rosario Garcia MD COVID-19 affecting , antepartum 021 04/09/2022 Low-lying placenta 07/10/2021 04/09/2022 Overview: 08/29/21 - resolved - New Grayson MD 07/10/21 - needs repeat US at 28 weeks - New Grayson MD COVID-19 vaccine series declined 05/13/2021 04/09/2022 Overview: 05/13/21-Reviewed current recommendations for covid vaccine during . Patient declines and informed refusal. Handout given. Ana Puckett APRN.CNM Supervision of high risk in third trim kermit 04/22/2021 04/09/2022 Obesity in 04/22/2021 04/09/2022 Overview: 04/22/21-Prepregnancy BMI 31. Early 1hr GCT. Ana Puckett APRN.CNM History of alcohol abuse 03/27/2021 023 Overview: 03/27/2021atient is currently wearing an alcohol monitor due to a violation related to alcohol use.. She states that she will be wearing this for another 2 to 3 weeks. She states that she has not used alcohol for a few months. Discussed risks of alcohol use during , alcohol syndrome, and advised patient to abstain from using alcohol. TKRN Antepartum anemia complicating in thir d trimester 02/14/2018 04/09/2022 Overview: 04/18/21-Hgb 10.9, start iron supplement M-W-. Repeat CBC in 4 weeks. Ana Puckett APRN.EMMAM Nausea and vomiting during 09/23/2017 08/29/2021 Overview: 03/27/2021atient is complaining of nausea and occasional vomiting in . Dietary considerations discussed . Vitamin B6 recommended. Advised patient to call/come in if she is unable to keep any food or fluids down in a 24-hour period. TKRN Tobacco use in 09/23/2017 021 Overview: 09/23/2016Pt smokes 2-4 cigarettes a day, down from 1 ppd. Discussed risks of smoking during . Advised pt to quit.TKRN History of marijuana use 09/23/2017 021 Overview: Patient request for diagnostic testing 8 09/01/2021 Overview: 03/27/2021atient desires nuchal ultrasound and requesting information on maternity 21 testing. I have asked her to check regarding insurance coverage for this test. Patient desires genetic carrier screening testing.Emmy Reyes RN documented as of this encounter (statuses as of 01/15/2023) [facility] History of Past illness Narrative* Problem Noted Date Resolved Date Abnormal glucose complicating 09/01/2004/09/2022 Overview: September 01, 2021 3 hr ordered. Rosario Garcia MD COVID-19 affecting , antepartum 021 04/09/2022 Low-lying placenta 07/10/2021 04/09/2022 Overview: 08/29/21 - resolved - New Grayson MD 07/10/21 - needs repeat US at 28 weeks - New Grayson MD COVID-19 vaccine series declined 05/13/2021 04/09/2022 Overview: 05/13/21-Reviewed current recommendations for covid vaccine during . Patient declines and informed refusal. Handout given. Ana Puckett APRN.CNM Supervision of high risk in third trim kermit 04/22/2021 04/09/2022 Obesity in 04/22/2021 04/09/2022 Overview: 04/22/21-Prepregnancy BMI 31. Early 1hr GCT. Ana Puckett APRN.CNM History of alcohol abuse 03/27/2021 023 Overview: 03/27/2021atient is currently wearing an alcohol monitor due to a violation related to alcohol use.. She states that she will be wearing this for another 2 to 3 weeks. She states that she has not used alcohol for a few months. Discussed risks of alcohol use during , alcohol syndrome, and advised patient to abstain from using alcohol. TKRN Antepartum anemia complicating in thir d trimester 02/14/2018 04/09/2022 Overview: 04/18/21-Hgb 10.9, start iron supplement M-W-F. Repeat CBC in 4 weeks. Ana Puckett APRN.CNM Nausea and vomiting during 09/23/2017 08/29/2021 Overview: 1Patient is complaining of nausea and occasional vomiting in . Dietary considerations discussed . Vitamin B6 recommended. Advised patient to call/come in if she is unable to keep any food or fluids down in a 24-hour period. TKRN Tobacco use in 09/23/2017 021 Overview: 09/23/2016Pt smokes 2-4 cigarettes a day, down from 1 ppd. Discussed risks of smoking during . Advised pt to quit.TKRN History of marijuana use 09/23/2017 021 Overview: Patient request for diagnostic testing 8 09/01/2021 Overview: 1Patient desires nuchal ultrasound and requesting information on maternity 21 testing. I have asked her to check regarding insurance coverage for this test. Patient desires genetic carrier screening testing.Emmy Reyes RN documented as of this encounter (statuses as of 01/20/2023) [facility]12-20-[facility]21 History of Past illness Narrative* Problem Noted Date Diagnosed Date Resolved Date Abnormal glucose complicating 09/01/2021 04/09/2022 Overview: September 01, 2021 3 hr ordered. Rosario Garcia MD COVID-19 affecting , antepartum 08/22/2021 04/09/2022 Low-lying placenta 07/10/2021 2 Overview: 08/29/21 - resolved - New Grayson MD 07/10/21 - needs repeat US at 28 weeks - New Grayson MD COVID-19 vaccine series declined 05/13/2021 04/09/2022 Overview: 05/13/21-Reviewed current recommendations for covid vaccine during . Patient declines and informed refusal. Handout given. Ana Puckett APRN.EMMAM Supervision of high risk pre gnancy in third trimester 04/22/2021 04/09/2022 Obesity in 04/22/2021 022 Overview: 04/22/21-Prepregnancy BMI 31. Early 1hr GCT. Ana Puckett APRN.CNM History of alcohol abuse 03/27/2021 Overview: 03/27/2021atient is currently wearing an alcohol monitor due to a violation related to alcohol use.. She states that she will be wearing this for another 2 to 3 weeks. She states that she has not used alcohol for a few months. Discussed risks of alcohol use during , alcohol syndrome, and advised patient to abstain from using alcohol. TKRN Antepartum anemia complicati ng in third trimester 02/14/2018 04/09/2022 Overview: 04/18/21-Hgb 10.9, start iron supplement -W-. Repeat CBC in 4 weeks. Ana Puckett APRN.CNM Nausea and vomiting during 09/23/2017 08/29/2021 Overview: 03/27/2021atient is complaining of nausea and occasional vomiting in . Dietary considerations discussed . Vitamin B6 recommended. Advised patient to call/come in if she is unable to keep any food or fluids down in a 24-hour period. TKRN Tobacco use in 09/23/201706/2021 Overview: 09/23/2016Pt smokes 2-4 cigarettes a day, down from 1 ppd. Discussed risks of smoking during . Advised pt to quit.TKRN History of marijuana use 09/23/201706/2021 Overview: Patient request for diagnostic testing 09/23/2017 09/01/2021 Overview: 03/27/2021atient desires nuchal ultrasound and requesting information on maternity 21 testing. I have asked her to check regarding insurance coverage for this test. Patient desires genetic carrier screening testing.Emmy Reyes RN documented as of this encounter (statuses as of 04/21/2023) [facility]12-20[facility] History of Past illness Narrative* Problem Noted Date Diagnosed Date Resolved Date Abnormal glucose complicating 09/01/2021 04/09/2022 Overview: September 01, 2021 3 hr ordered. Rosario Garcia MD COVID-19 affecting , antepartum 08/22/2021 04/09/2022 Low-lying placenta 07/10/2021 Overview: 08/29/21 - resolved - New Grayson MD 07/10/21 - needs repeat US at 28 weeks - New Grayson MD COVID-19 vaccine series declined 05/13/2021 04/09/2022 Overview: 05/13/21-Reviewed current recommendations for covid vaccine during . Patient declines and informed refusal. Handout given. Ana Puckett APRN.CNM Supervision of high risk pre gnancy in third trimester 04/22/2021 04/09/2022 Obesity in 04/22/2021 022 Overview: 04/22/21-Prepregnancy BMI 31. Early 1hr GCT. Ana Puckett APRN.CNM History of alcohol abuse 03/27/2021 Overview: 03/27/2021atient is currently wearing an alcohol monitor due to a violation related to alcohol use.. She states that she will be wearing this for another 2 to 3 weeks. She states that she has not used alcohol for a few months. Discussed risks of alcohol use during , alcohol syndrome, and advised patient to abstain from using alcohol. TKRN Antepartum anemia complicati ng in third trimester 02/14/2018 04/09/2022 Overview: 04/18/21-Hgb 10.9, start iron supplement M-W-F. Repeat CBC in 4 weeks. Ana Puckett APRN.CNM Nausea and vomiting during 09/23/2017 08/29/2021 Overview: 03/27/2021atient is complaining of nausea and occasional vomiting in . Dietary considerations discussed . Vitamin B6 recommended. Advised patient to call/come in if she is unable to keep any food or fluids down in a 24-hour period. TKRN Tobacco use in 09/23/201706/2021 Overview: 09/23/2016Pt smokes 2-4 cigarettes a day, down from 1 ppd. Discussed risks of smoking during . Advised pt to quit.TKRN History of marijuana use 09/23/201706/2021 Overview: Patient request for diagnostic testing 09/23/2017 09/01/2021 Overview: 03/27/2021atient desires nuchal ultrasound and requesting information on maternity 21 testing. I have asked her to check regarding insurance coverage for this test. Patient desires genetic carrier screening testing.Emmy Reyes RN documented as of this encounter (statuses as of 06/01/2023) [facility]12-20-2021 History of Past illness Narrative* Problem Noted Date Diagnosed Date Resolved Date Abnormal glucose complicating 09/01/2021 04/09/2022 Overview: September 01, 2021 3 hr ordered. Rosario Garcia MD COVID-19 affecting , antepartum 08/22/2021 04/09/2022 Low-lying placenta 07/10/2021 Overview: 08/29/21 - resolved - New Grayson MD 07/10/21 - needs repeat US at 28 weeks - New Grayson MD COVID-19 vaccine series declined 05/13/2021 04/09/2022 Overview: 05/13/21-Reviewed current recommendations for covid vaccine during . Patient declines and informed refusal. Handout given. Ana Puckett APRN.EMMAM Supervision of high risk pre gnancy in third trimester 04/22/2021 04/09/2022 Obesity in 04/22/2021 022 Overview: 04/22/21-Prepregnancy BMI 31. Early 1hr GCT. Ana Puckett APRN.EMMAM History of alcohol abuse 03/27/2021 Overview: 03/27/2021atient is currently wearing an alcohol monitor due to a violation related to alcohol use.. She states that she will be wearing this for another 2 to 3 weeks. She states that she has not used alcohol for a few months. Discussed risks of alcohol use during , alcohol syndrome, and advised patient to abstain from using alcohol. TKRN Antepartum anemia complicati ng in third trimester 02/14/2018 04/09/2022 Overview: 04/18/21-Hgb 10.9, start iron supplement --. Repeat CBC in 4 weeks. Ana Pukcett APRN.EMMAM Nausea and vomiting during 09/23/2017 08/29/2021 Overview: 03/27/2021atient is complaining of nausea and occasional vomiting in . Dietary considerations discussed . Vitamin B6 recommended. Advised patient to call/come in if she is unable to keep any food or fluids down in a 24-hour period. TKRN Tobacco use in 09/23/201706/2021 Overview: 09/23/2016Pt smokes 2-4 cigarettes a day, down from 1 ppd. Discussed risks of smoking during . Advised pt to quit.TKRN History of marijuana use 09/23/201706/2021 Overview: Patient request for diagnostic testing 09/23/2017 09/01/2021 Overview: 03/27/2021atient desires nuchal ultrasound and requesting information on maternity 21 testing. I have asked her to check regarding insurance coverage for this test. Patient desires genetic carrier screening testing.Emmy Reyes RN documented as of this encounter (statuses as of 07/28/2023) [facility]12-20-2021 History of Past illness Narrative* Problem Noted Date Diagnosed Date Resolved Date Abnormal glucose complicating 09/01/2021 04/09/2022 Overview: September 01, 2021 3 hr ordered. Rosario Garcia MD COVID-19 affecting , antepartum 08/22/2021 04/09/2022 Low-lying placenta 07/10/2021 Overview: 08/29/21 - resolved - New Grayson MD 07/10/21 - needs repeat US at 28 weeks - New Grayson MD COVID-19 vaccine series declined 05/13/2021 04/09/2022 Overview: 05/13/21-Reviewed current recommendations for covid vaccine during . Patient declines and informed refusal. Handout given. Ana Puckett APRN.CNM Supervision of high risk pre gnancy in third trimester 04/22/2021 04/09/2022 Obesity in 04/22/2021 022 Overview: 04/22/21-Prepregnancy BMI 31. Early 1hr GCT. Ana Puckett APRN.CNM History of alcohol abuse 03/27/2021 Overview: 03/27/2021atient is currently wearing an alcohol monitor due to a violation related to alcohol use.. She states that she will be wearing this for another 2 to 3 weeks. She states that she has not used alcohol for a few months. Discussed risks of alcohol use during , alcohol syndrome, and advised patient to abstain from using alcohol. TKRN Antepartum anemia complicati ng in third trimester 02/14/2018 04/09/2022 Overview: 04/18/21-Hgb 10.9, start iron supplement M-W-F. Repeat CBC in 4 weeks. Ana Puckett APRN.CNM Nausea and vomiting during 09/23/2017 08/29/2021 Overview: 03/27/2021atient is complaining of nausea and occasional vomiting in . Dietary considerations discussed . Vitamin B6 recommended. Advised patient to call/come in if she is unable to keep any food or fluids down in a 24-hour period. TKRN Tobacco use in 09/23/201706/2021 Overview: 09/23/2016Pt smokes 2-4 cigarettes a day, down from 1 ppd. Discussed risks of smoking during . Advised pt to quit.TKRN History of marijuana use 09/23/201706/2021 Overview: Patient request for diagnostic testing 09/23/2017 09/01/2021 Overview: 03/27/2021atient desires nuchal ultrasound and requesting information on maternity 21 testing. I have asked her to check regarding insurance coverage for this test. Patient desires genetic carrier screening testing.Emmy Reyes RN documented as of this encounter (statuses as of 11/11/2023) [facility]12-20-[facility]21 History of Past illness Narrative* Problem Noted Date Diagnosed Date Resolved Date Abnormal glucose complicating 09/01/2021 04/09/2022 Overview: September 01, 2021 3 hr ordered. Rosario Garcia MD COVID-19 affecting , antepartum 08/22/2021 04/09/2022 Low-lying placenta 07/10/2021 Overview: 08/29/21 - resolved - New Grayson MD 07/10/21 - needs repeat US at 28 weeks - New Grayson MD COVID-19 vaccine series declined 05/13/2021 04/09/2022 Overview: 05/13/21-Reviewed current recommendations for covid vaccine during . Patient declines and informed refusal. Handout given. Ana Puckett APRN.CNM Supervision of high risk pre gnancy in third trimester 04/22/2021 04/09/2022 Obesity in 04/22/2021 022 Overview: 04/22/21-Prepregnancy BMI 31. Early 1hr GCT. Ana Puckett APRN.CNM History of alcohol abuse 03/27/2021 Overview: 03/27/2021atient is currently wearing an alcohol monitor due to a violation related to alcohol use.. She states that she will be wearing this for another 2 to 3 weeks. She states that she has not used alcohol for a few months. Discussed risks of alcohol use during , alcohol syndrome, and advised patient to abstain from using alcohol. TKRN Antepartum anemia complicati ng in third trimester 02/14/2018 04/09/2022 Overview: 04/18/21-Hgb 10.9, start iron supplement --. Repeat CBC in 4 weeks. Ana Puckett APRN.EMMAM Nausea and vomiting during 09/23/2017 08/29/2021 Overview: 03/27/2021atient is complaining of nausea and occasional vomiting in . Dietary considerations discussed . Vitamin B6 recommended. Advised patient to call/come in if she is unable to keep any food or fluids down in a 24-hour period. TKRN Tobacco use in 09/23/201706/2021 Overview: 09/23/2016Pt smokes 2-4 cigarettes a day, down from 1 ppd. Discussed risks of smoking during . Advised pt to quit.TKRN History of marijuana use 09/23/201706/2021 Overview: Patient request for diagnostic testing 09/23/2017 09/01/2021 Overview: 1Patient desires nuchal ultrasound and requesting information on maternity 21 testing. I have asked her to check regarding insurance coverage for this test. Patient desires genetic carrier screening testing.Emmy Reyes RN documented as of this encounter (statuses as of 11/15/2023) [facility] note* Diagnosis Encounter for initial prescription of contraceptive pills- Primary General counseling for prescription of oral contraceptives Low grade squamous intraepithelial lesion on cytologic smear of vagina (LGSIL) Papanicolaou smear of vagina with low grade squamous intraepithelial lesion (LGSIL) Abnormal uterine bleeding (AUB) documented in this encounter [facility] note* Diagnosis Abnormal uterine bleeding (AUB) [facility]* Diagnosis ZACH (generalized anxiety disorder)- Primary Generalized anxiety disorder Encounter to establish care Other reasons for seeking consultation Vitamin D deficiency Unspecified vitamin D deficiency [facility]* Diagnosis ZACH (generalized anxiety disorder) Generalized anxiety disorder documented in this encounter [facility] note* Diagnosis ZACH (generalized anxiety disorder)- Primary Generalized anxiety disorder Sleep disturbance Sleep disturbance, unspecified Thyroid enlargement Goiter, unspecified documented in this encounter [facility] note* Diagnosis ZACH (generalized anxiety disorder)- Primary Generalized anxiety disorder Unprotected sexual intercourse Problems related to high-risk sexual behavior Abnormal menses Unspecified disorder of menstruation and other abnormal bleeding from female genital tract documented in this encounter [facility] note* Diagnosis ZACH (generalized anxiety disorder)- Primary Generalized anxiety disorder documented in this encounter [facility] note* Diagnosis Bipolar 1 disorder, depressed, moderate (HCC)- Primary Bipolar I disorder, most recent episode (or current) depressed, moderate Depression, unspecified depression type documented in this encounter [facility] note* Diagnosis Bipolar 1 disorder, depressed, moderate (HCC)- Primary Bipolar I disorder, most recent episode (or current) depressed, moderate Encounter for initial prescription of contraceptive pills General counseling for prescription of oral contraceptives documented in this encounter [facility] note* Diagnosis Depression, unspecified depression type Bipolar 1 disorder, depressed, moderate (HCC) Bipolar I disorder, most recent episode (or current) depressed, moderate documented in this encounter [facility] note* Diagnosis Bipolar 1 disorder, depressed, moderate (HCC)- Primary Bipolar I disorder, most recent episode (or current) depressed, moderate ZACH (generalized anxiety disorder) Generalized anxiety disorder Depression, unspecified depression type Alcohol use disorder documented in this encounter [facility] note* Diagnosis ZACH (generalized anxiety disorder)- Primary Generalized anxiety disorder Alcohol use disorder Acute gastritis without hemorrhage, unspecified gastritis type Depression, unspecified depression type Bipolar 1 disorder, depressed, moderate (HCC) Bipolar I disorder, most recent episode (or current) depressed, moderate documented in this encounter [facility] note* Diagnosis Rash- Primary Rash and other nonspecific skin eruption documented in this encounter [facility] note* Diagnosis ZACH (generalized anxiety disorder)- Primary Generalized anxiety disorder Bipolar 1 disorder, depressed, moderate (HCC) Bipolar I disorder, most recent episode (or current) depressed, moderate documented in this encounter [facility] note* Diagnosis ZACH (generalized anxiety disorder) Generalized anxiety disorder Bipolar 1 disorder, depressed, moderate (HCC) Bipolar I disorder, most recent episode (or current) depressed, moderate [facility]* Diagnosis ZACH (generalized anxiety disorder)- Primary Generalized anxiety disorder Bipolar 1 disorder, depressed, moderate (HCC) Bipolar I disorder, most recent episode (or current) depressed, moderate Depression, unspecified depression type Stress and adjustment reaction Other specified adjustment reaction documented in this encounter [facility] for referral (narrative)* Diagnostic Procedure Only (Routine) - Authorized Specialty Diagnoses / Procedures Referred By Contac t Referred To Contact US IMAGING Diagnoses Abnormal uterine bleeding (AUB) Procedures US FEMALE PELVIS TRANSVAG US TRANSVAGINAL Ana Puckett APRN.CNM [address] [place] [phone] Us Imaging Referral ID Status Reason Start Date Expiration Date Visits Requested Visits Authorized [id number] Authorized Auto-Generat ed Referral 04/09/2022 05/09/2023 [address] [facility] for referral (narrative)* Diagnostic Procedure Only (Routine) - Closed Specialty Diagnoses / Procedures Referred By Contac t Referred To Contact US IMAGING Diagnoses Abnormal uterine bleeding (AUB) Procedures US FEMALE PELVIS TRANSVAG US TRANSVAGINAL Ana Puckett APRN.CNM [address] [place] [address] Us Imaging Referral ID Status Reason Start Date Expiration Date V isits Requested Visits Authorized [id number] Closed Auto-Generate d Referral 04/09/2022 05/09/2023 1 1 [facility] Diagnostic Procedure Only (Routine) - Authorized Specialty Diagnoses / Procedures Referred By Contac t Referred To Contact US IMAGING Diagnoses Thyroid enlargement Procedures US THYROID/PARATHYROID US SOFT TISSUE HEAD & NECK REAL TIME IMGE DOCM Serjio Montero APRN.CNP [address] [phone] Us Imaging Referral ID Status Reason Start Date Expiration Date Visits Requested Visits Authorized [id number] Authorized Auto-Generat ed Referral 01/11/2023 02/10/2024 1 1 [facility] Summary Purpose Family History No Family History Records Found Advance Directives No Advanced Directives Records Found Reason for Referral Specialty Diagnoses / Procedures Referred By Contac t Referred To Contact Diagnoses ZACH (generalized anxiety disorder) Bipolar 1 disorder, depressed, moderate (HCC) Depression, unspecified depression type Serjio Montero APRN.NEUROSURGEON [address] [place] [address] Referral ID Status Reason Start Date Expiration Date V isits Requested Visits Authorized [id number] Authorized 06/21/2024 06/20/2025 1 1 Additional Source Comments Source Comments (unrecognize d section and content) In the event this informatio n is protected by the Federal Confidentiality of Alcohol and Drug Abuse Patient Records regulations: The Federal rules restrict any use of the information to criminally investigate or prosecute any alcohol or drug abuse patient.[facility] the event this information is protected by the Federal Confidentiality of Alcohol and Drug Abuse Patient Records regulations: The Federal rules restrict any use of the information to criminally investigate or prosecute any alcohol or drug abuse patient.[facility] the event this information is protected by the Federal Confidentiality of Alcohol and Drug Abuse Patient Records regulations: The Federal rules restrict any use of the information to criminally investigate or prosecute any alcohol or drug abuse patient.[facility] the event this information is protected by the Federal Confidentiality of Alcohol and Drug Abuse Patient Records regulations: The Federal rules restrict any use of the information to criminally investigate or prosecute any alcohol or drug abuse patient.[facility] the event this information is protected by the Federal Confidentiality of Alcohol and Drug Abuse Patient Records regulations: The Federal rules restrict any use of the information to criminally investigate or prosecute any alcohol or drug abuse patient.[facility] the event this information is protected by the Federal Confidentiality of Alcohol and Drug Abuse Patient Records regulations: The Federal rules restrict any use of the information to criminally investigate or prosecute any alcohol or drug abuse patient.[facility] the event this information is protected by the Federal Confidentiality of Alcohol and Drug Abuse Patient Records regulations: The Federal rules restrict any use of the information to criminally investigate or prosecute any alcohol or drug abuse patient.[facility] the event this information is protected by the Federal Confidentiality of Alcohol and Drug Abuse Patient Records regulations: The Federal rules restrict any use of the information to criminally investigate or prosecute any alcohol or drug abuse patient.[facility] the event this information is protected by the Federal Confidentiality of Alcohol and Drug Abuse Patient Records regulations: The Federal rules restrict any use of the information to criminally investigate or prosecute any alcohol or drug abuse patient.[facility] the event this information is protected by the Federal Confidentiality of Alcohol and Drug Abuse Patient Records regulations: The Federal rules restrict any use of the information to criminally investigate or prosecute any alcohol or drug abuse patient.[facility] the event this information is protected by the Federal Confidentiality of Alcohol and Drug Abuse Patient Records regulations: The Federal rules restrict any use of the information to criminally investigate or prosecute any alcohol or drug abuse patient.[facility] the event this information is protected by the Federal Confidentiality of Alcohol and Drug Abuse Patient Records regulations: The Federal rules restrict any use of the information to criminally investigate or prosecute any alcohol or drug abuse patient.[facility] the event this information is protected by the Federal Confidentiality of Alcohol and Drug Abuse Patient Records regulations: The Federal rules restrict any use of the information to criminally investigate or prosecute any alcohol or drug abuse patient.[facility] the event this information is protected by the Federal Confidentiality of Alcohol and Drug Abuse Patient Records regulations: The Federal rules restrict any use of the information to criminally investigate or prosecute any alcohol or drug abuse patient.[facility] the event this information is protected by the Federal Confidentiality of Alcohol and Drug Abuse Patient Records regulations: The Federal rules restrict any use of the information to criminally investigate or prosecute any alcohol or drug abuse patient.[facility] the event this information is protected by the Federal Confidentiality of Alcohol and Drug Abuse Patient Records regulations: The Federal rules restrict any use of the information to criminally investigate or prosecute any alcohol or drug abuse patient.[facility] HospitalIn the event this information is protected by the Federal Confidentiality of Alcohol and Drug Abuse Patient Records regulations: The Federal rules restrict any use of the information to criminally investigate or prosecute any alcohol or drug abuse patient.[facility] HospitalIn the event this information is protected by the Federal Confidentiality of Alcohol and Drug Abuse Patient Records regulations: The Federal rules restrict any use of the information to criminally investigate or prosecute any alcohol or drug abuse patient.[facility] HospitalIn the event this information is protected by the Federal Confidentiality of Alcohol and Drug Abuse Patient Records regulations: The Federal rules restrict any use of the information to criminally investigate or prosecute any alcohol or drug abuse patient.[facility] HospitalIn the event this information is protected by the Federal Confidentiality of Alcohol and Drug Abuse Patient Records regulations: The Federal rules restrict any use of the information to criminally investigate or prosecute any alcohol or drug abuse patient.[facility] HospitalIn the event this information is protected by the Federal Confidentiality of Alcohol and Drug Abuse Patient Records regulations: The Federal rules restrict any use of the information to criminally investigate or prosecute any alcohol or drug abuse patient.[facility] HospitalIn the event this information is protected by the Federal Confidentiality of Alcohol and Drug Abuse Patient Records regulations: The Federal rules restrict any use of the information to criminally investigate or prosecute any alcohol or drug abuse patient.[facility] Reason for Visit (unrecogniz ed section and content) Reason Comments Contraception Reason Comments Radiology US Specialty Diagnoses / Procedures Referred By Sofia t Referred To Contact US IMAGING Diagnoses Abnormal uterine bleeding (AUB) Procedures US FEMALE PELVIS TRANSVAG US TRANSVAGINAL Ana Puckett APRN.CNM [address] [place] [address] Us Imaging Referral ID Status Reason Start Date Expiration Date V isits Requested Visits Authorized [id number] Closed Auto-Generate d Referral 04/09/2022 05/09/2023 1 1 Reason Comments ER F/U panic attacks and an xiety was treated with Ativan but not effectivestates started Wednesday of last weekcausing poor appetite. Reason Comments Anxiety follow up Reason Comments Medication Follow-up Reason Comments Forms Reason Comments Numbness Reason Comments Medication Follow-up Reason Comments Medication review Reason Onset Date Comments Refill Request 11/10/2023 Reason Comments medication check Reason Comments [facility] ER visit / appt Reason Comments ED Follow-up Reason Comments Mouth/Lip Problem left bottom lip x 1 day Reason Comments discuss medication Anxiety Reason Onset Date Comments Refill Request 06/05/2024 Reason Comments Pt asking for a call back Reason Comments anxiety follow up Reason Comments Insurance Authorization Care Teams (unrecognized sec tion and content) Health And Safety Coordinator Relationship Specialty Start Date End Date Serjio Montero APRN.NEUROSURGEON [address] [place] [phone] PCP - General Internal Medicine 01/04/23 Health And Safety Coordinator Relationship Specialty Start Date End Date Serjio Montero APRN.NEUROSURGEON [address] [place] [phone] PCP - General Internal Medicine 01/04/23 Health And Safety Coordinator Relationship Specialty Start Date End Date Serjio Montero APRN.NEUROSURGEON [address] [place] [phone] PCP - General Internal Medicine 01/04/23 Health And Safety Coordinator Relationship Specialty Start Date End Date Serjio Montero APRN.NEUROSURGEON [address] [place] [phone] PCP - General Internal Medicine 01/04/23 Health And Safety Coordinator Relationship Specialty Start Date End Date Serjio Montero APRN.NEUROSURGEON [address] [place] [address] [phone] PCP - General Internal Medicine 01/04/23 Health And Safety Coordinator Relationship Specialty Start Date End Date Serjio Montero APRN.NEUROSURGEON [address] [place] [phone] PCP - General Internal Medicine 01/04/23 Health And Safety Coordinator Relationship Specialty Start Date End Date Serjio Montero APRN.NEUROSURGEON [address] [place] [address] [phone] PCP - General Internal Medicine 01/04/23 Health And Safety Coordinator Relationship Specialty Start Date End Date Serjio Montero APRN.NEUROSURGEON [address] [place] [address], [place] [address] PCP - General Internal Medicine 01/04/23 Health And Safety Coordinator Relationship Specialty Start Date End Date Serjio Montero APRN.NEUROSURGEON [address] [place] [phone] PCP - General Internal Medicine 01/04/23 Health And Safety Coordinator Relationship Specialty Start Date End Date Serjio Montero APRN.NEUROSURGEON [address] [place] [address] [phone] PCP - General Internal Medicine 01/04/23 Health And Safety Coordinator Relationship Specialty Start Date End Date Serjio Montero APRN.NEUROSURGEON [address] [place] [phone] PCP - General Internal Medicine 01/04/23 Health And Safety Coordinator Relationship Specialty Start Date End Date Serjio Montero APRN.NEUROSURGEON [address] [place] [address] [phone] PCP - General Internal Medicine 01/04/23 Health And Safety Coordinator Relationship Specialty Start Date End Date Serjio Montero APRN.NEUROSURGEON [address] [place] [phone] PCP - General Internal Medicine 01/04/23 Health And Safety Coordinator Relationship Specialty Start Date End Date Serjio Montero APRN.NEUROSURGEON [address] [place] [address] [phone] PCP - General Internal Medicine 01/04/23 Health And Safety Coordinator Relationship Specialty Start Date End Date Serjio Montero APRN.NEUROSURGEON [address] [place] [phone] PCP - General Internal Medicine 01/04/23 Health And Safety Coordinator Relationship Specialty Start Date End Date Serjio Montero APRN.NEUROSURGEON [address] [place] [phone] PCP - General Internal Medicine 01/04/23 Health And Safety Coordinator Relationship Specialty Start Date End Date Serjio Montero APRN.NEUROSURGEON [address] [place] [address] PCP - General Internal Medicine 01/04/23 Health And Safety Coordinator Relationship Specialty Start Date End Date Serjio Montero APRN.NEUROSURGEON [address] [place], [place] [phone] PCP - General Internal Medicine 01/04/23 INFORMATION SOURCE (unrecogn ized section and content) DATE CREATED AUTHOR 06/22/2024 [facility] FOR RECORDS PERTAINING TO PATIENTS WHO ARE OR HAVE BEEN ENROLLED IN A CHEMICAL DEPENDENCY/SUBSTANCEABUSE PROGRAM, SOME INFORMATION MAY BE OMITTED. This clinical summary was aggregated from multiple sources. Caution should be exercised in using it in the provision of clinical care. This summary normalizes information from multiple sources, and as a consequence, information in this document may materially change the coding, format and clinical context of patient data. In addition, data may be omitted in some cases. CLINICAL DECISIONS SHOULD BE BASED ON THE PRIMARY CLINICAL RECORDS. [employer] [facility]. provides no warranty or guarantee of the accuracy or completeness of information in this document.
== END 2024-07-10 15:21 | disposition home or self-care (01) ==
LOC: ED 15:23
PROVIDERS: PCP Internal Medicine
DX: S93.401A Sprain of unspecified ligament of right ankle, initial encounter (principal); S90.31XA Contusion of right foot, initial encounter; S60.221A Contusion of right hand, initial encounter; Y04.8XXA Assault by other bodily force, initial encounter; F17.290 Nicotine dependence, other tobacco product, uncomplicated

== ENCOUNTER 2024-07-11 09:23 | Emergency (ER) | payer MEDICAID, SELFPAY ==
[2024-07-11 09:23] VITALS: BP 149/91; PULSE 90; RESP 16; TEMP 36.8; O2SAT 99; BMI 26.9
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
[2024-07-11 11:30] VITALS: BP 121/87; PULSE 95; RESP 16; TEMP 36.3; O2SAT 98
== END 2024-07-11 12:00 | disposition home or self-care (01) ==
PROVIDERS: Emergency Provider Emergency Medicine; PCP Internal Medicine; Visit Provider Emergency Medicine
DX: S60.221A Contusion of right hand, initial encounter (principal); F31.9 Bipolar disorder, unspecified; S93.401A Sprain of unspecified ligament of right ankle, initial encounter; S90.31XA Contusion of right foot, initial encounter; F17.290 Nicotine dependence, other tobacco product, uncomplicated; Y04.8XXA Assault by other bodily force, initial encounter
CPT/HCPCS: 73110; 73130; 73610; 73630; 99284

== ENCOUNTER 2025-05-04 14:12 | Emergency (ER) | payer MEDICAID, SELFPAY ==
[2025-05-04 14:12] VITALS: BP 136/119; PULSE 146; RESP 20; TEMP 36.9; O2SAT 98; BMI 25.0
--- NOTE | 2025-05-04 14:26 | EX.ED.DYSGE1 ---
HPI History of Present Illness Chief Complaint: General Illness [facility] Medical History Bipolar disorder History of anxiety History of alcohol abuse Anxiety Vaginal delivery Marijuana abuse Home Medications ?Medication ?Instructions ?Recorded ?Last Taken ?Type albuterol sulfate 90 mcg/actuation 1 inh inhalation Q6H #1 ea 05/04/25 Unknown Rx breath activated powder inhaler lorazepam 1 mg tablet 1 mg PO DAILY PRN anxiety 05/04/25 Unknown History ondansetron 4 mg disintegrating 4 mg PO Q8H PRN PRN Nausea #10 tabs 05/04/25 Unknown Rx tablet Allergy/AdvReac Type Severity Reaction Status Date / Time No Known Allergies Allergy Verified 05/04/25 14:12 Surgical History History of surgery Social History Smoking Status: Current every day smoker tobacco type: e-cigarettes Electronic Cigarette Use: with nicotine EXAM Physical Exam Const Vital Signs: 05/04/25 14:12 05/04/25 15:03 05/04/25 16:12 Temperature 98.4 F Temperature Source Oral Pulse Rate 146 H 102 H Respiratory Rate 20 H 18 Respiratory Effort Normal Non-Labored Respiratory Pattern Normal Blood Pressure 136/119 H 101/67 Blood Pressure Mean 124 78 Pulse Ox 98 100 Oxygen Delivery Method Room Air Room Air 05/04/25 18:06 Temperature Temperature Source Pulse Rate 87 Respiratory Rate 16 Respiratory Effort Respiratory Pattern Blood Pressure 112/75 Blood Pressure Mean 87 Pulse Ox 93 Oxygen Delivery Method Room Air [facility] MDM MDM Narrative Medical decision making narrative: HISTORY OF PRESENT ILLNESS: Chief complaint: Fatigue 29-year-old female presents with concern for dehydration and fatigue. Notes she did have intractable nausea and vomiting Has not had a bowel movement. Denies history of belly surgery. No urinary complaints. Notes nonbloody nonbilious vomitus. No melena medic easier noted. No vaginal bleeding or discharge. No burning with urination. No chest pain or shortness of breath REVIEW OF SYSTEMS: Pertinent positives: Fatigue, dizziness, nausea vomiting Pertinent negatives: As per HPI PHYSICAL EXAM: Nursing triage notes reviewed, Vital signs reviewed Constitutional: please see mdm HENT: MMM Eyes: Pupils equal round and reactive to light, Extraocular muscles intact Neck: No stridor, no JVD, full neck ROM Lungs: Clear to auscultation, No wheezing or rales. No increased work of breathing, no conversational dyspnea, no accessory muscle use, no nasal flaring. No respiratory distress noted Heart: Regular rate and rhythm, No murmurs, No rubs and No gallops, 2+ distal pulses (radial, femoral, posterior tibial) in all extremities Abdomen: Soft, there is no tenderness, rigidity, rebound or guarding, no obvious peritoneal signs, no palpable pulsatile abdominal masses, no auscultated abdominal bruit : No CVAT Extremities: No edema Neuro: No new focal neurological deficits, cranial nerves II through XII intact, 5/5 strength in all present extremities. Intact sensation to light touch in all present extremities, 2+ reflexes bilateral patella tendons. Skin: No rash MEDICAL DECISION MAKING: Chief Complaint: please see HPI External records reviewed: Reviewed prior imaging studies Factors affecting care: anxiety, alcohol abuse Social determinants of health: History of alcohol History obtained from others: significant other Consults: none MDM Narrative: Patient was initially hemodynamically stable, tachycardic but afebrile and nontoxic-appearing. I considered the following differential diagnosis: AAA, small bowel obstruction, abdominal perforation, appendicitis, pancreatitis, hepatobiliary pathology (acute cholecystitis), mesenteric ischemia, pathology (ie nephrolithiasis, pyelonephritis). I obtained a broad lab and imaging workup to further determine if the patient was suffering from a life-threatening etiology. Initially treat the patient IV fluids, Zofran and morphine for pain. ALL IMAGES (IF OBTAINED) HAVE BEEN PERSONALLY REVIEWED AND INTERPRETED BY MYSELF. CBC with no leukocytosis, noted hemoconcentration consistent with dehydration, no thrombocytopenia BMP without evidence of significant electrolyte abnormalities, no anion gap, no acute kidney injury. Mild FTs Lactate is wnl indicating no end-organ hypoperfusion and/or hypoxia. Urinalysis shows no evidence of urinary inflammation suggestive of UTI Urine test is negative Repeat abdominal exam remained benign. Patient was tolerating p.o. Unclear etiology no sign of a life-threatening etiology with a negative CT scan and gross unremarkable labs including no leukocytosis, no elevation in lactate. Repeat vital signs showed improvement in tachycardia and tachypnea. Constipation instructions given for home. Patient is appropriate discharge home strict return precautions were discussed. Follow-up instructions were given The patient and/or family, caregivers express understanding. The patient and/or family, caregivers agrees with the plan. Shared decision making: I will have a discussion with the patient and or visitors regarding risk/benefits of further testing or admission. They will be made aware of of the risk/benefits inherent in this decision they will be given the opportunity to voice understanding. Total critical care time today provided was at least 0 minutes. This excludes separately billable procedures. Critical care time (if documented) is secondary to the patient having high probability of clinically significant/life threatening deterioration in the patient's condition which required my urgent intervention. Impression: 1. Abdominal pain 2. Nausea and vomiting 3. Constipation Dispo: Discharge home This note was generated with [employer] dictation software. It may contain incorrect words, spelling, and punctuation that were not noted in review of the chart prior to signing. Lab Data Labs: Laboratory Results - last 24 hr 05/04/25 05/04/25 05/04/25 14:50 16:25 19:05 WBC 10.5 RBC 5.72 H Hgb 15.6 H Hct 47.3 H MCV 82.7 MCH 27.3 MCHC 33.0 RDW Std Deviation 42.6 RDW Coeff of Kana 14.5 Plt Count 309 MPV 11.2 Immature Gran % (Auto) 0.300 Neut % (Auto) 76.0 H Lymph % (Auto) 17.0 L Kerr % (Auto) 5.5 Eos % (Auto) 0.8 Baso % (Auto) 0.4 Absolute Neuts (auto) 8.0 H Absolute Lymphs (auto) 1.78 Nucleated RBC % 0 Sodium 142 Potassium 3.8 Chloride 102 Carbon Dioxide 25.6 Anion Gap 14 BUN 6 Creatinine 0.74 Estim Creat Clear Calc 106.90 Est GFR (MDRD) Non-Af 114 BUN/Creatinine Ratio 7.6 L Glucose 180 H Lactic Acid 2.0 < 1.0 Calcium 9.7 Total Bilirubin 0.51 AST 17 ALT 9 Alkaline Phosphatase 85 Troponin T High Sens 7 Total Protein 7.4 Albumin 4.2 Globulin 3.1 Albumin/Globulin Ratio 1.4 Lipase 57 Urine Color Yellow Urine Clarity Sl. Cloudy Urine pH 6.0 Ur Specific [place] 1.025 Urine Protein 30 H Urine Glucose (UA) Normal Urine Ketones 50 H Urine Occult Blood 50 H Urine Nitrite Negative Urine Bilirubin 1 H Urine Urobilinogen 1 H Ur Leukocyte Esterase 100 H Urine RBC 10-25 SEEN Urine WBC 25-50 SEEN Ur Squamous Epith Cells 10-25 SEEN Urine Bacteria 1+ Urine Mucus 2+ Urine Test Negative Radiography Diagnostic Testing: Clinical Impression(s) from Imaging Studies Abdomen/Pelvis CT 05/04/25 14:42 IMPRESSION: 1. Hepatomegaly with fatty infiltration. 2. Fecal retention in the colon consistent with constipation. 3. Punctate nephrolithiasis without hydronephrosis, bilaterally. 4. Umbilical hernia containing fat. Reading Location: [facility] Discharge Plan Triage Chief Complaint: General Illness ED Provider: Shade Matta Dx/Rx/DC Orders Clinical Impression: Nausea & vomiting Prescriptions: New albuterol sulfate 90 mcg/actuation aerosol powdr breath activated 1 inh inhalation Q6H Qty: 1 0RF ondansetron 4 mg tablet,disintegrating 4 mg PO Q8H PRN PRN (Reason: Nausea) Qty: 10 0RF No Action lorazepam 1 mg tablet 1 mg PO DAILY PRN (Reason: anxiety) Primary Care Provider: Yahaira Montero NP Referrals: Yahaira Montero REAL ESTATE ASSISTANT, REAL ESTATE ASSISTANT-C [Primary Care Provider] - Activity Restrictions/Additional Instructions: Thank you for trusting us with your care today! Please take Tylenol (2 pills, 650 mg), ibuprofen (2 pills, 400 mg) every 6 hours as needed for pain and fever control. Please take Zofran as needed. Please return to the emergency department if your symptoms change or worsen. Please follow with your primary care physician for further outpatient evaluation and management. Print Language: Tanzanian Disposition Disposition: Home, Self Care
--- NOTE | 2025-05-04 14:28 | EKG12_ITS ---
Test Reason : AC Blood Pressure : */* mmHG Vent. Rate : 116 BPM Atrial Rate : 116 BPM P-R Int : 128 ms QRS Dur : 78 ms QT Int : 336 ms P-R-T Axes : 80 -20 51 degrees QTcB Int : 467 ms Sinus tachycardia Otherwise normal ECG Confirmed by ARCADIO BANDA, OUSMANE ([id number]), editor newspaper ADELA CARSON ([id number]) on 05/07/2025 7:34:08 AM Referred By: Confirmed By: OUSMANE ERVIN MD
--- NOTE | 2025-05-04 14:42 | CT_ITS ---
EXAM: CT Abdomen and Pelvis With Intravenous Contrast CLINICAL INDICATION: ABDOMINAL PAIN TECHNIQUE: Axial computed tomography images of the abdomen and pelvis with intravenous contrast. This CT exam was performed using one or more of the following dose reduction techniques: automated exposure control, adjustment of the mA and/or kV according to patient size, and/or use of iterative reconstruction technique. COMPARISON: No relevant prior studies available. FINDINGS: LUNG BASES: Unremarkable. No mass. No consolidation. ABDOMEN: LIVER: Hepatomegaly with fatty infiltration. GALLBLADDER AND BILE DUCTS: Unremarkable. No calcified stones. No ductal dilation. PANCREAS: Unremarkable. No mass. No ductal dilation. SPLEEN: Unremarkable. No splenomegaly. ADRENALS: Unremarkable. No mass. KIDNEYS AND URETERS: Punctate nephrolithiasis without hydronephrosis, bilaterally. STOMACH AND BOWEL: Fecal retention in the colon consistent with constipation. No obstruction. No mucosal thickening. PELVIS: APPENDIX: No findings to suggest acute appendicitis. BLADDER: Unremarkable. No mass. REPRODUCTIVE: Unremarkable as visualized. ABDOMEN and PELVIS: INTRAPERITONEAL SPACE: Unremarkable. No free air. No significant fluid collection. BONES/JOINTS: No acute fracture. No dislocation. SOFT TISSUES: Umbilical hernia containing fat. VASCULATURE: Unremarkable. No abdominal aortic aneurysm. LYMPH NODES: Unremarkable. No enlarged lymph nodes. CT/Abdomen/Pelvis W IV Cont ONLY IMPRESSION: 1. Hepatomegaly with fatty infiltration. 2. Fecal retention in the colon consistent with constipation. 3. Punctate nephrolithiasis without hydronephrosis, bilaterally. 4. Umbilical hernia containing fat. Reading Location: [id number]
[2025-05-04 14:59] LABS: Hematocrit 47.3 % (37-47); Hemoglobin 15.6 g/dL (12.0-15.0); Immature Granulocytes Count 0.030 X10^3/uL (0.0-0.0); Mean Corp Hgb Conc 33.0 g/dL (32-36); Mean Corpuscular Volume 82.7 fL (81-99); Mean Platelet Vol. 11.2 fl (6.2-12.0); NRBC Flagged by Analyzer 0 % (0-5); Platelet Count 309 K/mm3 (150-450); RBC Distribution Width CV 14.5 % (11.6-14.6); RBC Distribution Width SD 42.6 fl (35.1-43.9); Red Blood Count 5.72 M/mm3 (4.2-5.4); White Blood Count 10.5 K/mm3 (4.4-11.0)
[2025-05-04] MEDS: 0.9% Normal Saline (1000mL) 1,000 ML 1000 ML IV (15:10)
[2025-05-04 15:27] LABS: AST(SGOT) 17 U/L (<=31); Alanine Aminotransfer ALT/SGPT 9 U/L (<=34); Albumin, Serum 4.2 g/dL (3.5-5.0); Alkaline Phosphatase 85 U/L (35-104); Anion Gap 14 (5-15); BUN 6 mg/dL (4-19); BUN/Creat Ratio 7.6 RATIO (10-20); Calcium,Total 9.7 mg/dL (7.6-11.0); Carbon Dioxide 25.6 mmol/L (21.0-32.0); Chloride 102 mmol/L (98-108); Estimated Creatinine Clearance 106.90 ml/min (50-250); Globulin 3.1 g/dL (2.2-4.2); Glucose 180 mg/dL (70-99); Lipase 57 U/L (13-75); Potassium 3.8 mmol/L (3.3-5.1)
[2025-05-04 16:12] VITALS: BP 101/67; PULSE 102; RESP 18; O2SAT 100
[2025-05-04 16:16] LABS: Troponin T High Sensitivity 7 ng/L (<=14)
[2025-05-04 16:33] LABS: Color, Urine Yellow (Yellow); Glucose, Dipstick Normal (Normal); Ketone-Dipstick 50 mg/dl (Negative); Leukocyte Esterase-Dipstick 100 /ul (Negative); Nitrite-Dipstick Negative (Negative); Occult Blood-Urine 50 /ul (Negative); Protein-Dipstick 30 mg/dl (Negative); Specific Gravity, Urine 1.025 (1.002-1.030)
[2025-05-04 16:41] LABS: Urine Bilirubin Dipstick 1 mg/dL (Negative)
[2025-05-04 16:43] LABS: Squamous Epithelial Cells - UA 10-25 SEEN /hpf (5-10)
[2025-05-04 16:44] LABS: Red Blood Cells-Urine 10-25 SEEN /hpf (0-5)
[2025-05-04 16:46] LABS: Mucous, Urine 2+ /hpf (<or=2+)
[2025-05-04 16:47] LABS: Internal QC Validated? YES +Cl - CLEAR BKGD; Pregnancy, Urine Negative Negative; Record Kit Lot#,Urine Preg 0000964736
[2025-05-04 18:06] VITALS: BP 112/75; PULSE 87; RESP 16; O2SAT 93
[2025-05-04 18:55] LABS: Reflex Lactate? Y
[2025-05-04 19:53] VITALS: BP 117/77; PULSE 67; RESP 16; TEMP 36.6; O2SAT 98
--- NOTE | 2025-05-04 22:59 | EX.ED.DYSGE1 ---
HPI History of Present Illness Chief Complaint: General Illness [facility] Medical History Bipolar disorder History of anxiety History of alcohol abuse Anxiety Vaginal delivery Marijuana abuse Home Medications ?Medication ?Instructions ?Recorded ?Last Taken ?Type albuterol sulfate 90 mcg/actuation 1 inh inhalation Q6H #1 ea 05/04/25 Unknown Rx breath activated powder inhaler lorazepam 1 mg tablet 1 mg PO DAILY PRN anxiety 05/04/25 Unknown History ondansetron 4 mg disintegrating 4 mg PO Q8H PRN PRN Nausea #10 tabs 05/04/25 Unknown Rx tablet Allergy/AdvReac Type Severity Reaction Status Date / Time No Known Allergies Allergy Verified 05/04/25 14:12 Surgical History History of surgery Social History Smoking Status: Current every day smoker tobacco type: e-cigarettes Electronic Cigarette Use: with nicotine EXAM Physical Exam Const Vital Signs: 05/04/25 14:12 05/04/25 15:03 05/04/25 16:12 Temperature 98.4 F Temperature Source Oral Pulse Rate 146 H 102 H Respiratory Rate 20 H 18 Respiratory Effort Normal Non-Labored Respiratory Pattern Normal Blood Pressure 136/119 H 101/67 Blood Pressure Mean 124 78 Pulse Ox 98 100 Oxygen Delivery Method Room Air Room Air 05/04/25 18:06 05/04/25 19:53 Temperature 98 F Temperature Source Pulse Rate 87 67 Respiratory Rate 16 16 Respiratory Effort Respiratory Pattern Blood Pressure 112/75 117/77 Blood Pressure Mean 87 90 Pulse Ox 93 98 Oxygen Delivery Method Room Air [facility] Lab Data Labs: Laboratory Results - last 24 hr 05/04/25 05/04/25 05/04/25 14:50 16:25 19:05 WBC 10.5 RBC 5.72 H Hgb 15.6 H Hct 47.3 H MCV 82.7 MCH 27.3 MCHC 33.0 RDW Std Deviation 42.6 RDW Coeff of Kana 14.5 Plt Count 309 MPV 11.2 Immature Gran % (Auto) 0.300 Neut % (Auto) 76.0 H Lymph % (Auto) 17.0 L [place] % (Auto) 5.5 Eos % (Auto) 0.8 Baso % (Auto) 0.4 Absolute Neuts (auto) 8.0 H Absolute Lymphs (auto) 1.78 Nucleated RBC % 0 Sodium 142 Potassium 3.8 Chloride 102 Carbon Dioxide 25.6 Anion Gap 14 BUN 6 Creatinine 0.74 Estim Creat Clear Calc 106.90 Est GFR (MDRD) Non-Af 114 BUN/Creatinine Ratio 7.6 L Glucose 180 H Lactic Acid 2.0 < 1.0 Calcium 9.7 Total Bilirubin 0.51 AST 17 ALT 9 Alkaline Phosphatase 85 Troponin T High Sens 7 Total Protein 7.4 Albumin 4.2 Globulin 3.1 Albumin/Globulin Ratio 1.4 Lipase 57 Urine Color Yellow Urine Clarity Sl. Cloudy Urine pH 6.0 Ur Specific [place] 1.025 Urine Protein 30 H Urine Glucose (UA) Normal Urine Ketones 50 H Urine Occult Blood 50 H Urine Nitrite Negative Urine Bilirubin 1 H Urine Urobilinogen 1 H Ur Leukocyte Esterase 100 H Urine RBC 10-25 SEEN Urine WBC 25-50 SEEN Ur Squamous Epith Cells 10-25 SEEN Urine Bacteria 1+ Urine Mucus 2+ Urine Test Negative Radiography Diagnostic Testing: Clinical Impression(s) from Imaging Studies Abdomen/Pelvis CT 05/04/25 14:42 IMPRESSION: 1. Hepatomegaly with fatty infiltration. 2. Fecal retention in the colon consistent with constipation. 3. Punctate nephrolithiasis without hydronephrosis, bilaterally. 4. Umbilical hernia containing fat. Reading Location: [facility] Discharge Plan Triage Chief Complaint: General Illness ED Provider: Shade Matta Dx/Rx/DC Orders Clinical Impression: Nausea & vomiting Prescriptions: New albuterol sulfate 90 mcg/actuation aerosol powdr breath activated 1 inh inhalation Q6H Qty: 1 0RF ondansetron 4 mg tablet,disintegrating 4 mg PO Q8H PRN PRN (Reason: Nausea) Qty: 10 0RF No Action lorazepam 1 mg tablet 1 mg PO DAILY PRN (Reason: anxiety) Primary Care Provider: Yahaira Montero NP Referrals: Yahaira Montero NP, LEAD MANUFACTURING ENGINEER-C [Primary Care Provider] - Activity Restrictions/Additional Instructions: Thank you for trusting us with your care today! Please take Tylenol (2 pills, 650 mg), ibuprofen (2 pills, 400 mg) every 6 hours as needed for pain and fever control. Please take Zofran as needed. Please return to the emergency department if your symptoms change or worsen. Please follow with your primary care physician for further outpatient evaluation and management. Print Language: Lao Disposition Disposition: Home, Self Care Discharge Date/Time: 05/04/25 19:56
== END 2025-05-04 19:56 | disposition home or self-care (01) ==
PROVIDERS: Emergency Provider Emergency Medicine; PCP Internal Medicine; Visit Provider Emergency Medicine
DX: R11.2 Nausea with vomiting, unspecified (principal); F31.9 Bipolar disorder, unspecified; K59.00 Constipation, unspecified; R10.9 Unspecified abdominal pain; R53.83 Other fatigue; F10.10 Alcohol abuse, uncomplicated; F41.9 Anxiety disorder, unspecified; R00.0 Tachycardia, unspecified; F17.290 Nicotine dependence, other tobacco product, uncomplicated; Z79.899 Other long term (current) drug therapy
CPT/HCPCS: 74177; 80053; 81001; 81025; 83605; 83690; 84484; 85025; 93005; 96361; 96374; 96375; 99284; Q9967; A4216; J2405

== ENCOUNTER 2025-05-23 11:47 | Emergency (ER) | payer MEDICAID, SELFPAY ==
[2025-05-23 11:49] VITALS: BP 121/84; PULSE 91; RESP 16; TEMP 36.4; O2SAT 100; BMI 25.7
[2025-05-23 13:48] VITALS: PULSE 72; RESP 18
[2025-05-23 13:53] LABS: Hematocrit 46.2 % (37-47); Hemoglobin 15.1 g/dL (12.0-15.0); Immature Granulocytes Count 0.020 X10^3/uL (0.0-0.0); Mean Corp Hgb Conc 32.7 g/dL (32-36); Mean Corpuscular Volume 83.5 fL (81-99); Mean Platelet Vol. 11.2 fl (6.2-12.0); NRBC Flagged by Analyzer 0 % (0-5); POSITIVE DIFFERENTIAL YES; Platelet Count 304 K/mm3 (150-450); RBC Distribution Width CV 14.8 % (11.6-14.6); RBC Distribution Width SD 43.8 fl (35.1-43.9); Red Blood Count 5.53 M/mm3 (4.2-5.4); White Blood Count 11.5 K/mm3 (4.4-11.0)
[2025-05-23 13:57] LABS: Differential Indicated SCAN CRITERIA MET
[2025-05-23] MEDS: 0.9% Normal Saline (1000mL) 1,000 ML 1000 ML IV (13:59)
[2025-05-23 14:09] LABS: Internal QC Validated? YES +Cl - CLEAR BKGD; Pregnancy, Serum, hCG Quali. NEGATIVE Negative; Record Kit Lot#, Serum Preg. 964736
[2025-05-23 14:29] LABS: Anion Gap 12 (5-15); BUN 6 mg/dL (4-19); BUN/Creat Ratio 7.4 RATIO (10-20); Calcium,Total 9.7 mg/dL (7.6-11.0); Carbon Dioxide 26.5 mmol/L (21.0-32.0); Chloride 102 mmol/L (98-108); Estimated Creatinine Clearance 101.23 ml/min (50-250); Glucose 91 mg/dL (70-99); Potassium 3.4 mmol/L (3.3-5.1)
[2025-05-23 14:37] LABS: Mucous, Urine 0 SEEN /hpf (<or=2+)
[2025-05-23 14:48] VITALS: BP 124/76; PULSE 55; RESP 16; O2SAT 100
[2025-05-23 15:04] LABS: Color, Urine Yellow (Yellow); Glucose, Dipstick Normal (Normal); Ketone-Dipstick Negative (Negative); Leukocyte Esterase-Dipstick 500 /ul (Negative); Nitrite-Dipstick Positive (Negative); Occult Blood-Urine 250 /ul (Negative); Protein-Dipstick 30 mg/dl (Negative); Specific Gravity, Urine 1.025 (1.002-1.030); Urine Bilirubin Dipstick Negative (Negative)
[2025-05-23 15:08] LABS: Red Blood Cells-Urine 5-10 SEEN /hpf (0-5)
[2025-05-23 15:09] LABS: Squamous Epithelial Cells - UA 0-5 SEEN /hpf (5-10)
--- NOTE | 2025-05-23 15:55 | EX.ED.DYSGE1 ---
HPI History of Present Illness Chief Complaint: Cough Informant: patient Onset/Context/Timing Onset: Month(s) (2) Context: Sudden Onset Timing: Continuous Quality: Cramping, burning Location: Abdomen Worsened by: Nothing Relieved by: Nothing Narrative Narrative: Patient presents with cough that has been persistent over the past 2 months. Patient states that it began rather suddenly. Patient states nothing makes it better and nothing makes it worse. Patient states she did have a syncopal episode yesterday after coughing episode. Patient states her last menstrual period was 04/01/2025. Patient states she has had a negative hCG test. Patient admits to some upper respiratory congestion. Patient also admits to sinus pressure. Patient also admits to some nausea, vomiting, and diarrhea. [facility] Medical History Bipolar disorder History of anxiety History of alcohol abuse Anxiety Vaginal delivery Marijuana abuse Home Medications ?Medication ?Instructions ?Recorded ?Last Taken ?Type sulfamethoxazole 800 1 tab PO BID #6 TABLETS 05/23/25 Unknown Rx mg-trimethoprim 160 mg tablet Allergy/AdvReac Type Severity Reaction Status Date / Time No Known Allergies Allergy Verified 05/23/25 11:51 Surgical History History of surgery Social History Smoking Status: Current every day smoker tobacco type: e-cigarettes Electronic Cigarette Use: with nicotine ROS ROS ED Constitutional Constitutional ED: Reports chills, fever(s) and subjective Eyes Eyes: Reports blurry vision; Denies diplopia ENT ENT ED: Reports rhinorrhea; Denies sore throat Cardiovascular Cardiovascular: Reports chest pain; Denies palpitations Respiratory/Chest Respiratory/Chest: Reports cough and dyspnea Gastrointestinal Gastrointestinal: Reports abdominal pain, diarrhea, nausea and vomiting Genitourinary Genitourinary ED: Reports dysuria, hematuria and urinary frequency Musculoskeletal Musculoskeletal: Reports back pain and neck pain Integumentary Reports rash; Denies abscess Neurologic Neurologic: Reports headache(s); Denies weakness Allergic/Immunologic Allergic/Immunologic ED: Denies mouth swelling or urticaria EXAM Physical Exam Const Vital Signs: 05/23/25 11:49 05/23/25 12:48 05/23/25 13:48 Temperature 97.6 F L Temperature Source Temporal Pulse Rate 91 72 Respiratory Rate 16 18 Respiratory Effort Normal Non-Labored Respiratory Depth Normal Respiratory Pattern Normal Normal Blood Pressure 121/84 H Blood Pressure Mean 96 Pulse Ox 100 Oxygen Delivery Method Room Air Room Air 05/23/25 14:48 Temperature Temperature Source Pulse Rate 55 L Respiratory Rate 16 Respiratory Effort Respiratory Depth Respiratory Pattern Blood Pressure 124/76 H Blood Pressure Mean 92 Pulse Ox 100 Oxygen Delivery Method Room Air Positive well nourished and well developed General Appearance ED: well developed and NAD HEENT Reports moist mucous membranes Neck supple and no JVD Resp normal respiratory effort and clear to auscultation bilaterally Cardio regular rate and regular rhythm GI non-tender and non-distended Palpation: soft Neuro oriented x3, CN's II-XII intact bilaterally and no sensory deficits noted Sensorium / Orientation: alert Motor Exam: strength 5/5 throughout Psych mental status grossly normal MDM MDM MDM Narrative Medical decision making narrative: Differential diagnosis includes viral upper respiratory infection, pneumonia, bronchitis, urinary tract infection, dehydration, electrolyte abnormality, and anxiety. CBC will be obtained to assess for leukocytosis and anemia. Basic metabolic profile will be obtained to assess for electrolyte abnormality and renal function. Serum hCG will be obtained to assess for . Urinalysis will be obtained to assess for urinary tract infection and hematuria. COVID-19, influenza, and RSV PCR will be obtained to assess for viral illness. Lab Data Attestation: I reviewed the patient's lab results. Lab results narrative: CBC was reviewed. There is a mild leukocytosis of 11.5. Hemoglobin was slightly elevated at 15.1. The remainder is within normal limits. Basic metabolic profile was reviewed and was within normal limits. Serum hCG was reviewed and was negative. Urinalysis was reviewed. There are positive nitrates. Leukocyte esterase was 500. There are 50-100 white blood cells and 2+ bacteria. COVID-19 PCR was reviewed and was negative. Influenza PCR was reviewed and was negative for influenza A and influenza B. RSV PCR was reviewed and was negative. Labs: Laboratory Results - last 24 hr 05/23/25 05/23/25 13:05 14:02 WBC 11.5 H RBC 5.53 H Hgb 15.1 H Hct 46.2 MCV 83.5 MCH 27.3 MCHC 32.7 RDW Std Deviation 43.8 RDW Coeff of Kana 14.8 H Plt Count 304 MPV 11.2 Immature Gran % (Auto) 0.200 Neut % (Auto) 44.6 L Lymph % (Auto) 29.7 [place] % (Auto) 4.8 Eos % (Auto) 19.6 H Baso % (Auto) 1.1 H Absolute Neuts (auto) 5.1 Absolute Lymphs (auto) 3.42 Nucleated RBC % 0 Differential Comment COMMENT Sodium 140 Potassium 3.4 Chloride 102 Carbon Dioxide 26.5 Anion Gap 12 BUN 6 Creatinine 0.85 Estim Creat Clear Calc 101.23 Est GFR (MDRD) Non-Af 96 BUN/Creatinine Ratio 7.4 L Glucose 91 Calcium 9.7 Serum , Qual NEGATIVE Urine Color Yellow Urine Clarity Sl Cldy Urine pH 5.0 Ur Specific [place] 1.025 Urine Protein 30 H Urine Glucose (UA) Normal Urine Ketones Negative Urine Occult Blood 250 H Urine Nitrite Positive H Urine Bilirubin Negative Urine Urobilinogen Normal Ur Leukocyte Esterase 500 H Urine RBC 5-10 SEEN Urine WBC 50-100 SEEN Ur Squamous Epith Cells 0-5 SEEN Urine Bacteria 2+ Urine Mucus 0 SEEN Treatment and Re-Evaluation :: Patient was given IV fluids. Patient was given a DuoNeb aerosol. Patient is feeling better on reevaluation. Patient was advised of her findings. Patient was given a dose of Bactrim here. Patient was given a prescription for Bactrim. Patient was instructed to drink plenty of fluids. Patient was instructed to follow-up with her primary care physician in 5 to 7 days. Patient understood and was agreeable with the plan. All questions were answered. Discharge Plan Triage Chief Complaint: Cough ED Provider: Buddy Botello Dx/Rx/DC Orders Clinical Impression: Urinary tract infection, Vaping nicotine dependence, tobacco product Instructions: ED Cystitis Female Adult Prescriptions: New sulfamethoxazole-trimethoprim 800-160 mg tablet 1 tab PO BID Qty: 6 0RF Primary Care Provider: Yahaira Montero NP Referrals: Yahaira Montero FREIGHT FORWARDER, FREIGHT FORWARDER-C [Primary Care Provider] - 5-7 Days Print Language: Liberian Disposition Disposition: Home, Self Care
[2025-05-23 16:00] VITALS: BP 112/72; PULSE 70; RESP 16; O2SAT 99
[2025-05-23] MEDS: Smz/Tmp Ds Tablet 1 TABLET PO (16:09)
[2025-05-23 16:10] VITALS: BP 112/72; PULSE 64; RESP 16; TEMP 36.8; O2SAT 99
== END 2025-05-23 16:16 | disposition home or self-care (01) ==
PROVIDERS: Emergency Provider Emergency Medicine; PCP Internal Medicine; Visit Provider Emergency Medicine
DX: N39.0 Urinary tract infection, site not specified (principal); R05.9 Cough, unspecified; R09.81 Nasal congestion; F17.290 Nicotine dependence, other tobacco product, uncomplicated
CPT/HCPCS: 80048; 81001; 84703; 85025; 87631; 94640; 96360; 96361; 99285

== ENCOUNTER 2025-07-02 22:42 | Emergency (ER) | payer MEDICAID, SELFPAY ==
[2025-07-02 22:43] VITALS: BP 92/67; PULSE 85; RESP 16; TEMP 37; O2SAT 98
[2025-07-02 22:46] VITALS: BMI 25.2
[2025-07-02] MEDS: 0.9% Normal Saline (1000mL) 1,000 ML 999 ML IV (23:47)
--- OUTSIDE RECORDS SUMMARY | 2025-07-02 23:57 | XMS RPT_ITS | CCD ---
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 Creatinine Equation (2020) Performed By: #### L 700.6800, L100.0100, L500.2500 ####[facility] [address] [place], [address] Glucose [Mass/Vol] 91 mg/dL Normal 70-99 [facility] Comment on above: Performed By: #### L 700.6800, L100.0100, L500.2500 ####[facility] [address] [place], [address] Potassium [Moles/Vol] 3.4 mmol/L Normal 3.3-5.1 [facility] Comment on above: Performed By: #### L 700.6800, L100.0100, L500.2500 ####[facility] [address] [place], [address] Sodium [Moles/Vol] 140 mmol/L Normal 133-145 [facility] Comment on above: Performed By: #### L 700.6800, L100.0100, L500.2500 ####[facility] [address], [address] Urea nitrogen [Mass/Vol] 6 mg/dL Normal 4-[address] [facility] Comment on above: Performed By: #### L 700.6800, L100.0100, L500.2500 ####[facility] [address] [place], [address] CBC W/Diff, Automatedon 09- SMEAR COMMENT COMMENT Normal [facility] Comment on above: Result Comment: EOSI NOPHILIA. Performed By: #### L 700.6800, L100.0100, L500.2500 ####[facility] [address] [place], [address] Emergency Department Summary on 05-23-[address] [facility] Medical Records Department [address] [address] Emergency Department Summary 05/23/25 MR#: [id number] Acct: [id number] Name: JANE CHUNG Rep #: [id number] : 1995 29 From: Buddy Botello DO PCP: ZEB Pittman Status:DEP ER Location: ED HPI History of Present Illness Chief Complaint: Cough Informant: patient Onset/Context/Timing Onset: Month(s) (2) Context: Sudden Onset Timing: Continuous Quality: Cramping, burning Location: Abdomen Worsened by: Nothing Relieved by: Nothing Narrative Narrative: Patient presents with cough that has been persistent over the past 2 months. Patient states that it began rather suddenly. Patient states nothing makes it better and nothing makes it worse. Patient states she did have a syncopal episode yesterday after coughing episode. Patient states her last menstrual period was 04/01/2025. Patient states she has had a negative hCG test. Patient admits to some upper respiratory congestion. Patient also admits to sinus pressure. Patient also admits to some nausea, vomiting, and diarrhea. [facility] Medical History Bipolar disorder History of anxiety History of alcohol abuse Anxiety Vaginal delivery Marijuana abuse Home Medications ???Medication ???Instructions ???Recorded ???Last Taken ???Type sulfamethoxazole 800 1 tab PO BID #6 TABLETS 05/23/25 U nknown Rx mg-trimethoprim 160 mg tablet Allergy/AdvReac Type Severity Reaction Status Date / Time No Known Allergies Allergy Verified 05/23/25 11:51 Surgical History History of surgery Social History Smoking Status: Current every day smoker tobacco type: e-cigarettes Electronic Cigarette Use: with nicotine ROS ROS ED Constitutional Constitutional ED: Reports chills, fever(s) and subjective Eyes Eyes: Reports blurry vision; Denies diplopia ENT ENT ED: Reports rhinorrhea; Denies sore throat Cardiovascular Cardiovascular: Reports chest pain; Denies palpitations Respiratory/Chest Respiratory/Chest: Reports cough and dyspnea Gastrointestinal Gastrointestinal: Reports abdominal pain, diarrhea, nausea and vomiting Genitourinary Genitourinary ED: Reports dysuria, hematuria and urinary frequency Musculoskeletal Musculoskeletal: Reports back pain and neck pain Integumentary Reports rash; Denies abscess Neurologic Neurologic: Reports headache(s); Denies weakness Allergic/Immunologic Allergic/Immunologic ED: Denies mouth swelling or urticaria EXAM Physical Exam Const Vital Signs: 05/23/25 11:49 05/23/25 12:48 05/23/25 13:48 Temperature 97.6 F L Temperature Source Temporal Pulse Rate 91 72 Respiratory Rate 16 18 Respiratory Effort Normal Non-Labored Respiratory Depth Normal Respiratory Pattern Normal Normal Blood Pressure 121/84 H Blood Pressure Mean 96 Pulse Ox 100 Oxygen Delivery Method Room Air Room Air 05/23/25 14:48 Temperature Temperature Source Pulse Rate 55 L Respiratory Rate 16 Respiratory Effort Respiratory Depth Respiratory Pattern Blood Pressure 124/76 H Blood Pressure Mean 92 Pulse Ox 100 Oxygen Delivery Method Room Air Positive well nourished and well developed General Appearance ED: well developed and NAD HEENT Reports moist mucous membranes Neck supple and no JVD Resp normal respiratory effort and clear to auscultation bilaterally Cardio regular rate and regular rhythm GI non-tender and non-distended Palpation: soft Neuro oriented x3, CN's II-XII intact bilaterally and no sensory deficits noted Sensorium / Orientation: alert Motor Exam: strength 5/5 throughout Psych mental status grossly normal MDM MDM MDM Narrative Medical decision making narrative: Differential diagnosis includes viral upper respiratory infection, pneumonia, bronchitis, urinary tract infection, dehydration, electrolyte abnormality, and anxiety. CBC will be obtained to assess for leukocytosis and anemia. Basic metabolic profile will be obtained to assess for electrolyte abnormality and renal function. Serum hCG will be obtained to assess for . Urinalysis will be obtained to assess for urinary tract infection and hematuria. COVID-19, influenza, and RSV PCR will be obtained to assess for viral illness. Lab Data Attestation: I reviewed the patient's lab results. Lab results narrative: CBC was reviewed. There is a mild leukocytosis of 11.5. Hemoglobin was slightly elevated at 15.1. The remainder is within normal limits. Basic metabolic profile was reviewed and was within normal limits. Serum hCG was reviewed and was negative (more content not included)... Normal [facility] M100.678on 05-23-2025 M100.678 Pending SARS-CoV-2 (COVID 19) Negative INFLUENZA A Negative INFLUENZA B Negative RSV PCR Negative Normal [facility] Comment on above: Performed By: #### M 100.678, L400.0001 ####[facility] [address] [place], [place], [id number] ,Serum,hCG Quali.on 05-23-2025 HCG, SERUM QUAL Negative Normal [facility] Comment on above: Performed By: #### L 700.6800, L100.0100, L500.2500 ####[facility] [address] [place], [address] Urinalysis, Completeon 05-23 BACTERIA 2+ /hpf Normal None Seen [facility] Comment on above: Order Comment: CLEAN CATCH Performed By: #### M 100.678, L400.0001 ####[facility] [address] [place], [address] EPI,SQUAMOUS 0-5 SEEN Normal 5-[address] [facility] Comment on above: Order Comment: CLEAN CATCH Performed By: #### M 100.678, L400.0001 ####[facility] [address] [place], [address] RBC 5-10 SEEN Normal 0-[address] [facility] Comment on above: Order Comment: CLEAN CATCH Performed By: #### M 100.678, L400.0001 ####[facility] [address] [place], [address] WBC 50-100 SEEN Normal 0-[address] [facility] Comment on above: Order Comment: CLEAN CATCH Performed By: #### M 100.678, L400.0001 ####[facility] [address] [place], [address] Mucus Ql (Urine sed) 0 SEEN Normal [facility] Comment on above: Order Comment: CLEAN CATCH Performed By: #### M 100.678, L400.0001 ####[facility] [address] [place], [address] [facility] MERAN Telephone (IESHADNA) -------- JANE CHUNG ([id number]) 1995 F Date Time Provider Department 05/05/25 SERJIO RAYMOND During your visit today, we recorded the following information about you: Yesy Herring 05/05/2025 9:48 AM Addendum Jane is calling Serjio Raymond APRN.[employer]PERVISOR today to request a call to advise why the medication Lorazepam 1 mg tablet was only dispensed on last refill #42 with directions One tablet by mouth as needed daily and then may also take 1-2 tablets at bedtime, Patient asking why this was shorted by pharmacy and they advised patient this was how the order was sent and concerned as she is out of this medication and was not given #90 from pharmacy, which is [facility] [place] Please call patient with provider response will we be able to correct this for patient to have a refill? She has been out of this medication for over one week Patient has been identified by name and birthdate. Person calling: self Call patient at: on cell [phone] (home) [phone] (cell) Was an appointment scheduled: No Closing statement: Results or non-symptom based questions: Thank you for calling [facility], your call will be returned within the next business day. Yesy Daniels [facility] Lori Amado LPN 05/09/2025 8:57 AM Signed Pcp is no longer in the department. Please review request. Pt rec'd 42 tablets on 04/21/25 per dispense report. She has no follow arranged. Krista Gibson MD 05/09/2025 5:45 PM Signed Patient did not make 5 week follow up after last VV with Serjio. She needs an appointment for follow up as well to establish with a new provider. Will give another 2 weeks supply since she was working with me and Guera. Arrange appointment--with me(and Guera) if wants to establish; with other provider if prefers. The following approved medication requests have been transmitted electronically. Requested Prescriptions Signed Prescriptions Disp Refills LORazepam (ATIVAN) 1 mg tablet 42 tablet 0 Sig: May take 1 tablet by mouth once daily as needed for anxiety. May also take 1-2 tablets at bedtime as needed for anxiety. Do all this for 14 days. Authorizing Provider: KRISTA GIBSON MD Curren, Janice, LPN 05/10/2025 8:55 AM Signed Message left for pt to return call to arrange appt to establish care with another provider. Allergies As of Date: 05/05/2025 (No Known Allergies) Date Reviewed: 08/08/2024 Reviewed by: Mary Barnett LPN - Fully Assessed Reason for Visit: Medication Problem [65] Visit Diagnoses:ZACH (generalized anxiety disorder) [F41.1] Bipolar 1 disorder, depressed, moderate (HCC) [F31.32] Order(s):LORazepam (ATIVAN) 1 mg tabletMay take 1 tablet by mouth once daily as needed for anxiety. May also take 1-2 tablets at bedtime as needed for anxiety. Do all this for 14 days.Disp: 42 tabletRfl: 0 Prescriptions as of 05/16/2025 - LORazepam (ATIVAN) 1 mg tablet May take 1 tablet by mouth once daily as needed for anxiety. May also take 1-2 tablets at bedtime as needed for anxiety. Do all this for 14 days. - risperiDONE (RISPERDAL) 0.25 mg tablet Take 1 tablet by mouth two times a day. Problem List As Of Date 05/05/2025 Noted Resolved Nausea and vomiting during [O21.9] 09/23/2017 08/29/2021 Tobacco use in [O99.330] 09/23/2017 04/22/2021 History of marijuana use [F12.91] 09/23/2017 04/22/2021 Patient request for diagnostic testing [Z01.89] 09/23/2017 09/01/2021 Antepartum anemia complicating in [facility]*02/14/2018 04/09/2022 History of nicotine vaping [Z87.891] 03/27/2021 History of alcohol abuse [F10.11] 03/27/2021 01/04/2023 History of anxiety [Z86.59] 03/27/2021 01/20/2024 Supervision of high risk in third [facility]*04/22/2021 04/09/2022 Obesity in [O99.210] 04/22/2021 04/09/2022 Papanicolaou [...] Bipolar 1 disorder, depressed, moderate (HCC) [*01/20/2024 Prescriptions ordered this encounter Disp Refills Start End LORAZEPAM 1 MG TABLET 42 t* 0 05/09/2025 05/23/2025 Route: PO Sig: May take 1 tablet by mouth once daily as needed for anxiety. May also take 1-2 tablets at bedtime as needed for anxiety. Do all this for 14 days. Medications Discontinued During This Encounter Prescriptions - LORazepam (ATIVAN) 1 mg tablet (Discontinued) May take 1 tablet by mouth once daily as needed for anxiety. May also take 1- (more content not included)... Normal [facility] 12 Lead EKGon 05-04-2025 12 Lead EKG [facility] Cardiovascular Services [address] [place] [address] 12 Lead EKG 05/04/25 1454 MR#: [id number] Acct: [id number] Name: JANE CHUNG Rep #: [id number] : 1995 29 From: Nga Rucker MD Attending Dr: Status: DEP ER Ordering Dr: Shade Matta DO Date: 05/04/25 Location: ED Sex: F C Admitted: Test Reason : AC Blood Pressure : */* mmHG Vent. Rate : 116 BPM Atrial Rate : 116 BPM P-R Int : 128 ms QRS Dur : 78 ms QT Int : 336 ms P-R-T Axes : 80 -20 51 degrees QTcB Int : 467 ms Sinus tachycardia Otherwise normal ECG Confirmed by ARCADIO BANDA, OUSMANE ([id number]), editorial director ADELA CARSON ([id number]) on 05/07/2025 7:34:08 AM Referred By: Confirmed By: OUSMANE RUCKER MD 05/07/25 0734 Date Nga Rucker MD CC: TRUCKING MANAGER-C Serjio Raymond; Dr. Shade Matta DO Signed Normal [facility] Abdomen/Pelvis W IV Cont ONL Yon 05-04-2025 Abdomen/Pelvis W IV Cont ONLY [facility] Imaging Services [address] [place], [place] [address] Abdomen/Pelvis W IV Cont ONLY MR#: [id number] Acct: [id number] Name: JANE CHUNG Rep #: [id number] : 1995 F 29 From: Jorge Owens MD PCP: ZEB Pittman Status: REG ER Study: Abdomen/Pelvis W IV Cont ONLY Date of Exam: Exam# [id number] Ordering Dr: Shade Matta DO EXAM: CT Abdomen and Pelvis With Intravenous Contrast CLINICAL INDICATION: ABDOMINAL PAIN TECHNIQUE: Axial computed tomography images of the abdomen and pelvis with intravenous contrast. This CT exam was performed using one or more of the following dose reduction techniques: automated exposure control, adjustment of the mA and/or kV according to patient size, and/or use of iterative reconstruction technique. COMPARISON: No relevant prior studies available. FINDINGS: LUNG BASES: Unremarkable. No mass. No consolidation. ABDOMEN: LIVER: Hepatomegaly with fatty infiltration. GALLBLADDER AND BILE DUCTS: Unremarkable. No calcified stones. No ductal dilation. PANCREAS: Unremarkable. No mass. No ductal dilation. SPLEEN: Unremarkable. No splenomegaly. ADRENALS: Unremarkable. No mass. KIDNEYS AND URETERS: Punctate nephrolithiasis without hydronephrosis, bilaterally. STOMACH AND BOWEL: Fecal retention in the colon consistent with constipation. No obstruction. No mucosal thickening. PELVIS: APPENDIX: No findings to suggest acute appendicitis. BLADDER: Unremarkable. No mass. REPRODUCTIVE: Unremarkable as visualized. ABDOMEN and PELVIS: INTRAPERITONEAL SPACE: Unremarkable. No free air. No significant fluid collection. BONES/JOINTS: No acute fracture. No dislocation. SOFT TISSUES: Umbilical hernia containing fat. VASCULATURE: Unremarkable. No abdominal aortic aneurysm. LYMPH NODES: Unremarkable. No enlarged lymph nodes. CT/Abdomen/Pelvis W IV Cont ONLY IMPRESSION: 1. Hepatomegaly with fatty infiltration. 2. Fecal retention in the colon consistent with constipation. 3. Punctate nephrolithiasis without hydronephrosis, bilaterally. 4. Umbilical hernia containing fat. Reading Location: [facility] CC: ZEB Raymond; Dr. Shade Matta, Brick Dropper: Signed Normal [facility] Absolute lymphocyte countOrd ered By: Shade Matta on 05-04-2025 Lymphocytes Auto (Unsp spec) [#/Vol] 1.78 10*3/uL 0.83-4.[address] [facility] Absolute neutrophil countOrd ered By: Shade Matta on 05-04-2025 Neutrophils (Bld) [#/Vol] 8.0 10*3/uL High 2.0-7.[address] [facility] Anion gap in Serum or Plasma Ordered By: Shade Matta on 05-04-2025 Anion gap [Moles/Vol] 14 mmol/L 5-15 [facility] Automated lymphocyte count a s percentage of total leukocytesOrdered By: Shade Matta on 05-04-2025 Lymphocytes/100 WBC Auto (Unsp spec) 17.0 % Low 19-[address] [facility] BUN/creatinine ratioOrdered By: Shade Matta on 05-04-2025 Urea nitrogen/Creatinine [Mass ratio] 7.6 mg/mg Low 10-[address] [facility] Basophil percentageOrdered B y: Shade Matta on 05-04-2025 Basophils/100 WBC (Bld) 0.4 % 0-1 [facility] Bilirubin Test strip Ql (U)O rdered By: Shade Matta on 05-04-2025 Bilirubin Ql (U) 1 mg/dL High Negative [facility] Comment on above: COLOR OF URINE MAY A FFECT DIPSTICK RESULTS. Bilirubin, totalOrdered By: Shade Matta on 05-04-2025 Bilirubin [Mass/Vol] 0.51 mg/dL 0.00-1.30 [facility] CBC W/Diff, Automatedon 04-14 Absolute Lymph 1.78 X10 3/uL Normal 0.83-4.[address] [facility] Comment on above: Performed By: #### L 503.6005, L100.0100, L500.4050, L501.2450 #### [facility] [address] [place], [address] Absolute Neut 8.0 X10 3/uL High 2.0-7.[address] [facility] Comment on above: Performed By: #### L 503.6005, L100.0100, L500.4050, L501.2450 #### [facility] [address], [address] Basophils/100 WBC (Bld) 0.4 % Normal 0-1 [facility] Comment on above: Performed By: #### L 503.6005, L100.0100, L500.4050, L501.2450 #### [facility] [address] [place], [address] Eosinophils/100 WBC (Bld) 0.8 % Normal 0-[address] [facility] Comment on above: Performed By: #### L 503.6005, L100.0100, L500.4050, L501.2450 #### [facility] [address] [place], [address] Erythrocyte distribution width (RBC) [Ratio] 14.5 % Normal 11.6-14.[address] [facility] Comment on above: Performed By: #### L 503.6005, L100.0100, L500.4050, L501.2450 #### [facility] [address], [address] Hematocrit (Bld) [Volume fraction] 47.3 % High 37-[address] [facility] Comment on above: Performed By: #### L 503.6005, L100.0100, L500.4050, L501.2450 #### [facility] [address] [place], [address] Hemoglobin (Bld) [Mass/Vol] 15.6 g/dL High 12.0-15.[address] [facility] Comment on above: Performed By: #### L 503.6005, L100.0100, L500.4050, L501.2450 #### [facility] [address] [place], [address] IG% 0.300 Normal 0.0-0.[address] [facility] Comment on above: Result Comment: IG% - Immature Granulocytes (promyelocytes, myelocytes and metamyelocytes) > 1% indicates that a LEFT SHIFT is Present. Performed By: #### L 503.6005, L100.0100, L500.4050, L501.2450 #### [facility] [address] [place], [address] Lymphocytes/100 WBC (Bld) 17.0 % Low 19-[address] [facility] Comment on above: Performed By: #### L 503.6005, L100.0100, L500.4050, L501.2450 #### [facility] [address] [place], [address] MCH (RBC) [Entitic mass] 27.3 pg Normal 27.0-32.[address] [facility] Comment on above: Performed By: #### L 503.6005, L100.0100, L500.4050, L501.2450 #### [facility] [address] [place], [address] MCHC (RBC) [Mass/Vol] 33.0 g/dL Normal 32-36 [facility] Comment on above: Performed By: #### L 503.6005, L100.0100, L500.4050, L501.2450 #### [facility] [address] [place], [address] MCV (RBC) [Entitic vol] 82.7 fL Normal 81-99 [facility] Comment on above: Performed By: #### L 503.6005, L100.0100, L500.4050, L501.2450 #### [facility] [address] [place], [address] Monocytes/100 WBC (Bld) 5.5 % Normal 0-10 [facility] Comment on above: Performed By: #### L 503.6005, L100.0100, L500.4050, L501.2450 #### [facility] [address] [place], [address] Neutrophils/100 WBC (Bld) 76.0 % High 47-[address] [facility] Comment on above: Performed By: #### L 503.6005, L100.0100, L500.4050, L501.2450 #### [facility] [address], [address] Nucleated RBC (Bld) [#/Vol] 0 10*3/uL Normal 0-[address] [facility] Comment on above: Performed By: #### L 503.6005, L100.0100, L500.4050, L501.2450 #### [facility] [address], [address] Platelet mean volume (Bld) [Entitic vol] 11.2 fL Normal 6.2-12.[address] [facility] Comment on above: Performed By: #### L 503.6005, L100.0100, L500.4050, L501.2450 #### [facility] [address], [address] Platelets (Bld) [#/Vol] 309 10*3/uL Normal 150-[address] [facility] Comment on above: Performed By: #### L 503.6005, L100.0100, L500.4050, L501.2450 #### [facility] [address] [place], [address] RBC (Bld) [#/Vol] 5.72 10*6/uL High 4.2-5.4 [facility] Comment on above: Performed By: #### L 503.6005, L100.0100, L500.4050, L501.2450 #### [facility] [address] [place], [address] RDW SD 42.6 fl Normal 35.1-43.[address] [facility] Comment on above: Performed By: #### L 503.6005, L100.0100, L500.4050, L501.2450 #### [facility] [address] [place], [address] WBC (Bld) [#/Vol] 10.5 10*3/uL Normal 4.4-11.0 [facility] Comment on above: Performed By: #### L 503.6005, L100.0100, L500.4050, L501.2450 #### [facility] [address] [place], [address] Carbon dioxide, total [Moles /volume] in Central venous bloodOrdered By: Shade Matta on 05-04-2025 CO2 [Moles/Vol] 25.6 mmol/L 21.0-32.[address] [facility] Chloride assayOrdered By: Alison Matta on 05-04-2025 Chloride [Moles/Vol] 102 mmol/L 98-108 [facility] Comprehensive Metabolic Prof ilon 05-04-2025 Albumin [Mass/Vol] 4.2 g/dL Normal 3.5-5.0 [facility] Comment on above: Performed By: #### L 503.6005, L100.0100, L500.4050, L501.2450 #### [facility] [address] [place], [address] Albumin/Globulin [Mass ratio] 1.4 {ratio} Normal 0.9-2.[address] [facility] Comment on above: Performed By: #### L 503.6005, L100.0100, L500.4050, L501.2450 #### [facility] [address], [address] ALK PHOS 85 U/L Normal 35-[address] [facility] Comment on above: Performed By: #### L 503.6005, L100.0100, L500.4050, L501.2450 #### [facility] [address] [place], [address] ALT [Catalytic activity/Vol] 9 U/L Normal <=[address] [facility] Comment on above: Performed By: #### L 503.6005, L100.0100, L500.4050, L501.2450 #### [facility] [address] [place], [address] AST [Catalytic activity/Vol] 17 U/L Normal <=[address] [facility] Comment on above: Performed By: #### L 503.6005, L100.0100, L500.4050, L501.2450 #### [facility] [address] [place], [address] Bilirubin [Mass/Vol] 0.51 mg/dL Normal 0.00-1.30 [facility] Comment on above: Performed By: #### L 503.6005, L100.0100, L500.4050, L501.2450 #### [facility] [address] [place], [address] BUN/CRE 7.6 RATIO Low 10-[address] [facility] Comment on above: Performed By: #### L 503.6005, L100.0100, L500.4050, L501.2450 #### [facility] [address], [address] Calcium [Mass/Vol] 9.7 mg/dL Normal 7.6-11.0 [facility] Comment on above: Performed By: #### L 503.6005, L100.0100, L500.4050, L501.2450 #### [facility] [address], [address] Chloride [Moles/Vol] 102 mmol/L Normal 98-108 [facility] Comment on above: Performed By: #### L 503.6005, L100.0100, L500.4050, L501.2450 #### [facility] [address] [place], [address] CO2 [Moles/Vol] 25.6 mmol/L Normal 21.0-32.[address] [facility] Comment on above: Performed By: #### L 503.6005, L100.0100, L500.4050, L501.2450 #### [facility] [address] [place], [address] Creatinine [Mass/Vol] 0.74 mg/dL Normal 0.70-1.20 [facility] Comment on above: Performed By: #### L 503.6005, L100.0100, L500.4050, L501.2450 #### [facility] [address], [address] ECRCL 106.90 ml/min Normal 50-[address] [facility] Comment on above: Performed By: #### L 503.6005, L100.0100, L500.4050, L501.2450 #### [facility] [address], [address] GAP 14 Normal 5-[address] [facility] Comment on above: Performed By: #### L 503.6005, L100.0100, L500.4050, L501.2450 #### [facility] [address] [place], [address] GFR/1.73 sq M.predicted among non-blacks MDRD (S/P/Bld) [Vol rate/Area] 114 mL/min/{1.73_m2} Normal >[address] [facility] Comment on above: Result Comment: mL/m in/1.73m2 CKD-EPI Creatinine Equation (2020) Performed By: #### L 503.6005, L100.0100, L500.4050, L501.2450 #### [facility] [address], [address] Globulin (S) [Mass/Vol] 3.1 g/dL Normal 2.2-4.2 [facility] Comment on above: Performed By: #### L 503.6005, L100.0100, L500.4050, L501.2450 #### [facility] [address] [place], [address] Glucose [Mass/Vol] 180 mg/dL High 70-99 [facility] Comment on above: Performed By: #### L 503.6005, L100.0100, L500.4050, L501.2450 #### [facility] [address] [place], [address] Potassium [Moles/Vol] 3.8 mmol/L Normal 3.3-5.1 [facility] Comment on above: Performed By: #### L 503.6005, L100.0100, L500.4050, L501.2450 #### [facility] [address] [place], [address] Sodium [Moles/Vol] 142 mmol/L Normal 133-145 [facility] Comment on above: Performed By: #### L 503.6005, L100.0100, L500.4050, L501.2450 #### [facility] [address], [address] T PROT 7.4 g/dL Normal 5.9-8.[address] [facility] Comment on above: Performed By: #### L 503.6005, L100.0100, L500.4050, L501.2450 #### [facility] [address] [place], [address] Urea nitrogen [Mass/Vol] 6 mg/dL Normal 4-[address] [facility] Comment on above: Performed By: #### L 503.6005, L100.0100, L500.4050, L501.2450 #### [facility] [address] [place], [address] Emergency Department Summary on 05-04-[address] Department [address] [facility] Medical Records Department [address] [facility] [place] [address] Emergency Department Summary 05/04/25 MR#: [id number] Acct: [id number] Name: JANE CHUNG Rep #: [id number] : 1995 29 From: Shade Matta DO PCP: ZEB Pittman Status:DEP ER Location: ED ADDENDUM by Dr. Shade Matta DO on 05/04/25 at 2259 EKG with sinus tachycardia rate 116, left axis deviation, normal intervals, no STEMI 05/04/25 2259 Cosigner Signature (if applicable): cc: TRUCKING MANAGER-C Serjio Raymond * Signed HPI History of Present Illness Chief Complaint: General Ill[facility] Medical History Bipolar disorder History of anxiety History of alcohol abuse Anxiety Vaginal delivery Marijuana abuse Home Medications ???Medication ???Instructions ???Recorded ???Last Taken ???Type albuterol sulfate 90 mcg/actuation 1 inh inhalation Q6H #1 ea 05/04 Unknown Rx breath activated powder inhaler lorazepam 1 mg tablet 1 mg PO DAILY PRN anxiety 05/04/25 Unknown History ondansetron 4 mg disintegrating 4 mg PO Q8H PRN PRN Nausea #10 tab s 05/04/25 Unknown Rx tablet Allergy/AdvReac Type Severity Reaction Status Date / Time No Known Allergies Allergy Verified 05/04/25 14:12 Surgical History History of surgery Social History Smoking Status: Current every day smoker tobacco type: e-cigarettes Electronic Cigarette Use: with nicotine EXAM Physical Exam Const Vital Signs: 05/04/25 14:12 05/04/25 15:03 05/04/25 16:12 Temperature 98.4 F Temperature Source Oral Pulse Rate 146 H 102 H Respiratory Rate 20 H 18 Respiratory Effort Normal Non-Labored Respiratory Pattern Normal Blood Pressure 136/119 H 101/67 Blood Pressure Mean 124 78 Pulse Ox 98 100 Oxygen Delivery Method Room Air Room Air 05/04/25 18:06 Temperature Temperature Source Pulse Rate 87 Respiratory Rate 16 Respiratory Effort Respiratory Pattern Blood Pressure 112/75 Blood Pressure Mean 87 Pulse Ox 93 Oxygen Delivery Method Room Air [facility] MDM Narrative Medical decision making narrative: HISTORY OF PRESENT ILLNESS: Chief complaint: Fatigue 29-year-old female presents with concern for dehydration and fatigue. Notes she did have intractable nausea and vomiting Has not had a bowel movement. Denies history of belly surgery. No urinary complaints. Notes nonbloody nonbilious vomitus. No melena medic easier noted. No vaginal bleeding or discharge. No burning with urination. No chest pain or shortness of breath REVIEW OF SYSTEMS: Pertinent positives: Fatigue, dizziness, nausea vomiting Pertinent negatives: As per HPI PHYSICAL EXAM: Nursing triage notes reviewed, Vital signs reviewed Constitutional: please see mdm HENT: MMM Eyes: Pupils equal round and reactive to light, Extraocular muscles intact Neck: No stridor, no JVD, full neck ROM Lungs: Clear to auscultation, No wheezing or rales. No increased work of breathing, no conversational dyspnea, no accessory muscle use, no nasal flaring. No respiratory distress noted Heart: Regular rate and rhythm, No murmurs, No rubs and No gallops, 2+ distal pulses (radial, femoral, posterior tibial) in all extremities Abdomen: Soft, there is no tenderness, rigidity, rebound or guarding, no obvious peritoneal signs, no palpable pulsatile abdominal masses, no auscultated abdominal bruit : No CVAT Extremities: No edema Neuro: No new focal neurological deficits, cranial nerves II through XII intact, 5/5 strength in all present extremities. Intact sensation to light touch in all present extremities, 2+ reflexes bilateral patella tendons. Skin: No rash MEDICAL DECISION MAKING: Chief Complaint: please see HPI External records reviewed: Reviewed prior imaging studies Factors affecting care: anxiety, alcohol abuse Social determinants of health: History of alcohol History obtained from others: significant other Consults: none MDM Narrative: Patient was initially hemodynamically stable, tachycardic but afebrile and nontoxic-appearing. I considered the following differential diagnosis: AAA, small bowel obstruction, abdominal perforation, appendicitis, pancreatitis, hepatobiliary pathology (acute cholecystitis), mesenteric ischemia, pathology (ie nephrolithiasis, pyelonephritis). I obtained a broad lab and imaging workup to further determine if the patient was suffering from a life-threatening etiology. Initially treat the patient IV fluids, Zofran and morphine for pain. ALL IMAGES (IF OBTAINED) HAVE BEEN PERSONALLY REVIEWED AND INTERPRETED B (more content not included)... Normal [facility] Eosinophil percentageOrdered By: Shade Matta on 05-04-2025 Eosinophils/100 WBC (Bld) 0.8 % 0-[address] [facility] Erythrocyte distribution wid th ratioOrdered By: Shade Matta on 05-04-2025 Erythrocyte distribution width (RBC) [Ratio] 14.5 % 11.6-14.[address] [facility] Erythrocyte distribution wid th standard deviationOrdered By: Shade Matta on 05-04-2025 Erythrocyte distribution width (RBC) [Ratio] 42.6 fl 35.1-43.[address] [facility] Glomerular filtration rate ( GFR) estimation/1.73 sq m using serum, plasma, or whole bOrdered By: Shade Matta on 05-04-2025 GFR/1.73 sq M.predicted among non-blacks MDRD (S/P/Bld) [Vol rate/Area] 114 mL/min/{1.73_m2} >[address] [facility] Comment on above: mL/min/1.73m2 CKD-EP I Creatinine Equation (2020) Hematocrit Auto (Bld) [Volum e fraction]Ordered By: Shade Matta on 05-04-2025 Hematocrit (Bld) [Volume fraction] 47.3 % High 37-[address] [facility] Hemoglobin measurementOrdere d By: Shade Matta on 05-04-2025 Hemoglobin (Bld) [Mass/Vol] 15.6 g/dL High 12.0-15.[address] [facility] Immature granulocytes/100 WB C Auto (Bld)Ordered By: Shade Matta on 05-04-2025 Immature granulocytes/100 WBC (Bld) 0.300 % 0.0-0.[address] [facility] Comment on above: IG% - Immature Granu locytes (promyelocytes, myelocytes and metamyelocytes) > 1% indicates that a LEFT SHIFT is Present. Ketones Test strip Ql (U)Ord ered By: Shade Matta on 05-04-2025 Ketones Ql (U) 50 mg/dl High Negative [facility] L501.4021on 05-04-2025 Trop T High Sen 7 ng/L Normal <=[address] [facility] Comment on above: Performed By: #### L 501.4021 ####[facility] [address] [place], [place], [id number] Laboratory - Chemistry and C hemistry - challengeOrdered By: Shade Matta on 05-04-2025 AST [Catalytic activity/Vol] 17 U/L <[address] [facility] Lactic Acidon 05-04-2025 Lactate [Moles/Vol] mmol/L Normal 0.0-2.0 [facility] Comment on above: Performed By: #### L 503.6005 ####[facility] [address] [place], [place], [id number] Lactate [Moles/Vol] 2.0 mmol/L Normal 0.0-2.0 [facility] Comment on above: Order Comment: Y Result Comment: Crit ical Result(s) Called to: Silvestre MALLORY (ER) by: Karthikeyan??Results read back by same. Performed By: #### L 503.6005, L100.0100, L500.4050, L501.2450 #### [facility] [address] [place], [place], [id number] Lactic acid measurementOrder ed By: Shade Matta on 05-04-2025 Lactate [Moles/Vol] mmol/L 0.0-2.0 [facility] Lipaseon 05-04-2025 Lipase [Catalytic activity/Vol] 57 U/L Normal 13-[address] [facility] Comment on above: Result Comment: Sylvester champion note: LIPASE revised reference range effective 22. New Lipase methodology. Expected to produce lower values than the previous assay method. NEW Reference Range: 13 - 75 U/L Performed By: #### L 503.6005, L100.0100, L500.4050, L501.2450 #### [facility] [address], [address] Lipase measurementOrdered By : Shade Matta on 05-04-2025 Lipase [Catalytic activity/Vol] 57 U/L 13-[address] [facility] Comment on above: Please note:LIPASE r evised reference range effective 22. New Lipase methodology. Expected to produce lower values than the previous assay method. NEW Reference Range: 13 - 75 U/L MCV (mean corpuscular volume ) determinationOrdered By: Shade Matta on 05-04-2025 MCV (RBC) [Entitic vol] 82.7 fL 81-99 [facility] Mean corpuscular hemoglobin (MCH) determinationOrdered By: Shade Matta on 05-04-2025 MCH (RBC) [Entitic mass] 27.3 pg 27.0-32.[address] [facility] Mean corpuscular hemoglobin concentration (MCHC) determinationOrdered By: Shade Matta on 05-04-2025 MCHC (RBC) [Mass/Vol] 33.0 g/dL 32-36 [facility] Mean platelet volume determi nationOrdered By: Shade Matta on 05-04-2025 Platelet mean volume (Bld) [Entitic vol] 11.2 fL 6.2-12.[address] [facility] Microscopic analysis of urin e for red blood cells (RBC)Ordered By: Shade Matta on 05-04-2025 Microscopic analysis of urine for red blood cells (RBC) 10-25 SEEN /hpf 0-[address] [facility] Monocyte percentageOrdered B y: Shade Matta on 05-04-2025 Monocytes/100 WBC (Bld) 5.5 % 0-10 [facility] Mucus LM Ql (Urine sed)Order ed By: Shade Matta on 05-04-2025 Mucus Ql (Urine sed) 2+ /hpf [facility] Neutrophil percentageOrdered By: Shade Matta on 05-04-2025 Neutrophils/100 WBC (Bld) 76.0 % High 47-[address] [facility] Nitrite Test strip Ql (U)Ord ered By: Shade Matta on 05-04-2025 Nitrite Ql (U) Negative Negative [facility] Nucleated red blood cell per centageOrdered By: Shade Matta on 05-04-2025 Nucleated RBC/100 WBC (Bld) [Ratio] 0 % 0-[address] [facility] Platelet countOrdered By: lAison Matta on 05-04-2025 Platelets (Bld) [#/Vol] 309 10*3/uL 150-[address] [facility] Potassium measurement (mass/ volume)Ordered By: Shade Matta on 05-04-2025 Potassium (Unsp spec) [Mass/Vol] 3.8 mmol/L 3.3-5.[address] [facility] ,Urineon 05-04-2025 Beta HCG ( test) Ql (U) Negative Normal [facility] Comment on above: Result Comment: Very dilute urine specimens, as indicated by a low specific gravity, may not contain technical service representative levels of hCG. If is still suspected, a first morning urine specimen should be collected 48 hours later and tested. Performed By: #### L 400.0001, L400.7600 #### [facility] [address] [place] [address]. [place], [address] Protein Test strip Ql (U)Ord ered By: Shade Matta on 05-04-2025 Protein Ql (U) 30 mg/dl High Negative [facility] RBC Auto (Bld) [#/Vol]Ordere d By: Shade Matta on 05-04-2025 RBC (Bld) [#/Vol] 5.72 10*6/uL High 4.2-5.4 [facility] Serum creatinine measurement (mass/volume)Ordered By: Shade Matta on 05-04-2025 Creatinine [Mass/Vol] 0.74 mg/dL 0.70-1.20 [facility] Serum globulin measurementOr dered By: Shade Matta on 05-04-2025 Globulin (S) [Mass/Vol] 3.1 g/dL 2.2-4.2 [facility] Serum glucose measurement (m ass/volume)Ordered By: Shade Matta on 05-04-2025 Glucose [Mass/Vol] 180 mg/dL High 70-99 [facility] Serum or plasma alanine paulino otransferase (ALT) measurementOrdered By: Shade Matta on 05-04-2025 ALT [Catalytic activity/Vol] 9 U/L <[address] [facility] Serum or plasma albumin leonardo urement (mass/volume)Ordered By: Shade Matta on 05-04-2025 Albumin [Mass/Vol] 4.2 g/dL 3.5-5.0 [facility] Serum or plasma albumin/glob ulin mass ratioOrdered By: Shade Matta on 05-04-2025 Albumin/Globulin [Mass ratio] 1.4 {ratio} 0.9-2.[address] [facility] Serum or plasma alkaline jim sphatase measurementOrdered By: Shade Matta on 05-04-2025 ALP [Catalytic activity/Vol] 85 U/L 35-[address] [facility] Serum or plasma calcium leonardo urement (mass/volume)Ordered By: Shade Matta on 05-04-2025 Calcium [Mass/Vol] 9.7 mg/dL 7.6-11.0 [facility] Serum or plasma urea nitroge n measurement (mass/volume)Ordered By: Shade Matta on 05-04-2025 Urea nitrogen [Mass/Vol] 6 mg/dL 4-[address] [facility] Sodium levelOrdered By: Kaenu Matta on 05-04-2025 Sodium [Moles/Vol] 142 mmol/L 133-145 [facility] Squamous epithelial cells de tection in urine sediment by light microscopyOrdered By: Shade Matta on 05-04-2025 Epithelial cells.squamous LM Ql (Urine sed) 10-25 SEEN /hpf 5-[address] [facility] Total proteinOrdered By: The rubio Paxton on 05-04-2025 Protein [Mass/Vol] 7.4 g/dL 5.9-8.4 [facility] Troponin T.cardiac [Mass/vol ume] in Serum or Plasma by High sensitivity methodOrdered By: Shade Matta on 05-04-2025 Troponin T.cardiac High sensitivity method [Mass/Vol] 7 ng/L <[address] [facility] Urinalysis, Completeon 05-04 Mucus Ql (Urine sed) 2+ /hpf Normal [facility] Comment on above: Order Comment: CLEAN CATCH Performed By: #### L 400.0001, L400.7600 #### [facility] [address] [place], [address] WBC 25-50 SEEN Normal 0-[address] [facility] Comment on above: Order Comment: CLEAN CATCH Performed By: #### L 400.0001, L400.7600 #### [facility] [address] [place], [address] BACTERIA 1+ /hpf Normal None Seen [facility] Comment on above: Order Comment: CLEAN CATCH Performed By: #### L 400.0001, L400.7600 #### [facility] [address] [place], [address] RBC 10-25 SEEN Normal 0-[address] [facility] Comment on above: Order Comment: CLEAN CATCH Performed By: #### L 400.0001, L400.7600 #### [facility] [address] [place], [address] EPI,SQUAMOUS 10-25 SEEN Normal 5-[address] [facility] Comment on above: Order Comment: CLEAN CATCH Performed By: #### L 400.0001, L400.7600 #### [facility] [address] [place], [address] Urine clarityOrdered By: Eufemia Matta on 05-04-2025 Clarity (U) Sl. Cloudy Clear [facility] Urine color determinationOrd ered By: Shade Matta on 05-04-2025 Color (U) Yellow Yellow [facility] Urine glucose detectionOrder ed By: Shade Matta on 05-04-2025 Glucose Ql (U) Normal mg/dl Normal [facility] Urine leukocyte esterase det ection by dipstickOrdered By: Shade Matta on 05-04-2025 Leukocyte esterase Test strip Ql (U) 100 /ul High Negative [facility] Urine pHOrdered By: Shade reddy on 05-04-2025 pH (U) 6.0 [pH] 5.0 - 8.[address] [facility] Urine testOrdered By: Shade Matta on 05-04-2025 HCG ( test) Ql (U) Negative [facility] Comment on above: Very dilute urine sp ecimens, as indicated by a low specificgravity, may not contain technical service representative levels of hCG. If is still suspected, a first morning urinespecimen should be collected 48 hours later and tested. Urine sediment bacteria coun t by microscopy (number/high power field)Ordered By: Shade Matta on 05-04-2025 Bacteria LM.HPF (Urine sed) [#/Area] 1 /[HPF] None Seen [facility] Urine specific gravity measu rementOrdered By: Shade Matta on 05-04-2025 Specific gravity (U) [Rel density] 1.025 1.002-1.[address] [facility] Urine urobilinogen measureme ntOrdered By: Shade Matta on 05-04-2025 Urobilinogen Ql (U) 1 mg/dl High Normal [facility] White blood cell (WBC) count Ordered By: Shade Matta on 05-04-2025 WBC (Bld) [#/Vol] 10.5 10*3/uL 4.4-11.0 [facility] White blood cell countOrdere d By: Shade Matta on 05-04-2025 White blood cell count 25-50 SEEN /hpf 0-[address] [facility] CNPNon 12-28-2024 CNPN Telephone (OBGYWM) -------- JANE CHUNG Bonnie ([id number]) 1995 F Date Time Provider Department 12/28/24 NANDA HICKS JEREMIAS During your visit today, we recorded the following information about you: Ernestina Israel RN 12/28/2024 11:53 AM Signed Patient called with c/o being 2 days late with her menses. LMP 11/28. Took x2 negative UPT. Patient asking about ordering blood work to check hcg level. Advised that we can schedule her an appointment to discuss with a provider, or she can wait until she is a week late and take another test if her menses does not start. Patient prefers to wait and call back if she needs a visit. Ernestina Israel RN Allergies As of Date: 12/28/2024 (No Known Allergies) Date Reviewed: 08/08/2024 Reviewed by: Mary Barnett LPN - Fully Assessed Reason for Visit: Missed Menses [Other] Prescriptions as of 12/28/2024 - risperiDONE (RISPERDAL) 0.25 mg tablet Take 1 tablet by mouth two times a day. - LORazepam (ATIVAN) 1 mg tablet May take 1 tablet by mouth once daily as needed for anxiety. May also take 1-2 tablets at bedtime as needed for anxiety. Do all this for 30 days. Patient should start on December 10, 2024. Problem List As Of Date 12/28/2024 Noted Resolved Nausea and vomiting during [O21.9] [...] depressed, moderate (HCC) [*01/20/2024 Encounter Status:Closed by ERNESTINA ISRAEL [facility] JANE CHUNG ([id number]) 1995 F Date Time Provider Department 11/22/24 SERJIO RAYMOND During your visit today, we recorded the following information about you: Maura Hargrove, RN 11/22/2024 12:23 PM Signed Patient calls to ask if provider would give authorization for her to curing pickling packer her Vraylar and lorazepam medications at [facility] today before 4 pm as she is going out of town tomorrow and it is too soon to fill both medications. Call placed to Gwen at [facility] and they are in process of filling Vraylar and patient can fill lorazepam on 11/30/2024. Call placed back to patient who reports the problem was DM only dispensed 60 pills of lorazepam so she doesn't have enough to get through until the 20 th plus she is leaving to go out of town tomorrow. See notes from 11/10/2024 refill request also. Patient asking if provider will please authorize the early fill date of lorazepam. SHAWNEE Spear Rosa, APRN.MICROFILM DUPLICATING UNIT SUPERVISOR 11/22/2024 12:54 PM Signed Can we see how long she is going out of town for? What date is she leaving and returning. The Vraylar should be ready for her but I just have to clarify for the Ativan. Lucita Kay LPN 11/22/2024 2:09 PM Signed Patient returned call and went over notes below from Serjio Raymond TRUCKING MANAGER, patient said she is leaving tomorrow 11/23 and will be back on 12/08. She said [facility] had only given her 60 Lorazepam with her last refill, pharmacy told her they could give her the other 30 on 11/30, but she will be gone. Serjio Raymond APRN.MICROFILM DUPLICATING UNIT SUPERVISOR 11/22/2024 2:43 PM Signed Script sent authorizing early refill x1 Crissy Garcia LPN 11/22/2024 2:49 PM Signed PATIENT NOTIFIED OF SAME. Aster Waggoner RN 11/22/2024 4:46 PM Signed Patient calls and is upset because [facility] still will not fill Ativan. Called and spoke with Norr pharmacist at [facility]. Norr reports that she cannot refill medication early even if patient is going on vacation. Patient had refills of the followin10/13/2024- 90 tablets for 30 days 11/10/2024- 60 tablets for 30 days Pharmacy has 2 different sets of instructions of medications on file with 2 different sets of directions. Last refill was with the directions of 1 tablet twice a day. [facility] won't fill prescription early. Pharmacy did give patient the option of having prescription sent to pharmacy that patient is vacationing in when medication is due or sending prescription to a different prescription. Norr said they went over the options for patient with the patient. Please review and advise, Aster Waggoner RN Serjio Raymond APRN.MICROFILM DUPLICATING UNIT SUPERVISOR 11/24/2024 7:54 AM Signed Okay noted, can we call and see how she wants to proceed? Does she want a script sent to where she is going once she is there? Crissy Garcia LPN 11/24/2024 9:47 AM Signed LEFT MESSAGE FOR PATIENT TO CALL OFFICE. Allergies As of Date: 11/22/2024 (No Known Allergies) Date Reviewed: 08/08/2024 Reviewed by: Mary Barnett LPN - Fully Assessed Reason for Visit: Medication Problem [65] Visit Diagnoses:ZACH (generalized anxiety disorder) [F41.1] Bipolar 1 disorder, depressed, moderate (HCC) [F31.32] Order(s):LORazepam (ATIVAN) 1 mg tabletTake one tablet in morning as needed and 1-2 tablets at bedtime as needed. Okay to refill early x1 on 11/22/2024 due to patient will be out of town when refill is dueDisp: 90 tabletRfl: 0 Prescriptions as of 11/24/2024 - LORazepam (ATIVAN) 1 mg tablet Take one tablet in morning as needed and 1-2 tablets at bedtime as needed. Okay to refill early x1 on 11/22/2024 due to patient will be out of town when refill is due - cariprazine (VRAYLAR) 1.5 mg capsule Take 1 capsule by mouth once daily. - cariprazine (VRAYLAR) 3 mg capsule Take 1 capsule by mouth once daily. Problem List As Of Date 11/22/2024 Noted Resolved Nausea and vomiting during [O21.9] [...] 04/09/2022 ZACH (generalized anxiety disorder) [F41.1] 01/08/2023 Alco (more content not included)... Normal [facility] CNOVon 08-08-2024 CNOV Office Visit (UCWSTR ) -------- JANE CHUNG ([id number]) 1995 F Date Time Provider Department 08/08/24 9:15 AM SERGIO TYSON WSTR During your visit today, we recorded the following information about you: Temperature Pulse Respiration Blood pressure 97.5 degrees 96/minute 18/minute 133/86 Weight Last Period 79.6 kg 07/21/24 Sergio Tyson PA-C 08/08/2024 10:02 AM Signed This note was created using NoteWriter. Subjective Jane Chung is a 28 year old female. HPI Presents with a chief complaint of dental pain for a few months. She states she saw her dentist for a cleaning and had mentioned that she had a few cavities that may need filled. She has not followed up yet. She was not having pain at that time. The past few weeks pain has worsened. And also complaining of cough and congestion for the past week. She has had some hot flashes and bodyaches for the past 2 days. She has not taken her temperature at home. Her significant other is sick with similar symptoms. No chest pain or shortness of breath. No history of asthma. She states she does vape. No diarrhea or vomiting. Review of Systems Constitutional: Positive for fatigue. Hot flashes HENT: Positive for congestion, dental problem and sore throat. Negative for ear pain. Respiratory: Positive for cough. Negative for shortness of breath and wheezing. Cardiovascular: Negative. Gastrointestinal: Negative. Musculoskeletal: Positive for myalgias. All other systems reviewed and are negative. PAST MEDICAL HISTORY Diagnosis Date Alcohol use disorder 01/20/2024 Anemia complicating , third trimester 02/14/2018 anxiety Depression 01/20/2024 fracture 2016 right hand, punched something and fractures the hand NEGATIVE MEDICAL HISTORY Papanicolaou smear of cervix with low grade squamous intraepithelial lesion (LGSIL) 04/23/2021 Current Outpatient Medications Medication Sig Dispense Refill cariprazine (VRAYLAR) 1.5 mg capsule Take 1 capsule by mouth once daily. 30 capsule 3 LORazepam (ATIVAN) 1 mg tablet Take 1 tablet by mouth two times a day as needed for up to 30 days. 60 tablet 0 amoxicillin-clavulanate potassium (AUGMENTIN) 875-125 mg per tablet Take 1 tablet by mouth two times a day for 7 days. 14 tablet 0 No current facility-administered medications for this visit. PAST SURGICAL HISTORY Procedure Laterality Date TONSILLECTOMY HX FAMILY HISTORY Problem Relation Age of Onset Diabetes Mother Type II Thyroid Mother other (brain aneurysm) Father other (Lupus) Sister No Known Problems Sister No Known Problems Brother No Known Problems Brother No Known Problems Brother No Known Problems Brother Hypertension Maternal Grandmother Coronary Artery Disease Maternal Grandmother Triple CAB twice Heart Maternal Grandmother 4 SC's, Congestive Heart Failure Arthritis Maternal Grandmother Colon Cancer Maternal Grandfather No Known Problems Paternal Grandmother Seizures Paternal Grandfather Social History Tobacco Use Smoking status: Former Current packs/day: 0.00 Types: Cigarettes Start date: 10/28/2012 Quit date: 10/28/2020 Years since quittin.7 Smokeless tobacco: Never Tobacco comments: E-cigarettes sometimes Vaping Use Vaping status: current everyday user Substances: Nicotine Devices: Disposable Substance Use Topics Alcohol use: Yes Alcohol/week: 42.0 standard drinks of alcohol Types: 42 Cans of beer per week Drug use: Yes Types: Marijuana Comment: none since 08/2017 Objective BP 133/86 Pulse 96 Temp 36.4 ?C (97.5 ?F) Resp 18 Wt 79.6 kg (175 lb 7.8 oz) LMP 07/21/2024 (Exact Date) SpO2 98% BMI 28.32 kg/m? Physical Exam Vitals reviewed. Constitutional: Appearance: Normal appearance. HENT: Head: Normocephalic and atraumatic. Right Ear: Tympanic membrane, ear canal and external ear normal. Left Ear: Tympanic membrane, ear canal and external ear normal. Nose: Congestion present. Mouth/Throat: Mouth: Mucous membranes are moist. Pharynx: Oropharynx is clear. Comments: Patient has multiple dental caries noted. No sign of drainable abscess. No trismus. No overlying facial swelling. Cardiovascular: Rate and Rhythm: Normal rate and regular rhythm. Heart sounds: Normal heart sounds. Pulmonary: Effort: Pulmonary effort is normal. Breath sounds: Normal breath sounds. Musculoskeletal: Cervical back: Neck supple. Lymphadenopathy: Cervical: No cervical adenopathy. Skin: General: Skin is warm and dry. Neurological: Mental Status: She is alert. Assessment and Plan ASSESSMENT/PLAN: 1. Acute cough - ICD9: 786.2, ICD10: R05.1 (primary diagnosis) X-ray ordered, patient will go to [facility] due to x-ray being closed here at [facility]. Will call on results and treat accordingly. - XR CHEST 2V FRONTAL/LAT 2. Chronic d (more content not included)... Normal [facility] Melanie 07-19-2024 BESSY Telephone (INTMWS) -------- JANE CHUNG ([id number]) 1995 F Date Time Provider Department 07/19/24 SERJIO RAYMOND During your visit today, we recorded the following information about you: Sonja Avalos LPN 07/19/2024 9:50 AM Signed Pt is scheduled for an office visit today at 11:40 with Serjio, pt states her car broke down AND she is asking if she can do virtual instead? Please notify pt. MARINO Fisher Julia, LPN 07/19/2024 10:10 AM Signed Appointment switched to a virtual visit. Allergies As of Date: 07/19/2024 (No Known Allergies) Date Reviewed: 06/21/2024 Reviewed by: Serjio Raymond APRN.MICROFILM DUPLICATING UNIT SUPERVISOR - Fully Assessed Reason for Visit: Appointment Question [Other]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 12-01-2021 Amphetamine (U) [Moles/Vol] Negative [facility] Work Phone: Urine phencyclidine (PCP) de tectionon 12-01-2021 Phencyclidine Ql (U) Negative [facility] Work Phone: No Panel Informationon 11-21 Vaginal Amniotic Fluid Detection Negative Negative [facility] Work Phone: Comment on above: Amniotic fluid not p resent indicates No Rupture of FetalMembranes at time of specimen collection. Vital Signs Date Time Vital Sign Value Performing Clinician Facility 05-04-2025 19:53-0400 Body temperature 98 [degF] Serjio Mandi TRUCKING MANAGER-C Work Phone: [facility] 05-04-2025 19:53-0400 Diastolic blood pressure 77 mm[Hg] Serjio Mandi TRUCKING MANAGER-C Work Phone: [facility] 05-04-2025 19:53-0400 Heart rate 67 /min Serjio Mandi TRUCKING MANAGER-C Work Phone: [facility] 05-04-2025 19:53-0400 Respiratory rate 16 /min Serjio Mandi TRUCKING MANAGER-C Work Phone: [facility] 05-04-2025 19:53-0400 SaO2% (BldA) [Mass fraction] 98 % Serjio Mandi TRUCKING MANAGER-C Work Phone: [facility] 05-04-2025 19:53-0400 Systolic blood pressure 117 mm[Hg] Serjio Mandi TRUCKING MANAGER-C Work Phone: [facility] 05-04-2025 14:12-0400 Body height 167.64 cm Serjio Mandi TRUCKING MANAGER-C Work Phone: [facility] 05-04-2025 14:12-0400 Body mass index (BMI) [Ratio] 25 kg/m2 Serjio Mandi TRUCKING MANAGER-C Work Phone: [facility] 05-04-2025 14:12-0400 Body weight 70.5 kg Serjio Mandi TRUCKING MANAGER-C Work Phone: [facility] 08-08-2024 09:18-0500 Body mass index (BMI) [Ratio] 28.32 kg/m2 Sergio Tyson PA-C Work Phone: [facility] 08-08-2024 09:18-0500 Body temperature 97.5 [degF] Sergio Athy PA-C Work Phone: [facility] 08-08-2024 09:18-0500 Body weight 79.6 kg Sergio Athy PA-C Work Phone: [facility] 08-08-2024 09:18-0500 Diastolic blood pressure 86 mm[Hg] Sergio Athy PA-C Work Phone: [facility] 08-08-2024 09:18-0500 Heart rate 96 /min Sergio Athy PA-C Work Phone: [facility] 08-08-2024 09:18-0500 Respiratory rate 18 /min Sergio Athy PA-C Work Phone: [facility] 08-08-2024 09:18-0500 SaO2% (BldA) [Mass fraction] 98 % Sergio Athy PA-C Work Phone: [facility] 08-08-2024 09:18-0500 Systolic blood pressure 133 mm[Hg] Sergio Athy PA-C Work Phone: [facility] 06-21-2024 13:51-0400 Diastolic blood pressure 94 mm[Hg] Serjio Mandi [employer]ATING [employer] SUPERVISOR Work Phone: [facility] 06-21-2024 13:51-0400 Systolic blood pressure 128 mm[Hg] Serjio Mandi [employer]PLICATING [employer] SUPERVISOR Work Phone: [facility] 06-21-2024 13:48-0400 Body mass index (BMI) [Ratio] 26.69 kg/m2 Serjio Mandi [employer]PLICATING [employer]IT SUPERVISOR Work Phone: [facility] 06-21-2024 13:48-0400 Body weight 75 kg Serjio Mandi [employer]PLICATING [employer]IT SUPERVISOR Work Phone: [facility] 06-21-2024 13:48-0400 Heart rate 87 /min Serjio Mandi [employer]PLICATING UNIT SUPERVISOR Work Phone: [facility] 06-21-2024 13:48-0400 SaO2% (BldA) [Mass fraction] 98 % Serjio Mandi [employer]PLICATING [employer]IT SUPERVISOR Work Phone: [facility] 05-10-2024 09:48-0400 Body mass index (BMI) [Ratio] 28.54 kg/m2 Serjio Mandi [employer]PLICATING [employer]IT SUPERVISOR Work Phone: [facility] 05-10-2024 09:48-0400 Body weight 80.2 kg Serjio Mandi [employer] DUPLICATING UNIT SUPERVISOR Work Phone: [facility] 05-10-2024 09:48-0400 Diastolic blood pressure 86 mm[Hg] Serjio Mandi [employer]PLICATING UNIT SUPERVISOR Work Phone: [facility] 05-10-2024 09:48-0400 Heart rate 77 /min Serjio Mandi [employer]PLICATING UNIT SUPERVISOR Work Phone: [facility] 05-10-2024 09:48-0400 Respiratory rate 16 /min Serjio Mandi [employer]PLICATING UNIT SUPERVISOR Work Phone: [facility] 05-10-2024 09:48-0400 SaO2% (BldA) [Mass fraction] 97 % Serjio Mandi [employer]PLICATING [employer]IT SUPERVISOR Work Phone: [facility] 05-10-2024 09:48-0400 Systolic blood pressure 124 mm[Hg] Serjio Mandi [employer]PLICATING [employer]IT SUPERVISOR Work Phone: [facility] 02-14-2024 12:44-0400 Body mass index (BMI) [Ratio] 28.89 kg/m2 Abbe Pendlebury [employer]PLICATING [employer]IT SUPERVISOR Work Phone: [facility] 02-14-2024 12:44-0400 Body temperature 98.1 [degF] Abbe Pendlebury [employer] DUPLICATING UNIT SUPERVISOR Work Phone: [facility] 02-14-2024 12:44-0400 Body weight 81.2 kg Abbe Pendlebury [employer]PLICATING [employer]IT SUPERVISOR Work Phone: [facility] 02-14-2024 12:44-0400 Diastolic blood pressure 80 mm[Hg] Abbe Pendlebury [employer] DUPLICATING UNIT SUPERVISOR Work Phone: [facility] 02-14-2024 12:44-0400 Heart rate 92 /min Abbe cMcoy [employer]PLICATING UNIT SUPERVISOR Work Phone: [facility] 02-14-2024 12:44-0400 Respiratory rate 16 /min Abbe Darius [employer]PLICATING [employer]IT SUPERVISOR Work Phone: [facility] 02-14-2024 12:44-0400 SaO2% (BldA) [Mass fraction] 97 % Abbe Darius [employer]PLICATING [employer]IT SUPERVISOR Work Phone: [facility] 02-14-2024 12:44-0400 Systolic blood pressure 124 mm[Hg] Abbe Darius [employer] DUPLICATING [employer]IT SUPERVISOR Work Phone: [facility] 01-20-2024 14:12-0400 Body mass index (BMI) [Ratio] 28.41 kg/m2 Epifanio Escobedo MD Work Phone: [facility] 01-20-2024 14:12-0400 Body temperature 98.49 [degF] Epifanio Escobedo MD Work Phone: [facility] 01-20-2024 14:12-0400 Body weight 79.83 kg Epifanio Escobedo MD Work Phone: [facility] 01-20-2024 14:12-0400 Diastolic blood pressure 76 mm[Hg] Epifanio Escobedo MD Work Phone: [facility] 01-20-2024 14:12-0400 Heart rate 84 /min Epifanio Escobedo MD Work Phone: [facility] 01-20-2024 14:12-0400 Respiratory rate 18 /min Epifanio Escobedo MD Work Phone: [facility] 01-20-2024 14:12-0400 Systolic blood pressure 120 mm[Hg] Epifanio Escobedo MD Work Phone: [facility] 01-15-2024 14:47-0400 Body mass index (BMI) [Ratio] 28.6 kg/m2 [facility] 01-15-2024 14:47-0400 Body weight 80.8 kg [facility] 01-15-2024 14:31-0400 Heart rate 69 /min [facility] 01-15-2024 14:31-0400 Respiratory rate 16 /min [facility] 01-15-2024 14:31-0400 SaO2% (BldA) [Mass fraction] 97 % [facility] 01-15-2024 13:32-0400 Body height 167.64 cm [facility] 01-15-2024 13:32-0400 Body temperature 97.6 [degF] [facility] 01-15-2024 13:32-0400 Diastolic blood pressure 110 mm[Hg] [facility] 01-15-2024 13:32-0400 Systolic blood pressure 166 mm[Hg] [facility] 01-11-2024 14:35-0400 Body temperature 98.1 [degF] [facility] 01-11-2024 14:35-0400 Diastolic blood pressure 77 mm[Hg] [facility] 01-11-2024 14:35-0400 Heart rate 82 /min [facility] 01-11-2024 14:35-0400 Respiratory rate 16 /min [facility] 01-11-2024 14:35-0400 SaO2% (BldA) [Mass fraction] 100 % [facility] 01-11-2024 14:35-0400 Systolic blood pressure 123 mm[Hg] [facility] 01-11-2024 11:49-0400 Body height 167.64 cm [facility] 01-11-2024 11:49-0400 Body mass index (BMI) [Ratio] 28.2 kg/m2 [facility] 01-11-2024 11:49-0400 Body weight 79.4 kg [facility] 11-15-2023 10:28-0500 Body weight 80.74 kg Serjio Mandi [employer]PLICATING [employer] SUPERVISOR Work Phone: [facility] 11-15-2023 10:28-0500 Diastolic blood pressure 74 mm[Hg] Serjio Mandi [employer]PLICATING [employer]IT SUPERVISOR Work Phone: [facility] 11-15-2023 10:28-0500 Heart rate 80 /min Serjio Mandi [employer]PLICATING [employer]IT SUPERVISOR Work Phone: [facility] 11-15-2023 10:28-0500 Respiratory rate 16 /min Serjio Mandi [employer]PLICATING [employer]IT SUPERVISOR Work Phone: [facility] 11-15-2023 10:28-0500 Systolic blood pressure 120 mm[Hg] Serjio Mandi [employer]PLICATING [employer]IT SUPERVISOR Work Phone: [facility] 06-01-2023 09:24-0400 Body weight 75.75 kg Serjio Mandi [employer]PLICATING [employer]IT SUPERVISOR Work Phone: [facility] 06-01-2023 09:24-0400 Diastolic blood pressure 80 mm[Hg] Serjio Mandi [employer]PLICATING [employer]IT SUPERVISOR Work Phone: [facility] 06-01-2023 09:24-0400 Heart rate 80 /min Serjio Mandi [employer]PLICATING [employer]IT SUPERVISOR Work Phone: [facility] 06-01-2023 09:24-0400 Respiratory rate 12 /min Serjio Mandi [employer]PLICATING [employer]IT SUPERVISOR Work Phone: [facility] 06-01-2023 09:24-0400 Systolic blood pressure 118 mm[Hg] Serjio Mandi [employer] DUPLICATING UNIT SUPERVISOR Work Phone: [facility] 04-20-2023 13:45-0400 Body weight 70.76 kg Serjio Mandi [employer]PLICATING [employer]IT SUPERVISOR Work Phone: [facility] 04-20-2023 13:45-0400 Diastolic blood pressure 78 mm[Hg] Serjio Mandi [employer]PLICATING [employer]IT SUPERVISOR Work Phone: [facility] 04-20-2023 13:45-0400 Systolic blood pressure 108 mm[Hg] Serjio Mandi [employer]PLICATING [employer]IT SUPERVISOR Work Phone: [facility] 01-20-2023 08:53-0400 Diastolic blood pressure 60 mm[Hg] Serjio Mandi [employer]PLICATING [employer]IT SUPERVISOR Work Phone: [facility] 01-20-2023 08:53-0400 Heart rate 114 /min Serjio Mandi [employer]PLICATING [employer]IT SUPERVISOR Work Phone: [facility] 01-20-2023 08:53-0400 SaO2% (BldA) [Mass fraction] 98 % Serjio Mandi [employer]PLICATING [employer]IT SUPERVISOR Work Phone: [facility] 01-20-2023 08:53-0400 Systolic blood pressure 104 mm[Hg] Serjio Mandi [employer]PLICATING [employer]IT SUPERVISOR Work Phone: [facility] 01-15-2023 10:52-0400 Diastolic blood pressure 80 mm[Hg] Serjio Mandi [employer]PLICATING [employer]IT SUPERVISOR Work Phone: [facility] 01-15-2023 10:52-0400 Heart rate 92 /min Serjio Mandi [employer]ICATING [employer]IT SUPERVISOR Work Phone: [facility] 01-15-2023 10:52-0400 SaO2% (BldA) [Mass fraction] 98 % Serjio Mandi [employer]PLICATING [employer]IT SUPERVISOR Work Phone: [facility] 01-15-2023 10:52-0400 Systolic blood pressure 112 mm[Hg] Serjio Mandi [employer]PLICATING [employer]IT SUPERVISOR Work Phone: [facility] 01-11-2023 08:49-0400 Body weight 76.66 kg Serjio Mandi [employer]PLICATING [employer]IT SUPERVISOR Work Phone: [facility] 01-11-2023 08:49-0400 Diastolic blood pressure 88 mm[Hg] Serjio Mandi [employer]PLICATING [employer]IT SUPERVISOR Work Phone: [facility] 01-11-2023 08:49-0400 Heart rate 92 /min Serjio Mandi [employer]PLICATING [employer]IT SUPERVISOR Work Phone: [facility] 01-11-2023 08:49-0400 SaO2% (BldA) [Mass fraction] 98 % Serjio Mandi [employer]PLICATING UNIT SUPERVISOR Work Phone: [facility] 01-11-2023 08:49-0400 Systolic blood pressure 110 mm[Hg] Serjio Mandi [employer]PLICATING UNIT SUPERVISOR Work Phone: [facility] 01-08-2023 10:30-0400 Diastolic blood pressure 94 mm[Hg] Serjio Mandi [employer]PLICATING UNIT SUPERVISOR Work Phone: [facility] 04-28-2023 10:30-0400 Systolic blood pressure 120 mm[Hg] Serjio Mandi [employer]PLICATING [employer]IT SUPERVISOR Work Phone: [facility] 01-08-2023 10:28-0400 Body weight 78.02 kg Serjio Mandi [employer]PLICATING [employer]IT SUPERVISOR Work Phone: [facility] 01-08-2023 10:28-0400 Heart rate 59 /min Serjio Mandi [employer]PLICATING UNIT SUPERVISOR Work Phone: [facility] 01-08-2023 10:28-0400 SaO2% (BldA) [Mass fraction] 98 % Serjio Mandi [employer]PLICATING [employer]IT SUPERVISOR Work Phone: [facility] 01-04-2023 10:15-0400 Body weight 79.83 kg Serjio Mandi [employer]PLICATING [employer]IT SUPERVISOR Work Phone: [facility] 01-04-2023 10:15-0400 Diastolic blood pressure 68 mm[Hg] Serjio Mandi [employer]PLICATING UNIT SUPERVISOR Work Phone: [facility] 01-04-2023 10:15-0400 Heart rate 104 /min Serjio Mandi [employer]PLICATING [employer]IT SUPERVISOR Work Phone: [facility] 01-04-2023 10:15-0400 SaO2% (BldA) [Mass fraction] 99 % Serjio Mandi [employer]ICATING [employer]IT SUPERVISOR Work Phone: [facility] 01-04-2023 10:15-0400 Systolic blood pressure 100 mm[Hg] Serjio Mandi [employer]ATING [employer]IT SUPERVISOR Work Phone: [facility] 01-03-2023 12:03-0400 Diastolic blood pressure 58 mm[Hg] [facility] 01-03-2023 12:03-0400 Heart rate 76 /min [facility] 01-03-2023 12:03-0400 Respiratory rate 16 /min [facility] 01-03-2023 12:03-0400 SaO2% (BldA) [Mass fraction] 97 % [facility] 01-03-2023 12:03-0400 Systolic blood pressure 104 mm[Hg] [facility] 01-03-2023 09:50-0400 Body height 167.64 cm [facility] 01-03-2023 09:50-0400 Body mass index (BMI) [Ratio] 28.7 kg/m2 [facility] 01-03-2023 09:50-0400 Body temperature 97.5 [degF] [facility] 01-03-2023 09:50-0400 Body weight 80.73 kg [facility] 01-02-2023 10:10-0400 Body height 167.64 cm [facility] 01-02-2023 10:10-0400 Body mass index (BMI) [Ratio] 28.7 kg/m2 [facility] 01-02-2023 10:10-0400 Body temperature 98.1 [degF] [facility] 01-02-2023 10:10-0400 Body weight 80.73 kg [facility] 01-02-2023 10:10-0400 Diastolic blood pressure 92 mm[Hg] [facility] 01-02-2023 10:10-0400 Heart rate 123 /min [facility] 01-02-2023 10:10-0400 Respiratory rate 18 /min [facility] 01-02-2023 10:10-0400 SaO2% (BldA) [Mass fraction] 100 % [facility] 01-02-2023 10:10-0400 Systolic blood pressure 119 mm[Hg] [facility] 04-09-2022 11:35-0400 Body weight 88.45 kg Ana Puckett APRN.CNM Work Phone: [facility] 04-09-2022 11:35-0400 Diastolic blood pressure 78 mm[Hg] Ana Puckett APRN.CNM Work Phone: [facility] 04-09-2022 11:35-0400 Systolic blood pressure 120 mm[Hg] Ana Puckett APRN.CNM Work Phone: [facility] 12-02-2021 08:41-0400 Body temperature 97.1 [degF] [facility] Work Phone: 12-02-2021 08:41-0400 Diastolic blood pressure 77 mm[Hg] [facility] Work Phone: 12-02-2021 08:41-0400 Heart rate 75 /min [facility] Work Phone: 12-02-2021 08:41-0400 Respiratory rate 16 /min [facility] Work Phone: 12-02-2021 08:41-0400 Systolic blood pressure 116 mm[Hg] [facility] Work Phone: 12-01-2021 07:34-0400 SaO2% (BldA) [Mass fraction] 100 % [facility] Work Phone: 12-01-2021 06:25-0400 Body height 167.64 cm [facility] Work Phone: 12-01-2021 06:25-0400 Body mass index (BMI) [Ratio] 31.1 kg/m2 [facility] Work Phone: 12-01-2021 06:25-0400 Body weight 87.5 kg [facility] Work Phone: 11-21-2021 16:29-0500 Heart rate 95 /min [facility] Work Phone: 11-21-2021 16:29-0500 SaO2% (BldA) [Mass fraction] 100 % [facility] Work Phone: 11-21-2021 16:27-0500 Body temperature 98.4 [degF] [facility] Work Phone: 11-21-2021 16:27-0500 Diastolic blood pressure 88 mm[Hg] [facility] Work Phone: 11-21-2021 16:27-0500 Systolic blood pressure 128 mm[Hg] [facility] Work Phone: 11-21-2021 16:24-0500 Body mass index (BMI) [Ratio] 30.3 kg/m2 [facility] Work Phone: 11-21-2021 16:24-0500 Body weight 85.27 kg [facility] Work Phone: 11-21-2021 15:50-0500 Respiratory rate 18 /min [facility] Work Phone: 08-20-2021 15:15-0500 Body mass index (BMI) [Ratio] 28 kg/m2 [facility] Work Phone: 08-20-2021 15:15-0500 Body weight 78.92 kg [facility] Work Phone: 08-20-2021 15:13-0500 Heart rate 108 /min [facility] Work Phone: 08-20-2021 15:13-0500 SaO2% (BldA) [Mass fraction] 94 % [facility] Work Phone: 08-20-2021 15:12-0500 Diastolic blood pressure 72 mm[Hg] [facility] Work Phone: 08-20-2021 15:12-0500 Systolic blood pressure 114 mm[Hg] [facility] Work Phone: Encounters Encounter Date Encounter Type Care Provider Facility Start: 05-24-2025 End: 05-24-2025 [facility] CLINICAL NURSE REVIEWER Work Phone: [facility] [place] Comment on above: Bipolar 1 disorder, depressed, moderate (HCC) (Primary Dx); ZACH (generalized anxiety disorder); Depression, unspecified depression type; Urinary tract infection without hematuria, site unspecified; Cough, unspecified type Start: 05-23-2025 End: 05-23-2025 Emergency department patient visit Serjio Raymond NP Facility:[facility] Start: 05-21-2025 End: 05-21-2025 Refill Serjio Raymond APRN.[employer]IC[employer] SUPERVISOR Work Phone: [facility] [place] Comment on above: Refill Request Start: 05-05-2025 End: 05-16-2025 Telephone encounter Serjio Raymond APRN.[employer]PLIC[employer]IT SUPERVISOR Work Phone: [facility] [place] Comment on above: Medication Problem Start: 05-04-2025 End: 05-04-2025 Emergency department patient visit Serjio Raymond TRUCKING MANAGER-C Work Phone: -Emergency Department Work Phone: Start: 04-16-2025 End: 04-17-2025 Refill Serjio Mandi [employer]PLICATING UN[employer] SUPERVISOR Work Phone: [facility] [place] Comment on above: Refill Request Start: 03-16-2025 End: 03-16-2025 Nurse Triage Crissy Pierce LPN NURSE SURFACE TO [employer] OFFICER Comment on above: Refill Request Start: 02-06-2025 End: 02-06-2025 Refill Serjio Mandi [employer]IC[employer] SUPERVISOR Work Phone: Internal Medicine [place] Comment on above: Refill Request Start: 01-09-2025 End: 01-09-2025 Refill Serjio Mandi [employer] SUPERVISOR Work Phone: Internal Medicine [place] Comment on above: Refill Request Start: 12-28-2024 End: 12-28-2024 Telephone encounter Nanda Hicks APRN.CNM Work Phone: OB/Gynecology Comment on above: Missed Menses Start: 12-12-2024 End: 12-12-2024 [facility] Serjio De Jesusr [employer]PLICATING UNIT SUPERVISOR Work Phone: Internal Medicine [place] Comment on above: Bipolar 1 disorder, depressed, moderate (HCC) (Primary Dx); ZACH (generalized anxiety disorder) Start: 12-06-2024 End: 12-06-2024 Refill Serjio Mandi [employer]IC[employer] SUPERVISOR Work Phone: Internal Medicine [place] Comment on above: Refill Request Start: 11-22-2024 End: 11-22-2024 Telephone encounter Serjio De Jesusr [employer] SUPERVISOR Work Phone: Internal Medicine [place] Comment on above: Medication Problem Start: 11-10-2024 End: 11-10-2024 Refill Serjio Mandi [employer] SUPERVISOR Work Phone: Family Medicine [place] Comment on above: Refill Request Start: 09-14-2024 End: 09-14-2024 [facility] PL[employer].CLINICAL NURSE REVIEWER Work Phone: Internal Medicine [place] Comment on above: ZACH (generalized anx iety disorder); Bipolar 1 disorder, depressed, moderate (HCC); Depression, unspecified depression type Start: 08-17-2024 End: 08-17-2024 [facility] [employer].CLINICAL NURSE REVIEWER Work Phone: Internal Medicine [place] Comment on above: ZACH (generalized anx iety disorder) (Primary Dx); Bipolar 1 disorder, depressed, moderate (HCC); Depression, unspecified depression type; Rash and nonspecific skin eruption Start: 08-08-2024 End: 08-08-2024 ambulatory SERJIO MANDI Facility:[facility] Start: 08-08-2024 End: 08-08-2024 Patient encounter procedure Sergio Tyson PA-C Work Phone: [facility] Comment on above: Acute cough (Primary Dx); Chronic dental pain Start: 07-19-2024 End: 07-19-2024 ambulatory SERJIO MANDI Facility:[facility] Start: 07-19-2024 End: 07-19-2024 Telemedicine consultation with patient Serjio De Jesusr [employer]PLICATING [employer] SUPERVISOR Work Phone: Internal Medicine [place] Start: 07-19-2024 End: 07-19-2024 Telephone encounter Serjio De Jesusr [employer] DUPLICATING UNIT SUPERVISOR Work Phone: Internal Medicine [place] Comment on above: Appointment Question ZACH (generalized anx iety disorder) (Primary Dx); Bipolar 1 disorder, depressed, moderate (HCC); Depression, unspecified depression type; Stress and adjustment reaction Start: 07-11-2024 End: 07-11-2024 Emergency department patient visit Serjio Raymond TRUCKING MANAGER Facility:[facility] Start: 07-10-2024 End: 07-10-2024 Emergency department patient visit Ed Physician Provider Facility:[facility] Start: 06-21-2024 End: 06-22-2024 Telephone encounter Serjio De Jesusr [employer]PLICATING UNIT SUPERVISOR Work Phone: Internal Medicine [place] Comment on above: Insurance Authorizat ion Start: 06-21-2024 End: 06-21-2024 ambulatory SERJIO RAYMOND Facility:[facility] Start: 06-21-2024 End: 06-21-2024 Patient encounter procedure Serjio De Jesusr [employer] DUPLICATING UNIT SUPERVISOR Work Phone: Internal Medicine [place] Comment on above: ZACH (generalized anx iety disorder) (Primary Dx); Bipolar 1 disorder, depressed, moderate (HCC); Depression, unspecified depression type; Stress and adjustment reaction Start: 06-20-2024 End: 06-20-2024 Telephone encounter Serjio De Jesusr [employer] DUPLICATING UNIT SUPERVISOR Work Phone: Internal Medicine [place] Comment on above: Pt asking for a call back Start: 06-05-2024 End: 06-05-2024 Refill Serjio De Jesusr [employer]PLICATING UNIT SUPERVISOR Work Phone: [facility] [place] Comment on above: Refill Request Start: 05-10-2024 End: 05-10-2024 Patient encounter procedure Serjio De Jesusr [employer] DUPLICATING UNIT SUPERVISOR Work Phone: [facility] [place] Comment on above: ZACH (generalized anx iety disorder) (Primary Dx); Bipolar 1 disorder, depressed, moderate (HCC) Start: 02-14-2024 End: 02-14-2024 Office outpatient visit 25 minutes Abbe Mccoy APRN.MICROFILM DUPLICATING UNIT SUPERVISOR Work Phone: [facility] Comment on above: Rash (Primary Dx) Start: 01-20-2024 End: 01-20-2024 Patient encounter procedure Epifanio Escobedo MD Work Phone: Internal Medicine [place] Comment on above: ZACH (generalized anx iety disorder) (Primary Dx); Alcohol use disorder; Acute gastritis without hemorrhage, unspecified gastritis type; Depression, unspecified depression type; Bipolar 1 disorder, depressed, moderate (HCC) Start: 01-19-2024 Telephone encounter Serjio Cleav er [employer] DUPLICATING UNIT SUPERVISOR Work Phone: Internal Medicine [place] Comment on above: [facility] ER visit / appt Start: 01-15-2024 End: 01-15-2024 [facility] Start: 01-11-2024 End: 01-11-2024 Emergency department patient visit [facility]Emergency Department Work Phone: Start: 11-15-2023 End: 11-15-2023 Patient encounter procedure Serjio Mandi [employer] Work Phone: Internal Medicine [place] Comment on above: Bipolar 1 disorder, depressed, moderate (HCC) (Primary Dx); ZACH (generalized anxiety disorder); Depression, unspecified depression type; Alcohol use disorder Start: 11-10-2023 Refill Serjio Mandi [employer] DUPLICATING UNIT SUPERVISOR Work Phone: Internal Medicine [place] Comment on above: Refill Request Start: 06-01-2023 End: 06-01-2023 Patient encounter procedure Serjio Mandi [employer] Work Phone: Internal Medicine [place] Comment on above: Bipolar 1 disorder, depressed, moderate (HCC) (Primary Dx); Encounter for initial prescription of contraceptive pills Start: 04-20-2023 End: 04-20-2023 Patient encounter procedure Serjio Mandi [employer] Work Phone: [facility] [place] Comment on above: Bipolar 1 disorder, depressed, moderate (HCC) (Primary Dx); Depression, unspecified depression type Start: 03-26-2023 Telephone encounter Serjio Cleav er [employer] Work Phone: Internal Medicine [place] Comment on above: Forms Start: 01-20-2023 End: 01-20-2023 Patient encounter procedure Serjio Mandi [employer] Work Phone: Internal Medicine [place] Comment on above: ZACH (generalized anx iety disorder) (Primary Dx) Start: 01-15-2023 End: 01-15-2023 Patient encounter procedure Serjio Mandi [employer] DUPLICATING UNIT SUPERVISOR Work Phone: Internal Medicine [place] Comment on above: ZACH (generalized anx iety disorder) (Primary Dx); Unprotected sexual intercourse; Abnormal menses Start: 01-13-2023 Telephone encounter Serjio Cleav er [employer] DUPLICATING UNIT SUPERVISOR Work Phone: [facility] [place] Comment on above: Numbness Start: 01-11-2023 Telephone encounter Serjio Cleav er [employer]PLICATING UNIT SUPERVISOR Work Phone: [facility] [place] Comment on above: Forms Start: 01-11-2023 End: 01-11-2023 Patient encounter procedure Serjio Raymond APRN.CNP Work Phone: Internal Medicine [place] Comment on above: ZACH (generalized anx iety disorder) (Primary Dx); Sleep disturbance; Thyroid enlargement Start: 01-08-2023 End: 01-08-2023 Patient encounter procedure Serjio Raymond APRN.CNP Work Phone: Internal Medicine [place] Comment on above: ZACH (generalized anx iety disorder) Start: 01-04-2023 End: 01-04-2023 Office outpatient new 45 minutes Serjio Raymond APRN.CNP Work Phone: Internal Medicine [place] Comment on above: ZACH (generalized anx iety disorder) (Primary Dx); Encounter to establish care; Vitamin D deficiency Start: 01-03-2023 End: 01-03-2023 Emergency department patient visit [facility]-Emergency Department Start: 01-02-2023 End: 01-02-2023 Emergency department patient visit [facility]Emergency Department Start: 04-20-2022 End: 04-20-2022 Subsequent hospital visit by physician [facility] Work Phone: Radiology Comment on above: Abnormal uterine ble eding (AUB) [N93.9] Start: 04-09-2022 End: 04-09-2022 Patient encounter procedure Ana Puckett APRN.CNM Work Phone: OB/Gynecology Comment on above: Encounter for initia l prescription of contraceptive pills (Primary Dx); Low grade squamous intraepithelial lesion on cytologic smear of vagina (LGSIL); Abnormal uterine bleeding (AUB) Start: 12-01-2021 End: 12-02-2021 [facility] Start: 11-21-2021 End: 11-21-2021 Patient encounter procedure [facility] Start: 08-20-2021 End: 08-20-2021 Patient encounter procedure [facility] Start: 09-23-2017 End: 09-01-2021 Patient requested procedure Serjio Raymond APRN.CNP Work Phone: [facility] Work Phone: Procedures Date Procedure Procedure Detail Performing Clinician Start: 05-04-2025 Urnls dip stick/tabl et reagent auto microscopy Serjio Mandi TRUCKING MANAGER-C Work Phone: Start: 05-04-2025 Estimated creatinine clearance Serjio Mandi TRUCKING MANAGER-C Work Phone: Start: 05-04-2025 Computed tomography of abdomen and pelvis with intravenous contrast Serjio Mandi TRUCKING MANAGER-C Work Phone: Start: 01-11-2024 SARS-CoV-2, Influenz a & RSV (PCR) Start: 01-11-2024 Plain chest X-ray Start: 04-20-2022 Us transvaginal Ana Puckett APRN.CNM Work Phone: Start: 12-01-2021 End: 12-01-2021 Viral antigen assay Start: 05-13-2021 End: 04-09-2022 Vaccine refused by patient COVID-19 vaccine series declined Serjio Raymond APRN.MICROFILM DUPLICATING UNIT SUPERVISOR Work Phone: Plan of Treatment Date Care Activity Detail Author Start: 01-22-2027 Urine microalbumin profile [facility] Start: 06-18-2025 End: 06-18-2025 Patient encounter procedure 06/18/2025 1:00 PM EDT Office Visit Internal Medicine [place] [address] [place] [address] Guera Velasquez APRN.CLINICAL NURSE REVIEWER [address] [place] [address] transfer care Internal Medicine [place] Comment on above: transfer care Start: 06-04-2025 End: 06-04-2025 Patient encounter procedure 06/04/2025 2:45 PM EDT Office Visit OB/Gynecology [address] [place] [address] Ana Puckett APRN.CNM [address] [place] [address] Missed menses OB/Gynecology Comment on above: Missed menses Start: 05-24-2025 End: 05-24-2025 ambulatory 05/24/2025 3:00 PM EDT [facility] Internal Medicine [place] [address] [place] [address] Guera Velasquez APRN.CLINICAL NURSE REVIEWER [address] [facility] [place] [address] transfer care Internal Medicine [place] Comment on above: transfer care Start: 05-14-2025 Influenza vaccination [facility] Start: 05-04-[address] [facility] Start: 05-04-[address] [facility] Start: 2024 HPV Vaccine (1 - 3-d ose SCDM series) HPV Vaccine (1 - 3-dose SCDM series) [facility] Start: 12-12-2024 End: 12-12-2024 Follow-up encounter 12/12/2024 10:20 AM EDT [facility] Internal Medicine [place] [address] [place] [address] Serjio Raymond [employer].MICROFILM DUPLICATING UNIT SUPERVISOR [address] [facility] [place] [address] medication follow up [facility] [place] Comment on above: medication follow up Start: 10-05-2024 End: 10-05-2024 Follow-up encounter 10/05/2024 7:00 AM EST [facility] Internal Medicine [place] [address] [place] [address] Guera Velasquez, [employer].CLINICAL NURSE REVIEWER [address] [facility] [place] [address] follow up [facility] [place] Comment on above: follow up Start: 07-19-2024 End: 07-19-2024 Patient encounter procedure 07/19/2024 10:40 AM EST Office Visit Internal Medicine [place] [address] [place] [address] Serjio Raymond [employer].MICROFILM DUPLICATING UNIT SUPERVISOR [address] [facility] [place] [address] 4 weeks medication follow up Internal Medicine [place] Comment on above: 4 weeks medication f ollow up Start: 06-21-2024 End: 06-21-2024 Patient encounter procedure 06/21/2024 1:40 PM EDT Office Visit Internal Medicine [place] [address], [place] [id number] Serjio Raymond APRN.MICROFILM DUPLICATING UNIT SUPERVISOR [address] [place], [place] [id number] 6 week follow up [facility] [place] Comment on above: 6 week follow up Start: 05-14-2024 Covid-19 Vaccine () Covid-19 Vaccine () [facility] Start: 05-14-2024 Influenza vaccination [facility] Start: 04-20-2024 COVID-19 VACCINE (#1) COVID-19 VACCI NE (#1) [facility] Comment on above: Postponed from 06/25 (Declined at this time) Start: 04-16-2024 PAP TESTING PAP TESTING [facility] Start: 04-16-2024 Screening for malign ant neoplasm of cervix [facility] Start: 01-26-2024 End: 01-26-2024 Patient encounter procedure 01/26/2024 9:40 AM EDT Office Visit Internal Medicine [place] [address], [place] [id number] Serjio Raymond APRN.MICROFILM DUPLICATING UNIT SUPERVISOR [address] [place], [place] [id number] 1 week follow-up [facility] [place] Comment on above: 1 week follow-up Start: 01-20-2024 End: 01-20-2024 Patient encounter procedure 01/20/2024 2:00 PM EDT Office Visit Internal Medicine [place] [address], [place] [phone] Epifanio Escobedo MD [address] [place], [place] [id number] [facility] ER anxiety 5-4-24 [facility] [place] Comment on above: [facility] ER anxiety 5-4-2 4 Start: 01-15-[address] [facility] Start: 01-11-[address] [facility] Start: 09-13-2023 Behavioral Health Screening Behavioral Health Screening [facility] Start: 09-13-2023 Depression Assessment Depression Ass essment [facility] Start: 05-14-2023 Covid-19 Vaccine () Covid-19 Vaccine () [facility] Start: 05-14-[address] [facility] Start: 01-15-2023 End: 03-17-2023 Choriogonadotropin.beta subunit [Units/volume] in Serum or Plasma [facility] Work Phone: Comment on above: Expected: 01/15/2023 , Expires: 03/17/2023 Start: 01-05-2023 End: 03-07-2023 25-hydroxyvitamin D3 [Mass/volume] in Serum or Plasma VITAMIN D 25 HYDROXY Lab Routine Vitamin D deficiency Expected: 01/05/2023, Expires: 03/07/2023 [facility] Work Phone: Comment on above: Expected: 01/05/2023 , Expires: 03/07/2023 Start: 01-05-2023 End: 03-07-2023 CBC W Auto Differential panel - Blood CBC + DIFF Lab Routine ZACH (generalized anxiety disorder) Expected: 01/05/2023, Expires: 03/07/2023 [facility] Work Phone: Comment on above: Expected: 01/05/2023 , Expires: 03/07/2023 Start: 01-05-2023 End: 03-07-2023 Comprehensive metabolic 2000 panel - Serum or Plasma COMP METABOLIC PANEL Lab Routine ZACH (generalized anxiety disorder) Expected: 01/05/2023, Expires: 03/07/2023 [facility] Work Phone: Comment on above: Expected: 01/05/2023 , Expires: 03/07/2023 Start: 01-05-2023 End: 03-07-2023 Thyrotropin [Units/volume] in Serum or Plasma TSH BLD Lab Routine ZACH (generalized anxiety disorder) Expected: 01/05/2023, Expires: 03/07/2023 [facility] Work Phone: Comment on above: Expected: 01/05/2023 , Expires: 03/07/2023 Start: 05-14-2022 Influenza vaccination INFLUENZA (#1) [facility] Start: 04-09-2022 End: 06-09-2022 Prolactin [Mass/volume] in Serum or Plasma [facility] Work Phone: Comment on above: Expected: 04/09/2022 , Expires: 06/09/2022 Start: 04-09-2022 End: 06-09-2022 TESTOSTERONE, FREE AND TOTAL [facility] Work Phone: Comment on above: Expected: 04/09/2022 , Expires: 06/09/2022 Start: 04-09-2022 End: 06-09-2022 Thyrotropin [Units/volume] in Serum or Plasma [facility] Work Phone: Comment on above: Expected: 04/09/2022 , Expires: 06/09/2022 Start: 04-09-2022 End: 06-09-2022 Thyroxine (T4) free [Mass/volume] in Serum or Plasma [facility] Work Phone: Comment on above: Expected: 04/09/2022 , Expires: 06/09/2022 Start: 04-09-2022 End: 06-09-2022 Triiodothyronine (T3) Free [Mass/volume] in Serum or Plasma [facility] Work Phone: Comment on above: Expected: 04/09/2022 , Expires: 06/09/2022 Start: 2016 Urine microalbumin profile DTAP,TDAP ,TD (1 - Tdap) [facility] Start: 2012 HPV Vaccine (1 - 3-d ose series) HPV Vaccine (1 - 3-dose series) [facility] Start: 12-25-2011 PEDS TO ADULT TRANSI TION ANNUAL ASSESSMENT PEDS TO ADULT TRANSITION ANNUAL ASSESSMENT [facility] Start: 2009 Adult depression scr eening assessment DEPRESSION SCREENING [facility] Start: 2009 PEDS TO ADULT TRANSI TION INITIAL DISCUSSION PEDS TO ADULT TRANSITION INITIAL DISCUSSION [facility] Start: 2008 HPV VACCINE (1 - 2-d ose series) HPV VACCINE (1 - 2-dose series) [facility] Start: 12-25-2007 MENINGOCOCCAL B: Con record changer assembler based on risk (1 of 2 - Risk Bexsero 2-dose series) MENINGOCOCCAL B: Consider based on risk (1 of 2 - Risk Bexsero 2-dose series) [facility] Start: 2006 HPV VACCINE (1 - 2-d ose series) HPV VACCINE (1 - 2-dose series) [facility] Start: 06-25-1998 COVID-19 VACCINE (#1) COVID-19 VACCI NE (#1) [facility] Start: 1997 HEPATITIS B (1 of 3 - 3-dose series) HEPATITIS B (1 of 3 - 3-dose series) [facility] Patient Education [facility] Work Phone: Patient referral [facility] Work Phone: End: 02-10-2024 Us soft tissue head & neck real time imge docm US THYROID/PARATHYROID Radiology Routine Thyroid enlargement 1 Occurrences starting 01/11/2023 until 02/10/2024 [facility] Work Phone: Comment on above: 1 Occurrences starti ng 01/11/2023 until 02/10/2024 End: 05-10-2023 Us transvaginal US FEMALE PELVIS TRANSVAG Radiology Routine Abnormal uterine bleeding (AUB) 1 Occurrences starting 04/09/2022 until 05/10/2023 [facility] Work Phone: Comment on above: 1 Occurrences starti ng 04/09/2022 until 05/10/2023 End: 09-07-2025 XR Chest PA and Lateral XR CHEST 2V FRONTAL/LAT Radiology STAT Acute cough 1 Occurrences starting 08/08/2024 until 09/07/2025 [facility] Work Phone: Comment on above: 1 Occurrences starti ng 08/08/2024 until 09/07/2025 [facility] Immunizations Immunization Date Immunization Notes Care Provider Jayjay sherman 01-22-2017 tetanus toxoid, redu marlin diphtheria toxoid, and acellular pertussis vaccine, [facility] 04-05-2003 diphtheria, tetanus toxoids and acellular pertussis vaccine, unspecified formulation Serjio Mandi [employer] Work Phone: [facility] Work Phone: 04-05-2003 measles, mumps and rubella virus vaccine Serjio Mandi [employer] Work Phone: [facility] Work Phone: 04-05-2003 poliovirus vaccine, inactivated Serjio Mandi [employer] Work Phone: [facility] Work Phone: 04-05-2003 varicella virus vaccine Serjio Mandi [employer] Work Phone: [facility] Work Phone: 12-19-1999 diphtheria, tetanus toxoids and acellular pertussis vaccine, unspecified formulation Serjio Mandi [employer] Work Phone: [facility] Work Phone: 12-19-1999 haemophilus influenz ae type b vaccine, conjugate unspecified formulation Serjio Mandi [employer] Work Phone: [facility] Work Phone: 12-19-1999 measles, mumps and rubella virus vaccine Serjio Mandi [employer] DUPLICATING UNIT SUPERVISOR Work Phone: [facility] Work Phone: 11-29-1998 diphtheria, tetanus toxoids and acellular pertussis vaccine, unspecified formulation Serjio Mandi [employer].MICROFILM DUPLICATING UNIT SUPERVISOR Work Phone: [facility] Work Phone: 11-29-1998 haemophilus influenz ae type b vaccine, HbOC conjugate Serjio Mandi [employer] Work Phone: [facility] Work Phone: 11-29-1998 hepatitis B vaccine, pediatric or pediatric/adolescent dosage Serjio Mandi [employer] Work Phone: [facility] Work Phone: 11-29-1998 trivalent poliovirus vaccine, live, oral Serjio Mandi [employer].MI[employer]OFILM DUPLICATING UNIT SUPERVISOR Work Phone: [facility] Work Phone: 06-07-1998 diphtheria, tetanus toxoids and acellular pertussis vaccine, unspecified formulation Serjio Mandi [employer].MICROFILM DUPLICATING UNIT SUPERVISOR Work Phone: [facility] Work Phone: 06-07-1998 haemophilus influenz ae type b vaccine, HbOC conjugate Serjio Mandi [employer] Work Phone: [facility] Work Phone: 06-07-1998 trivalent poliovirus vaccine, live, oral Serjio Mandi [employer] Work Phone: [facility] Work Phone: 03-26-1998 diphtheria, tetanus toxoids and acellular pertussis vaccine, unspecified formulation Serjio Mandi [employer] Work Phone: [facility] Work Phone: 03-26-1998 haemophilus influenz ae type b vaccine, HbOC conjugate Serjio Mandi [employer] Work Phone: [facility] Work Phone: 03-26-1998 hepatitis B vaccine, pediatric or pediatric/adolescent dosage Serjio Mandi [employer].MICROFILM DUPLICATING UNIT SUPERVISOR Work Phone: [facility] Work Phone: 03-26-1998 trivalent poliovirus vaccine, live, oral Serjio Mandi [employer] Work Phone: [facility] Work Phone: 1997 hepatitis B vaccine, pediatric or pediatric/adolescent dosage Serjio Mandi [employer] Work Phone: [facility] Work Phone: Payers Date Payer Category Payer Self-pay [id number] 2022 Unknown [id number] 2020 Medicaid [employer] [id number] 2020-Present [phone] [address] [place] [address] Medicaid [id number] 2020 Medicaid [id number] Medicaid [id number] Private Health Insurance [id number] Unknown [facility] [id number] Unknown [id number] Unknown [id number] Unknown [id number] Unknown [id number] Social History Date Type Detail Facility [facility] Work Phone: Start: 12-01-2021 End: 01-15-2024 Tobacco smoking status NHIS Unknown if ever smoked [facility] Start: 01-06-2020 Rare [place] [facility] Start: 01-06-2020 Marijuana [place] [facility] Start: 01-06-2020 With Family [place] [facility] [facility] Start: 01-16-2020 Cigarettes [place] [facility] Start: 1995 Sex Assigned At Female W [facility] Start: 03-27-2021 End: 05-10-2024 Tobacco smoking status NHIS Ex-smoker [facility] Work Phone: Start: 10-28-2012 End: 10-28-2020 History of tobacco use Current smoker [facility] Work Phone: Start: 10-28-2012 End: 10-28-2020 History of tobacco use Cigarette Smoker [facility] Work Phone: Start: 03-27-2021 End: 05-10-2024 Tobacco use and exposure Smokeless tobacco non-user [facility] Work Phone: Start: 04-09-2022 End: 11-15-2023 Alcohol intake Current non-drinker of alcohol (finding) [facility] Start: 03-27-2021 Education 13 [facility] Start: 03-28-2018 End: 01-04-2023 Tobacco Comment E-cigarettes sometimes [facility] Start: 1995 Sex Assigned At Not on file [facility] Start: 03-30-2022 End: 04-15-2022 Exposure to SARS-CoV-2 (event) Not sure [facility] Work Phone: Start: 04-20-2023 End: 05-18-2025 History of Social function [facility] Work Phone: Start: 04-20-2023 End: 05-18-2025 Tobacco use panel [facility] Work Phone: Start: 08-14-2012 Adult Depression Screening Assessment 4 [facility] Work Phone: Start: 01-20-2024 End: 08-08-2024 Alcohol intake Current drinker of alcohol (finding) [facility] Has the electric, gas, oil, or water company threatened to shut off services in your home in past 12Mo No [facility] Do you feel stress - tense, restless, nervous, or anxious, or unable to sleep at night because your mind is troubled all the time - these days [OSQ] Rather much [facility] (I/We) worried whether (my/our) food would run out before (I/we) got money to buy more. Never true [facility] Start: 05-04-2025 Tobacco smoking status NHIS Smokes tobacco daily (finding) [facility] NEGATED: Highlighted row [facility] Mental Status Date Assessment Result Facility 05-04-2025 Cognitive function Level Of Cons ciousness Awake;Alert;Appropriate [facility] Work Phone: Clinical Notes 09-01-2021 to 05-24-2025 Guera Velasquez APRN.CLINICAL NURSE REVIEWER - 05/24/2025 3:01 PM EDTTelephone Encounter - Guera Velasquez APRN.CLINICAL NURSE REVIEWER - 05/21/2025 4:24 PM EDTTelephone Encounter - Guera Velasquez APRN.CLINICAL NURSE REVIEWER - 05/21/2025 4:24 PM EDT Note Date & Type Note Facility 05-24-2025 Note HNO ID: [id number] Author: GUERA VELASQUEZ APRN.CLINICAL NURSE REVIEWER Service: ? Author Type: Nurse Specialist Type: Progress Notes Filed: 05/24/2025 15:28 Note Text: I have communicated my name and active licensure. The patient's identity and physical location were verified at the time of this visit. Either the patient or their legal technical service representative has been informed of the risks and benefits of -- and alternatives to -- treatment through a remote evaluation and consents to proceed with the evaluation remotely. Subjective Jane Chung is a 29-year-old female with bipolar disorder, presenting for follow-up and psychiatric medication management. She has had 2 ER visits since last seen. Upper respiratory infection and UTI. Reports she has not picked up medication for UTI yet. Bipolar Disorder: - Jane Chung discontinued risperidone and Vraylar due to dissatisfaction with effects. - Previously tried quetiapine; found it effective but too strong at higher doses. - Currently not taking any medication for bipolar disorder. - Jane reports lorazepam is most helpful for daily functioning, taking 1 mg in the morning and 1-2 mg at bedtime. - Recent issues with lorazepam prescription quantities; received 42 tablets instead of 90, leading to a period without medication. - Reports no current alcohol or marijuana use, no hallucinations. Following at [facility] Dehydration: - Recent hospital visits for dehydration; underwent blood tests and CT scan, results reportedly normal. - Experiencing numbness and pallor in toes, blurred vision, hearing loss, dizziness, and syncope upon standing. - Hospital advised hydration and follow-up with primary care. UTI: - Diagnosed with UTI during recent hospital visit; prescribed Bactrim but has not yet picked up the medication due to transportation issues. Chronic Cough: - Persistent cough, worse at night, leading to dyspnea and chest tightness. - Previously used an inhaler with some relief; currently purchasing inhalers [id number] due to cost. - Jane reports wheezing with inhalation and exhalation. ROS Constitutional: (+) malaise Eyes: (+) blurred vision Ears/Nose/Mouth/Throat: (+) transient hearing loss Cardiovascular: (+) syncope Respiratory: (+) cough, (+) wheezing, (+) shortness of breath Gastrointestinal: (+) difficulty eating, (+) difficulty drinking Musculoskeletal: (+) difficulty walking Skin: (+) toe pallor Neurological: (+) toe numbness, (+) dizziness Psychiatric: (-) hallucinations Objective [facility] 07/21/2024 (Exact Date) GENERAL: well-hydrated, well nourished and appears tired OROPHARYNX: moist mucus membranes RESPIRATORY: breathing non-labored NEUROLOGIC: no obvious deficit 1. Bipolar 1 disorder, depressed, moderate (HCC) (F31.32) 2. ZACH (generalized anxiety disorder) (F41.1) 3. Depression, unspecified depression type (F32.A) - Not currently taking any medication for bipolar disorder; previously trialed risperidone and Vraylar without benefit. - Restart quetiapine at a lower dose due to prior intolerance at higher doses. - Continue lorazepam 1 mg PO in the morning and 1-2 mg PO at bedtime (total 90 tablets per month). 4. Urinary tract infection without hematuria, site unspecified (N39.0) - Recent ED visit with diagnosis of UTI; Bactrim prescribed but not yet started due to pharmacy access issues. - Sent Bactrim prescription to [facility] for patient pickup. 5. Cough, unspecified type (R05.9) - Chronic cough with wheezing and dyspnea, worse at night; prior inhaler provided some relief. - Prescribed inhaler and cough suppressant. Visit was conducted via [email or web address] Zoom Patient Location: Patient Home or Place of Residence Guera Velasquez APRN.[facility] 05-24-2025 History of Presen t illness Narrative I have communicated my name and active licensure. The patient's identity and physical location were verified at the time of this visit. Either the patient or their legal technical service representative has been informed of the risks and benefits of -- and alternatives to -- treatment through a remote evaluation and consents to proceed with the evaluation remotely. Subjective Jane Chung is a 29-year-old female with bipolar disorder, presenting for follow-up and psychiatric medication management. She has had 2 ER visits since last seen. Upper respiratory infection and UTI. Reports she has not picked up medication for UTI yet. Bipolar Disorder: - Jane Chung discontinued risperidone and Vraylar due to dissatisfaction with effects. - Previously tried quetiapine; found it effective but too strong at higher doses. - Currently not taking any medication for bipolar disorder. - Jane reports lorazepam is most helpful for daily functioning, taking 1 mg in the morning and 1-2 mg at bedtime. - Recent issues with lorazepam prescription quantities; received 42 tablets instead of 90, leading to a period without medication. - Reports no current alcohol or marijuana use, no hallucinations. Following at [facility] Dehydration: - Recent hospital visits for dehydration; underwent blood tests and CT scan, results reportedly normal. - Experiencing numbness and pallor in toes, blurred vision, hearing loss, dizziness, and syncope upon standing. - Hospital advised hydration and follow-up with primary care. UTI: - Diagnosed with UTI during recent hospital visit; prescribed Bactrim but has not yet picked up the medication due to transportation issues. Chronic Cough: - Persistent cough, worse at night, leading to dyspnea and chest tightness. - Previously used an inhaler with some relief; currently purchasing inhalers [id number] due to cost. - Jane reports wheezing with inhalation and exhalation. ROS Constitutional: (+) malaise Eyes: (+) blurred vision Ears/Nose/Mouth/Throat: (+) transient hearing loss Cardiovascular: (+) syncope Respiratory: (+) cough, (+) wheezing, (+) shortness of breath Gastrointestinal: (+) difficulty eating, (+) difficulty drinking Musculoskeletal: (+) difficulty walking Skin: (+) toe pallor Neurological: (+) toe numbness, (+) dizziness Psychiatric: (-) hallucinations Objective [facility] 07/21/2024 (Exact Date) GENERAL: well-hydrated, well nourished and appears tired OROPHARYNX: moist mucus membranes RESPIRATORY: breathing non-labored NEUROLOGIC: no obvious deficit 1. Bipolar 1 disorder, depressed, moderate (HCC) (F31.32) 2. ZACH (generalized anxiety disorder) (F41.1) 3. Depression, unspecified depression type (F32.A) - Not currently taking any medication for bipolar disorder; previously trialed risperidone and Vraylar without benefit. - Restart quetiapine at a lower dose due to prior intolerance at higher doses. - Continue lorazepam 1 mg PO in the morning and 1-2 mg PO at bedtime (total 90 tablets per month). 4. Urinary tract infection without hematuria, site unspecified (N39.0) - Recent ED visit with diagnosis of UTI; Bactrim prescribed but not yet started due to pharmacy access issues. - Sent Bactrim prescription to [facility] for patient pickup. 5. Cough, unspecified type (R05.9) - Chronic cough with wheezing and dyspnea, worse at night; prior inhaler provided some relief. - Prescribed inhaler and cough suppressant. Visit was conducted via MyChart Zoom Patient Location: Patient Home or Place of Residence Guera Velasquez APRN.CNS documented in this encounter [facility] 05-21-2025 Telephone encounter Note Her last refill was on May 09 for a 14-day prescription so she should have medication that will last her until May 23 is she is taking three tablets per day. Short term refill sent until her OV. [facility] 05-21-2025 Miscellaneous Notes Her last refill was on May 09 for a 14-day prescription so she should have medication that will last her until May 23 is she is taking three tablets per day. Short term refill sent until her OV. Patient calls and states that she took her last lorazepam today. Patient states that she feels like she is going through withdrawal. Patient has 20 minute virtual scheduled with Guera on 05/24/2025 to establish care. Patient states that she does not drive. Please review and advise, Aster Waggoner RN Prescription Refill Information The patient has been identified by name and date of : Yes Caregiver verified no other encounters exist for this prescription request: Yes Caregiver confirmed with patient/requestor that no other refills are due, in the near future, with this provider at this time: Yes The last office visit in the department: 12-12-24 Does the patient have a future office visit with this provider/department: Yes Requested Prescriptions Pending Prescriptions Disp Refills LORazepam (ATIVAN) 1 mg tablet 42 tablet 0 Sig: May take 1 tablet by mouth once daily as needed for anxiety. May also take 1-2 tablets at bedtime as needed for anxiety. Do all this for 14 days. Patient requesting 90 days. Radha Nguyen May 21, 2025 8:04 AM documented in this encounter [facility] 05-21-2025 Telephone encounter Note Patient calls and states that she took her last lorazepam today. Patient states that she feels like she is going through withdrawal. Patient has 20 minute virtual scheduled with Guera on 05/24/2025 to establish care. Patient states that she does not drive. Please review and advise, Aster Waggoner RN [facility] 05-21-2025 Telephone encounter Note Prescription Refill Information The patient has been identified by name and date of : Yes Caregiver verified no other encounters exist for this prescription request: Yes Caregiver confirmed with patient/requestor that no other refills are due, in the near future, with this provider at this time: Yes The last office visit in the department: 12-12-24 Does the patient have a future office visit with this provider/department: Yes Requested Prescriptions Pending Prescriptions Disp Refills LORazepam (ATIVAN) 1 mg tablet 42 tablet 0 Sig: May take 1 tablet by mouth once daily as needed for anxiety. May also take 1-2 tablets at bedtime as needed for anxiety. Do all this for 14 days. Patient requesting 90 days. Radha Nguyen May 21, 2025 8:04 AM [facility] 05-10-2025 Telephone encounter Note Message left for pt to return call to arrange appt to establish care with another provider. [facility] 05-10-2025 Miscellaneous Notes Message left for pt to return call to arrange appt to establish care with another provider. Patient did not make 5 week follow up after last VV with Serjio. She needs an appointment for follow up as well to establish with a new provider. Will give another 2 weeks supply since she was working with me and Guera. Arrange appointment--with me(and Guera) if wants to establish; with other provider if prefers. The following approved medication requests have been transmitted electronically. Requested Prescriptions Signed Prescriptions Disp Refills LORazepam (ATIVAN) 1 mg tablet 42 tablet 0 Sig: May take 1 tablet by mouth once daily as needed for anxiety. May also take 1-2 tablets at bedtime as needed for anxiety. Do all this for 14 days. Authorizing Provider: KRISTA GIBSON MD Pcp is no longer in the department. Please review request. Pt rec'd 42 tablets on 04/21/25 per dispense report. She has no follow arranged. Jane is calling Serjio Raymond APRN.[employer]IC[employer] SUPERVISOR today to request a call to advise why the medication Lorazepam 1 mg tablet was only dispensed on last refill #42 with directions One tablet by mouth as needed daily and then may also take 1-2 tablets at bedtime, Patient asking why this was shorted by pharmacy and they advised patient this was how the order was sent and concerned as she is out of this medication and was not given #90 from pharmacy, which is [facility] Please call patient with provider response will we be able to correct this for patient to have a refill? She has been out of this medication for over one week Patient has been identified by name and birthdate. Person calling: self Call patient at: on cell [phone] (home) [phone] (cell) Was an appointment scheduled: No Closing statement: Results or non-symptom based questions: Thank you for calling [facility], your call will be returned within the next business day. Yesy Alegria documented in this encounter [facility] 05-09-2025 Telephone encounter Note Patient did not make 5 week follow up after last VV with Serjio. She needs an appointment for follow up as well to establish with a new provider. Will give another 2 weeks supply since she was working with me and Guera. Arrange appointment--with me(and Guera) if wants to establish; with other provider if prefers. The following approved medication requests have been transmitted electronically. Requested Prescriptions Signed Prescriptions Disp Refills LORazepam (ATIVAN) 1 mg tablet 42 tablet 0 Sig: May take 1 tablet by mouth once daily as needed for anxiety. May also take 1-2 tablets at bedtime as needed for anxiety. Do all this for 14 days. Authorizing Provider: KRISTA GIBSON MD [facility] 05-09-2025 Telephone encounter Note Pcp is no longer in the department. Please review request. Pt rec'd 42 tablets on 04/21/25 per dispense report. She has no follow arranged. [facility] 05-05-2025 Telephone encounter Note Jane is calling Serjio Raymond APRN.[employer]PLIC[employer] SUPERVISOR today to request a call to advise why the medication Lorazepam 1 mg tablet was only dispensed on last refill #42 with directions One tablet by mouth as needed daily and then may also take 1-2 tablets at bedtime, Patient asking why this was shorted by pharmacy and they advised patient this was how the order was sent and concerned as she is out of this medication and was not given #90 from pharmacy, which is [facility] Please call patient with provider response will we be able to correct this for patient to have a refill? She has been out of this medication for over one week Patient has been identified by name and birthdate. Person calling: self Call patient at: on cell [phone] (home) [phone] (cell) Was an appointment scheduled: No Closing statement: Results or non-symptom based questions: Thank you for calling [facility], your call will be returned within the next business day. Yesy Alegria [facility] 05-04-[address] [facility] 05-04-2025 Radiology Diagnostic study note [facility] Imaging Services [address] [place], [place] [id number] Abdomen/Pelvis W IV Cont ONLY MR#: [id number] Acct: [id number] Name: JANE CHUNG Rep #: [id number] 5 : 1995 F 29 From: Romi Owens MD PCP: ZEB Pittman Status: [facility] ER Study:Abdomen/Pelvis W IV Cont ONLY Date of E xam: 05/04/25 Exam# [id number] Ordering Dr: Cheli Matta DO EXAM: CT Abdomen and Pelvis With Intravenous Contrast CLINICAL INDICATION: ABDOMINAL PAIN TECHNIQUE: Axial computed tomography images of the abdomen and pelvis with intravenous contrast. This CT exam was performed using one or more of the following dose reduction techniques: automated exposure control, adjustment of the mA and/or kV according to patient size, and/or use of iterative reconstruction technique. COMPARISON: No relevant prior studies available. FINDINGS: LUNG BASES: Unremarkable. No mass. No consolidation. ABDOMEN: LIVER: Hepatomegaly with fatty infiltration. GALLBLADDER AND BILE DUCTS: Unremarkable. No calcified stones. No ductal dilation. PANCREAS: Unremarkable. No mass. No ductal dilation. SPLEEN: Unremarkable. No splenomegaly. ADRENALS: Unremarkable. No mass. KIDNEYS AND URETERS: Punctate nephrolithiasis without hydronephrosis, bilaterally. STOMACH AND BOWEL: Fecal retention in the colon consistent with constipation. No obstruction. No mucosal thickening. PELVIS: APPENDIX: No findings to suggest acute appendicitis. BLADDER: Unremarkable. No mass. REPRODUCTIVE: Unremarkable as visualized. ABDOMEN and PELVIS: INTRAPERITONEAL SPACE: Unremarkable. No free air. No significant fluid collection. BONES/JOINTS: No acute fracture. No dislocation. SOFT TISSUES: Umbilical hernia containing fat. VASCULATURE: Unremarkable. No abdominal aortic aneurysm. LYMPH NODES: Unremarkable. No enlarged lymph nodes. CT/Abdomen/Pelvis W IV Cont ONLY IMPRESSION: 1. Hepatomegaly with fatty infiltration. 2. Fecal retention in the colon consistent with constipation. 3. Punctate nephrolithiasis without hydronephrosis, bilaterally. 4. Umbilical hernia containing fat. Reading Location: [facility] CC: ZEB Raymond; Dr. Shade Matta DO ~ Brick Dropper: Signed [facility] 05-04-2025 Discharge summary Note Date/Time May 04, 2025 7:53pm [facility] Medical Records Department [address] [place] [id number] Emergency Department Summary 05/04/25 MR#: [id number] Acct: [id number] Name: JANE CHUNG Rep #:[id number] 1 : 1995 29 From: Shade Abreu PCP: ZEB Pittman Status:REG ER Location: ED HPI History of Present Illness Chief Complaint: General Illness PFSH PFSH Medical History Bipolar disorder History of anxiety History of alcohol abuse Anxiety Vaginal delivery Marijuana abuse Home Medications ?Medication ?Instructions ?Recorded ?Last Taken ?Type albuterol sulfate 90 mcg/actuation 1 inh inhalation Q6 H #1 ea 05/04/25 Unknown Rx breath activated powder inhaler lorazepam 1 mg tablet 1 mg PO DAILY PRN anxiety Unknown History ondansetron 4 mg disintegrating 4 mg PO Q8H PRN PRN Na usea #10 tabs 05/04/25 Unknown Rx tablet Allergy/AdvReac Type Severity Reaction Status Date / Time No Known Allergies Allergy Verified 05/04/25 14:12 Surgical History History of surgery Social History Smoking Status: Current every day smoker tobacco type: e-cigarettes Electronic Cigarette Use: with nicotine EXAM Physical Exam Const Vital Signs: 05/04/25 14:12 05/04/25 15:03 05/04/25 16:12 Temperature 98.4 F Temperature Source Oral Pulse Rate 146 H 102 H Respiratory Rate 20 H 18 Respiratory Effort Normal Non-Labored Respiratory Pattern Normal Blood Pressure 136/119 H 101/67 Blood Pressure Mean 124 78 Pulse Ox 98 100 Oxygen Delivery Method Room Air Room Air 05/04/25 18:06 Temperature Temperature Source Pulse Rate 87 Respiratory Rate 16 Respiratory Effort Respiratory Pattern Blood Pressure 112/75 Blood Pressure Mean 87 Pulse Ox 93 Oxygen Delivery Method Room Air MDM MDM MDM Narrative Medical decision making narrative: HISTORY OF PRESENT ILLNESS: Chief complaint: Fatigue 29-year-old female presents with concern for dehydration and fatigue. Notes shedid have intractable nausea and vomiting Has not had a bowel movement. Denies history of belly surgery. No urinary complaints. Notes nonbloody nonbilious vomitus. No melena medic easier noted. No vaginal bleeding or discharge. No burning with urination. No chest pain or shortness of breath REVIEW OF SYSTEMS: Pertinent positives: Fatigue, dizziness, nausea vomiting Pertinent negatives: As per HPI PHYSICAL EXAM: Nursing triage notes reviewed, Vital signs reviewed Constitutional: please see [facility] HENT: MMM Eyes: Pupils equal round and reactive to light, Extraocular muscles intact Neck: No stridor, no JVD, full neck ROM Lungs: Clear to auscultation, No wheezing or rales. No increased work of breathing, no conversational dyspnea, no accessory muscle use, no nasal flaring. No respiratory distress noted Heart: Regular rate and rhythm, No murmurs, No rubs and No gallops, 2+ distal pulses (radial, femoral, posterior tibial) in all extremities Abdomen: Soft, there is no tenderness, rigidity, rebound or guarding, no obviousperitoneal signs, no palpable pulsatile abdominal masses, no auscultated abdominal bruit : No CVAT Extremities: No edema Neuro: No new focal neurological deficits, cranial nerves II through XII intact,5/5 strength in all present extremities. Intact sensation to light touch in all present extremities, 2+ reflexes bilateral patella tendons. Skin: No rash MEDICAL DECISION MAKING: Chief Complaint: please see HPI External records reviewed: Reviewed prior imaging studies Factors affecting care: anxiety, alcohol abuse Social determinants of health: History of alcohol History obtained from others: significant other Consults: none [facility] Narrative: Patient was initially hemodynamically stable, tachycardic but afebrile and nontoxic-appearing. I considered the following differential diagnosis: AAA, small bowel obstruction,abdominal perforation, appendicitis, pancreatitis, hepatobiliary pathology (acute cholecystitis), mesenteric ischemia, pathology (ie nephrolithiasis, pyelonephritis). I obtained a broad lab and imaging workup to further determine if the patient was suffering from a life-threatening etiology. Initially treat the patient IV fluids, Zofran and morphine for pain. ALL IMAGES (IF OBTAINED) HAVE BEEN PERSONALLY REVIEWED AND INTERPRETED BY MYSELF. CBC with no leukocytosis, noted hemoconcentration consistent with dehydration, no thrombocytopenia BMP without evidence of significant electrolyte abnormalities, no anion gap, no acute kidney injury. Mild FTs Lactate is wnl indicating no end-organ hypoperfusion and/or hypoxia. Urinalysis shows no evidence of urinary inflammation suggestive of UTI Urine test is negative Repeat abdominal exam remained benign. Patient was tolerating p.o. Unclear etiology no sign of a life-threatening etiology with a negative CT scan and gross unremarkable labs including no leukocytosis, no elevation in lactate. Repeat vital signs showed improvement in tachycardia and tachypnea. Constipation instructions given for home. Patient is appropriate discharge homestrict return precautions were discussed. Follow-up instructions were given The patient and/or family, caregivers express understanding. The patient and/orfamily, caregivers agrees with the plan. Shared decision making: I will have a discussion with the patient and or visitors regarding risk/benefits of further testing or admission. They will be made aware of of the risk/benefits inherent in this decision they will be given the opportunity to voice understanding. Total critical care time today provided was at least 0 minutes. This excludes separately billable procedures. Critical care time (if documented) is secondary to the patient having high probability of clinically significant/life threatening deterioration in the patient's condition which required my urgent intervention. Impression: 1. Abdominal pain 2. Nausea and vomiting 3. Constipation Dispo: Discharge home This note was generated with Qosmos dictation software. It may contain incorrectwords, spelling, and punctuation that were not noted in review of the chart prior to signing. Lab Data Labs: Laboratory Results - last 24 hr 05/04/25 05/04/25 05/04/25 14:50 16:25 19:05 WBC 10.5 RBC 5.72 H Hgb 15.6 H Hct 47.3 H MCV 82.7 MCH 27.3 MCHC 33.0 RDW Std Deviation 42.6 RDW Coeff of Kana 14.5 Plt Count 309 MPV 11.2 Immature Gran % (Auto) 0.300 Neut % (Auto) 76.0 H Lymph % (Auto) 17.0 L Richmond % (Auto) 5.5 Eos % (Auto) 0.8 Baso % (Auto) 0.4 Absolute Neuts (auto) 8.0 H Absolute Lymphs (auto) 1.78 Nucleated RBC % 0 Sodium 142 Potassium 3.8 Chloride 102 Carbon Dioxide 25.6 Anion Gap 14 BUN 6 Creatinine 0.74 Estim Creat Clear Calc 106.90 Est GFR (MDRD) Non-Af 114 BUN/Creatinine Ratio 7.6 L Glucose 180 H Lactic Acid 2.0 < 1.0 Calcium 9.7 Total Bilirubin 0.51 AST 17 ALT 9 Alkaline Phosphatase 85 Troponin T High Sens 7 Total Protein 7.4 Albumin 4.2 Globulin 3.1 Albumin/Globulin Ratio 1.4 Lipase 57 Urine Color Yellow Urine Clarity Sl. Cloudy Urine pH 6.0 Ur Specific [place]rett 1.025 Urine Protein 30 H Urine Glucose (UA) Normal Urine Ketones 50 H Urine Occult Blood 50 H Urine Nitrite Negative Urine Bilirubin 1 H Urine Urobilinogen 1 H Ur Leukocyte Esterase 100 H Urine RBC 10-25 SEEN Urine WBC 25-50 SEEN Ur Squamous Epith Cells 10-25 SEEN Urine Bacteria 1+ Urine Mucus 2+ Urine Test Negative Radiography Diagnostic Testing: Clinical Impression(s) from Imaging Studies Abdomen/Pelvis CT 05/04/25 14:42 IMPRESSION: 1. Hepatomegaly with fatty infiltration. 2. Fecal retention in the colon consistent with constipation. 3. Punctate nephrolithiasis without hydronephrosis, bilaterally. 4. Umbilical hernia containing fat. Reading Location: [facility] Discharge Plan Triage Chief Complaint: General Illness ED Provider: Shade Matta Dx/Rx/DC Orders Clinical Impression: Nausea & vomiting Prescriptions: New albuterol sulfate 90 mcg/actuation aerosol powdr breath activated 1 inh inhalation Q6H Qty: 1 0RF ondansetron 4 mg tablet,disintegrating 4 mg PO Q8H PRN PRN (Reason: Nausea) Qty: 10 0RF No Action lorazepam 1 mg tablet 1 mg PO DAILY PRN (Reason: anxiety) Primary Care Provider: Serjio Raymond NP Referrals: Serjio Raymond TRUCKING MANAGER, TRUCKING MANAGER-C [Primary Care Provider] - Activity Restrictions/Additional Instructions: Thank you for trusting us with your care today! Please take Tylenol (2 pills, 650 mg), ibuprofen (2 pills, 400 mg) every 6 hoursas needed for pain and fever control. Please take Zofran as needed. Please return to the emergency department if your symptoms change or worsen. Please follow with your primary care physician for further outpatient evaluationand management. Print Language: Estonian Disposition Disposition: Home, Self Care What to do if you have Problems For any increased pain, shortness of breath, bleeding, nausea or vomiting, chestpain, or any unexpected problems, contact your Primary Care Provider. Call [facility] ([phone]) or report to the closest Emergency Room. Call 911 if necessary. 05/04/251952 <Electronically signed by Shade Matta DO> Cosigner Signature (if applicable): CC: ZEB Raymond ~ Signed [facility] Work Phone: 1(675) 209-887708-04-2025 Telephone encounter Note* Telephone Encounter - Radha Nguyen - 04/16/2025 3:52 PM EDT Prescription Refill Information The patient has been identified by name and date of : Yes Caregiver verified no other encounters exist for this prescription request: Yes Caregiver confirmed with patient/requestor that no other refills are due, in the near future, with this provider at this time: Yes The last office visit in the department: 12-12-24 Does the patient have a future office visit with this provider/department: No Requested Prescriptions Pending Prescriptions Disp Refills LORazepam (ATIVAN) 1 mg tablet 90 tablet 0 Sig: May take 1 tablet by mouth once daily as needed for anxiety. May also take 1-2 tablets at bedtime as needed for anxiety. Do all this for 30 days. Radha Nguyen April 16, 2025 3:53 PM [facility]08-04-2025 Miscellaneous Notes* Telephone Encounter - Radha Nguyen - 04/16/2025 3:52 PM EDT Prescription Refill Information The patient has been identified by name and date of : Yes Caregiver verified no other encounters exist for this prescription request: Yes Caregiver confirmed with patient/requestor that no other refills are due, in the near future, with this provider at this time: Yes The last office visit in the department: 12-12-24 Does the patient have a future office visit with this provider/department: No Requested Prescriptions Pending Prescriptions Disp Refills LORazepam (ATIVAN) 1 mg tablet 90 tablet 0 Sig: May take 1 tablet by mouth once daily as needed for anxiety. May also take 1-2 tablets at bedtime as needed for anxiety. Do all this for 30 days. Radha Nguyen April 16, 2025 3:53 PM documented in this encounterBet[facility]07-[facility]25 Telephone encounter Note * Telephone Encounter - Crissy Pierce LPN - 03/16/2025 2:13 PM EDT Patient calling with medication/refill: Patient/caregiver requesting refill of Lorazepam 1mg be called to [facility] pharmacy at [phone]., Allergies reviewed: Yes, Medication, dosage and sig reviewed: Yes. , and Do you have enough medication to last until the office reopens? No. Patient denies any new or worsening symptoms of which a provider is not aware:Yes . Crissy Pierce LPN [facility]07-04-2025 Miscellaneous Notes* Telephone Encounter - Crissy Pierce LPN - 03/16/2025 2:13 PM EDT Patient calling with medication/refill: Patient/caregiver requesting refill of Lorazepam 1mg be called to [facility] pharmacy at [phone]., Allergies reviewed: Yes, Medication, dosage and sig reviewed: Yes. , and Do you have enough medication to last until the office reopens? No. Patient denies any new or worsening symptoms of which a provider is not aware:Yes . Crissy Pierce LPN documented in this encounterBethesda [facility] Hospital05-27-2025 Telephone encounter Note * Telephone Encounter - Serjio Raymond APRN.CNP - 02/06/2025 2:41 PM EDT PDMP website checked and validated. All prescriptions have been APPROPRIATELY filled. No suspiciousactivity was identified. 02/06/2025 by Serjio Raymond APRN.MERA [facility]05-27-2025 Miscellaneous Notes* Telephone Encounter - Serjio Raymond APRN.CNP - 02/06/2025 2:41 PM EDT PDMP website checked and validated. All prescriptions have been APPROPRIATELY filled. No suspiciousactivity was identified. 02/06/2025 by Serjio Raymond APRN.CNP * Telephone Encounter - Ernestina Jean - 02/06/2025 10:16 AM EDT Prescription Refill Information The patient has been identified by name and date of : Yes Caregiver verified no other encounters exist for this prescription request: Yes Caregiver confirmed with patient/requestor that no other refills are due, in the near future, with this provider at this time: No The last office visit in the department: 12-12-24 Does the patient have a future office visit with this provider/department: No Requested Prescriptions Pending Prescriptions Disp Refills LORazepam (ATIVAN) 1 mg tablet 90 tablet 0 Sig: May take 1 tablet by mouth once daily as needed for anxiety. May also take 1-2 tablets at bedtime as needed for anxiety. Do all this for 30 days. Ernestina Fry February 06, 2025 10:17 AM documented in this encounterBethesda [facility] Hospital05-27-2025 Telephone encounter Note * Telephone Encounter - Ernestina Jean - 02/06/2025 10:16 AM EDT Prescription Refill Information The patient has been identified by name and date of : Yes Caregiver verified no other encounters exist for this prescription request: Yes Caregiver confirmed with patient/requestor that no other refills are due, in the near future, with this provider at this time: No The last office visit in the department: 12-12-24 Does the patient have a future office visit with this provider/department: No Requested Prescriptions Pending Prescriptions Disp Refills LORazepam (ATIVAN) 1 mg tablet 90 tablet 0 Sig: May take 1 tablet by mouth once daily as needed for anxiety. May also take 1-2 tablets at bedtime as needed for anxiety. Do all this for 30 days. Ernestina Fry February 06, 2025 10:17 AM [facility]04-29-2025 Telephone encounter Note* Telephone Encounter - Aster Waggoner RN - 01/09/2025 9:14 AM EDT The patient has been identified by name and date of : Yes Caregiver verified no other encounters exist for this prescription request: Yes Caregiver confirmed with patient/requestor that no other refills are due, in the near future, with this provider at this time: Yes The last office visit in the department: 12/12/2024 Does the patient have a future office visit with this provider/department: No Visit date not found Requested Prescriptions Pending Prescriptions Disp Refills LORazepam (ATIVAN) 1 mg tablet 90 tablet 0 Sig: May take 1 tablet by mouth once daily as needed for anxiety. May also take 1-2 tablets at bedtime as needed for anxiety. Do all this for 30 days. Aster Waggoner RN January 09, 2025 9:14 AM [facility]04-29-2025 Miscellaneous Notes* Telephone Encounter - Aster Waggoner RN - 01/09/2025 9:14 AM EDT The patient has been identified by name and date of : Yes Caregiver verified no other encounters exist for this prescription request: Yes Caregiver confirmed with patient/requestor that no other refills are due, in the near future, with this provider at this time: Yes The last office visit in the department: 12/12/2024 Does the patient have a future office visit with this provider/department: No Visit date not found Requested Prescriptions Pending Prescriptions Disp Refills LORazepam (ATIVAN) 1 mg tablet 90 tablet 0 Sig: May take 1 tablet by mouth once daily as needed for anxiety. May also take 1-2 tablets at bedtime as needed for anxiety. Do all this for 30 days. Aster Waggoner RN January 09, 2025 9:14 AM documented in this encounter[address]17-2025 Telephone encounter Note * Telephone Encounter - Ernestina Israel RN - 12/28/2024 11:51 AM EDT Patient called with c/o being 2 days late with her menses. LMP 3/18. Took x2 negative UPT. Patient asking about ordering blood work to check hcg level. Advised that we can schedule her an appointmentto discuss with a provider, or she can wait until she is a week late and take another test if her menses does not start. Patient prefers to wait and call back if she needs a visit. Ernestina Israel RN [facility]04-17-2025 Miscellaneous Notes* Telephone Encounter - Ernestina Israel RN - 12/28/2024 11:51 AM EDT Patient called with c/o being 2 days late with her menses. LMP 3/18. Took x2 negative UPT. Patient asking about ordering blood work to check hcg level. Advised that we can schedule her an appointmentto discuss with a provider, or she can wait until she is a week late and take another test if her menses does not start. Patient prefers to wait and call back if she needs a visit. Ernestina Israel RN documented in this encounterBethesda North Hospital04-01-2025 NoteHNO ID: [id number] Author: SERJIO RAYMOND APRN.[facility] Service: ? Author Type: Nurse Practitioner Type: Progress Notes Filed: 12/12/2024 10:51 Note Text: VIRTUAL VISIT PROGRESS NOTE This is an encounter initiated for an established patient, parent or guardian not originating from a related Evaluation AND Management service provided within the previous 7 days nor leading to an Evaluation AND Management service or procedure within the next 24 hours or soonest available appointment. This is a virtual visit. It required patient-provider interaction for the medical decision making as documented below. Patient has consented to this encounter. Persons Present: patient Data Reviewed: most recent notes and prior notes Patient has consented to patient-provider interaction via telephone/virtual visit for the medical decision making documented in this telephone/virtual visit encounter. Total Time Spent: 11-20 minutes SUBJECTIVE Jane Chung is a 28 year old female here today for a check up on her medical problems. Chief Complaint Patient presents with: Anxiety Recheck HPI Jane presents today for a virtual visit on my chart via the kooldiner platform. Here today for follow up. She was following with [facility] while this provider was out on leave. She had been on lorazepam and Vraylar. She is noticing episodes of being super hyper, restless, cannot rest. Sleeping for a few hours only. Stopped taking Vraylar, felt like this was making it worse. Taking an extra lorazepam before bed. Helping with sleep. Has an appointment with 180 coming up on . In the past on Seroquel and Depakote. Not drinking currently or using marijuana. Was on Lamictal, Prozac and maybe Abilify in the past. Her medications were reviewed today and her list is now up to date. Medications Current Outpatient Medications Medication Sig risperiDONE (RISPERDAL) 0.25 mg tablet Take 1 tablet by mouth two times a day. LORazepam (ATIVAN) 1 mg tablet May take 1 tablet by mouth once daily as needed for anxiety. May also take 1-2 tablets at bedtime as needed for anxiety. Do all this for 30 days. Patient should start on December 10, 2024. No current facility-administered medications for this visit. [...] date: 10/28/2012 Quit date: 10/28/2020 Years since quittin.1 Smokeless [...] Positive for sleep disturbance. The patient is nervous/anxious and is hyperactive. OBJECTIVE LMP 07/21/2024 Physical Exam Constitutional: General: She is awake. She is not in acute distress. Appearance: Normal appearance. Neurological: Mental Status: She is alert. Psychiatric: Behavior: Behavior is cooperative. ASSESSMENT/PLAN: 1. Bipolar 1 disorder, depressed, moderate (HCC) - ICD9: 296.52, ICD10: F31.32 (primary diagnosis) Can continue with the lorazepam, discussed goal is for this to be only as needed and a short term medication. Trial risperidone. Discussed new medication including but not limited to reason for use, possible side effects, administration, signs and symptoms to monitor for and when to seek medical attention. Follow up with prior seen mental health provider at [facility]. - RISPERIDONE 0.25 MG TABLET 2. ZACH (generalized anxiety disorder) - ICD9: 300.02, ICD10: F41.1 - RISPERIDONE 0.25 MG TABLET Serjio Raymond APRN.CNP Patient verbalizes understanding of instructions from today's visit and in agreement with treatment plan. Questions answered. Agrees to call the office if symptoms do not improve or if they worsen. Return in about 5 weeks (around 01/16/2025). Patient has consented to patient-provider interaction via telephone/virtual visit for the medic (more content not included)...[facility] 12-12-2024 History of Present illness Narrative* Serjio Raymond APRN.CNP - 12/12/2024 10:21 AM EDT VIRTUAL VISIT PROGRESS NOTE This is an encounter initiated for an established patient, parent or guardian not originating from a related Evaluation & Management service provided within the previous 7 days nor leading to an Evaluation & Management service or procedure within the next 24 hours or soonest available appointment. This is a virtual visit. It required patient-provider interaction for the medical decision making as documented below. Patient has consented to this encounter. Persons Present: patient Data Reviewed: most recent notes and prior notes Patient has consented to patient-provider interaction via telephone/virtual visit for the medical decision making documented in this telephone/virtual visit encounter. Total Time Spent: 11-20 minutes SUBJECTIVE Jane Chung is a 28 year old female here today for a check up on her medical problems. Chief Complaint Patient presents with: Anxiety Recheck HPI Jane presents today for a virtual visit on my chart via the kooldiner platform. Here today for follow up. She was following with [facility] while this provider was out on leave. She had been on lorazepam and Vraylar. She is noticing episodes of being super hyper, restless, cannot rest. Sleeping for a few hours only. Stopped taking Vraylar, felt like this was making it worse. Taking an extra lorazepam before bed. Helping with sleep. Has an appointment with 180 coming up on . In the past on Seroquel and Depakote. Not drinking currently or using marijuana. Was on Lamictal, Prozac and maybe Abilifyin the past. Her medications were reviewed today and her list is now up to date. Medications Current Outpatient Medications Medication Sig risperiDONE (RISPERDAL) 0.25 mg tablet Take 1 tablet by mouth two times a day. LORazepam (ATIVAN) 1 mg tablet May take 1 tablet by mouth once daily as needed for anxiety. May also take 1-2 tablets at bedtime as needed for anxiety. Do all this for 30 days. Patient should start on December 10, 2024. No current facility-administered medications for this visit. ALLERGIES No Known Allergies ACTIVE PROBLEM LIST Alcohol Use Disorder - 01/20/2024 Depression - 01/20/2024 Acute Gastritis Without Hemorrhage - 01/20/2024 Bipolar 1 Disorder, Depressed, Moderate (Hcc) - 01/20/2024 Zach (Generalized Anxiety Disorder) - 01/08/2023 Papanicolaou Smear of Cervix With Low Grade Squamous Intraepithelial Lesion (Lgsil) - 04/23/2021 Comment: 8/11/21-LGSIL, repeat pap smear in one year. Ana Puckett APRN.EMMAM History of Nicotine Vaping - 03/27/2021 Comment: 04/16/21-Using e-cig. Reviewed risk to self and baby and advised cessation. Ana Puckett APRN.EMMAM 03/27/2021 Patient has been nicotine vaping. Discussed risks of nicotine vaping in and recommendation of patient to quit. TKRN Social History Tobacco Use Smoking status: Former Current packs/day: 0.00 Types: Cigarettes Start date: 10/28/2012 Quit date: 10/28/2020 Years since quittin.1 Smokeless [...] Positive for sleep disturbance. The patient is nervous/anxious and is hyperactive. OBJECTIVE LMP 07/21/2024 Physical Exam Constitutional: General: She is awake. She is not in acute distress. Appearance: Normal appearance. Neurological: Mental Status: She is alert. Psychiatric: Behavior: Behavior is cooperative. ASSESSMENT/PLAN: 1. Bipolar 1 disorder, depressed, moderate (HCC) - ICD9: 296.52, ICD10: F31.32 (primary diagnosis) Can continue with the lorazepam, discussed goal is for this to be only as needed and a short term medication. Trial risperidone. Discussed new medication including but not limited to reason for use, possible side effects, administration, signs and symptoms to monitor for and when to seek medical att ention. Follow up with prior seen mental health provider at [facility]. - RISPERIDONE 0.25 MG TABLET 2. ZACH (generalized anxiety disorder) - ICD9: 300.02, ICD10: F41.1 - RISPERIDONE 0.25 MG TABLET Serjio Raymond APRN.[employer] SUPERVISOR Patient verbalizes understanding of instructions from today's visit and in agreement with treatmentplan. Questions answered. Agrees to call the office if symptoms do not improve or if they worsen. Return in about 5 weeks (around 01/16/2025). Patient has consented to patient-provider interaction via telephone/virtual visit for the medical decision making documented in this telephone/virtual visit encounter. Total Time Spent: 11-20 minutes documented in this encounterBethes[facility] Hospital03-26-2025 Miscellaneous Notes* Telephone Encounter - Maura Hargrove RN - 12/06/2024 2:41 PM EDT Patient calls and notified of : Script can be picked up on Wednesday at [facility]. This should be 90 pills for a 30 day supply. Maura Hargrove RN * Telephone Encounter - Crissy Garcia LPN - 12/06/2024 11:20 AM EDT LEFT MESSAGE FOR PATIENT TO CALL OFFICE. * Telephone Encounter - Serjio Raymond APRN.CNP - 12/06/2024 8:52 AM EDT Script can be picked up on Wednesday at [facility]. This should be 90 pills for a 30 day supply. * Telephone Encounter - Aster Waggoner RN - 12/06/2024 8:36 AM EDT Patient calls and states that she picked up 30 pills on 11/30/2024 from [facility]. Patient has 3 days left of this medication. Pharmacy would not give her anymore than the 30 pills. Patient calling and asking if prescription can be sent to [facility] for the next script? Patient asking when she can pick this up? The patient has been identified by name and date of : Yes Caregiver verified no other encounters exist for this prescription request: Yes Caregiver confirmed with patient/requestor that no other refills are due, in the near future, with this provider at this time: Yes The last office visit in the department: 06/21/2024 Does the patient have a future office visit with this provider/department: Yes 12/12/2024 Requested Prescriptions Pending Prescriptions Disp Refills LORazepam (ATIVAN) 1 mg tablet 90 tablet 0 Sig: Take one tablet in morning as needed and 1-2 tablets at bedtime as needed. Okay to refill early x1 on 11/22/2024 due to patient will be out of town when refill is due Aster Waggoner RN December 06, 2024 8:39 AM documented in this encounterBethesda [facility] Hospital03-26-2025 Telephone encounter Note * Telephone Encounter - Maura Hargrove RN - 12/06/2024 2:41 PM EDT Patient calls and notified of : Script can be picked up on Wednesday the at [facility]. This should be 90 pills for a 30 day supply. Maura Hargrove RN [facility]03-26-2025 Telephone encounter Note* Telephone Encounter - Crissy Garica LPN - 12/06/2024 11:20 AM EDT LEFT MESSAGE FOR PATIENT TO CALL OFFICE. [facility]03-26-2025 Telephone encounter Note* Telephone Encounter - Serjio Raymond APRN.CNP - 12/06/2024 8:52 AM EDT Script can be picked up on Wednesday the at [facility]. This should be 90 pills for a 30 day supply. [facility]03-26-2025 Telephone encounter Note* Telephone Encounter - Aster Waggoner RN - 12/06/2024 8:36 AM EDT Patient calls and states that she picked up 30 pills on 11/30/2024 from [facility]. Patient has 3 days left of this medication. Pharmacy would not give her anymore than the 30 pills. Patient calling and asking if prescription can be sent to [facility] for the next script? Patient asking when she can pick this up? The patient has been identified by name and date of : Yes Caregiver verified no other encounters exist for this prescription request: Yes Caregiver confirmed with patient/requestor that no other refills are due, in the near future, with this provider at this time: Yes The last office visit in the department: 06/21/2024 Does the patient have a future office visit with this provider/department: Yes 12/12/2024 Requested Prescriptions Pending Prescriptions Disp Refills LORazepam (ATIVAN) 1 mg tablet 90 tablet 0 Sig: Take one tablet in morning as needed and 1-2 tablets at bedtime as needed. Okay to refill early x1 on 11/22/2024 due to patient will be out of town when refill is due Aster Waggoner RN December 06, 2024 8:39 AM [facility]03-12-2025 Telephone encounter Note* Telephone Encounter - Aster Waggoner RN - 11/22/2024 4:41 PM EDT Patient calls and is upset because [facility] still will not fill Ativan. Called and spoke with Norr pharmacist at [facility]. Norr reports that she cannot refill medication early even if patient is going on vacation. Patient had refills of the followin10/13/2024- 90 tablets for 30 days 11/10/2024- 60 tablets for 30 days Pharmacy has 2 different sets of instructions of medications on file with 2 different sets of directions. Last refill was with the directions of 1 tablet twice a day. [facility] won't fill prescription early. Pharmacy did give patient the option of having prescription sent to pharmacy that patient is vacationing in when medication is due or sending prescription to a different prescription. Norr said they went over the options for patient with the patient. Please review and advise, Aster Waggoner RN [facility]03-12-2025 Miscellaneous Notes* Telephone Encounter - Aster Waggoner RN - 11/22/2024 4:41 PM EDT Patient calls and is upset because [facility] still will not fill Ativan. Called and spoke with Anahyr pharmacist at [facility]. Norr reports that she cannot refill medication early even if patient is going on vacation. Patient had refills of the followin10/13/2024- 90 tablets for 30 days 11/10/2024- 60 tablets for 30 days Pharmacy has 2 different sets of instructions of medications on file with 2 different sets of directions. Last refill was with the directions of 1 tablet twice a day. [facility] won't fill prescription early. Pharmacy did give patient the option of having prescription sent to pharmacy that patient is vacationing in when medication is due or sending prescription to a different prescription. Norr said they went over the options for patient with the patient. Please review and advise, Aster Waggoner RN * Telephone Encounter - Crissy Garcia LPN - 11/22/2024 2:49 PM EDT PATIENT NOTIFIED OF SAME. * Telephone Encounter - Serjio Raymond APRN.CNP - 11/22/2024 2:43 PM EDT Script sent authorizing early refill x1 * Telephone Encounter - Lucita Kay LPN - 11/22/2024 2:07 PM EDT Patient returned call and went over notes below from Serjio Raymond TRUCKING MANAGER, patient said she is leaving tomorrow 11/23 and will be back on 12/08. She said [facility] had only given her 60 Lorazepam with her last refill, pharmacy told her they could give her the other 30 on 3/20, but she will be gone. * Telephone Encounter - Serjio Raymond APRN.CNP - 11/22/2024 12:53 PM EDT Can we see how long she is going out of town for? What date is she leaving and returning. The Vraylar should be ready for her but I just have to clarify for the Ativan. * Telephone Encounter - Maura Hargrove, SHAWNEE - 11/22/2024 12:09 PM EDT Patient calls to ask if provider would give authorization for her to curing pickling packer her Vraylar and lorazepam medications at [facility] today before 4 pm as she is going out of town tomorrow and it is too soon to fill both medications. Call placed to Gwen at [facility] and they are in process of filling Vraylar and patient can filllorazepam on 11/30/2024. Call placed back to patient who reports the problem was DM only dispensed 60 pills of lorazepam so she doesn't have enough to get through until the plus she is leaving to go out of town tomorrow. See notes from 11/10/2024 refill request also. Patient asking if provider will please authorize the early fill date of lorazepam. Maura Hargrove, RN documented in this encounterBet[facility] Telephone encounter Note * Telephone Encounter - Crissy Garcia LPN - 11/22/2024 2:49 PM EDT PATIENT NOTIFIED OF SAME. [facility]03-12-2025 Telephone encounter Note* Telephone Encounter - Serjio Raymond APRN.CNP - 11/22/2024 2:43 PM EDT Script sent authorizing early refill x1 [facility]03-12-2025 Telephone encounter Note* Telephone Encounter - Lucita Kay LPN - 11/22/2024 2:07 PM EDT Patient returned call and went over notes below from Serjio Raymond TRUCKING MANAGER, patient said she is leaving tomorrow 11/23 and will be back on 12/08. She said [facility] had only given her 60 Lorazepam with her last refill, pharmacy told her they could give her the other 30 on 11/30, but she will be gone. [facility]03-12-2025 Telephone encounter Note* Telephone Encounter - Serjio Raymond APRN.CNP - 11/22/2024 12:53 PM EDT Can we see how long she is going out of town for? What date is she leaving and returning. The Vraylar should be ready for her but I just have to clarify for the Ativan. [facility]03-12-2025 Telephone encounter Note* Telephone Encounter - Maura Hargrove RN - 11/22/2024 12:09 PM EDT Patient calls to ask if provider would give authorization for her to curing pickling packer her Vraylar and lorazepam medications at [facility] today before 4 pm as she is going out of town tomorrow and it is too soon to fill both medications. Call placed to Gwen at [facility] and they are in process of filling Vraylar and patient can filllorazepam on 11/30/2024. Call placed back to patient who reports the problem was DM only dispensed 60 pills of lorazepam so she doesn't have enough to get through until the plus she is leaving to go out of town tomorrow. See notes from 11/10/2024 refill request also. Patient asking if provider will please authorize the early fill date of lorazepam. Maura Hargrove, RN [facility]02-28-2025 Telephone encounter Note* Telephone Encounter - Guera Velasquez APRN.CNS - 11/10/2024 1:46 PM EST ok [facility]02-28-2025 Miscellaneous Notes* Telephone Encounter - Guera Velasquez APRN.CNS - 11/10/2024 1:46 PM EST ok * Telephone Encounter - Karrie Oquendo OCCA - 11/10/2024 8:31 AM EST [facility] 06/21/2024 NOV not scheduled * Telephone Encounter - Sonja Strickland - 11/10/2024 8:21 AM EST Last apt 09/14/2024 Patient has been identified by name and date of : Yes Last office visit in this department: 01/14/2023 RX INSTRUCTIONS: Patient aware RX will be sent to pharmacy. No need to notify patient. Patient phones requesting refills as follows: Requested Prescriptions Pending Prescriptions Disp Refills LORazepam (ATIVAN) 1 mg tablet 90 tablet 1 Sig: Take one tablet in morning as needed and 1-2 tablets at bedtime as needed Please review and advise. Sonja Fry documented in this encounterBethesda [facility] Hospital02-28-2025 Telephone encounter Note * Telephone Encounter - Karrie Oquendo OCCA - 11/10/2024 8:31 AM EST [facility] 06/21/2024 NOV not scheduled [facility]02-28-2025 Telephone encounter Note* Telephone Encounter - Sonja Strickland - 11/10/2024 8:21 AM EST Last apt 09/14/2024 Patient has been identified by name and date of : Yes Last office visit in this department: 01/14/2023 RX INSTRUCTIONS: Patient aware RX will be sent to pharmacy. No need to notify patient. Patient phones requesting refills as follows: Requested Prescriptions Pending Prescriptions Disp Refills LORazepam (ATIVAN) 1 mg tablet 90 tablet 1 Sig: Take one tablet in morning as needed and 1-2 tablets at bedtime as needed Please review and advise. Sonja Fry [facility]01-02-2025 History of Present illness Narrative* Guera Velasquez APRN.CLINICAL NURSE REVIEWER - 09/14/2024 7:00 AM EST AMBULATORY TELEPHONE VISIT Jane Chung has consented to this telephone encounter. Persons Present: patient Chief Complaint/Reason: recheck HPI: Presents today regarding follow-up of anxiety and bipolar depression. She has started the Vraylar and it seems to be helping. She notes sleeping improved. Less anxiety. She has an appointment at the counseling center in [place] on August 25. Reports counseling center appt on Aug 25. was cancelled, will be going to 180. Notes medications do seem to be helping however noting restlessness and trouble falling and stayingasleep with the increased dose of Vraylar. Has been taking lorazepam two times daily ost days. Data Reviewed: EPIC chart Assessment: (F41.1) ZACH (generalized anxiety disorder) (F31.32) Bipolar 1 disorder, depressed, moderate (HCC) (F32.A) Depression, unspecified depression type Plan: ASSESSMENT/PLAN: 1. ZACH (generalized anxiety disorder) - ICD9: 300.02, ICD10: F41.1 - CARIPRAZINE 1.5 MG CAPSULE - LORAZEPAM 1 MG TABLET 2. Bipolar 1 disorder, depressed, moderate (HCC) - ICD9: 296.52, ICD10: F31.32 - CARIPRAZINE 1.5 MG CAPSULE - LORAZEPAM 1 MG TABLET 3. Depression, unspecified depression type - ICD9: 311, ICD10: F32.A - CARIPRAZINE 1.5 MG CAPSULE Ms. Chung cancelled the appointment at the counseling center and changed to 180, has not yet been seen. She notes incresed restlessness and trouble sleeping on the increased dose of Vraylar so will return to 1.5 mg dose. Continue on lorazepam 1 mg as needed during the day, can increase to 2mg at bedtime if needed. 2-4 week follow up, video visit. She will let us know if needing anything additional before this visit. Total Time Spent: 15 minutes Guera Velasquez APRN.CLINICAL NURSE REVIEWER documented in this encounterBethesda North Hospital01-02-2025 NoteHNO ID: [id number] Author: GUERA VELASQUEZ APRN.CLINICAL NURSE REVIEWER Service: ? Author Type: Nurse Specialist Type: Progress Notes Filed: 09/14/2024 07:24 Note Text: AMBULATORY TELEPHONE VISIT Jane Chung has consented to this telephone encounter. Persons Present: patient Chief Complaint/Reason: recheck HPI: Presents today regarding follow-up of anxiety and bipolar depression. She has started the Vraylar and it seems to be helping. She notes sleeping improved. Less anxiety. She has an appointment at the counseling center in [place] on August 25. Reports counseling center appt on Aug 25. was cancelled, will be going to 180. Notes medications do seem to be helping however noting restlessness and trouble falling and staying asleep with the increased dose of Vraylar. Has been taking lorazepam two times daily ost days. Data Reviewed: EPIC chart Assessment: (F41.1) ZACH (generalized anxiety disorder) (F31.32) Bipolar 1 disorder, depressed, moderate (HCC) (F32.A) Depression, unspecified depression type Plan: ASSESSMENT/PLAN: 1. ZACH (generalized anxiety disorder) - ICD9: 300.02, ICD10: F41.1 - CARIPRAZINE 1.5 MG CAPSULE - LORAZEPAM 1 MG TABLET 2. Bipolar 1 disorder, depressed, moderate (HCC) - ICD9: 296.52, ICD10: F31.32 - CARIPRAZINE 1.5 MG CAPSULE - LORAZEPAM 1 MG TABLET 3. Depression, unspecified depression type - ICD9: 311, ICD10: F32.A - CARIPRAZINE 1.5 MG CAPSULE Ms. Chung cancelled the appointment at the counseling center and changed to 180, has not yet been seen. She notes incresed restlessness and trouble sleeping on the increased dose of Vraylar so will return to 1.5 mg dose. Continue on lorazepam 1 mg as needed during the day, can increase to 2mg at bedtime if needed. 2-4 week follow up, video visit. She will let us know if needing anything additional before this visit. Total Time Spent: 15 minutes Guera Velasquez APRN.[facility]12-05-2024 NoteHNO ID: [id number] Author: GUERA VELASQUEZ APRN.CLINICAL NURSE REVIEWER Service: ? Author Type: Nurse Specialist Type: Progress Notes Filed: 08/17/2024 08:05 Note Text: AMBULATORY TELEPHONE VISIT Jane Chung has consented to this telephone encounter. Persons Present: patient Chief Complaint/Reason: recheck HPI: Presents today regarding follow-up of anxiety and bipolar depression. She has started the Vraylar and it seems to be helping. She notes sleeping improved. Less anxiety. She has an appointment at the counseling center in [place] on August 25. Notes hives and facial flushing after showering at times. Notes toes turning white t times, no pain or sore noted. No known history or Raynauds. No new soap, lotion detergent is known. Brief, intermittent, passes without intervention, unknown if related to anxiety. Taking lorazepam BID consistently since last seen. Reports counseling center appt on Aug 25. Data Reviewed: EPIC chart Assessment: (F41.1) ZACH (generalized anxiety disorder) (F31.32) Bipolar 1 disorder, depressed, moderate (HCC) (F32.A) Depression, unspecified depression type Plan: ASSESSMENT/PLAN: 1. ZACH (generalized anxiety disorder) - ICD9: 300.02, ICD10: F41.1 - CARIPRAZINE 3 MG CAPSULE - LORAZEPAM 1 MG TABLET 2. Bipolar 1 disorder, depressed, moderate (HCC) - ICD9: 296.52, ICD10: F31.32 - CARIPRAZINE 3 MG CAPSULE - LORAZEPAM 1 MG TABLET 3. Depression, unspecified depression type - ICD9: 311, ICD10: F32.A - CARIPRAZINE 3 MG CAPSULE She has an appointment at the counseling center next week. Can increase Vraylar dose as she feels current dose is helping but not quite enough. Continue on lorazepam unchanged. 4. Rash and nonspecific skin eruption - ICD9: 782.1, ICD10: R21 (primary diagnosis) Recommend fragrance free soaps and lotions. Avoid hot water in the shower, decrease to a warm temperature to see if this helps. If related to anxiety increasing the dose Vraylar and taking lorazepam may help. Continue on with lorazepam unchanged. If needed can take an haza-bez-qyusvnz antihistamine and hydrocortisone cream to any areas of rash. Total Time Spent: 20 minutes Guera Velasquez APRN.[facility]12-05-2024 History of Present illness Narrative* Guera Velasquez APRN.CLINICAL NURSE REVIEWER - 08/17/2024 7:01 AM EST AMBULATORY TELEPHONE VISIT Jane Chung has consented to this telephone encounter. Persons Present: patient Chief Complaint/Reason: recheck HPI: Presents today regarding follow-up of anxiety and bipolar depression. She has started the Vraylar and it seems to be helping. She notes sleeping improved. Less anxiety. She has an appointment at the counseling center in [place] on August 25. Notes hives and facial flushing after showering at times. Notes toes turning white t times, no painor sore noted. No known history or Raynauds. No new soap, lotion detergent is known. Brief, intermittent, passes without intervention, unknown if related to anxiety. Taking lorazepam BID consistentlysince last seen. Reports counseling center appt on Aug 25. Data Reviewed: EPIC chart Assessment: (F41.1) ZACH (generalized anxiety disorder) (F31.32) Bipolar 1 disorder, depressed, moderate (HCC) (F32.A) Depression, unspecified depression type Plan: ASSESSMENT/PLAN: 1. ZACH (generalized anxiety disorder) - ICD9: 300.02, ICD10: F41.1 - CARIPRAZINE 3 MG CAPSULE - LORAZEPAM 1 MG TABLET 2. Bipolar 1 disorder, depressed, moderate (HCC) - ICD9: 296.52, ICD10: F31.32 - CARIPRAZINE 3 MG CAPSULE - LORAZEPAM 1 MG TABLET 3. Depression, unspecified depression type - ICD9: 311, ICD10: F32.A - CARIPRAZINE 3 MG CAPSULE She has an appointment at the counseling center next week. Can increase Vraylar dose as she feels current dose is helping but not quite enough. Continue on lorazepam unchanged. 4. Rash and nonspecific skin eruption - ICD9: 782.1, ICD10: R21 (primary diagnosis) Recommend fragrance free soaps and lotions. Avoid hot water in the shower, decrease to a warm temperature to see if this helps. If related to anxiety increasing the dose Vraylar and taking lorazepam may help. Continue on with lorazepam unchanged. If needed can take an teio-bfv-npkqnno antihistamineand hydrocortisone cream to any areas of rash. Total Time Spent: 20 minutes Guera Velasquez APRN.CLINICAL NURSE REVIEWER documented in this encounterBethesda North Hospital11-26-2024 NoteHNO ID: [id number] Author: SERGIO TYSON PA-C Service: ? Author Type: Physician Acquisition Analyst Type: Progress Notes Filed: 08/08/2024 10:02 Note Text: This note was created using [email or web address]. Subjective Jane Chung is a 28 year old female. HPI Presents with a chief complaint of dental pain for a few months. She states she saw her dentist for a cleaning and had mentioned that she had a few cavities that may need filled. She has not followed up yet. She was not having pain at that time. The past few weeks pain has worsened. And also complaining of cough and congestion for the past week. She has had some hot flashes and bodyaches for the past 2 days. She has not taken her temperature at home. Her significant other is sick with similar symptoms. No chest pain or shortness of breath. No history of asthma. She states she does vape. No diarrhea or vomiting. Review of Systems Constitutional: Positive for fatigue. Hot flashes HENT: Positive for congestion, dental problem and sore throat. Negative for ear pain. Respiratory: Positive for cough. Negative for shortness of breath and wheezing. Cardiovascular: Negative. Gastrointestinal: Negative. Musculoskeletal: Positive for myalgias. All other systems reviewed and are negative. PAST MEDICAL HISTORY Diagnosis Date Alcohol use disorder 01/20/2024 Anemia complicating , third trimester 02/14/2018 anxiety Depression 01/20/2024 fracture 2016 right hand, punched something and fractures the hand NEGATIVE MEDICAL HISTORY Papanicolaou smear of cervix with low grade squamous intraepithelial lesion (LGSIL) 04/23/2021 Current Outpatient Medications Medication Sig Dispense Refill cariprazine (VRAYLAR) 1.5 mg capsule Take 1 capsule by mouth once daily. 30 capsule 3 LORazepam (ATIVAN) 1 mg tablet Take 1 tablet by mouth two times a day as needed for up to 30 days. 60 tablet 0 amoxicillin-clavulanate potassium (AUGMENTIN) 875-125 mg per tablet Take 1 tablet by mouth two times a day for 7 days. 14 tablet 0 No current facility-administered medications for this visit. PAST SURGICAL HISTORY Procedure Laterality Date TONSILLECTOMY HX FAMILY HISTORY Problem Relation Age of Onset Diabetes Mother Type II Thyroid Mother other (brain aneurysm) Father other (Lupus) Sister No Known Problems Sister No Known Problems Brother No Known Problems Brother No Known Problems Brother No Known Problems Brother Hypertension Maternal Grandmother Coronary Artery Disease Maternal Grandmother Triple CAB twice Heart Maternal Grandmother 4 SC's, Congestive Heart Failure Arthritis Maternal Grandmother Colon Cancer Maternal Grandfather No Known Problems Paternal Grandmother Seizures Paternal Grandfather Social History Tobacco Use Smoking status: Former Current packs/day: 0.00 Types: Cigarettes Start date: 10/28/2012 Quit date: 10/28/2020 Years since quittin.7 Smokeless tobacco: Never Tobacco comments: E-cigarettes sometimes Vaping Use Vaping status: current everyday user Substances: Nicotine Devices: Disposable Substance Use Topics Alcohol use: Yes Alcohol/week: 42.0 standard drinks of alcohol Types: 42 Cans of beer per week Drug use: Yes Types: Marijuana Comment: none since 08/2017 Objective BP 133/86 Pulse 96 Temp 36.4 ?C (97.5 ?F) Resp 18 Wt 79.6 kg (175 lb 7.8 oz) LMP 07/21/2024 (Exact Date) SpO2 98% BMI 28.32 kg/m? Physical Exam Vitals reviewed. Constitutional: Appearance: Normal appearance. HENT: Head: Normocephalic and atraumatic. Right Ear: Tympanic membrane, ear canal and external ear normal. Left Ear: Tympanic membrane, ear canal and external ear normal. Nose: Congestion present. Mouth/Throat: Mouth: Mucous membranes are moist. Pharynx: Oropharynx is clear. Comments: Patient has multiple dental caries noted. No sign of drainable abscess. No trismus. No overlying facial swelling. Cardiovascular: Rate and Rhythm: Normal rate and regular rhythm. Heart sounds: Normal heart sounds. Pulmonary: Effort: Pulmonary effort is normal. Breath sounds: Normal breath sounds. Musculoskeletal: Cervical back: Neck supple. Lymphadenopathy: Cervical: No cervical adenopathy. Skin: General: Skin is warm and dry. Neurological: Mental Status: She is alert. Assessment and Plan ASSESSMENT/PLAN: 1. Acute cough - ICD9: 786.2, ICD10: R05.1 (primary diagnosis) X-ray ordered, patient will go to [facility] due to x-ray being closed here at [facility]. Will call on results and treat accordingly. - XR CHEST 2V FRONTAL/LAT 2. Chronic dental pain - ICD9: 525.9, 338.29, ICD10: K08.9, G89.29 Given Augmentin for worsening pain, possible superimposed infection versus chronic dental caries. Follow-up with dentist. [facility] History of Present illness Narrative* Sergio Tyson PA-C - 08/08/2024 9:54 AM EST This note was created using [email or web address]. Subjective Jane Chung is a 28 year old female. HPI Presents with a chief complaint of dental pain for a few months. She states she saw her dentist fora cleaning and had mentioned that she had a few cavities that may need filled. She has not followedup yet. She was not having pain at that time. The past few weeks pain has worsened. And also complaining of cough and congestion for the past week. She has had some hot flashes and bodyaches for the past 2 days. She has not taken her temperature at home. Her significant other is sick with similar symptoms. No chest pain or shortness of breath. No history of asthma. She states she does vape. No diarrhea or vomiting. Review of Systems Constitutional: Positive for fatigue. Hot flashes HENT: Positive for congestion, dental problem and sore throat. Negative for ear pain. Respiratory: Positive for cough. Negative for shortness of breath and wheezing. Cardiovascular: Negative. Gastrointestinal: Negative. Musculoskeletal: Positive for myalgias. All other systems reviewed and are negative. PAST MEDICAL HISTORY Diagnosis Date Alcohol use disorder 01/20/2024 Anemia complicating , third trimester 02/14/2018 anxiety Depression 01/20/2024 fracture 2016 right hand, punched something and fractures the hand NEGATIVE MEDICAL HISTORY Papanicolaou smear of cervix with low grade squamous intraepithelial lesion (LGSIL) 04/23/2021 Current Outpatient Medications Medication Sig Dispense Refill cariprazine (VRAYLAR) 1.5 mg capsule Take 1 capsule by mouth once daily. 30 capsule 3 LORazepam (ATIVAN) 1 mg tablet Take 1 tablet by mouth two times a day as needed for up to 30 days. 60 tablet 0 amoxicillin-clavulanate potassium (AUGMENTIN) 875-125 mg per tablet Take 1 tablet by mouth two times a day for 7 days. 14 tablet 0 No current facility-administered medications for this visit. PAST SURGICAL HISTORY Procedure Laterality Date TONSILLECTOMY HX FAMILY HISTORY Problem Relation Age of Onset Diabetes Mother Type II Thyroid Mother other (brain aneurysm) Father other (Lupus) Sister No Known Problems Sister No Known Problems Brother No Known Problems Brother No Known Problems Brother No Known Problems Brother Hypertension Maternal Grandmother Coronary Artery Disease Maternal Grandmother Triple CAB twice Heart Maternal Grandmother 4 SC's, Congestive Heart Failure Arthritis Maternal Grandmother Colon Cancer Maternal Grandfather No Known Problems Paternal Grandmother Seizures Paternal Grandfather Social History Tobacco Use Smoking status: Former Current packs/day: 0.00 Types: Cigarettes Start date: 10/28/2012 Quit date: 10/28/2020 Years since quittin.7 Smokeless tobacco: Never Tobacco comments: E-cigarettes sometimes Vaping Use Vaping status: current everyday user Substances: Nicotine Devices: Disposable Substance Use Topics Alcohol use: Yes Alcohol/week: 42.0 standard drinks of alcohol Types: 42 Cans of beer per week Drug use: Yes Types: Marijuana Comment: none since 08/2017 Objective BP 133/86 Pulse 96 Temp 36.4 C (97.5 F) Resp 18 Wt 79.6 kg (175 lb 7.8 oz) LMP 07/21/2024(Exact Date) SpO2 98% BMI 28.32 kg/m Physical Exam Vitals reviewed. Constitutional: Appearance: Normal appearance. HENT: Head: Normocephalic and atraumatic. Right Ear: Tympanic membrane, ear canal and external ear normal. Left Ear: Tympanic membrane, ear canal and external ear normal. Nose: Congestion present. Mouth/Throat: Mouth: Mucous membranes are moist. Pharynx: Oropharynx is clear. Comments: Patient has multiple dental caries noted. No sign of drainable abscess. No trismus. No overlying facial swelling. Cardiovascular: Rate and Rhythm: Normal rate and regular rhythm. Heart sounds: Normal heart sounds. Pulmonary: Effort: Pulmonary effort is normal. Breath sounds: Normal breath sounds. Musculoskeletal: Cervical back: Neck supple. Lymphadenopathy: Cervical: No cervical adenopathy. Skin: General: Skin is warm and dry. Neurological: Mental Status: She is alert. Assessment and Plan ASSESSMENT/PLAN: 1. Acute cough - ICD9: 786.2, ICD10: R05.1 (primary diagnosis) X-ray ordered, [facility] Hospital due to x-ray being closed here at [facility]. Will call on results and treat accordingly. - XR CHEST 2V FRONTAL/LAT 2. Chronic dental pain - ICD9: 525.9, 338.29, ICD10: K08.9, G89.29 Given Augmentin for worsening pain, possible superimposed infection versus chronic dental caries. Follow-up with dentist. Sergio Tyson PA-C documented in this encounterBethesda North Hospital11-06-2024 History of Present illness Narrative* Serjio Raymond APRN.MICROFILM DUPLICATING UNIT SUPERVISOR - 07/19/2024 10:40 AM EST VIRTUAL VISIT PROGRESS NOTE This is an encounter initiated for an established patient, parent or guardian not originating from a related Evaluation & Management service provided within the previous 7 days nor leading to an Evaluation & Management service or procedure within the next 24 hours or soonest available appointment. This is a virtual visit. It required patient-provider interaction for the medical decision making as documented below. Patient has consented to this encounter. Persons Present: patient Data Reviewed: Most recent notes Patient has consented to patient-provider interaction via telephone/virtual visit for the medical decision making documented in this telephone/virtual visit encounter. Total Time Spent: 15 minutes I have communicated my name and active licensure. The patient's identity and physical location wereverified at the time of this visit. Either the patient or their legal technical service representative has been informed of the risks and benefits of -- and alternatives to -- treatment through a remote evaluation andconsents to proceed with the evaluation remotely. SUBJECTIVE Jane Chung is a 28 year old female here today for a check up on her medical problems. Chief Complaint Patient presents with: Anxiety KEESHA Verduzco is a 28 year old female established patient who presents today for a virtual visit via my chart on the kooldiner platform for follow up. When last seen we discussed concerns of worsening anxiety. Things are still pretty rough, medication helping some. Has been withdrawn. Did not start on the Vraylar because she did not know the prior auth was approved. Pharmacy was notified of this. Kids are backat home with her. Started a new job. Things are okay. Not sleeping great, sleeping a few hours at atime. She notes still having panic attacks but not as severe. Signed up for counseling. Her medications were reviewed today and her list is now up to date. Medications Current Outpatient Medications Medication Sig cariprazine (VRAYLAR) 1.5 mg capsule Take 1 capsule by mouth once daily. LORazepam (ATIVAN) 1 mg tablet Take 1 [...] date: 10/28/2012 Quit date: 10/28/2020 Years since quittin.7 Smokeless tobacco: Never Tobacco comments: E-cigarettes sometimes Vaping Use Vaping status: current everyday user Substances: Nicotine Devices: Disposable Substance Use Topics Alcohol use: Yes Alcohol/week: 42.0 standard drinks of alcohol Types: 42 Cans of beer per week Drug use: Yes Types: Marijuana Comment: none since 08/2017 Review of Systems Respiratory: Negative. Cardiovascular: Negative. Psychiatric/Behavioral: Positive for dysphoric mood and sleep disturbance. The patient is nervous/anxious. OBJECTIVE LMP 06/19/2024 Physical Exam Constitutional: General: She is awake. She is not in acute distress. Comments: During the virtual visit she is alert, oriented, breathing is quiet, not labored, no apparent distress. Neurological: Mental Status: She is alert. Psychiatric: Behavior: Behavior is cooperative. ASSESSMENT/PLAN: 1. ZACH (generalized anxiety disorder) - ICD9: 300.02, ICD10: F41.1 (primary diagnosis) Okay for refill on Ativan, Vraylar prior auth was approved, advised to pick this up at pharmacy andstart the medication. Follow up in about 5 weeks to see how she is feeling with starting this. - CARIPRAZINE 1.5 MG CAPSULE - LORAZEPAM 1 MG TABLET 2. Bipolar 1 disorder, depressed, moderate (HCC) - ICD9: 296.52, ICD10: F31.32 - CARIPRAZINE 1.5 MG CAPSULE - LORAZEPAM 1 MG TABLET 3. Depression, unspecified depression type - ICD9: 311, ICD10: F32.A - CARIPRAZINE 1.5 MG CAPSULE 4. Stress and adjustment reaction - ICD9: 309.89, ICD10: F43.29 Serjio Raymond APRN.MICROFILM DUPLICATING UNIT SUPERVISOR Patient verbalizes understanding of instructions from today's visit and in agreement with treatmentplan. Questions answered. Agrees to call the office if symptoms do not improve or if they worsen. Return in about 5 weeks (around 08/23/2024) for recheck on mood. Patient has consented to patient-provider interaction via telephone/virtual visit for the medical decision making documented in this telephone/virtual visit encounter. Total Time Spent: 15 minutes documented in this encounterBethesda North Hospital11-06-2024 NoteHNO ID: [id number] Author: SERJIO RAYMOND APRN.CNP Service: ? Author Type: Nurse Practitioner Type: Progress Notes Filed: 07/19/2024 11:11 Note Text: VIRTUAL VISIT PROGRESS NOTE This is an encounter initiated for an established patient, parent or guardian not originating from a related Evaluation AND Management service provided within the previous 7 days nor leading to an Evaluation AND Management service or procedure within the next 24 hours or soonest available appointment. This is a virtual visit. It required patient-provider interaction for the medical decision making as documented below. Patient has consented to this encounter. Persons Present: patient Data Reviewed: Most recent notes Patient has consented to patient-provider interaction via telephone/virtual visit for the medical decision making documented in this telephone/virtual visit encounter. Total Time Spent: 15 minutes I have communicated my name and active licensure. The patient's identity and physical location were verified at the time of this visit. Either the patient or their legal technical service representative has been informed of the risks and benefits of -- and alternatives to -- treatment through a remote evaluation and consents to proceed with the evaluation remotely. SUBJECTIVE Jane Chung is a 28 year old female here today for a check up on her medical problems. Chief Complaint Patient presents with: Anxiety KEESHA Verduzco is a 28 year old female established patient who presents today for a virtual visit via my chart on the kooldiner platform for follow up. When last seen we discussed concerns of worsening anxiety. Things are still pretty rough, medication helping some. Has been withdrawn. Did not start on the Vraylar because she did not know the prior auth was approved. Pharmacy was notified of this. Kids are back at home with her. Started a new job. Things are okay. Not sleeping great, sleeping a few hours at a time. She notes still having panic attacks but not as severe. Signed up for counseling. Her medications were reviewed today and her list is now up to date. Medications Current Outpatient Medications Medication Sig cariprazine (VRAYLAR) 1.5 mg capsule Take 1 capsule by mouth once daily. LORazepam (ATIVAN) 1 mg tablet Take 1 [...] date: 10/28/2012 Quit date: 10/28/2020 Years since quittin.7 Smokeless tobacco: Never Tobacco comments: E-cigarettes sometimes Vaping Use Vaping status: current everyday user Substances: Nicotine Devices: Disposable Substance Use Topics Alcohol use: Yes Alcohol/week: 42.0 standard drinks of alcohol Types: 42 Cans of beer per week Drug use: Yes Types: Marijuana Comment: none since 08/2017 Review of Systems Respiratory: Negative. Cardiovascular: Negative. Psychiatric/Behavioral: Positive for dysphoric mood and sleep disturbance. The patient is nervous/anxious. OBJECTIVE LMP 06/19/2024 Physical Exam Constitutional: General: She is awake. She is not in acute distress. Comments: During the virtual visit she is alert, oriented, breathing is quiet, not labored, no apparent distress. Neurological: Mental Status: She is alert. Psychiatric: Behavior: Behavior is cooperative. ASSESSMENT/PLAN: 1. ZACH (generalized anxiety disorder) - ICD9: 300.02, ICD10: F41.1 (primary diagnosis) Okay for refill on Ativan, Alanaylar prior auth was approved, advised to pick this up at pharmacy and start the medication. Follow up in about 5 weeks to see how she is feeling with starting this. - CARIPRAZINE 1.5 MG CAPSULE - LORAZEPAM 1 MG TABLET 2. Bipolar 1 disorder, depressed, moderate (HCC) - ICD9: 296.52, ICD10: F31.32 - CARIPRAZINE 1.5 MG CAPSULE - LORAZEPAM 1 MG TABLET 3. Depression, unspecified depression type - ICD9: 311, ICD10: F32.A - CARIPRAZINE 1.5 MG CAPSULE 4. Stress and adjustment reaction - ICD9: 309.89, ICD10: F43.29 Serjio Raymond APRN.MICROFILM DUPLICATING UNIT SUPERVISOR Patient verbalizes understanding of instruction (more content not included)... [facility]11-06-2024 Telephone encounter Note* Telephone Encounter - Crissy Garcia LPN - 07/19/2024 10:10 AM EST Appointment switched to a virtual visit. [facility]11-06-[facility] Miscellaneous Notes* Telephone Encounter - Crissy Garcia LPN - 07/19/2024 10:10 AM EST Appointment switched to a virtual visit. * Telephone Encounter - Sonja Avalos LPN - 07/19/2024 9:47 AM EST Pt is scheduled for an office visit today at 11:40 with Serjio, pt states her car broke down & she is asking if she can do virtual instead? Please notify pt. Sonja Avalos LPN documented in this encounterBethesda North Hospital11-06-2024 Telephone encounter Note * Telephone Encounter - Sonja Avalos LPN - 07/19/2024 9:47 AM EST Pt is scheduled for an office visit today at 11:40 with Serjio, pt states her car broke down & she is asking if she can do virtual instead? Please notify pt. Sonja Avalos LPN [facility]10-10-[facility] Telephone encounter Note* Telephone Encounter - Lori Amado LPN - 06/22/2024 8:37 AM EDT Pharmacy notified. [facility] Miscellaneous Notes* Telephone Encounter - Lori Amado LPN - 06/22/2024 8:37 AM EDT Pharmacy notified. * Telephone Encounter - Lori Amado LPN - 06/21/2024 4:09 PM EDT Electronic PA rec'd and completed for cariprazine (vraylar). This was approved. Prior authorization approved Payer: [facility] Note from payer: Your PA request for [id number] was approved for 365 days. The PA# assigned is [id number]. Approval Details Authorization number: [id number] Authorized from June 21, 2024 to June [...] to its destination. To be filled at: [facility] [address] [place], [place] [address] documented in this encounterCleveland [id number] Telephone encounter Note * Telephone Encounter - Lori Amado LPN - 06/21/2024 4:09 PM EDT Electronic PA rec'd and completed for cariprazine (vraylar). This was approved. Prior authorization approved Payer: [facility] Note from payer: Your PA request for [id number] was approved for 365 days. The PA# assigned is [id number]. Approval Details Authorization number: [id number] Authorized from June 21, 2024 to June [...] to its destination. To be filled at: [facility] [address] [place] [address] [facility]10-09-[facility]24 NoteHNO ID: [id number] Author: SERJIO RAYMOND APRN.[facility] Service: ? Author Type: Nurse Practitioner Type: [...] - LORAZEPAM 1 MG (more content not included)...[facility] 06-21-2024 History of Present illness Narrative* Serjio Raymond APRN.MICROFILM DUPLICATING UNIT SUPERVISOR - 06/21/2024 1:50 PM EDT SUBJECTIVE Jane Chung is a 28 year old female here today for a check up on her medical problems. Chief Complaint Patient presents with: anxiety follow up HPI Jane Chung is a 28 year old female. She is an established patient and here today for follow up on mood. Last visit we discussed concerns of not taking any medications. She had gradual mood changesand noticed anxiety, bipolar worsening. Last visit we [...] side effects, try vraylar. Discussed new medication includingbut not limited to reason for use, possible [...] All prescriptions have been APPROPRIATELY filled. No suspiciousactivity was identified. 06/21/2024 by Serjio Raymond APRN.CNP Portions of this note have been entered by ancillary staff. I have reviewed and when necessary edited, so that they are an adequate record of my encounter with this patient Please note that parts of this document were created using voice recognition software and therefore may contain grammatical errors. Patient verbalizes understanding of instructions from today's visit and in agreement with treatmentplan. Questions answered. Agrees to call the office [...] as well as compliance with taking medications. Age- appropriate health preventative measures were discussed. Return in about 4 weeks (around 07/19/2024) for recheck on new medication.. Serjio Raymond APRN-MERA documented in this encounterBethesda North Hospital10-08-2024 Miscellaneous Notes* Telephone Encounter - Cici Wyatt RN - 06/20/2024 2:59 PM EDT Pt returned call and given provider's message below with verbalized understanding. Patient agreeable. * Telephone Encounter - Serjio Raymond APRN.CNP - 06/20/2024 2:53 PM EDT I agree, she needs to get started [...] to go to ER for crisis services. * Telephone Encounter - Sonja Avalos LPN - 06/20/2024 12:58 PM EDT Pt is asking for pcp to call her brett today when she can. Pt reports she has episodes of manic depression & she is having problems now. Pt is scheduled to see pcp tomorrow but states she doesn't think she can wait. Pt states she is out of her meds depakote & lorazepam. Pt notified that she has refills left onher depakote which she didn't realize she did. Pt states she has been taking more of the ativan than directed so she is out of that. Pt aware message will be sent to provider. Pt states she is not alone, someone is with her. Sonja Avalos LPN documented in this encounterBethesda North Hospital10-08-2024 Telephone encounter Note * Telephone Encounter - Cici Wyatt RN - 06/20/2024 2:59 PM EDT Pt returned call and given provider's message below with verbalized understanding. Patient agreeable. [facility] Telephone encounter Note* Telephone Encounter - Serjio Raymond APRN.CNP - 06/20/2024 2:53 PM EDT I agree, she needs to get started [...] to go to ER for crisis services. [facility] Telephone encounter Note* Telephone Encounter - Sonja Avalos LPN - 06/20/2024 12:58 PM EDT Pt is asking for pcp to call her brett today when she can. Pt reports she has episodes of manic depression & she is having problems now. Pt is scheduled to see pcp tomorrow but states she doesn't think she can wait. Pt states she is out of her meds depakote & lorazepam. Pt notified that she has refills left onher depakote which she didn't realize she did. Pt states she has been taking more of the ativan than directed so she is out of that. Pt aware message will be sent to provider. Pt states she is not alone, someone is with her. Sonja Avalos LPN [facility]09-23-2024 Telephone encounter Note* Telephone Encounter - Serjio Raymond APRN.CNP - 06/05/2024 2:57 PM EDT PDMP website checked and validated. All prescriptions have been APPROPRIATELY filled. No suspiciousactivity was identified. 06/05/2024 by Serjio Raymond APRN.MERA [facility]09-23-2024 Miscellaneous Notes* Telephone Encounter - Serjio Raymond APRN.CNP - 06/05/2024 2:57 PM EDT PDMP website checked and validated. All prescriptions have been APPROPRIATELY filled. No suspiciousactivity was identified. 06/05/2024 by Serjio Raymond APRN.CNP * Telephone Encounter - Nicci Cortes - 06/05/2024 12:24 PM EDT Prescription Refill Information The patient has been [...] 05, 2024 12:25 PM documented in this encounterBethesda North Hospital09-23-2024 Telephone encounter Note * Telephone Encounter - Nicci Cortes - 06/05/2024 12:24 PM EDT Prescription Refill Information The patient has been [...] Nicci Fry June 05, 2024 12:25 PM [facility] History of Present illness Narrative* Serjio Raymond APRN.CNP - 05/10/2024 9:38 AM EDT SUBJECTIVE Jane Chung is a 28 year old female here today for a check up on her medical problems. Chief Complaint Patient presents with: discuss medication: Anxiety HPI Jane Chung is a 28 year old female. She is an established patient. Presents today for follow up on anxiety, bipolar 1 disorder. Currently not taking any medications. Was taking medication, stoppedabout 5 or 6 months ago. Jackson pretty good while off of medication but [...] All prescriptions have been APPROPRIATELY filled. No suspiciousactivity was identified. 05/10/2024 by Serjio Raymond APRN.MICROFILM DUPLICATING UNIT SUPERVISOR Portions of this note have been entered by ancillary staff. I have reviewed and when necessary edited, so that they are an adequate record of my encounter with this patient Please note that parts of this document were created using voice recognition software and therefore may contain grammatical errors. Patient verbalizes understanding of instructions from today's visit and in agreement with treatmentplan. Questions answered. Agrees to call the office [...] as well as compliance with taking medications. Age- appropriate health preventative measures were discussed. Return in about 6 weeks (around 06/21/2024) for Follow up on chronic conditions and medications.. Serjio Raymond APRN-MERA documented in this encounterBethesda North Hospital06-03-2024 History of Present illness Narrative* Abbe Mccoy APRN.CNP - 02/14/2024 12:51 PM EDT Images from the original note were not [...] productive cough chest pain shortness of breath pleuriticpain hemoptysis nausea vomiting abdominal pain change in [...] Triple CAB twice Heart Maternal Grandmother 4 SC's, Congestive Heart Failure Arthritis Maternal Grandmother Colon [...] 81.2 kg (179 lb 0.2 oz) LMP 10/19/2023(Approximate) SpO2 97% BMI 28.89 kg/m Review of [...] of care. This note was generated using Qosmos software. It may contain errors in wording, punctuation, or spelling. Abbe Mccoy APRN.MERA documented in this encounterBethesda North Hospital05-09-2024 History of Present illness Narrative* Epifanio Escobedo MD - 01/20/2024 2:44 PM EDT This note was created using Symptom.lyriter. Subjective Jane Chung is a 28 year old female. She had a longstanding history of anxiety, depression, bipolar with multiple medications tried. PCP had her on depakote and quetiapine which worked for a while,but efficacy again declined. She also indicated some [...] refused inpatient detox. She was referred to [facility]. Lorazepam was recommended, but prescription was not transmitted. She needed medication while waiting to get back with PCP. Review of Systems Constitutional: Positive for appetite change and unexpected weight change. Respiratory: Negative for shortness of breath. Gastrointestinal: Positive for abdominal pain, nausea and vomiting. Psychiatric/Behavioral: Positive for dysphoric mood and sleep disturbance. Negative for self-injuryand suicidal ideas. The patient is nervous/anxious. ACTIVE [...] All prescriptions have been APPROPRIATELY filled. No suspiciousactivity was identified. 01/20/2024 by Epifanio Escobedo MD - LORAZEPAM 0.5 MG TABLET. Take one(1) tablet two(2) times daily as needed. This is not recommendedfor senior living. 2. Alcohol use disorder - ICD9: V49.89, [...] PCP. Epifanio Escobedo MD documented in this encounterBethesda North Hospital05-08-2024 Telephone encounter Note * Telephone Encounter - Cici Wyatt RN - 01/19/2024 1:29 PM EDT Patient phoned to schedule [facility] ER f/u appt. Reports her anxiety is really bad lately, which is why she went to [facility] ER twice, recently. Patient cannot remember the dates she went, but was in ER this past January 14. Reports they gave her vistaril, [...] down, and agreeable to call if needed. [facility] Miscellaneous Notes* Telephone Encounter - Cici Wyatt RN - 01/19/2024 1:29 PM EDT Patient phoned to schedule [facility] ER f/u appt. Reports her anxiety is really bad lately, which is why she went to [facility] ER twice, recently. Patient cannot remember the dates she went, but was in ER this past January 14. Reports they gave her vistaril, [...] to call if needed. documented in this encounterBethesda North Hospital05-04-2024 Hospital Discharge instructions Additional Instructions Please follow-up with your PCP. [facility] offers outpatient detox, you can call [phone] for more information or continue to follow-up with [address] Work Phone: 1(518) 331-416503-04-2024 History of Present illness Narrative* Serjio Raymond APRN.MICROFILM DUPLICATING UNIT SUPERVISOR - 11/15/2023 10:31 AM EST SUBJECTIVE Jane Chung is a 27 year [...] disturbance. Negative for dysphoric mood. The patient isnervous/anxious. OBJECTIVE BP 120/74 Pulse 80 Resp 16 [...] from today's visit and in agreement with treatmentplan. Questions answered. Agrees to call the office [...] as well as compliance with taking medications. Age- appropriate health preventative measures were discussed. Return in about 6 weeks (around 12/27/2023) for recheck on new medication.. Serjio Raymond APRN-MERA documented in this encounterBethesda North Hospital02-28-2024 Miscellaneous Notes* Telephone Encounter - Bharti King LPN - 11/10/2023 2:01 PM EST Pt called and she ran out of medication 1 to 2 weeks ago. Pt has scheduled a follow up for 11-12-23 and asking if you would be willing to send in medication till she comes in on 11-12-23. Please advise pt. WILFRED 05/26/23 NOV: 11/12/23 Bharti King LPN documented in this encounterBethesda North Hospital09-19-2023 History of Present illness Narrative* Serjio Raymond APRN.CNP - 06/01/2023 9:27 AM EDT SUBJECTIVE Jane Chung is a 27 year [...] pap smear in one year. Ana Puckett APRN.EMMAM History of Nicotine Vaping - 03/27/2021 Comment: [...] from today's visit and in agreement with treatmentplan. Questions answered. Agrees to call the office [...] as well as compliance with taking medications. Age- appropriate health preventative measures were discussed. Return in about 4 weeks (around 06/29/2023) for recheck on new medication.. Serjio Raymond APRN-MERA documented in this encounterBethesda North Hospital08-08-2023 History of Present illness Narrative* Serjio Raymond APRN.CNP - 04/20/2023 1:57 PM EDT SUBJECTIVE Jane Chung is a 27 year old female here today for a check up on her medical problems. Chief Complaint Patient presents with: Medication review HPI Jane Chung is a 27 year old female established patient. She is here today for a follow up on mood. She was being seen at [facility] for psych follow up but the provider [...] dysphoric mood and sleep disturbance. Negative for self-injuryand suicidal ideas. The patient is nervous/anxious. OBJECTIVE [...] from today's visit and in agreement with treatmentplan. Questions answered. Agrees to call the office [...] as well as compliance with taking medications. Age- appropriate health preventative measures were discussed. Return in about 4 weeks (around 05/18/2023) for recheck on new medication.. Serjio Raymond APRN-MERA documented in this encounterBethesda North Hospital07-20-2023 Miscellaneous Notes* Telephone Encounter - Amstutz, Mary - 04/01/2023 1:01 PM EDT Third attempt to contact pt to schedule a PCP appt. LVM * Telephone Encounter - Mary Ordonez - 03/30/2023 11:29 AM EDT Called pt to schedule a PCP office visit. LVM. * Telephone Encounter - Alondra Crocker - 03/26/2023 4:03 PM EDT 1st attempt left message to return call Please call patient and let her know we received paperwork to be filled out for work accommodations. Please have her schedule an appointment to come in and give an update on how she is doing and decide on what accommodations are necessary. Thanks! * Telephone Encounter - Serjio Raymond APRN.CNP - 03/26/2023 3:46 PM EDT Please call patient and let her know we received paperwork to be filled out for work accommodations. Please have her schedule an appointment to come in and give an update on how she is doing and decide on what accommodations are necessary. Thanks! * Telephone Encounter - Crissy Garcia LPN - 03/26/2023 2:50 PM EDT Type of form: Accommodation questionnaire Form received via fax When form is completed, Fax form to Claus [phone] Form has been forwarded to Nurse Practictioner: Serjio Garcia LPN documented in this encounterBethesda [facility]05-10-[facility]23 History of Present illness Narrative* Serjio Raymond APRN.MICROFILM DUPLICATING UNIT SUPERVISOR - 01/20/2023 8:57 AM EDT SUBJECTIVE Jane Chung is a 27 year old female here today for a check up on her medical problems. Chief Complaint Patient presents with: Medication Follow-up HPI Jane Chung is a 27 year old female established patient who presents today for follow up. She hasbeen dealing with increased anxiety. States today that she is feeling well on the seroquel. This has really helped her mood. She worked 4 hours yesterday without problems. Sleeping better. Some side effects of general body aching, appetite increased, increased acne, but these are currently manageable. Planning to see mental health TRUCKING MANAGER on Wednesday. Thyroid testing/ultrasound stable, recent HCG [...] of medications, follow up with mental health TRUCKING MANAGER Wednesday. Portions of this note have been entered by ancillary staff. I have reviewed and when necessary edited, so that they are an adequate record of my encounter with this patient Please note that parts of this document were created using voice recognition software and therefore may contain grammatical errors. Patient verbalizes understanding of instructions from today's visit and in agreement with treatmentplan. Questions answered. Agrees to call the office if questions, concerns of issues with acute symptoms not improving or if they worsen. Return in about 4 weeks (around 02/17/2023) for Follow up on chronic conditions and medications.. Serjio Raymond APRN-MERA documented in this encounterBethesda North Hospital05-05-2023 History of Present illness Narrative* Serjio Raymond APRN.CNP - 01/15/2023 11:17 AM EDT SUBJECTIVE Jnae Chung is a 27 year old female here today for a check up on her medical problems. Chief Complaint Patient presents with: Medication Follow-up HPI Jane Chung is a 27 year old female who presents today for a recheck on anxiety. She was seen yesterday with Elham Nowak APRN with our [facility] due to issues with medications. Concerns that her new medications were causing numbness, tingling, sweating. Stopped Effexor, trazodone, buspar. Started Se roquel. Slept better last night. Still using propranolol and feeling that helps too. Has a psychiatry appointment with Valeria Reddy provider on 01/25. She has concerns of contributing toher symptoms, would like HCG levels checked. Her [...] from today's visit and in agreement with treatmentplan. Questions answered. Agrees to call the office [...] as well as compliance with taking medications. Age- appropriate health preventative measures were discussed. Return in about 5 days (around 01/20/2023) for follow up. Serjio Raymond APRN-MERA documented in this encounterBethesda North Hospital05-05-2023 Miscellaneous Notes* Telephone Encounter - Serjio Raymond APRN.CNP - 01/15/2023 7:43 AM EDT Appt today, plan to discuss today * Telephone Encounter - Crissy Garcia LPN - 01/13/2023 9:40 AM EDT FMLA forms completed and faxed back to number listed on form. * Telephone Encounter - Sonja Harrison Pss - 01/13/2023 8:24 AM EDT Patient called she said she had some tingling and numbness in her fingers and toes on 01/12 and questions if that is from her new Rx Effexor that she started on 01/11 and also has questions aboutFMLA She can be reached at [phone] Thank you Sonja Harrison Pss documented in this encounterBethesda North Hospital05-01-2023 Miscellaneous Notes* Telephone Encounter - Crissy Garcia LPN - 01/11/2023 4:03 PM EDT Completed FMLA faxed back to number listed on form. * Telephone Encounter - Serjio Raymond APRN.CNP - 01/11/2023 3:53 PM EDT Forms completed, please fax. * Telephone Encounter - Crissy Garcia LPN - 01/11/2023 3:36 PM EDT Type of form: FMLA Form received via fax When form is completed, Fax form to Claus [phone] Form has been forwarded to Nurse Practictioner: Serjio Garcia LPN documented in this encounterBethesda North Hospital05-01-2023 History of Present illness Narrative* Serjio Raymond APRN.CNP - 01/11/2023 8:53 AM EDT SUBJECTIVE Jane Chung is a 27 year [...] some better but still not sleeping well, na usea. Noticing a lot of up and down with the Zoloft, wondering if something else might be a better fit. Thinking of returning to work tomorrow, wants to try a reduced schedule of 4 hours starting out. Planning to talk with HR, has FMLA paper work to be completed, will drop off or fax this week. Hadlabs done after visit Wednesday. TSH was borderline [...] tolerates an SNRI better. Try trazodone for sleepsince did not like the hydroxyzine. Buspar and [...] from today's visit and in agreement with treatmentplan. Questions answered. Agrees to call the office if questions, concerns of issues with acute symptoms not improving or if they worsen. Medical Decision Making: Data: Unique test result(s) reviewed: 3+ Unique test(s) ordered: 2 Risk: Moderate: Drug management Medical Decision Making Level: 4 - Moderate Return in about 4 days (around 01/15/2023) for recheck. Serjio Raymond APRN-MERA documented in this encounterBethesda North Hospital04-28-2023 History of Present illness Narrative* Serjio Raymond APRN.CNP - 01/08/2023 10:43 AM EDT SUBJECTIVE Jane Chung is a 27 year [...] severe anxiety. Today states feeling some improved. Hasbeen taking Zoloft half a pill, PRN buspar [...] work date. Since last visit she stopped kratom cold turkey. Her medications were reviewed today [...] pap smear in one year. Ana Puckett APRN.EMMAM History of Nicotine Vaping - 03/27/2021 Comment: [...] from today's visit and in agreement with treatmentplan. Questions answered. Agrees to call the office if questions, concerns of issues with acute symptoms not improving or if they worsen. Medical Decision Making: Problems: Low: Stable chronic illness Risk: Moderate: Drug management Medical Decision Making Level: 3 - Low Return in about 3 days (around 01/11/2023). Serjio Raymond APRN-MERA documented in this encounterBethesda North Hospital04-24-2023 History of Present illness Narrative* Serjio Raymond APRN.CNP - 01/04/2023 10:19 AM EDT SUBJECTIVE Jane Chung is a 27 year [...] She was seen in the ER at [facility] for anxiety. Presented x2 days in a [...] and 5 year old children, works at [employer]. Other providers include Ana Puckett APRN for php magento developer care. Her medications were reviewed today and [...] (Patient not taking: Reported on 04/09/2022 ) Sqodntlm-Mb-Jbl-Fe-FA tab Take 1 tablet by mouth once daily. (Patient not taking: Reportedon 04/09/2022 ) acetaminophen (TYLENOL) 325 mg tablet [...] dysphoric mood and sleep disturbance. Negative for self-injuryand suicidal ideas. The patient is nervous/anxious. OBJECTIVE [...] contributing. Start SSRI, can use hydroxyzine at bedtime as needed, buspar and/or propranolol during the day PRN. Talk with work about FMLA. Establish magdalena. Concerned IOP might be too much of [...] from today's visit and in agreement with treatmentplan. Questions answered. Agrees to call the office [...] as well as compliance with taking medications. Age- appropriate health preventative measures were discussed. I spent a total of 45 minutes on the date of the service which included preparing to see the patient, iioq-yq-aegi patient care, completing clinical documentation, obtaining and/or reviewing separately obtained history, performing a medically appropriate examination, counseling and educating the pat ient/family/caregiver, ordering medications, tests, or procedures, communicating with other HCPs (not separately reported), communicating results to the patient/family/caregiver, and care coordination (not separately reported). Return in about 4 days (around 01/08/2023). DONNIE Pittman documented in this encounterBethesda North Hospital08-08-2022 History of Present illness Narrative* Ana Stanford RDMS - 04/20/2022 1:00 PM EDT Radiology Service Progress Note PATIENT NAME: Jane Chung DATE OF SERVICE: April 20, 2022 TIME: 1:39 PM PATIENT IDENTITY VERIFICATION COMPLETED USING TWO (2) IDENTIFIERS: Name and Date of confirmedby patient verbally. FALL SCREENING: Has the patient [...] 20, 2022 1:39 PM documented in this encounterBethesda North Hospital07-28-2022 Instructions* Patient Instructions* Ana Puckett APRN.VANNA - 04/09/2022 11:44 AM EDT Oral Contraceptives: [...] reversible control being used today. Millions of womenrely on oral contraceptives as their control method. It is important to have an examination by your physician to determine if the pill is safe for you. There are several advantages associated with the pill: it is 97-98% effective; may improve acne; periods are more regular and less painful; there is less iron deficiency anemia in pill users. skilled nursing use is associated with a decreased incidence of ovarian and uterine cancer. There is also no evidence that the pill increases the incidenceof any cancer. How Oral Contraceptives Work Oral contraceptives come in two varieties. One is the combination pill which contains both estrogenand progesterone. Combination pills are considered 98-99% effective [...] effective than the combination pill in preventing preg fabienne. Oral contraceptives prevent ovulation (release of an egg from the ovary) by suppressing the pituitary gland s action. The pill does NOT prevent sexually transmitted disease. Obtaining a Prescription It is important to see your doctor before starting oral contraceptives so that you can have a full medical history taken and a physical examination given. Certain medical conditions may make the pillinappropriate for you, therefore it is very important to be honest and as complete as possible withthe information you share with your doctor. The [...] and mild fluid retention. There is no senior living weight gain with the use of the [...] see if there is any physical cause andpossibly change to another control pill. Problems: 1. [...] the pill for the rest of the month.Or you can stop the pill and start [...] for necessary health information. documented in this encounterBethesda North Hospital07-28-2022 History of Present illness Narrative* Ana Puckett APRN.CNM - 04/09/2022 11:33 AM EDT Jane Chung is a 26 year old [...] L2 SAB0 IAB0 Ectopic0 Multiple0 Live Births2 Wax Pot Tender History LMP: 03/11/2022, Having periods Age at Menarche: Age at First : Age at Menopause: Wax Pot Tender History Comments: Sexual Activity: Yes; Male Contraception: [...] Triple CAB twice Heart Maternal Grandmother 4 SC's, Congestive Heart Failure Arthritis Maternal Grandmother Colon [...] (Patient not taking: Reported on 04/09/2022 ) Spvffsfw-Lr-Jmp-Fe-FA tab Take 1 tablet by mouth once daily. (Patient not taking: Reportedon 04/09/2022 ) acetaminophen (TYLENOL) 325 mg tablet [...] attack with hormonal contraception. Reviewed warning signs ACHES. Discussed stopping control 4 weeks prior to scheduled surgery if will be immobile. I reviewed with her the administration options and when to start. Her questions were answered andshe desired to start. -Handout given on Mirena, [...] which included preparing to see the patient, uxfi-oc-wyus patient care, completing clinical documentation, obtaining and/or reviewing separately obtained history, performing a medically appropriate examination, counseling and educating the pat ient/family/caregiver and ordering medications, tests, or procedures. Ana Puckett APRN.CNM documented in this encounterBethesda North Hospital12-20-2021 History of Past illness Narrative* Problem [...] to quit.TKRN History of marijuana use 09/23/2017 Overview: Patient request for diagnostic testing 8 09/01/2021 Overview: 03/27/2021atient desires nuchal ultrasound and requesting information on maternity 21 testing. I have asked her to check regarding insurance coverage for this test. Patient desires genetic carrier screening testing.Emmy Reyes RN documented as of this encounter (statuses as of 04/09/2022) [facility]12-[facility] History of Past illness Narrative* Problem Noted Date Resolved Date Abnormal glucose complicating 09/01/2004/09/2022 Overview: September 01, 2021 3 hr ordered. Rosario Garcia MD COVID-19 affecting , antepartum 04/09/2022 Low-lying placenta 07/10/2021 04/09/2022 Overview: 08/29/21 [...] 04/22/21-Prepregnancy BMI 31. Early 1hr GCT. Ana Puckett, [employer].CNM Antepartum anemia complicating in thir d trimester [...] of this encounter (statuses as of 04/21/2022) [facility] History of Past illness Narrative* Problem [...] of this encounter (statuses as of 01/04/2023) [facility] History of Past illness Narrative* Problem Noted Date Resolved Date Abnormal glucose complicating 09/01/2004/09/2022 Overview: September 01, 2021 3 hr ordered. Rosario Garcia MD COVID-19 affecting , antepartum 021 04/09/2022 Low-lying placenta 07/10/2021 04/09/2022 Overview: 08/29/21 - resolved - Nwe Grayson MD 07/10/21 - needs repeat US at 28 weeks - New Grayson MD COVID-19 vaccine series declined 05/13/2021 04/09/2022 Overview: 05/13/21-Reviewed current recommendations for covid vaccine during . Patient declines and informed refusal. Handout given. Ana Puckett APRN.VANNA Supervision of high risk in third trim [...] of this encounter (statuses as of 01/08/2023) [facility] History of Past illness Narrative* Problem [...] of this encounter (statuses as of 01/11/2023) [facility] History of Past illness Narrative* Problem [...] and informed refusal. Handout given. Ana Puckett APRN.VANNA Supervision of high risk in third trim [...] of this encounter (statuses as of 01/12/2023) [facility] History of Past illness Narrative* Problem [...] of this encounter (statuses as of 01/15/2023) [facility] History of Past illness Narrative* Problem [...] and informed refusal. Handout given. Ana Puckett APRN.VANNA Supervision of high risk in third trim [...] of this encounter (statuses as of 01/15/2023) [facility] of Past illness Narrative* Problem [...] of this encounter (statuses as of 01/20/2023) [facility] of Past illness Narrative* Problem [...] of this encounter (statuses as of 04/21/2023) [facility] of Past illness Narrative* Problem [...] of this encounter (statuses as of 06/01/2023) [facility] of Past illness Narrative* Problem [...] of this encounter (statuses as of 07/28/2023) [facility] of Past illness Narrative* Problem [...] of this encounter (statuses as of 11/11/2023) [facility] of Past illness Narrative* Problem [...] of this encounter (statuses as of 11/15/2023) [facility] HospitalDischarge summary Author Nataly Stoddard [facility] January 03, 2023 12:01pm Note Date/Time January 03, 2023 10: 20am [facility] Medical Records Department [address] [place] [address] Emergency Department Summary 01/03/23 MR#: [id number] Acct: [id number] Name: JANE CHUNG Rep #:[id number] 2 : 1995 27 From: Nataly LUNA PCP: Care Physician,No Primary Status :REG ER Location: ED HPI <CHERYL Thorpe - Last Filed: 01/03/23 12:01> HPI - Psych History of Present Illness Chief Complaint: Anxiety Narrative Narrative: Patient presenting today with increased anxiety that she has had since Wednesday.?She was seen in the emergency department yesterday for similar symptoms and was sent home with Ativan. She states that she took one before she went to bed and it seemed to help, however, she woke up in the middle of the night and became restless and had difficulty sleeping. She reports having multiple episodes of nausea and vomiting throughout the night due to her anxiety. She did not feel like eating this morning because of her anxiety. She has been using marijuana totry to help her symptoms and began taking kratom in September and has been trying to wean herself off of this recently. She reports using both of these last night. She denies any thoughts of suicide or self-harm, homicidal thoughts, and hallucinations. PFSH <CHERYL Thorpe - Last Filed: 01/03/23 12:01> [facility] Medical History Anxiety History of alcohol abuse History of anxiety Marijuana abuse Vaginal delivery Home Medications lorazepam 0.5 mg tablet (Ativan) 0.5 mg PO DAILY PRN anxiety #5 tabs 01/02/23 [Rx Last Taken Unknown] ondansetron 4 mg disintegrating tablet 4 mg PO Q8H PRN PRN Nausea #10 tabs 01/03/23 [Rx Last Taken Unknown] Allergy/AdvReac Type Severity Reaction Status Date / Time No Known Allergies Allergy Verified 01/03/23 09:51 Surgical History History of surgery Social History Smoking Status: Current every day smoker tobacco type: cigarettes ROS <CHERYL Thorpe - Last Filed: 01/03/23 12:01> ROS ED Constitutional Constitutional ED: Denies chills or fever(s) Cardiovascular Cardiovascular: Denies chest pain or palpitations Respiratory/Chest Respiratory/Chest: Denies cough or dyspnea Gastrointestinal Gastrointestinal: Reports nausea and vomiting; Denies abdominal pain or diarrhea Musculoskeletal Musculoskeletal: Denies arthralgias or myalgias Integumentary Denies abscess, Abrasions or rash Neurologic Neurologic: Denies weakness Psychiatric Psychiatric: Reports anxiety; Denies suicidal ideation or suicidal thoughts EXAM <CHERYL Thorpe - Last Filed: 01/03/23 12:01> Physical Exam Const Vital Signs: 01/03/23 09:50 Temperature 97.5 F L Temperature Source Temporal Pulse Rate 128 H Respiratory Rate 16 Blood Pressure 143/96 H Blood Pressure Mean 111 Pulse Ox 100 Oxygen Delivery Method Room Air Positive well nourished, well developed and no apparent distress General Appearance ED: well developed HEENT Reports normocephalic and head/scalp atraumatic Mouth ED: Yes moist mucous membranes normal Eyes PERRL and EOMs intact bilaterally Neck full ROM and supple Chest Wall inspection of chest normal Resp normal respiratory effort and clear to auscultation bilaterally Cardio regular rate and regular rhythm GI soft to palpation, non-tender, non-distended and no masses Back/Spine normal ROM and normal to inspection Extremity normal to inspection and full ROM Neuro oriented x3, CN's II-XII intact bilaterally, moves all extremities, no focal motor deficits and no sensory deficits noted Sensorium / Orientation: awake and alert Psych mental status grossly normal and thought process normal Mood & Affect: anxious and tearful Skin no rashes or lesions noted and no wounds <Dr. Osito Hall MD - Last Filed: 01/03/23 11:57> Physical Exam Const Vital Signs: 01/03/23 09:50 Temperature 97.5 F L Temperature Source Temporal Pulse Rate 128 H Respiratory Rate 16 Blood Pressure 143/96 H Blood Pressure Mean 111 Pulse Ox 100 Oxygen Delivery Method Room Air MDM <CHERYL Thorpe - Last Filed: 01/03/23 12:01> [facility] Narrative Medical decision making narrative: Patient presenting today due to anxiety. I did evaluate patient in the emergency department yesterday for similar symptoms. At that time, she was given Ativan in the ED as well as a short course of Ativan for home. She took an Ativan before bed, and states it did help her sleep. But then she woke up inthe middle of the night with intense anxiety and has had multiple panic attacks since. Yesterday she was counseled on stopping her marijuana and kratom use as it is going to increase her anxiety. She did use both of these yesterday after leaving the ED. She reports multiple episodes of nausea and vomiting and would like IV fluids. She will be given these, along with Ativan and Zofran. On repeat evaluation patient is feeling much better. She feels that she can go home. She has a follow-up appointment with a PCP tomorrow morning. She be discharged home in stable condition and is comfortable with plan. I have personally performed a face to face assessment of the patient and have reviewed the SHANIQUE Note. I performed a substantive portion of the visit including all aspects of the following. My sifuentes findings include: History is 27-year-old female seen yesterday for anxiety. Has a history of drugabuse. Yesterday was written for Ativan. She is also having nausea and vomiting. Exam is [well-appearing 27-year-old female. Vital signs are stable initially she is tachycardic on my exam at 11:55 AM she is doing well. She is resting comfortably. H EENT exam unremarkable. Moist with membranes. Neck nontender. No lymphadenopathy. No trauma. Lungs clear to auscultation bilaterally. Heart regular rhythm rate about 95 no murmur. Abdomen soft nontender. Back nontender. Moving all 4 extremities. Neurologically she is awake and alert. After the Ativan and IV fluids she is much more calm and relaxed at this time.] Medical Decision Making [patient does feel comfortable being discharged home. She has an appointment to see a nurse practitioner at the [facility] to establish to get a primary care provider. She is going to try to either follow-up with new day who she is seen in the past or the counseling center for her anxiety. She still has 3 Ativan at home that were prescribed yesterday. I do not carefully write her for physical] Other additions or changes: [None] <Dr. Osito Hall MD - Last Filed: 01/03/23 11:57> [facility]DM Narrative Medical decision making narrative: Patient presenting today due to anxiety. I did evaluate patient in the emergency department yesterday for similar symptoms. At that time, she was given Ativan in the ED as well as a short course of Ativan for home. She took an Ativan before bed, and states it did help her sleep. But then she woke up in the middle of the night with intense anxiety and has had multiple panic attacks since. Yesterday she was counseled on stopping her marijuana and kratom use as it is going to increase her anxiety. She did use both of these yesterday after leaving the ED. She reports multiple episodes of nausea and vomiting and would like IV fluids. She will be given these, along with Ativan and Zofran. I have personally performed a face to face assessment of the patient and have reviewed the SHANIQUE Note. I performed a substantive portion of the visit including all aspects of the following. My sifuentes findings include: History is 27-year-old female seen yesterday for anxiety. Has a history of drug abuse. Yesterday was written for Ativan. She is also having nausea and vomiting. Exam is [well-appearing 27-year-old female. Vital signs are stable initially she is tachycardic on my exam at 11:55 AM she is doing well. She is resting comfortably. H EENT exam unremarkable. Moist with membranes. Neck nontender. No lymphadenopathy. No trauma. Lungs clear to auscultation bilaterally. Heart regular rhythm rate about 95 no murmur. Abdomen soft nontender. Back nontender. Moving all 4 extremities. Neurologically she is awake and alert. After the Ativan and IV fluids she is much more calm and relaxed at this time.] Medical Decision Making [patient does feel comfortable being discharged home. She has an appointment to see a nurse practitioner at the [facility] to establish to get a primary care provider. She is going to try to either follow-up with new day who she is seen in the past or the counseling center for her anxiety. She still has 3 Ativan at home that were prescribed yesterday. I do not carefully write her for physical] Other additions or changes: [None] History & Record Review Discussion w/independent historian: Patient Discharge Plan Triage Chief Complaint: Anxiety ED Midlevel Provider: Nataly Stoddard ED Provider: Osito Hall Dx/Rx/DC Orders Clinical Impression: Anxiety, Panic attack Instructions: ED Panic Attack Prescriptions: New ondansetron 4 mg tablet,disintegrating 4 mg PO Q8H PRN PRN (Reason: Nausea) Qty: 10 0RF No Action lorazepam [Ativan] 0.5 mg tablet 0.5 mg PO DAILY PRN (Reason: anxiety) Qty: 5 0RF Primary Care Provider: Care Physician,No Primary Referrals: Care Physician,No Primary [Primary Care Provider] - Activity Restrictions/Additional Instructions: Please follow-up at your appointment on Wednesday. Return for any worsening of symptoms. Disposition Disposition: Home, Self Care What to do if you have Problems For any increased pain, shortness of breath, bleeding, nausea or vomiting, chestpain, or any unexpected problems, contact your Primary Care Provider. Call [facility] ([phone]) or report to the closest Emergency Room. Call 911 if necessary. 01/03/23 1201 <Electronically signed by Nataly LUNA> Cosigner Signature (if applicable): 01/03/23 1157 <Electronically signed by Osito Hall MD> CC: No Primary Care Physician ~ Signed [facility] Work Phone: Evaluation note* Diagnosis Onset Date Resolution Status 26 weeks gestation of acute Decreased movement acu te 39 weeks gestation of acute Headache acute Pelvic pain affecting acute Active labor at term acute Anemia affecting a cute COVID-19 affecting in second trimester acute History of alcohol abuse acu te History of anxiety acute Marijuana abuse acute Obesity affecting acute acute Tobacco use during acute Vaginal delivery acute Vaping nicotine dependence, tobacco product acute [facility] Work Phone: Evaluation note* Diagnosis Encounter for initial prescription of contraceptive pills- Primary General counseling for prescription of oral contraceptives Low grade squamous intraepithelial lesion on cytologic smear of vagina (LGSIL) Papanicolaou smear of vagina with low grade squamous intraepithelial lesion (LGSIL) Abnormal uterine bleeding (AUB) documented in this encounter [facility] note* Diagnosis Abnormal uterine bleeding (AUB) documented in this encounter [facility] noteNo assessment information availableWC[facility] Work Phone: Evaluation note* Diagnosis ZACH (generalized anxiety disorder)- Primary Generalized anxiety disorder Encounter to establish care Other reasons for seeking consultation Vitamin D deficiency Unspecified vitamin D deficiency documented in this encounter [facility] note* Diagnosis ZACH (generalized anxiety disorder) Generalized anxiety disorder documented in this encounter [facility] note* Diagnosis ZACH (generalized anxiety disorder)- Primary Generalized anxiety disorder Sleep disturbance Sleep disturbance, unspecified Thyroid enlargement Goiter, unspecified documented in this encounter [facility] note* Diagnosis ZACH (generalized anxiety disorder)- Primary Generalized anxiety disorder Unprotected sexual intercourse Problems related to high-risk sexual behavior Abnormal menses Unspecified disorder of menstruation and other abnormal bleeding from female genital tract documented in this encounter [facility] note* Diagnosis ZACH (generalized anxiety disorder)- Primary Generalized anxiety disorder documented in this encounter [facility] note* Diagnosis Bipolar 1 disorder, depressed, moderate (HCC)- Primary Bipolar I disorder, most recent episode (or current) depressed, moderate Depression, unspecified depression type documented in this encounter [facility] note* Diagnosis Bipolar 1 disorder, depressed, moderate (HCC)- Primary Bipolar I disorder, most recent episode (or current) depressed, moderate Encounter for initial prescription of contraceptive pills General counseling for prescription of oral contraceptives documented in this encounter [facility] note* Diagnosis Depression, unspecified depression type Bipolar 1 disorder, depressed, moderate (HCC) Bipolar I disorder, most recent episode (or current) depressed, moderate documented in this encounter [facility] note* Diagnosis Bipolar 1 disorder, depressed, moderate (HCC)- Primary Bipolar I disorder, most recent episode (or current) depressed, moderate ZACH (generalized anxiety disorder) Generalized anxiety disorder Depression, unspecified depression type Alcohol use disorder documented in this encounter [facility] note* Diagnosis ZACH (generalized anxiety disorder)- Primary Generalized anxiety disorder Alcohol use disorder Acute gastritis without hemorrhage, unspecified gastritis type Depression, unspecified depression type Bipolar 1 disorder, depressed, moderate (HCC) Bipolar I disorder, most recent episode (or current) depressed, moderate documented in this encounter [facility] note* Diagnosis Rash- Primary Rash and other nonspecific skin eruption documented in this encounter [facility] note* Diagnosis ZACH (generalized anxiety disorder)- Primary Generalized anxiety disorder Bipolar 1 disorder, depressed, moderate (HCC) Bipolar I disorder, most recent episode (or current) depressed, moderate documented in this encounter [facility] note* Diagnosis ZACH (generalized anxiety disorder) Generalized anxiety disorder Bipolar 1 disorder, depressed, moderate (HCC) Bipolar I disorder, most recent episode (or current) depressed, moderate documented in this encounter [facility] note* Diagnosis ZACH (generalized anxiety disorder)- Primary Generalized anxiety disorder Bipolar 1 disorder, depressed, moderate (HCC) Bipolar I disorder, most recent episode (or current) depressed, moderate Depression, unspecified depression type Stress and adjustment reaction Other specified adjustment reaction [facility] Diagnosis ZACH (generalized anxiety disorder)- Primary Generalized anxiety disorder Bipolar 1 disorder, depressed, moderate (HCC) Bipolar I disorder, most recent episode (or current) depressed, moderate Depression, unspecified depression type Stress and adjustment reaction Other specified adjustment reaction [facility]* Diagnosis Acute cough- Primary Chronic dental pain Unspecified disorder of the teeth and supporting structures [facility]* Diagnosis ZACH (generalized anxiety disorder)- Primary Generalized anxiety disorder Bipolar 1 disorder, depressed, moderate (HCC) Bipolar I disorder, most recent episode (or current) depressed, moderate Depression, unspecified depression type Rash and nonspecific skin eruption Rash and other nonspecific skin eruption [facility]* Diagnosis ZACH (generalized anxiety disorder) Generalized anxiety disorder Bipolar 1 disorder, depressed, moderate (HCC) Bipolar I disorder, most recent episode (or current) depressed, moderate Depression, unspecified depression type documented [facility]* Diagnosis ZACH (generalized anxiety disorder) Generalized anxiety disorder Bipolar 1 disorder, depressed, moderate (HCC) Bipolar I disorder, most recent episode (or current) depressed, moderate documented [facility]* Diagnosis ZACH (generalized anxiety disorder) Generalized anxiety disorder Bipolar 1 disorder, depressed, moderate (HCC) Bipolar I disorder, most recent episode (or current) depressed, moderate documented [facility]* Diagnosis ZACH (generalized anxiety disorder) Generalized anxiety disorder Bipolar 1 disorder, depressed, moderate (HCC) Bipolar I disorder, most recent episode (or current) depressed, moderate documented [facility]* Diagnosis Bipolar 1 disorder, depressed, moderate (HCC)- Primary Bipolar I disorder, most recent episode (or current) depressed, moderate ZACH (generalized anxiety disorder) Generalized anxiety disorder documented in [facility]* Diagnosis ZACH (generalized anxiety disorder) Generalized anxiety disorder Bipolar 1 disorder, depressed, moderate (HCC) Bipolar I disorder, most recent episode (or current) depressed, moderate documented [facility]* Diagnosis ZACH (generalized anxiety disorder) Generalized anxiety disorder Bipolar 1 disorder, depressed, moderate (HCC) Bipolar I disorder, most recent episode (or current) depressed, moderate [facility] (generalized anxiety disorder) Generalized anxiety disorder Bipolar 1 disorder, depressed, moderate (HCC) Bipolar I disorder, most recent episode (or current) depressed, moderate documented in this encounter [facility] note* Diagnosis ZACH (generalized anxiety disorder) Generalized anxiety disorder Bipolar 1 disorder, depressed, moderate (HCC) Bipolar I disorder, most recent episode (or current) depressed, moderate documented in this encounter [facility] note* Diagnosis Bipolar 1 disorder, depressed, moderate (HCC)- Primary Bipolar I disorder, most recent episode (or current) depressed, moderate ZACH (generalized anxiety disorder) Generalized anxiety disorder Depression, unspecified depression type Urinary tract infection without hematuria, site unspecified Cough, unspecified type [facility] Additional Instructions Please follow-up with the primary care provider we have referred you to as well as the counseling center. Please return for any worsening of your symptoms or if you develop any suicidal thoughts, thoughts of self-harm, or thoughts of hurting others.[facility] Work Phone: Hospital Discharge instructions Additional Instructions Please follow-up at your appointment on Wednesday. Return for any worsening of symptoms.[facility] Work Phone: Hospital Discharge instructionsAdditional Instructions Thank you for trusting us with your care today! Please take Tylenol (2 pills, 650 mg), ibuprofen (2 pills, 400 mg) every 6 hours as needed for pain and fever control. Please take Zofran as needed. Please return to the emergency department if your symptoms change or worsen. Please follow with your primary care physician for further outpatient evaluation and management.[facility] Work Phone: Reason for referral (narrative)* Diagnostic Procedure Only (Routine) - Authorized Specialty Diagnoses / Procedures Referred By Contac t Referred To Contact US IMAGING Diagnoses Abnormal uterine bleeding (AUB) Procedures US FEMALE PELVIS TRANSVAG US TRANSVAGINAL Ana Puckett APRN.VANNA [address] [address] Us Imaging Referral ID Status Reason Start Date Expiration Date Visits Requested Visits Authorized [id number] Authorized Auto-Generat ed Referral 04/09/2022 05/09/2023 1 1 [facility] for referral (narrative)* Diagnostic Procedure Only (Routine) - Closed Specialty Diagnoses / Procedures Referred By Contac t Referred To Contact US IMAGING Diagnoses Abnormal uterine bleeding (AUB) Procedures US FEMALE PELVIS TRANSVAG US TRANSVAGINAL Ana Puckett APRN.CNM [address] [place] [address] Us Imaging Referral ID Status Reason Start Date Expiration Date V isits Requested Visits Authorized [id number] Closed Auto-Generate d Referral 04/09/2022 05/09/2023 1 1 [facility] for referral (narrative)* Diagnostic Procedure Only (Routine) - Authorized Specialty Diagnoses / Procedures Referred By Kristineac t Referred To Contact US IMAGING Diagnoses Thyroid enlargement Procedures US THYROID/PARATHYROID US SOFT TISSUE HEAD & NECK REAL TIME IMGE DOCM Serjio Raymond APRN.[employer] [address] [phone] Us Imaging Referral ID Status Reason Start Date Expiration Date Visits Requested Visits Authorized [id number] Authorized Auto-Generat ed Referral 01/11/2023 02/10/2024 1 1 [facility] for referral (narrative)No reason for referral information availableWC[facility] Work Phone: Chief Complaint and Reason for Visit Chief Complaint DECREASED MOVE MENT RULE OUT LABOR VAG DELIVERY Reason for Visit 26 weeks gestation o f Decreased movement 39 weeks gestation of Headache Pelvic pain affecting Active labor at term Anemia affecting COVID-19 affecting in second trimester History of alcohol abuse History of anxiety Marijuana abuse Obesity affecting Tobacco use during Vaginal delivery Vaping nicotine dependence, tobacco product Chief Complaint ANXIETY Chief Complaint ANXIETY anxiety Chief Complaint Admit Date gen. illness May 04, 2025 2: 12pm Advance Directives No Advanced Directives Records Found Advance Directive Response Recorded Date/ Time Living Will No December 01, 2021 6:38am Power of Sisal Operator No December 01 6:38am Advance Directive Response Recorded Date/ Time Living Will No January 02, 2023 11:13am Power of Sisal Operator No January 02 11:13am Advance Directive Response Recorded Date/ Time Living Will No January 03, 2023 10:11am Power of Sisal Operator No January 03 10:11am Advance Directive Response Recorded Date/ Time Living Will No January 11, 2024 12:37pm Power of Sisal Operator No January 10 12:37pm Advance Directive Response Recorded Date/ Time Living Will No January 15, 2024 2: 48pm Power of Sisal Operator No January 15, 2024 2:48pm Advance Directive Response Recorded Date/ Time Do you have a Healthcare Power of Sisal Operator? No May 04, 2025 3:03pm Reason for Referral Specialty Diagnoses / Procedures Referred By Contac t Referred To Contact Diagnoses ZACH (generalized anxiety disorder) Bipolar 1 disorder, depressed, moderate (HCC) Depression, unspecified depression type Serjio Raymond APRN.[employer] [address] [phone] Referral ID Status Reason Start Date Expiration Date V isits Requested Visits Authorized [id number] Authorized 06/21/2024 06/20/2025 1 1 Summary Purpose Family History No Family History Records FoundNo Family History Records Found Additional Source Comments Goals (unrecognized section and content) Goals may be documented in a n alternate sectionGoals may be documented in an alternate sectionGoals may be documented in an alternate sectionGoals may be documented in an alternate sectionGoals may be documented in an alternate sectionGoals may be documented in an alternate section Source Comments (unrecognize d section and content) In the event this informatio n is protected by the Federal Confidentiality of Alcohol and Drug Abuse Patient Records regulations: The Federal rules restrict any use of the information to criminally investigate or prosecute any alcohol or drug abuse patient.[facility] the event this information is protected by the Federal Confidentiality of Alcohol and Drug Abuse Patient Records regulations: The Federal rules restrict any use of the information to criminally investigate or prosecute any alcohol or drug abuse patient.[facility] Hospital[facility] the event this information is protected by the Federal Confidentiality of Alcohol and Drug Abuse Patient Records regulations: The Federal rules restrict any use of the information to criminally investigate or prosecute any alcohol or drug abuse patient.[facility] Hospital[facility] the event this information is protected by the Federal Confidentiality of Alcohol and Drug Abuse Patient Records regulations: The Federal rules restrict any use of the information to criminally investigate or prosecute any alcohol or drug abuse patient.[facility] Hospital[facility] the event this information is protected by the Federal Confidentiality of Alcohol and Drug Abuse Patient Records regulations: The Federal rules restrict any use of the information to criminally investigate or prosecute any alcohol or drug abuse patient.[facility] HospitalIn the event this information is protected by the Federal Confidentiality of Alcohol and Drug Abuse Patient Records regulations: The Federal rules restrict any use of the information to criminally investigate or prosecute any alcohol or drug abuse patient.[facility] HospitalIn the event this information is protected by the Federal Confidentiality of Alcohol and Drug Abuse Patient Records regulations: The Federal rules restrict any use of the information to criminally investigate or prosecute any alcohol or drug abuse patient.[facility] HospitalIn the event this information is protected by the Federal Confidentiality of Alcohol and Drug Abuse Patient Records regulations: The Federal rules restrict any use of the information to criminally investigate or prosecute any alcohol or drug abuse patient.[facility] HospitalIn the event this information is protected by the Federal Confidentiality of Alcohol and Drug Abuse Patient Records regulations: The Federal rules restrict any use of the information to criminally investigate or prosecute any alcohol or drug abuse patient.[facility] HospitalIn the event this information is protected by the Federal Confidentiality of Alcohol and Drug Abuse Patient Records regulations: The Federal rules restrict any use of the information to criminally investigate or prosecute any alcohol or drug abuse patient.[facility] HospitalIn the event this information is protected by the Federal Confidentiality of Alcohol and Drug Abuse Patient Records regulations: The Federal rules restrict any use of the information to criminally investigate or prosecute any alcohol or drug abuse patient.[facility] HospitalIn the event this information is protected by the Federal Confidentiality of Alcohol and Drug Abuse Patient Records regulations: The Federal rules restrict any use of the information to criminally investigate or prosecute any alcohol or drug abuse patient.[facility] HospitalIn the event this information is protected by the Federal Confidentiality of Alcohol and Drug Abuse Patient Records regulations: The Federal rules restrict any use of the information to criminally investigate or prosecute any alcohol or drug abuse patient.[facility] HospitalIn the event this information is protected by the Federal Confidentiality of Alcohol and Drug Abuse Patient Records regulations: The Federal rules restrict any use of the information to criminally investigate or prosecute any alcohol or drug abuse patient.[facility] HospitalIn the event this information is protected by the Federal Confidentiality of Alcohol and Drug Abuse Patient Records regulations: The Federal rules restrict any use of the information to criminally investigate or prosecute any alcohol or drug abuse patient.[facility] HospitalIn the event this information is protected by the Federal Confidentiality of Alcohol and Drug Abuse Patient Records regulations: The Federal rules restrict any use of the information to criminally investigate or prosecute any alcohol or drug abuse patient.[facility] HospitalIn the event this information is protected by the Federal Confidentiality of Alcohol and Drug Abuse Patient Records regulations: The Federal rules restrict any use of the information to criminally investigate or prosecute any alcohol or drug abuse patient.[facility] HospitalIn the event this information is protected by the Federal Confidentiality of Alcohol and Drug Abuse Patient Records regulations: The Federal rules restrict any use of the information to criminally investigate or prosecute any alcohol or drug abuse patient.[facility] HospitalIn the event this information is protected by the Federal Confidentiality of Alcohol and Drug Abuse Patient Records regulations: The Federal rules restrict any use of the information to criminally investigate or prosecute any alcohol or drug abuse patient.[facility] HospitalIn the event this information is protected by the Federal Confidentiality of Alcohol and Drug Abuse Patient Records regulations: The Federal rules restrict any use of the information to criminally investigate or prosecute any alcohol or drug abuse patient.[facility] HospitalIn the event this information is protected by the Federal Confidentiality of Alcohol and Drug Abuse Patient Records regulations: The Federal rules restrict any use of the information to criminally investigate or prosecute any alcohol or drug abuse patient.[facility] HospitalIn the event this information is protected by the Federal Confidentiality of Alcohol and Drug Abuse Patient Records regulations: The Federal rules restrict any use of the information to criminally investigate or prosecute any alcohol or drug abuse patient.[facility] HospitalIn the event this information is protected by the Federal Confidentiality of Alcohol and Drug Abuse Patient Records regulations: The Federal rules restrict any use of the information to criminally investigate or prosecute any alcohol or drug abuse patient.[facility] HospitalIn the event this information is protected by the Federal Confidentiality of Alcohol and Drug Abuse Patient Records regulations: The Federal rules restrict any use of the information to criminally investigate or prosecute any alcohol or drug abuse patient.[facility] HospitalIn the event this information is protected by the Federal Confidentiality of Alcohol and Drug Abuse Patient Records regulations: The Federal rules restrict any use of the information to criminally investigate or prosecute any alcohol or drug abuse patient.[facility] HospitalIn the event this information is protected by the Federal Confidentiality of Alcohol and Drug Abuse Patient Records regulations: The Federal rules restrict any use of the information to criminally investigate or prosecute any alcohol or drug abuse patient.[facility] HospitalIn the event this information is protected by the Federal Confidentiality of Alcohol and Drug Abuse Patient Records regulations: The Federal rules restrict any use of the information to criminally investigate or prosecute any alcohol or drug abuse patient.[facility] HospitalIn the event this information is protected by the Federal Confidentiality of Alcohol and Drug Abuse Patient Records regulations: The Federal rules restrict any use of the information to criminally investigate or prosecute any alcohol or drug abuse patient.[facility] HospitalIn the event this information is protected by the Federal Confidentiality of Alcohol and Drug Abuse Patient Records regulations: The Federal rules restrict any use of the information to criminally investigate or prosecute any alcohol or drug abuse patient.[facility] HospitalIn the event this information is protected by the Federal Confidentiality of Alcohol and Drug Abuse Patient Records regulations: The Federal rules restrict any use of the information to criminally investigate or prosecute any alcohol or drug abuse patient.[facility] HospitalIn the event this information is protected by the Federal Confidentiality of Alcohol and Drug Abuse Patient Records regulations: The Federal rules restrict any use of the information to criminally investigate or prosecute any alcohol or drug abuse patient.[facility] HospitalIn the event this information is protected by the Federal Confidentiality of Alcohol and Drug Abuse Patient Records regulations: The Federal rules restrict any use of the information to criminally investigate or prosecute any alcohol or drug abuse patient.[facility] HospitalIn the event this information is protected by the Federal Confidentiality of Alcohol and Drug Abuse Patient Records regulations: The Federal rules restrict any use of the information to criminally investigate or prosecute any alcohol or drug abuse patient.[facility] the event this information is protected by the Federal Confidentiality of Alcohol and Drug Abuse Patient Records regulations: The Federal rules restrict any use of the information to criminally investigate or prosecute any alcohol or drug abuse patient.[facility] the event this information is protected by the Federal Confidentiality of Alcohol and Drug Abuse Patient Records regulations: The Federal rules restrict any use of the information to criminally investigate or prosecute any alcohol or drug abuse patient.[facility] the event this information is protected by the Federal Confidentiality of Alcohol and Drug Abuse Patient Records regulations: The Federal rules restrict any use of the information to criminally investigate or prosecute any alcohol or drug abuse patient.[facility] the event this information is protected by the Federal Confidentiality of Alcohol and Drug Abuse Patient Records regulations: The Federal rules restrict any use of the information to criminally investigate or prosecute any alcohol or drug abuse patient.[facility] the event this information is protected by the Federal Confidentiality of Alcohol and Drug Abuse Patient Records regulations: The Federal rules restrict any use of the information to criminally investigate or prosecute any alcohol or drug abuse patient.[facility] the event this information is protected by the Federal Confidentiality of Alcohol and Drug Abuse Patient Records regulations: The Federal rules restrict any use of the information to criminally investigate or prosecute any alcohol or drug abuse patient.[facility] Reason for Visit (unrecogniz ed section and content) Reason Comments Contraception Reason Comments Radiology US Specialty Diagnoses / Procedures Referred By Contac t Referred To Contact US IMAGING Diagnoses Abnormal uterine bleeding (AUB) Procedures US FEMALE PELVIS TRANSVAG US TRANSVAGINAL Ana Puckett APRN.CNM [address] [place] [address] Us Imaging Referral ID Status Reason Start Date Expiration Date V isits Requested Visits Authorized [id number] Closed Auto-Generate d Referral 04/09/2022 05/09/2023 1 [...] 11/10/2023 Reason Comments medication check Reason Comments [facility] ER visit / appt Reason Comments ED Follow-up Reason Comments Mouth/Lip Problem left bottom lip x 1 day Reason Comments discuss medication Anxiety Reason Onset Date Comments Refill Request 06/05/2024 Reason Comments Pt asking for a call back Reason Comments anxiety follow up Reason Comments Insurance Authorization Reason Comments Appointment Question Reason Comments Anxiety Reason Comments Dental Problem Bilat back of mouth pain x couple months Pt states she is also having fatigue, boyaches, joint oain and feeling hot x 2 days Reason Comments Recheck Reason Onset Date Comments Refill Request 11/10/2024 Reason Comments Medication Problem Reason Onset Date Comments Refill Request 12/06/2024 Reason Comments Anxiety Recheck Reason Comments Missed Menses Reason Onset Date Comments Refill Request 01/09/2025 Reason Onset Date Comments Refill Request 02/06/2025 Reason Onset Date Comments Refill Request 03/16/2025 Reason Onset Date Comments Refill Request 04/16/2025 Reason Onset Date Comments Refill Request 05/21/2025 Care Teams (unrecognized sec tion and content) Team Status: Active Member Role Status Dates No Primary Care Physician Family Provider Active No Primary Care Physician Primary Care Provider Active Team Status: Inactive Member Role Status Dates No Primary Care Physician Primary Care Provider Active Dr. Osito Hall MD Emergency Provider Active Software Developer Consultant Relationship Specialty Start Date End Date Serjio Raymond APRN.MICROFILM DUPLICATING UNIT SUPERVISOR [address] [place] [address] PCP - General Internal Medicine 01/04/23 Software Developer Consultant Relationship Specialty Start Date End Date Serjio Raymond APRN.[employer]ILM DUPLICATING UNIT SUPERVISOR [address] [place] [id number] PCP - General Internal Medicine 01/04/23 Software Developer Consultant Relationship Specialty Start Date End Date Serjio Raymond APRN.MICROFILM DUPLICATING UNIT SUPERVISOR [address] [place] [phone] PCP - General Internal Medicine 01/04/23 Software Developer Consultant Relationship Specialty Start Date End Date Serjio Raymond APRN.MICROFILM DUPLICATING UNIT SUPERVISOR [address] [place] [phone] PCP - General Internal Medicine 01/04/23 Software Developer Consultant Relationship Specialty Start Date End Date Serjio Raymond APRN.MICROFILM DUPLICATING UNIT SUPERVISOR [address] [place] [address] PCP - General Internal Medicine 01/04/23 Software Developer Consultant Relationship Specialty Start Date End Date Serjio Raymond APRN.MICROFILM DUPLICATING UNIT SUPERVISOR [address] [place] [address] PCP - General Internal Medicine 01/04/23 Software Developer Consultant Relationship Specialty Start Date End Date Serjio Raymond APRN.MICROFILM DUPLICATING UNIT SUPERVISOR [address] [place] [id number] PCP - General Internal Medicine 01/04/23 Software Developer Consultant Relationship Specialty Start Date End Date Serjio Raymond APRN.MICROFILM DUPLICATING UNIT SUPERVISOR [address] [place] [address] PCP - General Internal Medicine 01/04/23 Software Developer Consultant Relationship Specialty Start Date End Date Serjio Raymond APRN.MICROFILM DUPLICATING UNIT SUPERVISOR [address] [place] [phone] PCP - General Internal Medicine 01/04/23 Software Developer Consultant Relationship Specialty Start Date End Date Serjio Raymond APRN.MICROFILM DUPLICATING UNIT SUPERVISOR [address] [place] [address] PCP - General Internal Medicine 01/04/23 Software Developer Consultant Relationship Specialty Start Date End Date Serjio Raymond APRN.MI[employer]ILM DUPLICATING UNIT SUPERVISOR [address] [place] [phone] PCP - General Internal Medicine 01/04/23 Team Status: Active Member Role Status Dates No Primary Care Physician Family Provider Active Serjio Raymond TRUCKING MANAGER, TRUCKING MANAGER-C Primary Care Provider Active Team Status: Inactive Member Role Status Dates Dr. Buddy Botello DO Emergency Provider Active Serjio Raymond TRUCKING MANAGER, TRUCKING MANAGER-C Primary Care Provider Active Team Status: Inactive Member Role Status Dates Serjio Raymond TRUCKING MANAGER, TRUCKING MANAGER-C Primary Care Provider Active Rafa Medina MD Emergency Provider Active Software Developer Consultant Relationship Specialty Start Date End Date Serjio Raymond APRN.MICROFILM DUPLICATING UNIT SUPERVISOR [address] [place] [address] PCP - General Internal Medicine 01/04/23 Software Developer Consultant Relationship Specialty Start Date End Date Serjio Raymond APRN.MICROFILM DUPLICATING UNIT SUPERVISOR [address] [place] [phone] PCP - General Internal Medicine 01/04/23 Software Developer Consultant Relationship Specialty Start Date End Date Serjio Raymond APRN.MICROFILM DUPLICATING UNIT SUPERVISOR [address] [place] [phone] PCP - General Internal Medicine 01/04/23 Software Developer Consultant Relationship Specialty Start Date End Date Serjio Raymond APRN.MICROFILM DUPLICATING UNIT SUPERVISOR [address] [place] [address] PCP - General Internal Medicine 01/04/23 Software Developer Consultant Relationship Specialty Start Date End Date Serjio Raymond APRN.MICROFILM DUPLICATING UNIT SUPERVISOR [address] [place] [address] PCP - General Internal Medicine 01/04/23 Software Developer Consultant Relationship Specialty Start Date End Date Serjio Raymond APRN.MICROFILM DUPLICATING UNIT SUPERVISOR [address] [place] [address] PCP - General Internal Medicine 01/04/23 Software Developer Consultant Relationship Specialty Start Date End Date Serjio Raymond APRN.MICROFILM DUPLICATING UNIT SUPERVISOR [address] [place] [phone] PCP - General Internal Medicine 01/04/23 Software Developer Consultant Relationship Specialty Start Date End Date Serjio Raymond APRN.MICROFILM DUPLICATING UNIT SUPERVISOR [address] [place] [address] PCP - General Internal Medicine 01/04/23 Software Developer Consultant Relationship Specialty Start Date End Date Serjio Raymond APRN.MICROFILM DUPLICATING UNIT SUPERVISOR [facility] [place] [address] PCP - General Internal Medicine 01/04/23 Software Developer Consultant Relationship Specialty Start Date End Date Serjio Raymond APRN.MICROFILM DUPLICATING UNIT SUPERVISOR [address] [place] [address] PCP - General Internal Medicine 01/04/23 Software Developer Consultant Relationship Specialty Start Date End Date Serjio Raymond APRN.MICROFILM DUPLICATING UNIT SUPERVISOR [address] [place] [address] PCP - General Internal Medicine 01/04/23 Software Developer Consultant Relationship Specialty Start Date End Date Serjio Raymond APRN.MICROFILM DUPLICATING UNIT SUPERVISOR [address] [place] [address] PCP - General Internal Medicine 01/04/23 Software Developer Consultant Relationship Specialty Start Date End Date Serjio Raymond APRN.MICROFILM DUPLICATING UNIT SUPERVISOR [address] [facility] [place] [address] PCP - General Internal Medicine 01/04/23 Software Developer Consultant Relationship Specialty Start Date End Date Serjio Raymond APRN.MICROFILM DUPLICATING UNIT SUPERVISOR [address] [facility] [place] [address] PCP - General Internal Medicine 01/04/23 Software Developer Consultant Relationship Specialty Start Date End Date Serjio Raymond APRN.MICROFILM DUPLICATING UNIT SUPERVISOR [address] [facility] [place] [address] PCP - General Internal Medicine 01/04/23 Software Developer Consultant Relationship Specialty Start Date End Date Serjio Raymond APRN.MICROFILM DUPLICATING UNIT SUPERVISOR [address] [facility] [place] [address] PCP - General Internal Medicine 01/04/23 Software Developer Consultant Relationship Specialty Start Date End Date Serjio Raymond APRN.MICROFILM DUPLICATING UNIT SUPERVISOR [address] [facility] [place] [address] PCP - General Internal Medicine 01/04/23 Team Status: Active Member Role/Relationship Status Dates Serjio Raymond TRUCKING MANAGER, TRUCKING MANAGER-C Primary Care Provider Active Team Status: Inactive Member Role/Relationship Status Dates Serjio Raymond TRUCKING MANAGER, TRUCKING MANAGER-C Primary Care Provider Active Start: May 04, 2025 End: May 04, 2025 Dr. Shade Matta , DO Emergency Provider Active Start: May 04, 2025 End: May 04, 2025 Software Developer Consultant Relationship Specialty Start Date End Date Serjio Raymond APRN.MICROFILM DUPLICATING UNIT SUPERVISOR [address] [facility] [place] [address] PCP - General Internal Medicine 01/04/23 Software Developer Consultant Relationship Specialty Start Date End Date Krista Gibson MD [address] [place] [address] PCP - General Internal Medicine 05/24/25 INFORMATION SOURCE (unrecogn ized section and content) DATE CREATED AUTHOR 05/27/2025 [facility] DATE CREATED AUTHOR AUTHOR'S ORGANIZ ATION 05/29/2025 [facility] FOR RECORDS PERTAINING TO PATIENTS WHO ARE [...] BE BASED ON THE PRIMARY CLINICAL RECORDS. [facility]. provides no warranty or guarantee of the accuracy or completeness of information in this document.
[2025-07-03 00:01] LABS: Hematocrit 44.5 % (37-47); Hemoglobin 14.8 g/dL (12.0-15.0); Immature Granulocytes Count 0.080 X10^3/uL (0.0-0.0); Mean Corp Hgb Conc 33.3 g/dL (32-36); Mean Corpuscular Volume 82.0 fL (81-99); Mean Platelet Vol. 12.5 fl (6.2-12.0); NRBC Flagged by Analyzer 0 % (0-5); Platelet Count 197 K/mm3 (150-450); RBC Distribution Width CV 15.1 % (11.6-14.6); RBC Distribution Width SD 45.1 fl (35.1-43.9); Red Blood Count 5.43 M/mm3 (4.2-5.4); White Blood Count 11.4 K/mm3 (4.4-11.0)
[2025-07-03 00:04] LABS: AST(SGOT) 27 U/L (<=31); Alanine Aminotransfer ALT/SGPT 21 U/L (<=34); Albumin, Serum 3.8 g/dL (3.5-5.0); Alkaline Phosphatase 72 U/L (35-104); Anion Gap 13 (5-15); BUN 6 mg/dL (4-19); BUN/Creat Ratio 7.2 RATIO (10-20); Bilirubin, Direct 0.55 mg/dL (0.00-0.30); Calcium,Total 8.8 mg/dL (7.6-11.0); Carbon Dioxide 23.2 mmol/L (21.0-32.0); Chloride 100 mmol/L (98-108); Estimated Creatinine Clearance 96.47 ml/min (50-250); Globulin 2.1 g/dL (2.2-4.2); Glucose 234 mg/dL (70-99); Lipase 47 U/L (13-75); Potassium 3.4 mmol/L (3.3-5.1)
[2025-07-03 00:11] LABS: Internal QC Validated? YES +Cl - CLEAR BKGD; Pregnancy, Serum, hCG Quali. NEGATIVE Negative; Record Kit Lot#, Serum Preg. 0000980607
[2025-07-03 00:43] VITALS: PULSE 50; RESP 14; O2SAT 98
[2025-07-03 01:11] LABS: Color, Urine Amber (Yellow); Glucose, Dipstick Normal (Normal); Ketone-Dipstick 50 mg/dl (Negative); Leukocyte Esterase-Dipstick 25 /ul (Negative); Nitrite-Dipstick Negative (Negative); Occult Blood-Urine 25 /ul (Negative); Protein-Dipstick 30 mg/dl (Negative); Specific Gravity, Urine 1.020 (1.002-1.030)
[2025-07-03] MEDS: 0.9% Normal Saline (1000mL) 1,000 ML 999 ML IV (01:11)
[2025-07-03 01:17] LABS: Urine Bilirubin Dipstick 3 mg/dL (Negative)
--- NOTE | 2025-07-03 01:25 | CT_ITS ---
PROCEDURE: ABDOMEN/PELVIS W IV CONT ONLY 07/02/2025 REASON FOR EXAM: ABD PAIN TECHNIQUE: Procedure Code: [id number] Modality: CT Procedure: ABDOMEN/PELVIS W IV CONT ONLY Coronal and Sagittal reconstruction series were provided. CONTRAST: 100 mL of Isovue 370 One or more dose reduction techniques were used (e.g., Automated exposure control, adjustment of the mA and/or kV according to patient size, use of iterative reconstruction technique. RADIATION DOSE SUMMARY: DLP: 483 mGycm COMPARISON: 05/04/2025 FINDINGS: Limited sections of the lung bases demonstrate no focal pulmonary mass or consolidations. The liver, spleen, pancreas, and both adrenal glands demonstrate no acute findings. Hepatomegaly to 18.8 cm. Splenomegaly. The gallbladder is unremarkable. The stomach is unremarkable. The appendix is normal. Scattered small bowel wall thickening and inflammation. Extensive thickening and inflammation about the sigmoid colon and rectal wall. Together, findings likely reflect enterocolitis. Moderate constipation. No bowel obstruction. Mild pelvic free fluid. No free air. Tiny right renal nonobstructive stone. Otherwise bilateral kidneys are unremarkable. The urinary bladder is partially distended. The pelvic structures are intact. 1.0 x 1.0 cm left ovarian cyst. No significant lymphadenopathy. The aorta and IVC demonstrate no acute findings. Visualized osseous structures demonstrate no acute abnormality. CT/Abdomen/Pelvis W IV Cont ONLY IMPRESSION: Scattered small bowel wall thickening and inflammation. Extensive thickening a nd inflammation about the sigmoid colon and rectal wall. Together, findings likely reflect enterocolitis. Moderate constipation. No bowel obstruction. Reading Location: [id number]
[2025-07-03 01:35] LABS: Mucous, Urine RARE /hpf (<or=2+); Red Blood Cells-Urine 0-5 SEEN /hpf (0-5); Squamous Epithelial Cells - UA 5-10 SEEN /hpf (5-10); Transitional Epithelial - Ur 0-5 SEEN /hpf (0-5)
[2025-07-03 01:47] VITALS: BP 110/70; PULSE 47
[2025-07-03 02:04] VITALS: BP 118/63; PULSE 42; O2SAT 98
--- NOTE | 2025-07-03 02:32 | EDS_ITS ---
HPI History of Present Illness Chief Complaint: General Illness Informant: patient and spouse/S.O. Narrative Narrative: Patient is a 29-year-old female with past medical history of bipolar disorder and anxiety. She states that she is not on control but has not had a menstrual cycle for 5-month. She states during this time she has checked for and has been negative. She states that today she has been having significant lower abdominal cramping and pain. She states she feels like she needs to urinate but cannot do so. She states at this time there is minimal vaginal bleeding. She denies any vaginal discharge or lesions or concern for STD. However because of the persistent and worsening pain she has concern for potential infection and comes in for evaluation [facility] Medical History Bipolar disorder History of anxiety History of alcohol abuse Anxiety Vaginal delivery Marijuana abuse Home Medications ?Medication ?Instructions ?Recorded ?Last Taken ?Type sulfamethoxazole 800 1 tab PO BID #6 TABLETS 05/14 Unknown Rx mg-trimethoprim 160 mg tablet amoxicillin 875 mg-potassium 1 tab PO BID 7 days #14 t abs 07/03/25 Unknown Rx clavulanate 125 mg tablet polyethylene glycol 3350 17 17 g PO DAILY PRN constipa tion 07/03/25 Unknown Rx gram/dose oral powder (Miralax) #510 grams Allergy/AdvReac Type Severity Reaction Status Date / Time No Known Allergies Allergy Verified 07/02/25 22:46 Surgical History History of surgery Social History Smoking Status: Current every day smoker tobacco type: e-cigarettes Electronic Cigarette Use: with nicotine ROS ROS ED Constitutional Constitutional ED: Denies chills or fever(s) ENT ENT ED: Denies sore throat Cardiovascular Cardiovascular: Denies chest pain Respiratory/Chest Respiratory/Chest: Denies cough or dyspnea Gastrointestinal Gastrointestinal: Reports abdominal pain; Denies diarrhea, nausea or vomiting Genitourinary Genitourinary ED: Reports other Details: Negative vaginal discharge or genital lesions Positive urinary hesitancy ; Denies dysuria or urinary frequency Musculoskeletal Musculoskeletal: Denies back pain or myalgias Integumentary Denies rash Neurologic Neurologic: Denies headache(s) Hematologic/Lymphatic Hematologic/Lymphatic: Denies easy bleeding or easy bruising EXAM Physical Exam Const Vital Signs: 07/02/25 22:43 07/02/25 23:02 07/03/25 00:43 Temperature 98.6 F Temperature Source Oral Pulse Rate 85 50 L Respiratory Rate 16 14 Respiratory Pattern Normal Blood Pressure 92/67 Blood Pressure Mean 75 Pulse Ox 98 98 Oxygen Delivery Method Room Air Room Air 07/03/25 01:47 07/03/25 02:04 07/03/25 02:33 Temperature 98.6 F Temperature Source Pulse Rate 47 L 42 L 53 L Respiratory Rate 16 Respiratory Pattern Blood Pressure 110/70 118/63 118/63 Blood Pressure Mean 83 81 81 Pulse Ox 98 99 Oxygen Delivery Method Room Air Positive well nourished and well developed General Appearance ED: well developed; Negative for pallor HEENT HEENT Narrative: Normocephalic atraumatic Eyes PERRL and EOMs intact bilaterally General Eye ED: Negative for scleral icterus Neck supple Neck Narrative: No nuchal rigidity or meningeal signs Resp normal respiratory effort and clear to auscultation bilaterally Cardio regular rate and regular rhythm Rate: other Other Details: No murmurs rubs or gallop Radial and carotid pulses are equal and symmetric GI non-distended and no masses GI Narrative: Abdomen is soft and nondistended with hypoactive bowel sounds Patient has pain with palpation in the suprapubic and left lower quadrant region No voluntary guarding or rigidity. No pulsatile mass. No peritoneal sign No organomegaly noted to suggest urinary retention. Auscultation: hypoactive bowel sounds Palpation: soft Extremity normal to inspection Neuro oriented x3, CN's II-XII intact bilaterally and no sensory deficits noted Sensorium / Orientation: alert Motor Exam: strength 5/5 throughout Psych Psych Narrative: Patient has a flat affect Skin no rashes or lesions noted and no wounds General Skin Exam: Negative for jaundice or pallor MDM MDM MDM Narrative Medical decision making narrative: Patient arrived to the ER afebrile. She reported roughly 1 day of increasing lower abdominal pain. With report of 5 months without a menstrual cycle there is concern this could be related. Patient also may have UTI as the reported sensation of difficulty urinating. There is concern for constipation versus intestinal infection such as colitis or diverticulitis. As she denies any vaginal lesions or discharge I have low concern for pelvic inflammatory disease. As her test was negative low concern for complication such as ectopic or active miscarriage. Blood work revealed no clinically significant findings such as acute kidney injury or clinically significant electrolyte abnormality. Urine sample showed +2 bacteria but there was contamination with 5-10 skin cells and she does not have dysuria therefore I do not feel this is truly an infection. Bladder scan correlated with her physical exam showing no sign of acute retention. With persistent pain I did check a CT scan with IV contrast. This showed inflammation of the lower colon consistent with enterocolitis but no signs of obstruction perforation or abscess. It also documented constipation. At this time as she does not have findings for systemic infection by laboratory studies. She does not have a complication such as ectopic or active miscarriage and CT scan does not reveal surgical intervention such as intestinal perforation obstruction or abscess I do not feel the need to keep the patient in the ER any further. I do feel her enterocolitis is most likely viral in nature but in order to ensure it is not bacterial I will place her on a short round of Augmentin. I will hold off on pain medication as she is already displaying constipation on the CT scan and this could worsen her symptoms and therefore she will be advised to take Tylenol and Motrin and placed on MiraLAX to help with the constipation aspect. On reevaluation blood pressure is stable she is afebrile her abdomen remains soft and nonsurgical and therefore she is otherwise safe for discharge. History & Record Review Discussion w/independent historian: Patient and Significant other Lab Data Attestation: I reviewed the patient's lab results. Labs: Laboratory Results - last 24 hr 07/02/25 07/03/25 23:38 01:01 WBC 11.4 H RBC 5.43 H Hgb 14.8 Hct 44.5 MCV 82.0 MCH 27.3 MCHC 33.3 RDW Std Deviation 45.1 H RDW Coeff of Kana 15.1 H Plt Count 197 MPV 12.5 H Immature Gran % (Auto) 0.700 Neut % (Auto) 71.8 H Lymph % (Auto) 16.5 L [place] % (Auto) 5.4 Eos % (Auto) 5.0 Baso % (Auto) 0.6 Absolute Neuts (auto) 8.2 H Absolute Lymphs (auto) 1.87 Nucleated RBC % 0 Sodium 136 Potassium 3.4 Chloride 100 Carbon Dioxide 23.2 Anion Gap 13 BUN 6 Creatinine 0.82 Estim Creat Clear Calc 96.47 Est GFR (MDRD) Non-Af 101 BUN/Creatinine Ratio 7.2 L Glucose 234 H Calcium 8.8 Total Bilirubin 1.08 Direct Bilirubin 0.55 H AST 27 ALT 21 Alkaline Phosphatase 72 Total Protein 5.9 Albumin 3.8 Globulin 2.1 L Lipase 47 Serum , Qual NEGATIVE Urine Color Jackelin Urine Clarity Sl. Cloudy Urine pH 6.0 Ur Specific [place] 1.020 Urine Protein 30 H Urine Glucose (UA) Normal Urine Ketones 50 H Urine Occult Blood 25 H Urine Nitrite Negative Urine Bilirubin 3 H Urine Urobilinogen 4 H Ur Leukocyte Esterase 25 H Urine RBC 0-5 SEEN Urine WBC 0-5 SEEN Ur Squamous Epith Cells 5-10 SEEN Ur Transition Epith Cell 0-5 SEEN Urine Bacteria 2+ Hyaline Casts 5-10 SEEN Urine Mucus RARE Radiography Diagnostic Testing: Clinical Impression(s) from Imaging Studies Abdomen/Pelvis CT 07/03/25 01:25 IMPRESSION: Scattered small bowel wall thickening and inflammation. Extensive thickening and inflammation about the sigmoid colon and rectal wall. Together, findings likely reflect enterocolitis. Moderate constipation. No bowel obstruction. Reading Location: [facility] Discharge Plan Triage Chief Complaint: General Illness ED Provider: Hoang Anderson Dx/Rx/DC Orders Clinical Impression: Enterocolitis, Constipation, Bipolar disorder, Anxiety Instructions: Colitis, ED Constipation (Adult) Prescriptions: New amoxicillin-pot clavulanate 875-125 mg tablet 1 tab PO BID 7 Days Qty: 14 0RF polyethylene glycol 3350 [Miralax] 17 gram/dose powder 17 g PO DAILY PRN (Reason: constipation) Qty: 510 0RF No Action sulfamethoxazole-trimethoprim 800-160 mg tablet 1 tab PO BID Qty: 6 0RF Primary Care Provider: Yahaira Montero NP Referrals: Yahaira Montero NP, LECT[employer]ER IN COMPUTER SCIENCE-C [Primary Care Provider, Family Practice] Activity Restrictions/Additional Instructions: Your CT scan showed inflammation of your lower intestine and this is consistent with enterocolitis. This is most likely caused by a virus which should resolve spontaneously in the next few days. However in order to ensure it is not from a bacterial source we will place you on Augmentin to cover for this. You also have constipation on CT scan which could worsen your symptoms. Therefore stay well-hydrated and take the MiraLAX daily as directed to help resolve const ipation. Return to the ER should you have any further concerns or worsening of symptoms despite treatment Print Language: Zimbabwean Disposition Disposition: Home, Self Care Discharge Date/Time: 07/03/25 03:17
[2025-07-03 02:33] VITALS: BP 118/63; PULSE 53; RESP 16; TEMP 37; O2SAT 99
== END 2025-07-03 03:17 | disposition home or self-care (01) ==
PROVIDERS: Emergency Provider Emergency Medicine; PCP Internal Medicine; Visit Provider Emergency Medicine
DX: K52.9 Noninfective gastroenteritis and colitis, unspecified (principal); F31.9 Bipolar disorder, unspecified; K59.00 Constipation, unspecified; F41.9 Anxiety disorder, unspecified; F17.290 Nicotine dependence, other tobacco product, uncomplicated; Z79.3 Long term (current) use of hormonal contraceptives
CPT/HCPCS: 74177; 80048; 80076; 81001; 83690; 84703; 85025; 96361; 96374; 96375; 96376; 99284; Q9967; A4216; J2405